=== PATIENT | male | born 1940 | race Caucasian/White ===

== ENCOUNTER 2020-03-19 08:54 | Outpatient (REF) | payer MEDICARE, SELFPAY ==
[2020-03-19 10:38] LABS: MANUAL DIFF FLAG NO
[2020-03-19 10:51] LABS: Basophils Absolute Auto 0.1 X10*3/uL (0.0-0.2); Basophils Percent Auto 0.5 % (0-2); Eosinophils Absolute Auto 0.2 X10*3/uL (0.0-0.4); Eosinophils Percent Auto 1.2 % (0-4); Hematocrit 41.4 % (42-52); Hemoglobin 13.4 g/dl (14.0-18.0); Imm Gran Abs Auto 0.04 X10*3/uL (0.00-0.03); Imm Gran Pct Auto 0.3 % (0.0-0.4); Lymphocytes Absolute Auto 3.8 X10*3/uL (1.2-4.9); Lymphocytes Percent Auto 29.1 % (20-40); Mean Corpuscular HGB Conc 32.4 g/dl (31.0-36.0); Mean Corpuscular Volume 89.6 fL (80-98); Mean Platelet Volume 10.7 fL (9.4-12.4); Monocytes Absolute Auto 0.8 X10*3/uL (0.1-1.2); Neutrophils Absolute Auto 8.3 X10*3/uL (2.0-8.3); Neutrophils Percent Auto 62.9 % (45-73); Platelet Count 294 X10*3/uL (160-400); Red Blood Count 4.62 X10*6/uL (4.60-5.80); Red Cell Distribution Width 14.5 % (11.0-16.0); White Blood Count 13.2 X10*3/uL (4.8-10.8)
[2020-03-19 11:16] LABS: Alanine Aminotransferase 22 U/L (0-40); Albumin Level 4.6 g/dL (3.5-5.0); Alkaline Phosphatase 92 U/L (39-117); Anion Gap 14 (12-20); Aspartate Amino Transferase 20 U/L (5-37); Bilirubin Total 0.6 mg/dL (0.0-1.0); Blood Urea Nitrogen 21 mg/dL (9-16); Calcium 9.3 mg/dL (8.4-10.2); Carbon Dioxide 23 mmol/L (22-29); Chloride 104 mmol/L (96-108); Cholesterol 106 mg/dL; Estimated Glomerular Filt Rate > 60; Glucose Fasting 109 mg/dL (60-99); HDL Cholesterol 51 mg/dL; LDL Cholesterol Calculated 39 mg/dl; Potassium 4.6 mmol/l (3.3-5.1); Sodium 136 mmol/L (135-145); Total Protein 7.1 g/dL (6.5-8.0); Triglycerides 83 mg/dL
[2020-03-19 11:21] LABS: Prostate Specific Antigen 18.23 ng/mL (<0.05-4.0); Vitamin D 25-OH Total 15.9 ng/mL (>30)
== END 2020-03-19 08:55 | disposition home or self-care (01) ==
LOC: HO.LAB 08:54
PROVIDERS: PCP Internal Medicine Medical Oncology; Visit Provider Internal Medicine Medical Oncology
DX: E78.5 Hyperlipidemia, unspecified (principal); I10 Essential (primary) hypertension
CPT/HCPCS: 36415; 80053; 80061; 82306; 84153; 85025

== ENCOUNTER → 2020-04-11 10:45 | Outpatient (BNVA) | payer MEDICARE, SELFPAY | PROVIDERS: PCP Internal Medicine Medical Oncology; Visit Provider Urology | DX: Z76.89 Persons encountering health services in other specified circumstances (principal) | CPT/HCPCS: 99202 ==

== ENCOUNTER 2020-05-06 19:20 | Inpatient (IN) | payer MEDICARE, SELFPAY ==
[2020-05-06] VITALS (7 sets, daily range): BP systolic 105–186; BP diastolic 46–101; PULSE 83–180; RESP 16–18; TEMP 36.9; O2SAT 96–100; BMI 26.1
--- NOTE | 2020-05-06 19:27 | ECG_ITS ---
Test Reason : ALTERED MENTAL Blood Pressure : / mmHG Vent. Rate : 116 BPM Atrial Rate : 116 BPM P-R Int : 154 ms QRS Dur : 100 ms QT Int : 322 ms P-R-T Axes : 060 007 029 degrees QTc Int : 447 ms Sinus tachycardia Nonspecific ST and T wave abnormality Abnormal ECG No previous ECGs available Referred By: Rusty Reid Electronically Signed By:TEDDY FROST MD
--- NOTE | 2020-05-06 19:27 | XR_ITS ---
EXAMINATION: XR CHEST CLINICAL INFORMATION: Fall with chest pain and question of fracture/pneumothorax COMPARISON: None TECHNIQUE: Frontal view of the chest was obtained. FINDINGS: No significant abnormality is noted involving the heart, lungs, mediastinum, bony thorax or soft tissues. No rib fractures or pneumothorax is seen. XR/XR chest 1V IMPRESSION: No acute intrathoracic disease.
--- NOTE | 2020-05-06 19:29 | CT_ITS ---
EXAMINATION: CT HEAD WITHOUT CONTRAST CT CERVICAL SPINE WITHOUT CONTRAST CLINICAL INFORMATION: Fall. Confusion. COMPARISON: CT head 01/24/2018 TECHNIQUE: Imaging was performed from the skull base to vertex without intravenous administration of contrast. In addition, helical noncontrast CT imaging was acquired through the cervical spine and source images were reviewed along with axial reconstructions and sagittal and coronal MPRs. [This CT examination was performed using dose optimization techniques as appropriate, variously including the following: *Automated exposure control *Adjustment of mA and/or kV according to patient size (this includes techniques or standardized protocols for targeted exams where dose is matched to indication/reason for exam; i.e. 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 No acute intracranial abnormality. No intracranial mass, hemorrhage, or midline shift is visualized. There is atrophy with prominence of the ventricles and the sulci and hypodensity of the periventricular white matter due to chronic small vessel ischemic disease. There are vascular calcifications of the internal carotid arteries bilaterally. No extra-axial collections are identified. The paranasal sinuses and mastoid air cells are well aerated. CERVICAL SPINE: There is no evidence of acute cervical spine fracture. Vertebral bodies remain normal in height. Cervical vertebrae have normal alignment. There is advanced multilevel degenerative spondylosis of the cervical spine with disc height narrowing and endplate spurs and facet joint arthrosis There are heavy vascular calcification of the carotid arteries in the soft tissues of the neck bilaterally. Limited assessment of the lung apices is unremarkable. Degenerative changes of the TMJ joints left bilateral, left worse than right. CT/CT cervical spine wo con IMPRESSION: 1. No acute intracranial pathology. 2. No CT evidence of acute cervical spine fracture or traumatic subluxation
--- NOTE | 2020-05-06 19:36 | PC.NURSE ---
pt combative, refusing to communicate, pt pulled off pants and urinated onto bed, cardiac montitor applied sinus tach 116, vitals stable, pt currently alert to self
--- NOTE | 2020-05-06 19:46 | PC.NURSE ---
pt return from ct scan
[2020-05-06 20:29] LABS: Basophils Percent Auto 0.2 % (0-2); Hemoglobin 12.9 g/dl (14.0-18.0); Imm Gran Abs Auto 0.07 X10*3/uL (0.00-0.03); Imm Gran Pct Auto 0.4 % (0.0-0.4); MANUAL DIFF FLAG SCAN; Mean Corpuscular HGB Conc 33.1 g/dl (31.0-36.0); Mean Corpuscular Hemoglobin 29.5 pg (27.0-33.0); Mean Corpuscular Volume 89.2 fL (80-98); Mean Platelet Volume 10.8 fL (9.4-12.4); Monocytes Absolute Auto 0.8 X10*3/uL (0.1-1.2); Monocytes Percent Auto 4.1 % (2-11); Neutrophils Absolute Auto 17.5 X10*3/uL (2.0-8.3); Neutrophils Percent Auto 90.3 % (45-73); Platelet Count 219 X10*3/uL (160-400); Red Blood Count 4.37 X10*6/uL (4.60-5.80); Red Cell Distribution Width 13.8 % (11.0-16.0); SCAN SMEAR FLAG 1; White Blood Count 19.4 X10*3/uL (4.8-10.8)
[2020-05-06] MEDS: 0.9 % Sodium Chloride 1,000 ML 999 ML IVCONT (20:31)
--- NOTE | 2020-05-06 20:32 | PC.NURSE ---
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
[2020-05-06 20:34] LABS: Glucose Urine UA NEG (NEG); Leukocyte Esterase Urine NEG (NEG); Nitrite Urine NEG (NEG); Specific Gravity - Urine >= 1.030 (1.005-1.025); Urine Blood 2+ (NEG); Urine Ketones 15 MG/DL (NEG); Urine Protein NEG (NEG-TRACE)
[2020-05-06 20:36] LABS: Appearance Urine HAZY; Color Urine YELLOW
[2020-05-06 20:48] LABS: Bacteria Urine 1+ /LPF; RBC Urine 0-2 /HPF (0); Uric Acid Crystals Urine 3+ /LPF; WBC Urine 0 /HPF (0-4)
[2020-05-06 20:51] LABS: Lactic Acid 1.8 mmol/L (0.5-2.0); SLIDE REVIEW VERIFIED
[2020-05-06 20:54] LABS: Ethanol < 10 mg/dL
[2020-05-06 20:57] LABS: Alanine Aminotransferase 27 U/L (0-40); Albumin Level 4.4 g/dL (3.5-5.0); Alkaline Phosphatase 82 U/L (39-117); Anion Gap 19 (12-20); Aspartate Amino Transferase 23 U/L (5-37); Bilirubin Total 0.4 mg/dL (0.0-1.0); Blood Urea Nitrogen 17 mg/dL (9-16); Calcium 8.6 mg/dL (8.4-10.2); Carbon Dioxide 18 mmol/L (22-29); Chloride 106 mmol/L (96-108); Creatinine Clr Calc Pharmacy 65.1; Estimated Glomerular Filt Rate > 60; Glucose Random 116 mg/dL (60-115); Lipase 29 U/L (8-78); Potassium 4.4 mmol/l (3.3-5.1); Sodium 139 mmol/L (135-145); Total Protein 6.8 g/dL (6.5-8.0)
[2020-05-06 20:59] LABS: Troponin-I High Sensitivity 15.7 ng/L (<3.5-35.0)
[2020-05-06 21:07] LABS: Amphetamine Screen Urine Not Detected (Not Detect); Barbiturates, Urine Not Detected (Not Detect); Benzodiazepines Screen Urine Not Detected (Not Detect); Cannabinoid Screen Urine POSITIVE (Not Detect); Cocaine Screen Urine Not Detected (Not Detect); Opiate Screen Urine Not Detected (Not Detect); Phencyclidine Screen Urine Not Detected (Not Detect)
[2020-05-06 21:17] LABS: Influenza A PCR NEGATIVE (Negative); Influenza B PCR NEGATIVE (Negative); Resp Syncy Virus RNA Qual PCR NEGATIVE (Negative); SARS COV2 PCR INHOUSE NEGATIVE (Negative)
--- NOTE | 2020-05-06 21:24 | ED.GENADULT ---
HPI - General Adult General Chief complaint: Fall Stated complaint: altered mental status Time Seen by Provider: 05/06/20 19:27 History of Present Illness HPI narrative: 79-year-old male brought into the emergency department by EMS for evaluation of a fall and altered level of consciousness. Paramedics state that the patient fell at home and activated his lifeline. When they arrived at the scene, the patient appeared to be confused. Patient's systolic blood pressure at the scene was 180, pulse was 120, O2 saturation was 100% on room air. The patient was noted to be on Plavix. Point of care glucose was 179. On presentation to the emergency department the patient was oriented to person and place. He knew the month and year as well. He appeared to be agitated and seemed to be picking at objects that were not there. He would answer most questions appropriately but occasionally would appear confused. The patient did tell me that he drinks alcohol daily but in moderation. He could not tell me when he last drank alcohol. He denies headache, nausea, vomiting, fever, chills, chest pain, abdominal pain, painful urination, frequency. Related Data Home Medications Medication Instructions Recorded Confirmed lacosamide 100 mg tablet 100 mg PO BID 04/11/20 sulfamethoxazole 800 1 tab PO BID 04/11/20 mg-trimethoprim 160 mg tablet amlodipine 1 tab PO DAILY 05/06/20 05/06/20 atorvastatin 1 tab PO DAILY 05/06/20 05/06/20 cholecalciferol (vitamin D3) tab PO DAILY 05/06/20 [Vitamin D3] clopidogrel 1 tab PO DAILY 05/06/20 05/06/20 dicyclomine 1 tab PO TID 05/06/20 05/06/20 latanoprost 1 drp OPHTHALMIC (EYE) BEDTIME 05/06/20 05/06/20 lisinopril 1 tab PO BID 05/06/20 05/06/20 tamsulosin 1 cap PO BEDTIME 05/06/20 05/06/20 timolol maleate 1 drp OPHTHALMIC (EYE) BID 05/06/20 05/06/20 Allergies Allergy/AdvReac Type Severity Reaction Status Date / Time No Known Allergies Allergy Verified 04/11/20 11:55 [No Known Allergies*] Review of Systems Review of Systems: Yes all other systems are reviewed and are negative Constitutional: Constitutional: Reports as per HPI Eyes: Eyes: Reports as per HPI ENT: Reports as per HPI Cardiovascular: Cardiovascular: Reports as per HPI Respiratory: Respiratory: Reports as per HPI Gastrointestinal: Gastrointestinal: Reports as per HPI Genitourinary: Genitourinary: Reports as per HPI Musculoskeletal: Musculoskeletal: Reports as per HPI Integumentary/Breasts: Skin/Breast: Reports as per HPI Neurologic: Reports as per HPI, Reports Abnormal speech present and Reports confusion Psychiatric: Psychiatric: Reports as per HPI and Reports confusion Allergic/Immunologic: Allergic/Immunologic: Reports as per HPI [facility] Past Medical History [facility] Narrative: The patient told me that he lives alone, he does drink alcohol daily but in moderation, he denied drug use. He does smoke cigarettes. Medical History High cholesterol HTN (hypertension) Social History Social History Smoking Status: Unknown if ever smoked Advance Directives: No Advance Directives Information Provided: Yes Physical Exam Vital Signs: Vital Signs: Last Vital Signs Temp 98.4 F 05/06/20 19:24 Pulse 97 05/06/20 23:22 Resp 16 05/06/20 23:22 BP 120/53 L 05/06/20 23:22 Pulse Ox 98 05/06/20 23:22 Body Mass Index 26.1 Const: General: no acute distress, well developed, awake, confusion and poor hygiene Orientation/consciousness: oriented to person, oriented to place, oriented to time and confusion HENMT: Head: Yes normal to inspection, Yes normocephalic and Yes atraumatic Face and sinus: Yes normal facial exam Mouth: other (Very dry mucous membranes, very poor dentition) Teeth and gingiva: caries and poor dentition Throat: Yes uvula midline Eyes: General: appearance normal, both eyes and all related structures Eyelids: Yes eyelids normal Sclerae: sclerae normal Pupils: Equal, round and reactive pupils present Neck: Neck: Yes normal visual inspection and Yes other (Tender C-spine) Chest: Chest palpation & inspection: normal inspection of the chest and normal palpation of entire chest wall Resp: Effort & Inspection: normal respiratory effort and able to speak in complete sentences Auscultation: clear to auscultation bilaterally Cardio: Rate: tachycardic Rhythm: regular rhythm Heart sounds: S1 normal heart sound present and S2 normal heart sound present GI: Inspection: Yes normal to inspection Palpation (GI): Soft to palpation, nontender, no guarding and No hepatosplenomegaly present Back/Spine/Pelvis: Thoracic/Lumbar Spine: thoracic and lumbar spine normal to inspection Skin: Lesions: no lesions Rashes: no rashes Neuro: General: oriented to person, oriented to place, oriented to time and confusion Cranial nerves: Yes CN's II-XII intact bilaterally and Yes Equal, round and reactive pupils present Speech: Abnormal speech present Extrem: Right upper extremity: normal to inspection and full ROM Psych: Appearance: disheveled Speech and movement: Normal speech and movement present, Restless speech present and Other speech and movement exam findings present (Psych) (Seems to be picking at objects in the air that are not there) Course Course Course Narrative: 79-year-old male brought to the emergency department by EMS for a fall and confusion at home. On presentation, the patient did have C-spine tenderness with no obvious head injury, he is oriented to person place and time but did appear to be confused and did appear to be picking at objects that were not there, he was also tachycardic. He does drink alcohol but he states that he drinks in moderation but cannot tell me when he last drank. I did order a workup to include CT head, CT C-spine, laboratory evaluation, urine tox screen, alcohol level and urinalysis. 9964:: CT scan of the brain was unremarkable. CT cervical spine revealed no acute fracture. [place] [address], patient's bicarb was low at 18, urine tox screen was positive for marijuana, alcohol was negative. Urinalysis was negative. Lactic acid was not elevated. The patient became more agitated and pulled out his IV. Concerned that the patient may be withdrawing from alcohol. He required chemical restraint with Haldol 5 mg IM and Ativan 2 mg IM. I will discuss the patient's presentation with the covering hospitalist. [id number]: I did discuss the patient's presentation with the covering hospitalist. He was concerned the patient may have meningitis therefore a lumbar puncture was done by me. These results are pending. I did order 2 sets of blood cultures and ceftriaxone 2 g IV. The hospitalist states that he would like to evaluate the patient in the emergency department prior to considering admission. 0007: The patient is COVID-19 and influenza tests were negative. The patient's CSF microscopic revealed a negative Gram stain, CSF glucose was normal with a slight elevation in his CSF protein. CSF cell count is pending. The patient was evaluated by the covering hospitalist and the patient will be admitted to the hospitalist service on the medical floor for further evaluation of altered mental status. Procedures Lumbar Puncture Time Out Performed: Yes Patient Position: left lateral decubitus Skin Prep: Povidone-Iodine 1% Local Anesthetic: lidocaine 1% Amount of anesthesia used (mL): 3 Spinal Needle Gauge: 22G Interspace Used: L4-L5 Fluid Initially Obtained: clear Complications: none Additional Comments: The patient had an altered level of consciousness and was unable to give consent, given the potential for life-threatening illness such as meningitis, implied consent was assumed and the procedure was done without any complications. The patient did tolerate the procedure well. Medical Decision Making Lab Data Result diagrams: 05/06/20 20:09 05/06/20 20:09 Labs: Lab Results 05/06/20 05/06/20 05/06/20 Range/Units 20:09 20:09 20:09 WBC 19.4 H (4.8-10.8) X10*3/uL RBC 4.37 L (4.60-5.80) X10*6/uL Hgb 12.9 L (14.0-18.0) g/dl Hct 39.0 L (42-52) % MCV 89.2 (80-98) fL MCH 29.5 (27.0-33.0) pg MCHC 33.1 (31.0-36.0) g/dl RDW 13.8 (11.0-16.0) % Plt Count 219 D (160-400) X10*3/uL MPV 10.8 (9.4-12.4) fL Immature Gran % (Auto) 0.4 (0.0-0.4) % Neut % (Auto) 90.3 H (45-73) % Lymph % (Auto) 5.0 L (20-40) % Sunflower % (Auto) 4.1 (2-11) % Eos % (Auto) 0.0 (0-4) % Baso % (Auto) 0.2 (0-2) % Lymph # (Auto) 1.0 L (1.2-4.9) X10*3/uL Sunflower # (Auto) 0.8 (0.1-1.2) X10*3/uL Eos # (Auto) 0.0 (0.0-0.4) X10*3/uL Baso # (Auto) 0.0 (0.0-0.2) X10*3/uL Abs Immat Gran (auto) 0.07 H (0.00-0.03) X10*3/uL Absolute Neuts (auto) 17.5 H (2.0-8.3) X10*3/uL Absolute Nucleated RBC 0.000 (0.0-0.012) X10*3/uL Nucleated RBC % (auto) 0.0 (0.0-0.2) /100WBC Smear Tech's Comments VERIFIED PT Cancelled INR Cancelled APTT Cancelled Sodium 139 (135-145) mmol/L Potassium 4.4 (3.3-5.1) mmol/l Chloride 106 (96-108) mmol/L Carbon Dioxide 18 L (22-29) mmol/L Anion Gap 19 (12-20) BUN 17 H (9-16) mg/dL Creatinine 0.89 (0.5-1.4) mg/dL Estim Creat Clear Calc 65.1 Estimated GFR > 60 Random Glucose 116 H (60-115) mg/dL Lactic Acid (0.5-2.0) mmol/L Calcium 8.6 D (8.4-10.2) mg/dL Total Bilirubin 0.4 (0.0-1.0) mg/dL AST 23 (5-37) U/L ALT 27 (0-40) U/L Alkaline Phosphatase 82 (39-117) U/L Troponin I High Sens (<3.5-35.0) ng/L Total Protein 6.8 (6.5-8.0) g/dL Albumin 4.4 (3.5-5.0) g/dL Lipase 29 (8-78) U/L Urine Color Urine Appearance Urine pH (5.0-8.0) Ur Specific [place] (1.005-1.025) Urine Protein (NEG-TRACE) MG/DL Urine Glucose (UA) (NEG) MG/DL Urine Ketones (NEG) MG/DL Urine Blood (NEG) Urine Nitrite (NEG) Ur Leukocyte Esterase (NEG) Urine RBC (0) /HPF Urine WBC (0-4) /HPF Ur Squamous Epith Cells /LPF Uric Acid Crystals /LPF Urine Bacteria /LPF CSF Tube Number CSF Appearance (b) CSF Glucose mg/dL CSF Total Protein (15-45) mg/dL Urine Opiates Screen (Not Detect) Ur Barbiturates Screen (Not Detect) Ur Phencyclidine Scrn (Not Detect) Ur Amphetamines Screen (Not Detect) U Benzodiazepines Scrn (Not Detect) Urine Cocaine Screen (Not Detect) U Marijuana (THC) Screen (Not Detect) Ethyl Alcohol mg/dL Coronavirus (PCR) (Negative) Influenza Type A (PCR) (Negative) Influenza Type B (PCR) (Negative) RSV RNA Qual (PCR) (Negative) 05/06/20 05/06/20 05/06/20 Range/Units 20:09 20:09 20:09 WBC (4.8-10.8) X10*3/uL RBC (4.60-5.80) X10*6/uL Hgb (14.0-18.0) g/dl Hct (42-52) % MCV (80-98) fL MCH (27.0-33.0) pg MCHC (31.0-36.0) g/dl RDW (11.0-16.0) % Plt Count (160-400) X10*3/uL MPV (9.4-12.4) fL Immature Gran % (Auto) (0.0-0.4) % Neut % (Auto) (45-73) % Lymph % (Auto) (20-40) % Sunflower % (Auto) (2-11) % Eos % (Auto) (0-4) % Baso % (Auto) (0-2) % Lymph # (Auto) (1.2-4.9) X10*3/uL Sunflower # (Auto) (0.1-1.2) X10*3/uL Eos # (Auto) (0.0-0.4) X10*3/uL Baso # (Auto) (0.0-0.2) X10*3/uL Abs Immat Gran (auto) (0.00-0.03) X10*3/uL Absolute Neuts (auto) (2.0-8.3) X10*3/uL Absolute Nucleated RBC (0.0-0.012) X10*3/uL Nucleated RBC % (auto) (0.0-0.2) /100WBC Smear Tech's Comments PT INR APTT Sodium (135-145) mmol/L Potassium (3.3-5.1) mmol/l Chloride (96-108) mmol/L Carbon Dioxide (22-29) mmol/L Anion Gap (12-20) BUN (9-16) mg/dL Creatinine (0.5-1.4) mg/dL Estim Creat Clear Calc Estimated GFR Random Glucose (60-115) mg/dL Lactic Acid 1.8 (0.5-2.0) mmol/L Calcium (8.4-10.2) mg/dL Total Bilirubin (0.0-1.0) mg/dL AST (5-37) U/L ALT (0-40) U/L Alkaline Phosphatase (39-117) U/L Troponin I High Sens 15.7 (<3.5-35.0) ng/L Total Protein (6.5-8.0) g/dL Albumin (3.5-5.0) g/dL Lipase (8-78) U/L Urine Color Urine Appearance Urine pH (5.0-8.0) Ur Specific [place] (1.005-1.025) Urine Protein (NEG-TRACE) MG/DL Urine Glucose (UA) (NEG) MG/DL Urine Ketones (NEG) MG/DL Urine Blood (NEG) Urine Nitrite (NEG) Ur Leukocyte Esterase (NEG) Urine RBC (0) /HPF Urine WBC (0-4) /HPF Ur Squamous Epith Cells /LPF Uric Acid Crystals /LPF Urine Bacteria /LPF CSF Tube Number CSF Appearance (b) CSF Glucose mg/dL CSF Total Protein (15-45) mg/dL Urine Opiates Screen (Not Detect) Ur Barbiturates Screen (Not Detect) Ur Phencyclidine Scrn (Not Detect) Ur Amphetamines Screen (Not Detect) U Benzodiazepines Scrn (Not Detect) Urine Cocaine Screen (Not Detect) U Marijuana (THC) Screen (Not Detect) Ethyl Alcohol < 10 mg/dL Coronavirus (PCR) (Negative) Influenza Type A (PCR) (Negative) Influenza Type B (PCR) (Negative) RSV RNA Qual (PCR) (Negative) 05/06/20 05/06/20 05/06/20 Range/Units 20:21 20:21 20:21 WBC (4.8-10.8) X10*3/uL RBC (4.60-5.80) X10*6/uL Hgb (14.0-18.0) g/dl Hct (42-52) % MCV (80-98) fL MCH (27.0-33.0) pg MCHC (31.0-36.0) g/dl RDW (11.0-16.0) % Plt Count (160-400) X10*3/uL MPV (9.4-12.4) fL Immature Gran % (Auto) (0.0-0.4) % Neut % (Auto) (45-73) % Lymph % (Auto) (20-40) % Sunflower % (Auto) (2-11) % Eos % (Auto) (0-4) % Baso % (Auto) (0-2) % Lymph # (Auto) (1.2-4.9) X10*3/uL Sunflower # (Auto) (0.1-1.2) X10*3/uL Eos # (Auto) (0.0-0.4) X10*3/uL Baso # (Auto) (0.0-0.2) X10*3/uL Abs Immat Gran (auto) (0.00-0.03) X10*3/uL Absolute Neuts (auto) (2.0-8.3) X10*3/uL Absolute Nucleated RBC (0.0-0.012) X10*3/uL Nucleated RBC % (auto) (0.0-0.2) /100WBC Smear Tech's Comments PT INR APTT Sodium (135-145) mmol/L Potassium (3.3-5.1) mmol/l Chloride (96-108) mmol/L Carbon Dioxide (22-29) mmol/L Anion Gap (12-20) BUN (9-16) mg/dL Creatinine (0.5-1.4) mg/dL Estim Creat Clear Calc Estimated GFR Random Glucose (60-115) mg/dL Lactic Acid (0.5-2.0) mmol/L Calcium (8.4-10.2) mg/dL Total Bilirubin (0.0-1.0) mg/dL AST (5-37) U/L ALT (0-40) U/L Alkaline Phosphatase (39-117) U/L Troponin I High Sens (<3.5-35.0) ng/L Total Protein (6.5-8.0) g/dL Albumin (3.5-5.0) g/dL Lipase (8-78) U/L Urine Color YELLOW Urine Appearance HAZY Urine pH 5.0 (5.0-8.0) Ur Specific [place] >= 1.030 H (1.005-1.025) Urine Protein NEG (NEG-TRACE) MG/DL Urine Glucose (UA) NEG (NEG) MG/DL Urine Ketones 15 (NEG) MG/DL Urine Blood 2+ H (NEG) Urine Nitrite NEG (NEG) Ur Leukocyte Esterase NEG (NEG) Urine RBC 0-2 (0) /HPF Urine WBC 0 (0-4) /HPF Ur Squamous Epith Cells NONE /LPF Uric Acid Crystals 3+ /LPF Urine Bacteria 1+ /LPF CSF Tube Number CSF Appearance (b) CSF Glucose mg/dL CSF Total Protein (15-45) mg/dL Urine Opiates Screen Not Detected (Not Detect) Ur Barbiturates Screen Not Detected (Not Detect) Ur Phencyclidine Scrn Not Detected (Not Detect) Ur Amphetamines Screen Not Detected (Not Detect) U Benzodiazepines Scrn Not Detected (Not Detect) Urine Cocaine Screen Not Detected (Not Detect) U Marijuana (THC) Screen POSITIVE H (Not Detect) Ethyl Alcohol mg/dL Coronavirus (PCR) NEGATIVE (Negative) Influenza Type A (PCR) NEGATIVE (Negative) Influenza Type B (PCR) NEGATIVE (Negative) RSV RNA Qual (PCR) NEGATIVE (Negative) 05/06/20 05/06/20 Range/Units 22:06 22:42 WBC (4.8-10.8) X10*3/uL RBC (4.60-5.80) X10*6/uL Hgb (14.0-18.0) g/dl Hct (42-52) % MCV (80-98) fL MCH (27.0-33.0) pg MCHC (31.0-36.0) g/dl RDW (11.0-16.0) % Plt Count (160-400) X10*3/uL MPV (9.4-12.4) fL Immature Gran % (Auto) (0.0-0.4) % Neut % (Auto) (45-73) % Lymph % (Auto) (20-40) % Sunflower % (Auto) (2-11) % Eos % (Auto) (0-4) % Baso % (Auto) (0-2) % Lymph # (Auto) (1.2-4.9) X10*3/uL Sunflower # (Auto) (0.1-1.2) X10*3/uL Eos # (Auto) (0.0-0.4) X10*3/uL Baso # (Auto) (0.0-0.2) X10*3/uL Abs Immat Gran (auto) (0.00-0.03) X10*3/uL Absolute Neuts (auto) (2.0-8.3) X10*3/uL Absolute Nucleated RBC (0.0-0.012) X10*3/uL Nucleated RBC % (auto) (0.0-0.2) /100WBC Smear Tech's Comments PT 14.1 H INR 1.2 H APTT 29.7 Sodium (135-145) mmol/L Potassium (3.3-5.1) mmol/l Chloride (96-108) mmol/L Carbon Dioxide (22-29) mmol/L Anion Gap (12-20) BUN (9-16) mg/dL Creatinine (0.5-1.4) mg/dL Estim Creat Clear Calc Estimated GFR Random Glucose (60-115) mg/dL Lactic Acid (0.5-2.0) mmol/L Calcium (8.4-10.2) mg/dL Total Bilirubin (0.0-1.0) mg/dL AST (5-37) U/L ALT (0-40) U/L Alkaline Phosphatase (39-117) U/L Troponin I High Sens (<3.5-35.0) ng/L Total Protein (6.5-8.0) g/dL Albumin (3.5-5.0) g/dL Lipase (8-78) U/L Urine Color Urine Appearance Urine pH (5.0-8.0) Ur Specific [place] (1.005-1.025) Urine Protein (NEG-TRACE) MG/DL Urine Glucose (UA) (NEG) MG/DL Urine Ketones (NEG) MG/DL Urine Blood (NEG) Urine Nitrite (NEG) Ur Leukocyte Esterase (NEG) Urine RBC (0) /HPF Urine WBC (0-4) /HPF Ur Squamous Epith Cells /LPF Uric Acid Crystals /LPF Urine Bacteria /LPF CSF Tube Number 2 CSF Appearance (b) Clear, Colorless CSF Glucose 82 mg/dL CSF Total Protein 48.4 H (15-45) mg/dL Urine Opiates Screen (Not Detect) Ur Barbiturates Screen (Not Detect) Ur Phencyclidine Scrn (Not Detect) Ur Amphetamines Screen (Not Detect) U Benzodiazepines Scrn (Not Detect) Urine Cocaine Screen (Not Detect) U Marijuana (THC) Screen (Not Detect) Ethyl Alcohol mg/dL Coronavirus (PCR) (Negative) Influenza Type A (PCR) (Negative) Influenza Type B (PCR) (Negative) RSV RNA Qual (PCR) (Negative) Discharge Plan Discharge Clinical Impression: Acute alteration in mental status Leukocytosis (leucocytosis) Qualifiers: Leukocytosis type: unspecified Qualified Code(s): D72.829 - Elevated white blood cell count, unspecified Patient Disposition: Admitted As Inpatient
[2020-05-06] MEDS: Haloperidol Lactate 5 MG/ML VIAL IM (21:26)
[2020-05-06] MEDS: LORazepam 2 MG/ML VIAL IM (21:26)
--- NOTE | 2020-05-06 21:29 | PC.NURSE ---
patient is confused/agitated, attempting to climb oob, ripped iv line out, and urinated on floor,attempts to redirect patient were unsuccessful, provider aware and ordered 5 haldol 2mh ativan, patient medicated, charge aware ,will continue to monitor.
--- NOTE | 2020-05-06 22:08 | PC.NURSE ---
iv reinserted to lt f/a, lab drawn, ivf restarted, finishing room supervisor nsr 80s-90s, pt currently sleeping, will continue to monitor.
--- NOTE | 2020-05-06 22:20 | PC.NURSE ---
provider in room with tech to perform lp on patient, patient is currently sleeping, nsr/st on awake overnight monitor, will continue to monitor.
--- NOTE | 2020-05-06 22:21 | PC.NURSE ---
MD AT BEDSIDE FOR LP AT THIS TIME.
[2020-05-06 22:36] LABS: INTERNATIONAL NORM RATIO 1.2 (0.9-1.1); Prothrombin Time 14.1 SEC (10.8-13.0)
[2020-05-06 22:38] LABS: Partial Thromboplastin Time 29.7 SEC (24.1-38.0)
--- NOTE | 2020-05-06 22:47 | PC.NURSE ---
pt tolerated lp well
[2020-05-06 23:06] LABS: CSF Appearance Clear, Colorless
[2020-05-06 23:07] LABS: CSF Tube # 2
[2020-05-06 23:20] LABS: Glucose CSF 82 mg/dL; Total Protein CSF 48.4 mg/dL (15-45)
--- NOTE | 2020-05-06 23:30 | PC.NURSE ---
report taken from beth GUTIERREZ, reports that patient was found on floor at home, life alert activated and ems responded. pt caox1, is moving all extremities and needed chemical restraint ativan 2mg and haldol 5 mg. pt has a #20 in left forearm, pulled a previous iv. pt has completed labs including lactic and culteres. spinal tap performed, head ct, covid swab and urine. wbc 19.4. pt needs to be watched, for safety. pt in bed, wants blanket over his head. pt is a fall risk.
[2020-05-07] VITALS (10 sets, daily range): BP systolic 98–139; BP diastolic 43–67; PULSE 70–92; RESP 18–20; TEMP 36.3–37; O2SAT 95–98
--- NOTE | 2020-05-07 | CT_ITS ---
EXAMINATION: CT ABDOMEN AND PELVIS WITHOUT CONTRAST CLINICAL INFORMATION: Rule out any acute intra-abdominal pathology COMPARISON: None TECHNIQUE: Multidetector volumetric imaging was performed from the superior aspect of the liver through the pubic symphysis. Sagittal and coronal reformatted images were obtained on the technologist's workstation. This CT examination was performed using dose optimization techniques as appropriate, variously including the following: *Automated exposure control *Adjustment of mA and/or kV according to patient size (this includes techniques or standardized protocols for targeted exams where dose is matched to indication/reason for exam; i.e. extremities or head) *Use of iterative reconstruction technique DLP: 1097 mGy-cm FINDINGS: Suboptimal assessment due to patient motion artifact. LUNG BASES: The visualized lung bases are unremarkable. LIVER, GALLBLADDER, AND BILIARY TREE: The liver is normal in size, shape, and attenuation. No focal hepatic lesion or biliary ductal dilatation is identified on this noncontrast exam. Gallbladder appears unremarkable. PANCREAS: Unremarkable. SPLEEN: Unremarkable. ADRENAL GLANDS: Unremarkable. KIDNEYS AND URETERS: The kidneys are normal in size, shape, and attenuation. No hydronephrosis, hydroureter, or calculi seen. BLADDER: Unremarkable. GASTROINTESTINAL TRACT: Small hiatal hernia is noted. Small bowel suture line noted in the right lower quadrant. No evidence of bowel obstruction. No significant bowel wall thickening or pericolonic inflammation is identified. There is colonic diverticulosis. No free fluid or free air is seen. ABDOMINAL WALL: No significant hernia is appreciated. LYMPH NODES: Normal. VASCULAR: There is atherosclerotic calcification along the aorta and iliac arteries. PELVIC VISCERA: Unremarkable. OSSEOUS STRUCTURES: Degenerative changes are noted in the spine. CT/CT abdomen pelvis wo con IMPRESSION: 1. Suboptimal assessment due to patient motion artifact. No acute findings identified. 2. Small hiatal hernia. 3. Colonic diverticulosis.
--- NOTE | 2020-05-07 00:21 | P.HPHOSP_ITS ---
History of Present Illness Date of Service: 05/07/20 Chief Complaint: AMS 80 y/o male with PMHX of HTN, CAD?, HLP, Seizures, IBS and BPH who presented from home after a fall at home. HX provided by the ED attending as patient at present is not communicating. Per ED upon arrival patient was lucid, AAOX3 but with intermittent episodes of confusion and hallucinations, seeing things that were not in the room . It is known that patient leaves alone at home but there is no clear hx if the patient has underlying psychotic disorder in his hx. Upon arrival he is noted to be hemodynamically stable, tachycardic 101 at some point which returned to baseline. With on and off episodes of agitation. CBC showed WBC of 19.4 with left shift. CXR found to be clear. UA clear. LP done which showed clear fluid, rest of the studies in process. Utox positive for Marijuana. No documented hx of alcohol abuse but patient did reported to the ED that daily intake of 1-[address] head negative for any acute intracranial pathology. Patient was given one dose of Rocephin without clear evidence of any underlying infectious process and decision for admission was given. Upon evaluation of the patient at the bedside, og is not cooperative, responds to verbal command only to his name but does not want to engage in any conversation. Physical exam unable to be performed at present given current mental status. PMHX: HTN, HLP, CAD?, IBS, Seizures and BPH PSx: none Toxic habits: Marijuana User, Alcohol drinker, No hx of smoking Review of Systems Review of Systems: Yes Other (unable to be obtained ) Neurologic: Reports as per HPI, Reports Abnormal speech present and Reports confusion Psychiatric: Psychiatric: Reports confusion [facility] Medical History High cholesterol HTN (hypertension) Functional capacity: independent ambulation Family history: reviewed and not pertinent Social History Smoking Status: Unknown if ever smoked Advance Directives: No Advance Directives Information Provided: Yes Meds Allergies Allergy/AdvReac Type Severity Reaction Status Date / Time No Known Allergies Allergy Verified 04/11/20 11:55 [No Known Allergies*] Home Medications Medication Instructions Recorded Confirmed Type lacosamide 100 mg tablet 100 mg PO BID 04/11/20 History sulfamethoxazole 800 1 tab PO BID 04/11/20 History mg-trimethoprim 160 mg tablet amlodipine 1 tab PO DAILY 05/06/20 05/06/20 History atorvastatin 1 tab PO DAILY 05/06/20 05/06/20 History cholecalciferol (vitamin D3) tab PO DAILY 05/06/20 History [Vitamin D3] clopidogrel 1 tab PO DAILY 05/06/20 05/06/20 History dicyclomine 1 tab PO TID 05/06/20 05/06/20 History latanoprost 1 drp OPHTHALMIC (EYE) BEDTIME 05/06/20 05/06/20 History lisinopril 1 tab PO BID 05/06/20 05/06/20 History tamsulosin 1 cap PO BEDTIME 05/06/20 05/06/20 History timolol maleate 1 drp OPHTHALMIC (EYE) BID 05/06/20 05/06/20 History Physical Exam Vital Signs and Narrative: Vital Signs: Last Vital Signs Temp 98.4 F 05/06/20 19:24 Pulse 97 05/06/20 23:22 Resp 16 05/06/20 23:22 BP 120/53 L 05/06/20 23:22 Pulse Ox 98 05/06/20 23:22 Body Mass Index 26.1 Const: General: confusion and other (not cooperative at present. Rest of the exam unable to be obtained) Orientation/consciousness: confusion Neuro: General: confusion Speech: Abnormal speech present Results Labs CBC and Chem 7: 05/06/20 20:09 05/06/20 20:09 Labs: Laboratory Results - last 24 hr 05/06/20 05/06/20 05/06/20 20:09 20:09 20:09 MCV 89.2 MCH 29.5 MCHC 33.1 RDW 13.8 Plt Count 219 D MPV 10.8 Immature Gran % (Auto) 0.4 Neut % (Auto) 90.3 H Lymph % (Auto) 5.0 L Cooper % (Auto) 4.1 Eos % (Auto) 0.0 Baso % (Auto) 0.2 Lymph # (Auto) 1.0 L Cooper # (Auto) 0.8 Eos # (Auto) 0.0 Baso # (Auto) 0.0 Abs Immat Gran (auto) 0.07 H Absolute Neuts (auto) 17.5 H Absolute Nucleated RBC 0.000 Nucleated RBC % (auto) 0.0 Smear Tech's Comments VERIFIED PT Cancelled INR Cancelled APTT Cancelled Anion Gap 19 Estim Creat Clear Calc 65.1 Estimated GFR > 60 Random Glucose 116 H Lactic Acid Calcium 8.6 D Total Bilirubin 0.4 AST 23 ALT 27 Alkaline Phosphatase 82 Troponin I High Sens Total Protein 6.8 Albumin 4.4 Lipase 29 Urine Color Urine Appearance Urine pH Ur Specific [place] Urine Protein Urine Glucose (UA) Urine Ketones Urine Blood Urine Nitrite Ur Leukocyte Esterase Urine RBC Urine WBC Ur Squamous Epith Cells Uric Acid Crystals Urine Bacteria CSF Tube Number CSF Appearance (b) CSF Glucose CSF Total Protein Urine Opiates Screen Ur Barbiturates Screen Ur Phencyclidine Scrn Ur Amphetamines Screen U Benzodiazepines Scrn Urine Cocaine Screen U Marijuana (THC) Screen Ethyl Alcohol Coronavirus (PCR) Influenza Type A (PCR) Influenza Type B (PCR) RSV RNA Qual (PCR) 05/06/20 05/06/20 05/06/20 20:09 20:09 20:09 MCV MCH MCHC RDW Plt Count MPV Immature Gran % (Auto) Neut % (Auto) Lymph % (Auto) Cooper % (Auto) Eos % (Auto) Baso % (Auto) Lymph # (Auto) Cooper # (Auto) Eos # (Auto) Baso # (Auto) Abs Immat Gran (auto) Absolute Neuts (auto) Absolute Nucleated RBC Nucleated RBC % (auto) Smear Tech's Comments PT INR APTT Anion Gap Estim Creat Clear Calc Estimated GFR Random Glucose Lactic Acid 1.8 Calcium Total Bilirubin AST ALT Alkaline Phosphatase Troponin I High Sens 15.7 Total Protein Albumin Lipase Urine Color Urine Appearance Urine pH Ur Specific [place] Urine Protein Urine Glucose (UA) Urine Ketones Urine Blood Urine Nitrite Ur Leukocyte Esterase Urine RBC Urine WBC Ur Squamous Epith Cells Uric Acid Crystals Urine Bacteria CSF Tube Number CSF Appearance (b) CSF Glucose CSF Total Protein Urine Opiates Screen Ur Barbiturates Screen Ur Phencyclidine Scrn Ur Amphetamines Screen U Benzodiazepines Scrn Urine Cocaine Screen U Marijuana (THC) Screen Ethyl Alcohol < 10 Coronavirus (PCR) Influenza Type A (PCR) Influenza Type B (PCR) RSV RNA Qual (PCR) 05/06/20 05/06/20 05/06/20 20:21 20:21 20:21 MCV MCH MCHC RDW Plt Count MPV Immature Gran % (Auto) Neut % (Auto) Lymph % (Auto) Cooper % (Auto) Eos % (Auto) Baso % (Auto) Lymph # (Auto) Cooper # (Auto) Eos # (Auto) Baso # (Auto) Abs Immat Gran (auto) Absolute Neuts (auto) Absolute Nucleated RBC Nucleated RBC % (auto) Smear Tech's Comments PT INR APTT Anion Gap Estim Creat Clear Calc Estimated GFR Random Glucose Lactic Acid Calcium Total Bilirubin AST ALT Alkaline Phosphatase Troponin I High Sens Total Protein Albumin Lipase Urine Color YELLOW Urine Appearance HAZY Urine pH 5.0 Ur Specific [place] >= 1.030 H Urine Protein NEG Urine Glucose (UA) NEG Urine Ketones 15 Urine Blood 2+ H Urine Nitrite NEG Ur Leukocyte Esterase NEG Urine RBC 0-2 Urine WBC 0 Ur Squamous Epith Cells NONE Uric Acid Crystals 3+ Urine Bacteria 1+ CSF Tube Number CSF Appearance (b) CSF Glucose CSF Total Protein Urine Opiates Screen Not Detected Ur Barbiturates Screen Not Detected Ur Phencyclidine Scrn Not Detected Ur Amphetamines Screen Not Detected U Benzodiazepines Scrn Not Detected Urine Cocaine Screen Not Detected U Marijuana (THC) Screen POSITIVE H Ethyl Alcohol Coronavirus (PCR) NEGATIVE Influenza Type A (PCR) NEGATIVE Influenza Type B (PCR) NEGATIVE RSV RNA Qual (PCR) NEGATIVE 05/06/20 05/06/20 22:06 22:42 MCV MCH MCHC RDW Plt Count MPV Immature Gran % (Auto) Neut % (Auto) Lymph % (Auto) Cooper % (Auto) Eos % (Auto) Baso % (Auto) Lymph # (Auto) Cooper # (Auto) Eos # (Auto) Baso # (Auto) Abs Immat Gran (auto) Absolute Neuts (auto) Absolute Nucleated RBC Nucleated RBC % (auto) Smear Tech's Comments PT 14.1 H INR 1.2 H APTT 29.7 Anion Gap Estim Creat Clear Calc Estimated GFR Random Glucose Lactic Acid Calcium Total Bilirubin AST ALT Alkaline Phosphatase Troponin I High Sens Total Protein Albumin Lipase Urine Color Urine Appearance Urine pH Ur Specific [place] Urine Protein Urine Glucose (UA) Urine Ketones Urine Blood Urine Nitrite Ur Leukocyte Esterase Urine RBC Urine WBC Ur Squamous Epith Cells Uric Acid Crystals Urine Bacteria CSF Tube Number 2 CSF Appearance (b) Clear, Colorless CSF Glucose 82 CSF Total Protein 48.4 H Urine Opiates Screen Ur Barbiturates Screen Ur Phencyclidine Scrn Ur Amphetamines Screen U Benzodiazepines Scrn Urine Cocaine Screen U Marijuana (THC) Screen Ethyl Alcohol Coronavirus (PCR) Influenza Type A (PCR) Influenza Type B (PCR) RSV RNA Qual (PCR) Imaging Radiologist's Impressions: Impressions Chest X-Ray 05/06/20 19:27 IMPRESSION: No acute intrathoracic disease. Head CT 05/06/20 19:27 IMPRESSION: 1. No acute intracranial pathology. 2. No CT evidence of acute cervical spine fracture or traumatic subluxation Cervical Spine CT 05/06/20 19:29 IMPRESSION: 1. No acute intracranial pathology. 2. No CT evidence of acute cervical spine fracture or traumatic subluxation Assessment and Plan (1) AMS (altered mental status): Status: Acute WBC of 19.4 with left shift but unknown etiology. R/o acute [employer] infection vs intraabdominal AMS likely secondary to metabolic encephalopathy due to underlying infectious process vs acute psychotic disorder Follow up CT abdomen to r/o any underlying pathology Follow up LP studies. 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 Phenobarbital protocol not started in the ED as there is no evidence of alcohol withdrawal Infectious disease consult in the am Psychiatry consult in the am (2) High cholesterol: Status: Acute continue with statin home dose (3) HTN (hypertension): Status: Acute continue with home BP meds (4) CAD (coronary artery disease): Status: Acute continue with home meds as ordered (5) IBS (irritable bowel syndrome): Status: Acute continue with home meds as ordered (6) Seizures: Status: Acute stable continue with home meds as ordered
[2020-05-07 00:22] LABS: Appearance CSF CLEAR
[2020-05-07 00:23] LABS: CSF Tube # 3; Color CSF COLORLESS; Red Blood Cell CSF 3 MM*3
[2020-05-07 00:31] LABS: CSF Monos 9 %; Neutrophils CSF 91 %; White Blood Cell CSF 1 MM*3
[2020-05-07] MEDS: cefTRIAXone sodium 2 GM in 0.9 % Sodium Chloride 50 ML IV ×2 (00:49→10:52)
[2020-05-07] MEDS: 0.9 % Sodium Chloride 1,000 ML 75 ML IVCONT ×2 (00:52→14:41)
--- NOTE | 2020-05-07 01:00 | PC.NURSE ---
pt cooperative, allowed staff to change linen and place him back on monitor. pt given sips of water, able to swallow but coughing afterwards.
--- NOTE | 2020-05-07 01:45 | PC.NURSE ---
report given to rn on floor, pt ready for transport.
[2020-05-07] MEDS: Ampicillin Sodium 2 GM in 0.9 % Sodium Chloride 100 ML IV ×3 (04:16→12:57)
[2020-05-07 06:32] LABS: MANUAL DIFF FLAG NO
[2020-05-07 06:53] LABS: Basophils Percent Auto 0.2 % (0-2); Eosinophils Percent Auto 0.1 % (0-4); Hematocrit 35.3 % (42-52); Hemoglobin 11.7 g/dl (14.0-18.0); Imm Gran Abs Auto 0.05 X10*3/uL (0.00-0.03); Imm Gran Pct Auto 0.4 % (0.0-0.4); Lymphocytes Absolute Auto 2.4 X10*3/uL (1.2-4.9); Lymphocytes Percent Auto 18.4 % (20-40); Mean Corpuscular HGB Conc 33.1 g/dl (31.0-36.0); Mean Corpuscular Hemoglobin 29.7 pg (27.0-33.0); Mean Corpuscular Volume 89.6 fL (80-98); Mean Platelet Volume 11.1 fL (9.4-12.4); Monocytes Absolute Auto 1.1 X10*3/uL (0.1-1.2); Monocytes Percent Auto 8.8 % (2-11); Neutrophils Absolute Auto 9.3 X10*3/uL (2.0-8.3); Neutrophils Percent Auto 72.1 % (45-73); Platelet Count 203 X10*3/uL (160-400); Red Blood Count 3.94 X10*6/uL (4.60-5.80); White Blood Count 12.9 X10*3/uL (4.8-10.8)
[2020-05-07 07:05] LABS: Anion Gap 13 (12-20); Blood Urea Nitrogen 14 mg/dL (9-16); Calcium 8.3 mg/dL (8.4-10.2); Carbon Dioxide 21 mmol/L (22-29); Chloride 109 mmol/L (96-108); Creatinine Clr Calc Pharmacy 70.3; Estimated Glomerular Filt Rate > 60; Glucose Random 92 mg/dL (60-115); Potassium 3.9 mmol/l (3.3-5.1); Sodium 139 mmol/L (135-145)
--- NOTE | 2020-05-07 09:20 | P.CDIC_ITS ---
CDI Concurrent Query Service Date: 05/07/20 Documentation Clarification: Please clarify if you are treating a proba ble/suspected/likely or confirmed: Sepsis (poa, txt, rule out) Sirs Please specify if known or other etiology Provider Response: Other Other Diagnosis: SIRS PLEASE DO NOT DELETE/MODIFY EXISTING CONTENT Additional information is needed in order to code to the highest accuracy and appropriate Severity of Illness (SOI). Please clarify the information noted below in your progress notes and discharge summary. Risk Factors/Clinical Indicators/Treatments WBC 19.4 HR 101 H & P - WBC of 19.4 w left shift but unknown etiology, AMS likely secondary to metabolic encephalopathy due to underlying infectious process vs acute psychotic do. Follow LP studies. ? Meningitis Rocephin, Vancomycin, Ampicillin ID consult Psychiatry consult ED: Clinical impression - Leukocytosis CDS: Sara Mendez CCS, CDIS Contact Number: [phone] Please Review the information above and exercise your independent professional judgment in responding to the query. If you concur, pleas document in the PROGRESS NOTES and DISCHARGE SUMMARY. If you do not agree with the query, please document in the query above. THIS QUERY IS PART OF THE PERMANENT MEDICAL RECORD
[2020-05-07] MEDS: Dicyclomine HCl 10 MG CAPSULE 20 MG PO ×3 (09:30→19:36)
[2020-05-07] MEDS: lisinopriL 20 MG TABLET PO (09:31)
[2020-05-07] MEDS: Clopidogrel Bisulfate 75 MG TABLET PO (09:31)
[2020-05-07] MEDS: Atorvastatin Calcium 80 MG TABLET PO (09:31)
[2020-05-07] MEDS: amLODIPine Besylate 5 MG TABLET PO (09:31)
--- NOTE | 2020-05-07 10:03 | P.PNIM_ITS ---
Subjective Subjective Date of Service: 05/07/20 Interval History: Seen in f/u for AMS, encephalopathy--Seem more lucid this morning, oriented to self and place, without agitation Review of Systems Gen: no fever Resp: no sob, no cough CV: no chest, no HERNANDEZ, no leg edema GI: No n/v, no abd pain Neuro: +confusion Physical Exam Vital Signs: Vital Signs: Last Vital Signs Temp 98.6 F 05/07/20 07:31 Pulse 92 05/07/20 09:31 Resp 18 05/07/20 07:31 BP 139/67 05/07/20 09:31 Pulse Ox 97 05/07/20 07:31 Body Mass Index 26.1 Const: General: no acute distress and awake Resp: Effort & Inspection: normal respiratory effort Cardio: Heart sounds: S1 normal heart sound present and S2 normal heart sound present GI: Other: normal bowel sound, non tender Skin: Other: no rash Psych: Other: poor judgement, flat affect Objective Data Current Medications Generic Name Dose Route Start Last Admin Trade Name Dominicq PRN Reason Stop Dose Admin Amlodipine Besylate 5 mg 05/07/20 09:00 05/07/20 09:31 Amlodipine Besylate 5 Mg Tablet PO 5 mg DAILY BOLIVAR Administration Protocol Atorvastatin Calcium 80 mg 05/07/20 09:00 05/07/20 09:31 Atorvastatin Calcium 80 Mg Tablet PO 80 mg DAILY BOLIVAR Administration Clopidogrel Bisulfate 75 mg 05/07/20 09:00 05/07/20 09:31 Clopidogrel Bisulfate 75 Mg Tablet PO 75 mg DAILY BOLIVAR Administration Dicyclomine HCl 20 mg 05/07/20 09:00 05/07/20 09:30 Dicyclomine Hcl 10 Mg Capsule PO 20 mg TID BOLIVAR Administration Sodium Chloride 1,000 mls @ 75 mls/hr 05/07/20 00:45 05/07/20 00:52 Ns IVCONT 75 mls/hr .[id number] BOLIVAR Administration Ampicillin Sodium 2 gm/ Sodium 100 mls @ 100 mls/hr 05/07/20 00:45 05/07/20 09:37 Chloride IV 100 mls/hr Q4H BOLIVAR Administration Vancomycin HCl 750 mg/ 275 mls @ 183.333 mls/hr 05/07/20 00:45 Vancomycin HCl 500 mg/ Sodium IV Chloride Q12H BOLIVAR Ceftriaxone Sodium 2 gm/ 50 mls @ 100 mls/hr 05/07/20 10:00 Sodium Chloride IV Q12H [facility] Latanoprost 1 drop 05/07/20 21:00 Latanoprost 0.005 % Ophth Mireille 2.5 Ml Drops EYE-BOTH BEDTIME [facility] Lisinopril 20 mg 05/07/20 09:00 05/07/20 09:31 Lisinopril 20 Mg Tablet PO 20 mg BID [facility] Administration Protocol Pharmacy Consult 1 each 05/07/20 00:11 Consult Rx Perform Med Rec MISCELLANE ONCE PRN Consult order Sodium Chloride 3 ml 05/07/20 08:00 05/07/20 09:30 0.9 % Sodium Chloride Flush 3 Ml Syringe IVFLUSH Not Given QSHIFT BOLIVAR Tamsulosin HCl 0.4 mg 05/07/20 21:00 Tamsulosin Hcl 0.4 Mg Capsule PO BEDTIME [facility] Timolol Maleate 1 drop 05/07/20 09:00 Timolol Maleate 0.5 % Oph Mireille 5 Ml Drbtl EYE-BOTH BID [facility] Labs CBC & Chem 7: 05/07/20 06:15 05/07/20 06:15 Microbiology Microbiology Results: Microbiology 05/06/20 22:42 Cerebrospinal Fluid Gram Stain - Preliminary 05/06/20 22:42 Cerebrospinal Fluid CSF Examination - Preliminary 05/06/20 22:42 Cerebrospinal Fluid Gross Specimen Examination - Preliminary 05/06/20 22:42 Cerebrospinal Fluid CSF Culture - Preliminary Culture in progress. Assessment and Plan (1) Acute alteration in mental status: Status: Acute (2) Leukocytosis (leucocytosis): Status: Acute (3) HTN (hypertension): Status: Acute (4) CAD (coronary artery disease): Status: Acute (5) High cholesterol: Status: Acute Assessment and Plan: 80/m with HTN, HLPD, CAD here with AMS, no fever yet leukocytosis 1. Altered mental status /encephalopathy--etiology unclear at this time -pugh negative with negative covid, negative CSF, negative US, CXR and head CT -check CSF meningencephalitis panel -Neuro, Psych conslt, EEG 2.Leukocytosis--no source of infection, there is no eveidence of meningitis -Has been on Vanco, Ceftriaxone and Unasyn -Stop Abx and discussed with iD -follow cultures 3. HTN--controlled, continue Norvasc and Lisinopril 4. HLD--Lipitor 5. DVT prophylaxis--add Heparin
[2020-05-07] MEDS: Heparin Sodium,Porcine 5,000 UNIT/ML VIAL 5000 UNIT SUBCUT ×2 (10:57→23:11)
--- NOTE | 2020-05-07 11:39 | PC.NURSE ---
Pt timolol maleate unavailable, pharmacy called and med requested.
[2020-05-07] MEDS: vancomycin HCL 1,000 MG in 0.9 % Sodium Chloride 250 ML 270 MG IV (14:41)
--- NOTE | 2020-05-07 14:44 | MHC.CM.PN ---
Addendum entered by Jyoti Hawthorne 05/07/20 14:59: Message left with Trevor Bradshaw CM at [facility] regarding what services pt has through them. Original Note: Met with patient. A7O to person, place and time. Understands he fell at home. Does not think its was a seizure. Had been very confused. States he still feels a bit off. Able to answer questions. Ask CM to contact [facility] about him being at [facility], has services. States he thinks he has a HCP,, but none on file. Active with Dr. Stephon Ventura in [place]. No HCP on file or at MD office. IMM reviewed and signed. Discharge plan home, unsure of needs for services at this time. Will follow for d/c needs.
--- NOTE | 2020-05-07 14:56 | MHC.CM.PN ---
Message left with Trevor Bradshaw CM at [facility] regarding pt being admitted [place] [facility] Pt states he receives some services with them at home. Will call back tomorrow to ascertain what services pt has.
--- NOTE | 2020-05-07 16:08 | W.PM.IDCN ---
History of Present Illness Data of Consult Service Date: 05/07/20 [facility] Provider: Unknown Physician HPI Reason for consult: mental status changes He presents to hospital with fall He fell at home and was found to be confused He had no fever or chills reported LP was done and showed slightly elevated protein and 1 WBC Review of Systems Review of Systems: Yes Unobtainable due to mental condition Neurologic: Reports as per HPI, Reports Abnormal speech present and Reports confusion Psychiatric: Psychiatric: Reports confusion [facility] Past Medical History Medical History High cholesterol HTN (hypertension) Functional capacity: independent ambulation Family History Family history: reviewed and not pertinent Social History Social History Household Members: None Housing: House Smoking Status: Unknown if ever smoked Use of substances other than those prescribed or required for medical reasons: Yes Substance Use Type: Marijuana Substance Use Frequency: Daily Last Used Substance: Unknown Currently Displaying Signs/Symptoms of Drug Intoxication Withdrawal: No Any prior treatment program specific to substance use: No Have you been hit, kicked, punched, or otherwise hurt by someone within the past year? If so, by whom?: No Do you feel safe in your current relationship?: No Current Relationship Is there a partner from a previous relationship who is making you feel unsafe now?: No Are you made to feel afraid or neglected: No Advance Directives: No Advance Directives Information Provided: Yes Advance Directives on File: No Do you have thoughts of harming others: None Do you have a plan to hurt others: No Plan Recently lost weight without trying: Unsure service: No Current occupational status: retired [employer] Allergies Allergy/AdvReac Type Severity Reaction Status Date / Time No Known Allergies Allergy Verified 04/11/20 11:55 [No Known Allergies*] Home Medications Medication Instructions Recorded Confirmed Type lacosamide 100 mg tablet 100 mg PO BID 04/11/20 History sulfamethoxazole 800 1 tab PO BID 04/11/20 History mg-trimethoprim 160 mg tablet amlodipine 1 tab PO DAILY 05/06/20 05/06/20 History atorvastatin 1 tab PO DAILY 05/06/20 05/06/20 History cholecalciferol (vitamin D3) tab PO DAILY 05/06/20 History [Vitamin D3] clopidogrel 1 tab PO DAILY 05/06/20 05/06/20 History dicyclomine 1 tab PO TID 05/06/20 05/06/20 History latanoprost 1 drp OPHTHALMIC (EYE) BEDTIME 05/06/20 05/06/20 History lisinopril 1 tab PO BID 05/06/20 05/06/20 History tamsulosin 1 cap PO BEDTIME 05/06/20 05/06/20 History timolol maleate 1 drp OPHTHALMIC (EYE) BID 05/06/20 05/06/20 History Physical Exam Vital Signs: Vital Signs: Last Vital Signs Temp 98.4 F 05/07/20 11:24 Pulse 70 05/07/20 11:24 Resp 18 05/07/20 11:24 BP 110/54 L 05/07/20 11:24 Pulse Ox 97 05/07/20 11:24 Body Mass Index 26.1 Const: General: confusion Orientation/consciousness: confusion HENMT: Head: Yes normal to inspection Teeth and gingiva: abnormal tooth and associated gingiva and caries Throat: Yes posterior oropharynx normal Eyes: General: appearance normal, both eyes and all related structures Resp: Effort & Inspection: normal respiratory effort Cardio: Rate: regular rate Rhythm: regular rhythm GI: Inspection: Yes normal to inspection Palpation (GI): nontender : General: Yes no CVA tenderness Back/Spine/Pelvis: Back: no CVA tenderness Thoracic/Lumbar Spine: thoracic and lumbar spine normal to inspection Pelvis: no pain with anterior-posterior compression Skin: General skin exam: no rashes or lesions noted Neuro: General: confusion Speech: Abnormal speech present Assessment and Plan (1) Acute alteration in mental status: Status: Resolved Stop antibiotics Treat encephalopathy (2) AMS (altered mental status): Results Labs CBC & Chem 7: 05/08/20 06:18 05/09/20 08:09 Labs: Short CBC 05/06/20 05/07/20 Range/Units 20:09 06:15 WBC 19.4 H 12.9 H (4.8-10.8) X10*3/uL Hgb 12.9 L 11.7 L (14.0-18.0) g/dl Hct 39.0 L 35.3 L (42-52) % Plt Count 219 D 203 (160-400) X10*3/uL BMP 05/06/20 05/07/20 20:09 06:15 Sodium 139 139 Potassium 4.4 3.9 Chloride 106 109 H Carbon Dioxide 18 L 21 L BUN 17 H 14 Creatinine 0.89 0.81 Calcium 8.6 D 8.3 L Liver Function 05/06/20 Range/Units 20:09 Total Bilirubin 0.4 (0.0-1.0) mg/dL AST 23 (5-37) U/L ALT 27 (0-40) U/L Alkaline Phosphatase 82 (39-117) U/L Albumin 4.4 (3.5-5.0) g/dL Urine 05/06/20 Range/Units 20:21 Urine Color YELLOW Urine Appearance HAZY Urine pH 5.0 (5.0-8.0) Ur Specific [place] >= 1.030 H (1.005-1.025) Urine Protein NEG (NEG-TRACE) MG/DL Urine Glucose (UA) NEG (NEG) MG/DL Microbiology Microbiology Results: Microbiology 05/06/20 22:42 Cerebrospinal Fluid Gram Stain - Final 05/06/20 22:42 Cerebrospinal Fluid CSF Examination - Final 05/06/20 22:42 Cerebrospinal Fluid Gross Specimen Examination - Final 05/06/20 22:42 Cerebrospinal Fluid CSF Culture - Preliminary Culture in progress.
[2020-05-07] MEDS: Tamsulosin HCL 0.4 MG CAPSULE PO (19:36)
[2020-05-07] MEDS: timoloL maleate 0.5 % Oph Sol 5 ML DRBTL 1 DROP EYE-BOTH (19:44)
[2020-05-07 23:29] LABS: Vancomycin Trough 10.7 mcg/mL (10.0-20.0)
[2020-05-08] VITALS (8 sets, daily range): BP systolic 125–151; BP diastolic 51–84; PULSE 66–90; RESP 18; TEMP 36.3–37.2; O2SAT 97–99
[2020-05-08] MEDS: 0.9 % Sodium Chloride 1,000 ML 75 ML IVCONT ×2 (03:22→18:38)
[2020-05-08 07:02] LABS: Hematocrit 33.1 % (42-52); Hemoglobin 11.2 g/dl (14.0-18.0); Mean Corpuscular HGB Conc 33.8 g/dl (31.0-36.0); Mean Corpuscular Hemoglobin 30.4 pg (27.0-33.0); Mean Corpuscular Volume 89.9 fL (80-98); Mean Platelet Volume 11.3 fL (9.4-12.4); Platelet Count 187 X10*3/uL (160-400); Red Blood Count 3.68 X10*6/uL (4.60-5.80); White Blood Count 10.2 X10*3/uL (4.8-10.8)
[2020-05-08 07:21] LABS: Anion Gap 13 (12-20); Blood Urea Nitrogen 17 mg/dL (9-16); Calcium 8.3 mg/dL (8.4-10.2); Carbon Dioxide 22 mmol/L (22-29); Chloride 109 mmol/L (96-108); Creatinine Clr Calc Pharmacy 71.2; Estimated Glomerular Filt Rate > 60; Glucose Random 76 mg/dL (60-115); Potassium 4.1 mmol/l (3.3-5.1); Sodium 140 mmol/L (135-145)
--- NOTE | 2020-05-08 09:49 | HO.PM.IMPN ---
Subjective Subjective Date of Service: 05/08/20 Interval History: Seen in f/u for AMS, encephalopathy--Seem more lucid this morning, oriented to self and place. He's still somehow confused and at time psychotic behavior. I attempted to call son to get more stories but not reach him Review of Systems Gen: no fever Resp: no sob, no cough CV: no chest, no HERNANDEZ, no leg edema GI: No n/v, no abd pain Neuro: +confusion Physical Exam Vital Signs: Vital Signs: Last Vital Signs Temp 97.9 F 05/08/20 07:36 Pulse 73 05/08/20 07:36 Resp 18 05/08/20 07:36 BP 142/63 H 05/08/20 07:36 Pulse Ox 98 05/08/20 07:36 Body Mass Index 26.1 Const: General: no acute distress and awake Resp: Effort & Inspection: normal respiratory effort Cardio: Heart sounds: S1 normal heart sound present and S2 normal heart sound present GI: Other: normal bowel sound, non tender Skin: Other: no rash Psych: Other: poor judgement, flat affect Objective Data Current Medications Generic Name Dose Route Start Last Admin Trade Name Dominicq PRN Reason Stop Dose Admin Amlodipine Besylate 5 mg 05/07/20 09:00 05/07/20 09:31 Amlodipine Besylate 5 Mg Tablet PO 5 mg DAILY BOLIVAR Administration Protocol Atorvastatin Calcium 80 mg 05/07/20 09:00 05/07/20 09:31 Atorvastatin Calcium 80 Mg Tablet PO 80 mg DAILY BOLIVAR Administration Clopidogrel Bisulfate 75 mg 05/07/20 09:00 05/07/20 09:31 Clopidogrel Bisulfate 75 Mg Tablet PO 75 mg DAILY BOLIVAR Administration Dicyclomine HCl 20 mg 05/07/20 09:00 05/07/20 19:36 Dicyclomine Hcl 10 Mg Capsule PO 20 mg TID BOLIVAR Administration Heparin Sodium (Porcine) 5,000 unit 05/07/20 11:00 05/07/20 23:11 Heparin Sodium,Porcine 5,000 Unit/Ml Vial SUBCUT 5,000 unit Q12H BOLIVAR Administration Sodium Chloride 1,000 mls @ 75 mls/hr 05/07/20 00:45 05/08/20 03:22 Ns IVCONT 75 mls/hr .[id number] BOLIVAR Administration Latanoprost 1 drop 05/07/20 21:00 05/07/20 19:48 Latanoprost 0.005 % Ophth Mireille 2.5 Ml Drops EYE-BOTH Not Given BEDTIME [facility] Lisinopril 20 mg 05/07/20 09:00 05/07/20 19:37 Lisinopril 20 Mg Tablet PO Not Given BID [facility] Protocol Pharmacy Consult 1 each 05/07/20 00:11 Consult Rx Perform Med Rec MISCELLANE ONCE PRN Consult order Sodium Chloride 3 ml 05/07/20 08:00 05/08/20 07:27 0.9 % Sodium Chloride Flush 3 Ml Syringe IVFLUSH Not Given QSHIFT [facility] Tamsulosin HCl 0.4 mg 05/07/20 21:00 05/07/20 19:36 Tamsulosin Hcl 0.4 Mg Capsule PO 0.4 mg BEDTIME [facility] Administration Timolol Maleate 1 drop 05/07/20 09:00 05/07/20 19:44 Timolol Maleate 0.5 % Oph Mireille 5 Ml Drbtl EYE-BOTH 1 drop BID BOLIVAR Administration Labs CBC & Chem 7: 05/08/20 06:18 05/09/20 08:09 Microbiology Microbiology Results: Microbiology 05/06/20 23:29 Blood - Venous Blood Culture - Preliminary No growth after 24 hours. 05/06/20 23:08 Blood - Venous Blood Culture - Preliminary No growth after 24 hours. 05/06/20 22:42 Cerebrospinal Fluid Gram Stain - Final 05/06/20 22:42 Cerebrospinal Fluid CSF Examination - Final 05/06/20 22:42 Cerebrospinal Fluid Gross Specimen Examination - Final 05/06/20 22:42 Cerebrospinal Fluid CSF Culture - Preliminary Culture in progress. Assessment and Plan (1) Acute alteration in mental status: Status: Acute (2) Leukocytosis (leucocytosis): Status: Acute (3) HTN (hypertension): Status: Acute (4) CAD (coronary artery disease): Status: Acute (5) High cholesterol: Status: Acute Assessment and Plan: 80/m with HTN, HLPD, CAD here with AMS, no fever yet leukocytosis 1. Altered mental status /encephalopathy--etiology unclear at this time -pugh negative with negative covid, negative CSF, negative US, CXR and head CT -check CSF meningencephalitis panel is pending -Neuro, Psych conslt, 2.Leukocytosis--no source of infection, there is no eveidence of meningitis -Has been on Vanco, Ceftriaxone and Unasyn--all DC yesterday per ID recommendation -follow cultures 3. HTN--controlled, continue Norvasc and Lisinopril 4. HLD--Lipitor 5. DVT prophylaxis--add Heparin Will need PT/OT eval for possible placement
--- NOTE | 2020-05-08 10:01 | P.CNNE_ITS ---
History of Present Illness Data of Consult Service Date: 05/08/20 Primary Care Provider: Unknown Physician 80 years old man with underlying history of seizure disorder. He said that this was the case for about a year but he was quite confused and could not tell me who his doctor was and it took a long time to figure out what medicine he was taking. He only detail of seizures. He was admitted hospital with change in mental status confusion and hallucinations and was found to have hematological abnormality with suspicion of infection but no obvious infection was noted. His lumbar puncture reveals slightly high protein level but otherwise no significant abnormality. A noncontrast is convulsion type of activity was noted. Initially he was treated with Rocephin but apparently has been stopped. CSF herpes titer was pending Review of Systems Review of Systems: No recent cold or flu-like illness. Neurologic: Reports as per HPI, Reports Abnormal speech present and Reports c onfusion Psychiatric: Psychiatric: Reports confusion PMFSH Past Medical History Medical History High cholesterol HTN (hypertension) Functional capacity: independent ambulation Family History Family history: reviewed and not pertinent Social History Social History Household Members: None Housing: House Smoking Status: Unknown if ever smoked Use of substances other than those prescribed or required for medical reasons: Yes Substance Use Type: Marijuana Substance Use Frequency: Daily Last Used Substance: Unknown Currently Displaying Signs/Symptoms of Drug Intoxication Withdrawal: No Any prior treatment program specific to substance use: No Have you been hit, kicked, punched, or otherwise hurt by someone within the past year? If so, by whom?: No Do you feel safe in your current relationship?: No Current Relationship Is there a partner from a previous relationship who is making you feel unsafe now?: No Are you made to feel afraid or neglected: No Advance Directives: No Advance Directives Information Provided: Yes Advance Directives on File: No Do you have thoughts of harming others: None Do you have a plan to hurt others: No Plan Recently lost weight without trying: Unsure service: No Current occupational status: retired Meds Allergies Allergy/AdvReac Type Severity Reaction Status Date / Time No Known Allergies Allergy Verified 04/11/20 11:55 [No Known Allergies*] Home Medications Medication Instructions Recorded Confirmed Type lacosamide 100 mg tablet 100 mg PO BID 04/11/20 History sulfamethoxazole 800 1 tab PO BID 04/11/20 History mg-trimethoprim 160 mg tablet amlodipine 1 tab PO DAILY 05/06/20 05/06/20 History atorvastatin 1 tab PO DAILY 05/06/20 05/06/20 History cholecalciferol (vitamin D3) tab PO DAILY 05/06/20 History [Vitamin D3] clopidogrel 1 tab PO DAILY 05/06/20 05/06/20 History dicyclomine 1 tab PO TID 05/06/20 05/06/20 History latanoprost 1 drp OPHTHALMIC (EYE) BEDTIME 05/06/20 05/06/20 History lisinopril 1 tab PO BID 05/06/20 05/06/20 History tamsulosin 1 cap PO BEDTIME 05/06/20 05/06/20 History timolol maleate 1 drp OPHTHALMIC (EYE) BID 05/06/20 05/06/20 History Physical Exam Vital Signs: Vital Signs: Last Vital Signs Temp 97.9 F 05/08/20 07:36 Pulse 73 05/08/20 07:36 Resp 18 05/08/20 07:36 BP 142/63 H 05/08/20 07:36 Pulse Ox 98 05/08/20 07:36 Body Mass Index 26.1 He was alert and awake with slightly decreased spontaneity and fluency of speech and significant difficulty making words and remembering words. He was trying to remember the word Vimpat and stated multiple words before he could come up with that. He also was somewhat agitated restless an inpatient and at times loud. Intermittently he was following commands. There was no obvious nystagmus visual field difficulty focal weakness or any problem with reflexes. 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 Microbiology Microbiology Results: Microbiology 05/06/20 23:29 Blood - Venous Blood Culture - Preliminary No growth after 24 hours. 05/06/20 23:08 Blood - Venous Blood Culture - Preliminary No growth after 24 hours. 05/06/20 22:42 Cerebrospinal Fluid Gram Stain - Final 05/06/20 22:42 Cerebrospinal Fluid CSF Examination - Final 05/06/20 22:42 Cerebrospinal Fluid Gross Specimen Examination - Final 05/06/20 22:42 Cerebrospinal Fluid CSF Culture - Preliminary Culture in progress. Assessment and Plan (1) Encephalopathy: Status: Acute 80 years old man who carried diagnosis of seizure disorder and was taking Vimpat but details were not clear. He was admitted hospital with change in mental status with no obvious etiology or documented seizure-like activity. Initially he was admitted with suspicion of infection but no infection has been confirmed. At this time he was somewhat agitated and had significant difficulty remembering and at times producing words or naming. Etiology of this was unclear. I believe it was reasonable to look for any possibility of encephalitis. At this time I would suggest obtaining an electroencephalogram and an MRI of brain because he likely was very different from his baseline.
[2020-05-08] MEDS: Atorvastatin Calcium 80 MG TABLET PO (10:05)
[2020-05-08] MEDS: Dicyclomine HCl 10 MG CAPSULE 20 MG PO ×3 (10:05→21:03)
[2020-05-08] MEDS: lisinopriL 20 MG TABLET PO ×2 (10:06→21:04)
[2020-05-08] MEDS: amLODIPine Besylate 5 MG TABLET PO (10:06)
[2020-05-08] MEDS: Clopidogrel Bisulfate 75 MG TABLET PO (10:06)
[2020-05-08] MEDS: Heparin Sodium,Porcine 5,000 UNIT/ML VIAL 5000 UNIT SUBCUT ×2 (10:06→23:45)
[2020-05-08] MEDS: timoloL maleate 0.5 % Oph Sol 5 ML DRBTL 1 DROP EYE-BOTH ×2 (10:09→21:04)
--- NOTE | 2020-05-08 14:18 | MHC.CM.PN ---
Met with pt this am. Permission to call daughter, Viktoria, about HCP. Pt names Viktoria as HCP. Pt A&o x3. States he has difficulty finding words and sometimes sees colors. Concerned that there is a communication issue in the medical field. Will call daughter
--- NOTE | 2020-05-08 14:21 | MHC.CM.PN ---
Spoke with Daughter, Viktoria([phone]) who is agreeable to being HCP. Form completed and signed by pt. Copies to pt and mailed to Viktoria ([address] [place], [place] [address]. Viktoria tells CM that this type of episode has happened in the past. That pt has self-weaned his seizure meds and then has episode . Pt verifies that this is true. Spoke with Dr. Brownlee and made aware of this new information. Daughter also shares that her father smokes too much marijuana. Pt also verifies this. Again left messages with Francine Bradshaw at [facility]( [phone]) to discern what services pt has. Spoke with Brayan Clifton at [facility]. 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 Pt has no recollection of this, but EMS reported this. Was incontinent of urine at the time. Dr. Brownlee made aware of above also. Dr. Emily Siddiqui met with pt in CM presence and states this is not a psych issue . D/C plan is home with increased services. May need PT eval. Has 2 children who live in area.
--- NOTE | 2020-05-08 14:34 | MHC.CM.PN ---
IMM reviewed and signed
[2020-05-08] MEDS: Tamsulosin HCL 0.4 MG CAPSULE PO (21:04)
[2020-05-08] MEDS: Latanoprost 0.005 % Ophth Sol 2.5 ML DROPS 1 DROP EYE-BOTH (21:04)
[2020-05-09] VITALS (8 sets, daily range): BP systolic 134–182; BP diastolic 55–78; PULSE 66–96; RESP 14–18; TEMP 36.4–36.7; O2SAT 97–99
[2020-05-09] MEDS: 0.9 % Sodium Chloride 1,000 ML 75 ML IVCONT (07:12)
[2020-05-09 08:56] LABS: Anion Gap 12 (12-20); Blood Urea Nitrogen 11 mg/dL (9-16); Calcium 8.4 mg/dL (8.4-10.2); Carbon Dioxide 24 mmol/L (22-29); Chloride 109 mmol/L (96-108); Creatinine Clr Calc Pharmacy 71.2; Estimated Glomerular Filt Rate > 60; Glucose Random 105 mg/dL (60-115); Sodium 141 mmol/L (135-145)
--- NOTE | 2020-05-09 09:11 | PM.PSYCN ---
History of Present Illness Date of Service: 05/08/20 Chief Complaint: altered mental status Reason for Consult: Rule out Psychosis Requesting physician: Priyank Brownlee Discussed with referring provider: Yes Sources of Information: patient interviewed and chart reviewed HPI Narrative: For details of current illness see medical notes. Individual was alert and oriented. He was articulate and able to give a full account of his situation. He has a history of a seizure disorder, and has been changing some of his medications. His mood was good. He is not anxious. He has no AH or VH, and no delusions. He has no concerns Past Psychiatric History: None Medical Evaluation Reviewed: Yes Personal & Social History: Lives alone Review of Systems Reports as per HPI, Reports Abnormal speech present and Reports confusion Psychiatric: Reports confusion ON LICENSE OF [facility] Medical History High cholesterol HTN (hypertension) Social History: Lives alone Substance History: Denies Diagnostics Vital Signs (24Hr): Vital Signs - 24 hr 05/08/20 10:06 05/08/20 12:00 05/08/20 15:34 Temperature 98.2 F 97.4 F Pulse Rate 73 77 70 Respiratory Rate 18 18 Blood Pressure 142/63 H 141/68 H 150/63 H Pulse Oximetry 98 97 05/08/20 19:39 05/08/20 21:04 05/08/20 23:07 Temperature 98.9 F 98.8 F Pulse Rate 71 90 76 Respiratory Rate 18 18 Blood Pressure 140/74 H 138/84 151/83 H Pulse Oximetry 98 99 05/09/20 04:00 05/09/20 07:22 Temperature 98.1 F Pulse Rate 83 Respiratory Rate 14 18 Blood Pressure 146/78 H Pulse Oximetry 98 Body Mass Index 26.1 Labs Results: 05/08/20 06:18 05/09/20 08:09 Labs: Laboratory Results - last 48 hr 05/07/20 05/08/20 05/08/20 22:42 06:18 06:18 WBC 10.2 RBC 3.68 L Hgb 11.2 L Hct 33.1 L MCV 89.9 MCH 30.4 MCHC 33.8 RDW 14.0 Plt Count 187 MPV 11.3 Absolute Nucleated RBC 0.000 Nucleated RBC % (auto) 0.0 Sodium 140 Potassium 4.1 Chloride 109 H Carbon Dioxide 22 Anion Gap 13 BUN 17 H Creatinine 0.80 Estim Creat Clear Calc 71.2 Estimated GFR > 60 Random Glucose 76 Calcium 8.3 L Vancomycin Trough 10.7 05/09/20 08:09 WBC RBC Hgb Hct MCV MCH MCHC RDW Plt Count MPV Absolute Nucleated RBC Nucleated RBC % (auto) Sodium 141 Potassium 4.0 Chloride 109 H Carbon Dioxide 24 Anion Gap 12 BUN 11 Creatinine 0.80 Estim Creat Clear Calc 71.2 Estimated GFR > 60 Random Glucose 105 D Calcium 8.4 Vancomycin Trough Imaging Radiology Impressions: ITS Impressions Chest X-Ray 05/06/20 19:27 IMPRESSION: No acute intrathoracic disease. Head CT 05/06/20 19:27 IMPRESSION: 1. No acute intracranial pathology. 2. No CT evidence of acute cervical spine fracture or traumatic subluxation Cervical Spine CT 05/06/20 19:29 IMPRESSION: 1. No acute intracranial pathology. 2. No CT evidence of acute cervical spine fracture or traumatic subluxation Abdomen/Pelvis CT 05/07/20 00:00 IMPRESSION: 1. Suboptimal assessment due to patient motion artifact. No acute findings identified. 2. Small hiatal hernia. 3. Colonic diverticulosis. Mental Status Exam Mental Status Exam Patient Appearance: Well Grooomed Patient Orientation: Person, Place, Time and Situation Level of Consciousness: Awake Patient Behavior: Appropriate Mood Description: Calm Affect Description: Calm Ability to Follow Directions: Excellent Speech Pattern: Clear Memory Description: Intact Delusions: Not Present Thought Process: Intact Thought Content: positive for Intact Judgement: Fair Medications Medications Current Medications Generic Name Dose Route Start Last Admin Trade Name Freq PRN Reason Stop Dose Admin Amlodipine Besylate 5 mg 05/07/20 09:00 05/08/20 10:06 Amlodipine Besylate 5 Mg Tablet PO 5 mg DAILY BOLIVAR Administration Protocol Atorvastatin Calcium 80 mg 05/07/20 09:00 05/08/20 10:05 Atorvastatin Calcium 80 Mg Tablet PO 80 mg DAILY BOLIVAR Administration Clopidogrel Bisulfate 75 mg 05/07/20 09:00 05/08/20 10:06 Clopidogrel Bisulfate 75 Mg Tablet PO 75 mg DAILY BOLIVAR Administration Dicyclomine HCl 20 mg 05/07/20 09:00 05/08/20 21:03 Dicyclomine Hcl 10 Mg Capsule PO 20 mg TID BOLIVAR Administration Heparin Sodium (Porcine) 5,000 unit 05/07/20 11:00 05/08/20 23:45 Heparin Sodium,Porcine 5,000 Unit/Ml Vial SUBCUT 5,000 unit Q12H BOLIVAR Administration Sodium Chloride 1,000 mls @ 75 mls/hr 05/07/20 00:45 05/09/20 07:12 Ns IVCONT 75 mls/hr .[id number] BOLIVAR Administration Latanoprost 1 drop 05/07/20 21:00 05/08/20 21:04 Latanoprost 0.005 % Ophth Mireille 2.5 Ml Drops EYE-BOTH 1 drop BEDTIME BOLIVAR Administration Lisinopril 20 mg 05/07/20 09:00 05/08/20 21:04 Lisinopril 20 Mg Tablet PO 20 mg BID BOLIVAR Administration Protocol Pharmacy Consult 1 each 05/07/20 00:11 Consult Rx Perform Med Rec MISCELLANE ONCE PRN Consult order Sodium Chloride 3 ml 05/07/20 08:00 05/09/20 07:13 0.9 % Sodium Chloride Flush 3 Ml Syringe IVFLUSH Not Given QSHIFT BOLIVAR Tamsulosin HCl 0.4 mg 05/07/20 21:00 05/08/20 21:04 Tamsulosin Hcl 0.4 Mg Capsule PO 0.4 mg BEDTIME [facility]AR Administration Timolol Maleate 1 drop 05/07/20 09:00 05/08/20 21:04 Timolol Maleate 0.5 % Oph Mireille 5 Ml Drbtl EYE-BOTH 1 drop BID BOLIVAR Administration Allergies Allergies Allergy/AdvReac Type Severity Reaction Status Date / Time No Known Allergies Allergy Verified 04/11/20 11:55 [No Known Allergies*] Assessment & Plan Assessment & Plan (1) Encephalopathy: Status: Acute Code(s): G93.40 - Encephalopathy, unspecified (2) Acute alteration in mental status: Status: Acute Code(s): R41.82 - Altered mental status, unspecified Recommendations: There is no evidence of any psychiatric illness Greater than 50% of the session was spent on counseling and/or coordination of care Patient educated on: diagnosis Informed Consent: understands
[2020-05-09] MEDS: amLODIPine Besylate 5 MG TABLET PO (09:43)
[2020-05-09] MEDS: Atorvastatin Calcium 80 MG TABLET PO (09:43)
[2020-05-09] MEDS: Dicyclomine HCl 10 MG CAPSULE 20 MG PO ×3 (09:43→22:23)
[2020-05-09] MEDS: Clopidogrel Bisulfate 75 MG TABLET PO (09:43)
[2020-05-09] MEDS: lisinopriL 20 MG TABLET PO ×2 (09:43→22:15)
[2020-05-09] MEDS: Heparin Sodium,Porcine 5,000 UNIT/ML VIAL 5000 UNIT SUBCUT ×2 (09:44→22:16)
[2020-05-09] MEDS: timoloL maleate 0.5 % Oph Sol 5 ML DRBTL 1 DROP EYE-BOTH ×2 (09:44→22:21)
[2020-05-09] MEDS: 0.9 % Sodium Chloride Flush 3 ML SYRINGE IVFLUSH ×2 (15:32→22:17)
--- NOTE | 2020-05-09 15:52 | MHC.CM.PN ---
Met with patient. Pleasant and cooperative. PT and OT evals completed. Do not recommend services. Possible d/c today. Spoke with daughter, Viktoria(HCP, ). regarding possible d/c home. Daughter concerned about cleanliness of home, stating that 1 year ago it was very unsanitary and there were boxes everywhere, mold, and mouse droppings. She has not been there in over a year. CM will speak with [facility], who provide services in home to ascertain living situation.
--- NOTE | 2020-05-09 15:56 | MHC.CM.PN ---
CM spoke with Francine Bradshaw CM, [facility] about conversation with daughter and pt current living situation. Per Francine, the house is organized messy, but not unsanitary and there is no odor in the home. She states that the apartment is a studio, and very small, but pt has his things very organized. She has no concerns. Will speak with pt regarding possibly increasing his services to better help him
--- NOTE | 2020-05-09 15:59 | MHC.CM.PN ---
Spoke with [facility] pharmacy inregards to patients medication list, at request of Dr. Brownlee. Dr. Brownlee was requesting dosage on VIMPAT. Per Pharmacist pt takes VIMPAT [address] Brownlee aware
[2020-05-09] MEDS: Lacosamide 100 MG TABLET PO ×2 (16:41→22:15)
[2020-05-09] MEDS: Tamsulosin HCL 0.4 MG CAPSULE PO (22:15)
[2020-05-09] MEDS: Latanoprost 0.005 % Ophth Sol 2.5 ML DROPS 1 DROP EYE-BOTH (22:57)
[2020-05-10] VITALS: BP 152/73; PULSE 63; RESP 16; TEMP 37.1; O2SAT 99
[2020-05-10 04:00] VITALS: BP 137/61; PULSE 58; RESP 14; TEMP 36.6; O2SAT 98
[2020-05-10 07:26] VITALS: BP 135/67; PULSE 71; RESP 18; TEMP 36.4; O2SAT 98
[2020-05-10] MEDS: amLODIPine Besylate 5 MG TABLET PO (07:38)
[2020-05-10] MEDS: Clopidogrel Bisulfate 75 MG TABLET PO (07:38)
[2020-05-10] MEDS: Dicyclomine HCl 10 MG CAPSULE 20 MG PO (07:38)
[2020-05-10] MEDS: Atorvastatin Calcium 80 MG TABLET PO (07:39)
[2020-05-10] MEDS: Lacosamide 100 MG TABLET PO (07:39)
[2020-05-10] MEDS: lisinopriL 20 MG TABLET PO (07:39)
[2020-05-10] MEDS: 0.9 % Sodium Chloride Flush 3 ML SYRINGE IVFLUSH (07:39)
[2020-05-10] MEDS: timoloL maleate 0.5 % Oph Sol 5 ML DRBTL 1 DROP EYE-BOTH (07:40)
--- NOTE | 2020-05-10 10:12 | PM.DS ---
DS: Providers Provider Date of admission: 05/07/20 00:15 Primary care physician: Mishel Physician Consults: 05/07/20 00:17 Consult to Psychiatry Routine Consulting Provider: Psych Covering Reason for consultation: r/o underlying psychotic disorder Has provider been notified: No 05/07/20 00:37 Consult to Infectious Diseases Routine Consulting Provider: Ailyn Mayer Reason for consultation: AMS r/o meningitis Has provider been notified: No 05/07/20 10:16 Consult to Neurology Routine Consulting Provider: [facility] Reason for consultation: confusion, ? seizure 05/08/20 07:13 Consult to Psychiatry Routine Consulting Provider: Cecelia Jimenez Reason for consultation: Psychotic behaviors Has provider been notified: No 05/08/20 09:48 Consult to Neurology Routine Consulting Provider: [facility] Reason for consultation: AMS and ? seizure DS: Diagnosis Discharge Diagnosis (1) Acute alteration in mental status: Status: Resolved (2) Leukocytosis (leucocytosis): Status: Resolved (3) HTN (hypertension): (4) CAD (coronary artery disease): (5) High cholesterol: DS: Medications Discharge Medications Home Medications: Home Medications Medication Instructions Recorded Confirmed lacosamide 100 mg tablet 100 mg PO BID 04/11/20 sulfamethoxazole 800 1 tab PO BID 04/11/20 mg-trimethoprim 160 mg tablet amlodipine 1 tab PO DAILY 05/06/20 05/06/20 atorvastatin 1 tab PO DAILY 05/06/20 05/06/20 cholecalciferol (vitamin D3) tab PO DAILY 05/06/20 [Vitamin D3] clopidogrel 1 tab PO DAILY 05/06/20 05/06/20 dicyclomine 1 tab PO TID 05/06/20 05/06/20 latanoprost 1 drp OPHTHALMIC (EYE) BEDTIME 05/06/20 05/06/20 lisinopril 1 tab PO BID 05/06/20 05/06/20 tamsulosin 1 cap PO BEDTIME 05/06/20 05/06/20 timolol maleate 1 drp OPHTHALMIC (EYE) BID 05/06/20 05/06/20 DS: Summary Hospital Course Hospital Course: HPI from admission 80 y/o male with PMHX of HTN, CAD?, HLP, Seizures, IBS and BPH who presented from home after a fall at home. HX provided by the ED attending as patient at present is not communicating. Per ED upon arrival patient was lucid, AAOX3 but with intermittent episodes of confusion and hallucinations, seeing things that were not in the room . It is known that patient leaves alone at home but there is no clear hx if the patient has underlying psychotic disorder in his hx. Upon arrival he is noted to be hemodynamically stable, tachycardic 101 at some point which returned to baseline. With on and off episodes of agitation. CBC showed WBC of 19.4 with left shift. CXR found to be clear. UA clear. LP done which showed clear fluid, rest of the studies in process. Utox positive for Marijuana. No documented hx of alcohol abuse but patient did reported to the ED that daily intake of 1-[address] head negative for any acute intracranial pathology. LP was essentially negative. Hospital course: 80/m with HTN, HLPD, CAD here with AMS, no fever yet leukocytosis and has not been taken his seizure meds as prescribed. 1. Altered mental status due to seizure. work was negative including head CT, neuro and Psych eval. Aparently he has not been taking his seizure medications as recommended and brice stated that he has had similar presentation in the past. Ultimately he cleared up and is now lucid, medication are been restarted at home dose, including the Vimpat and he is advised to take them as recommended 2.Leukocytosis--no source of infection, there is no eveidence of meningitis-Has been on Vanco, Ceftriaxone and Unasyn--all DC per ID recommendation. Cultures have been negative, leukocytosis is likely reactive and has resolved 3. HTN--controlled, continue Norvasc and Lisinopril 4. HLD--Lipitor Time Spent with Patient Time attestation: Total time spent providing and/or coordinating discharge services: Physical Exam Vital Signs: Vital Signs: Last Vital Signs Temp 97.5 F 05/10/20 07:26 Pulse 71 05/10/20 07:26 Resp 18 05/10/20 07:26 BP 135/67 05/10/20 07:26 Pulse Ox 98 05/10/20 07:26 Body Mass Index 26.1 General: AO X 3, no acute distress Resp: CTA bilateral CVS: S1,S2,RRR GI: +BS, NT, no distention Skin: No rash Neuro: motor grossly intact Psych: appropriate affect DS: Data Data Completed and Pending Labs on day of discharge: 05/06/20 19:27 ECG 12 lead EKG Stat EKG Documentation DIRECTED CT head/brain wo con Stat XR chest 1V Stat 05/06/20 19:29 CT cervical spine wo con Stat 05/06/20 19:30 0.9 % Sodium Chloride [Ns] 1,000 ml IVCONT 999 mls/hr 05/06/20 20:09 Complete Blood Count Auto Diff Stat Comprehensive Met. Panel Stat Ethanol Stat Lactic Acid Stat Lipase Stat SLIDE REVIEW Stat Troponin-I High Sensitivity Stat 05/06/20 20:21 Drug Screen Urine Stat SARS-CoV2/FLU/RSV Stat 05/06/20 21:18 Haloperidol Lactate [Haldol] 5 mg IM STAT STA LORazepam [Ativan] 2 mg IM STAT STA 05/06/20 21:23 Haloperidol Lactate [Haldol] 5 mg .ROUTE .STK-MED ONE LORazepam [Ativan] 2 mg .ROUTE .STK-MED ONE 05/06/20 22:06 PT with INR [Prothrombin Time INR] Stat Partial Thromboplastin Time Stat 05/06/20 22:34 cefTRIAXone sodium [Rocephin] 2 gm 0.9 % Sodium Chloride [Ns] 50 ml IV ONCE 05/06/20 22:42 CSF Cell Count w Diff Stat CSF Glucose Stat CSF Total Protein Stat CSF Culture + Gram stain Stat 05/07/20 CT abdomen pelvis wo con Stat 05/07/20 00:40 cefTRIAXone sodium [Rocephin] 2 gm .ROUTE .STK-MED ONE 05/07/20 00:42 Transfer Order Routine 05/07/20 00:45 0.9 % Sodium Chloride [Ns] 1,000 ml IVCONT 75 mls/hr Ampicillin Sodium 2 gm 0.9 % Sodium Chloride [Ns] 100 ml IV Q4H vancomycin HCL 750 mg vancomycin HCL 500 mg 0.9 % Sodium Chloride [Ns] 250 ml IV Q12H 05/07/20 01:00 vancomycin HCL 750 mg vancomycin HCL 500 mg 0.9 % Sodium Chloride [Ns] 250 ml IV ONCE 05/07/20 01:49 vancomycin HCL 500 mg IV .STK-MED ONE vancomycin HCL 750 mg IV .STK-MED ONE 05/07/20 04:11 Ampicillin Sodium 2 gm .ROUTE .STK-MED ONE 05/07/20 06:15 Basic Metabolic Panel Routine Complete Blood Count Auto Diff Routine 05/07/20 09:24 Ampicillin Sodium 2 gm .ROUTE .[facility] ONE 05/07/20 10:00 cefTRIAXone sodium [Rocephin] 2 gm 0.9 % Sodium Chloride [Ns] 50 ml IV Q12H 05/07/20 10:47 cefTRIAXone sodium [Rocephin] 2 gm .ROUTE .[facility] ONE 05/07/20 12:54 Ampicillin Sodium 2 gm .ROUTE .[facility] ONE 05/07/20 14:00 vancomycin HCL 1,000 mg 0.9 % Sodium Chloride [Ns] 250 ml IV Q12H 05/07/20 14:20 vancomycin HCL 1,000 mg .ROUTE .[facility] 05/07/20 22:42 Vancomycin Trough Stat 05/08/20 06:18 Basic Metabolic Panel DAILY@0600 Complete Blood Count no Diff DAILY@0600 05/09/20 08:09 Basic Metabolic Panel Routine Laboratory Last Values WBC 10.2 X10*3/uL (4.8-10.8) 05/08/20 06:18 RBC 3.68 X10*6/uL (4.60-5.80) L 05/08/20 06:18 Hgb 11.2 g/dl (14.0-18.0) L 05/08/20 06:18 Hct 33.1 % (42-52) L 05/08/20 06:18 MCV 89.9 fL (80-98) 05/08/20 06:18 MCH 30.4 pg (27.0-33.0) 05/08/20 06:18 MCHC 33.8 g/dl (31.0-36.0) 05/08/20 06:18 RDW 14.0 % (11.0-16.0) 05/08/20 06:18 Plt Count 187 X10*3/uL (160-400) 05/08/20 06:18 MPV 11.3 fL (9.4-12.4) 05/08/20 06:18 Immature Gran % (Auto) 0.4 % (0.0-0.4) 05/07/20 06:15 Neut % (Auto) 72.1 % (45-73) 05/07/20 06:15 Lymph % (Auto) 18.4 % (20-40) L 05/07/20 06:15 Kay % (Auto) 8.8 % (2-11) 05/07/20 06:15 Eos % (Auto) 0.1 % (0-4) 05/07/20 06:15 Baso % (Auto) 0.2 % (0-2) 05/07/20 06:15 Lymph # (Auto) 2.4 X10*3/uL (1.2-4.9) 05/07/20 06:15 Kay # (Auto) 1.1 X10*3/uL (0.1-1.2) 05/07/20 06:15 Eos # (Auto) 0.0 X10*3/uL (0.0-0.4) 05/07/20 06:15 Baso # (Auto) 0.0 X10*3/uL (0.0-0.2) 05/07/20 06:15 Abs Immat Gran (auto) 0.05 X10*3/uL (0.00-0.03) H 05/07/20 06:15 Absolute Neuts (auto) 9.3 X10*3/uL (2.0-8.3) H 05/07/20 06:15 Absolute Nucleated RBC 0.000 X10*3/uL (0.0-0.012) 05/08/20 06:18 Nucleated RBC % (auto) 0.0 /100WBC (0.0-0.2) 05/08/20 06:18 Smear Tech's Comments VERIFIED 05/06/20 20:09 PT 14.1 SEC (10.8-13.0) H 05/06/20 22:06 INR 1.2 (0.9-1.1) H 05/06/20 22:06 APTT 29.7 SEC (24.1-38.0) 05/06/20 22:06 Sodium 141 mmol/L (135-145) 05/09/20 08:09 Potassium 4.0 mmol/l (3.3-5.1) 05/09/20 08:09 Chloride 109 mmol/L (96-108) H 05/09/20 08:09 Carbon Dioxide 24 mmol/L (22-29) 05/09/20 08:09 Anion Gap 12 (12-20) 05/09/20 08:09 BUN 11 mg/dL (9-16) 05/09/20 08:09 Creatinine 0.80 mg/dL (0.5-1.4) 05/09/20 08:09 Estim Creat Clear Calc 71.2 05/09/20 08:09 Estimated GFR > 60 05/09/20 08:09 Random Glucose 105 mg/dL (60-115) D 05/09/20 08:09 Lactic Acid 1.8 mmol/L (0.5-2.0) 05/06/20 20:09 Calcium 8.4 mg/dL (8.4-10.2) 05/09/20 08:09 Total Bilirubin 0.4 mg/dL (0.0-1.0) 05/06/20 20:09 AST 23 U/L (5-37) 05/06/20 20:09 ALT 27 U/L (0-40) 05/06/20 20:09 Alkaline Phosphatase 82 U/L (39-117) 05/06/20 20:09 Troponin I High Sens 15.7 ng/L (<3.5-35.0) 05/06/20 20:09 Total Protein 6.8 g/dL (6.5-8.0) 05/06/20 20:09 Albumin 4.4 g/dL (3.5-5.0) 05/06/20 20:09 Lipase 29 U/L (8-78) 05/06/20 20:09 Urine Color YELLOW 05/06/20 20:21 Urine Appearance HAZY 05/06/20 20:21 Urine pH 5.0 (5.0-8.0) 05/06/20 20:21 Ur Specific [place] >= 1.030 (1.005-1.025) H 05/06/20 20:21 Urine Protein NEG MG/DL (NEG-TRACE) 05/06/20 20:21 Urine Glucose (UA) NEG MG/DL (NEG) 05/06/20 20:21 Urine Ketones 15 MG/DL (NEG) 05/06/20 20:21 Urine Blood 2+ (NEG) H 05/06/20 20:21 Urine Nitrite NEG (NEG) 05/06/20 20:21 Ur Leukocyte Esterase NEG (NEG) 05/06/20 20:21 Urine RBC 0-2 /HPF (0) 05/06/20 20:21 Urine WBC 0 /HPF (0-4) 05/06/20 20:21 Ur Squamous Epith Cells NONE /LPF 05/06/20 20:21 Uric Acid Crystals 3+ /LPF 05/06/20 20:21 Urine Bacteria 1+ /LPF 05/06/20 20:21 CSF Tube Number 2 05/06/20 22:42 CSF Tube Number 3 05/06/20 22:42 CSF Volume 3.0 ML 05/06/20 22:42 CSF Appearance CLEAR 05/06/20 22:42 CSF Color COLORLESS 05/06/20 22:42 CSF WBC 1 MM*3 05/06/20 22:42 CSF RBC 3 MM*3 05/06/20 22:42 CSF Neutrophils 91 % 05/06/20 22:42 CSF Monocytes % 9 % 05/06/20 22:42 CSF Appearance (b) Clear, Colorless 05/06/20 22:42 CSF Glucose 82 mg/dL 05/06/20 22:42 CSF Total Protein 48.4 mg/dL (15-45) H 05/06/20 22:42 Vancomycin Trough 10.7 mcg/mL (10.0-20.0) 05/07/20 22:42 Urine Opiates Screen Not Detected (Not Detect) 05/06/20 20:21 Ur Barbiturates Screen Not Detected (Not Detect) 05/06/20 20:21 Ur Phencyclidine Scrn Not Detected (Not Detect) 05/06/20 20:21 Ur Amphetamines Screen Not Detected (Not Detect) 05/06/20 20:21 U Benzodiazepines Scrn Not Detected (Not Detect) 05/06/20 20:21 Urine Cocaine Screen Not Detected (Not Detect) 05/06/20 20:21 U Marijuana (THC) Screen POSITIVE (Not Detect) H 05/06/20 20:21 Ethyl Alcohol < 10 mg/dL 05/06/20 20:09 Coronavirus (PCR) NEGATIVE (Negative) 05/06/20 20:21 Influenza Type A (PCR) NEGATIVE (Negative) 05/06/20 20:21 Influenza Type B (PCR) NEGATIVE (Negative) 05/06/20 20:21 RSV RNA Qual (PCR) NEGATIVE (Negative) 05/06/20 20:21 Preliminary micro results at discharge 05/06/20 23:29 Blood Culture - Preliminary Blood - Venous No growth after 48 hours. 05/06/20 23:08 Blood Culture - Preliminary Blood - Venous No growth after 48 hours. Discharge Plan Discharge Anticipated Discharge Date/Time: 05/10/20 10:08 Patient Disposition: Home, Self-Care Referrals: Stephon Ventura MD [Physician] - 1 Week (Pt states this is his PCP. Follow up in one week) Physician,Unknown [Primary Care Provider] - (PCP is Stephon Ventura) Discharge Medications: Continued latanoprost 0.005 % drops 1 drp ophthalmic (eye) BEDTIME RF: 0 atorvastatin 80 mg tablet 1 tab PO DAILY RF: 0 lisinopril 20 mg tablet 1 tab PO BID RF: 0 clopidogrel 75 mg tablet 1 tab PO DAILY RF: 0 amlodipine 5 mg tablet 1 tab PO DAILY RF: 0 tamsulosin 0.4 mg capsule 1 cap PO BEDTIME RF: 0 dicyclomine 20 mg tablet 1 tab PO TID RF: 0 timolol maleate 0.5 % drops 1 drp ophthalmic (eye) BID RF: 0 cholecalciferol (vitamin D3) [Vitamin D3] 25 mcg (1,000 unit) tablet PO DAILY RF: 0 lacosamide 100 mg tablet 100 mg PO BID RF: 0 sulfamethoxazole-trimethoprim 800-160 mg tablet 1 tab PO BID RF: 0 Discharge Orders: Discharge Order (Routine); Ordered 05/10/20 Ordered By: Priyank Brownlee Diet: advance to usual diet Activity on Discharge: As tolerated Discharge Date/Time: 05/10/20 12:03 Visit Report Forms: Patient Portal Discharge page Care Plan Goals: Preventing rehospitalization, and recurring seizures. Health Concerns: Take medications as recommended. Plan of Treatment: Take all your medications as recommended and follow up with her primary care doctor within a week done change the medication in any way shape or form unless she talked to her doctor about it
[2020-05-10] MEDS: Heparin Sodium,Porcine 5,000 UNIT/ML VIAL 5000 UNIT SUBCUT (10:20)
--- NOTE | 2020-05-10 11:03 | MHC.CM.PN ---
Pt D/C to home today. Very happy about DC. Viktoria (daughter [phone]) aware and is making arrangements for transportation. Will call back with time. [facility] aware
--- NOTE | 2020-05-10 11:20 | MHC.CM.PN ---
Son to miner pick pt at 11:40. RN aware.
[2020-05-10 14:28] LABS: HSV 1 DNA, CSF Not Detected (Not Detected); HSV 2 DNA, CSF Not Detected (Not Detected); Specimen Source CSF
== END 2020-05-10 12:03 | disposition home or self-care (01) | DRG 101 ==
LOC: HO.ED 05-07 00:09 → HO.S3 05-07 01:04
PROVIDERS: Admitting Provider Internal Medicine; Emergency Provider Emergency Medicine Emergency Medical Services; Visit Provider Internal Medicine
DX: G40.909 Epilepsy, unspecified, not intractable, without status epilepticus (principal); R65.10 Systemic inflammatory response syndrome (SIRS) of non-infectious origin without acute organ dysfunction; D72.829 Elevated white blood cell count, unspecified; T42.76XA Underdosing of unspecified antiepileptic and sedative-hypnotic drugs, initial encounter; Y92.9 Unspecified place or not applicable; N40.0 Benign prostatic hyperplasia without lower urinary tract symptoms; I25.10 Atherosclerotic heart disease of native coronary artery without angina pectoris; I10 Essential (primary) hypertension; E78.5 Hyperlipidemia, unspecified; K58.9 Irritable bowel syndrome, unspecified; Z20.828 Contact with and (suspected) exposure to other viral communicable diseases; Z79.02 Long term (current) use of antithrombotics/antiplatelets; Z79.899 Other long term (current) drug therapy
CPT/HCPCS: 0241U; 36415; 70450; 71045; 72125; 74176; 80048; 80053; 80202; 80307; 80320; 81001; 82945; 83605; 83690; 84157; 84484; 85025; 85027; 85610; 85730; 87015; 87040; 87070; 87205; 87529; 89051; 93005; 95816; 96361; 96365; 96372; 97161; 97165; 99285; J0290; J0696; J2060; J3370

== ENCOUNTER 2020-06-04 13:42 | Outpatient (REF) | payer MEDICARE, SELFPAY ==
[2020-06-04 17:52] LABS: PSA,Total (Free>4and<10) 16.96 ng/mL (0.00-4.00)
== END 2020-06-04 13:43 | disposition home or self-care (01) ==
LOC: HO.HMGCLDS 13:42
PROVIDERS: PCP Internal Medicine Medical Oncology; Visit Provider Urology
DX: N40.1 Benign prostatic hyperplasia with lower urinary tract symptoms (principal); N13.8 Other obstructive and reflux uropathy; R97.20 Elevated prostate specific antigen [PSA]; Z12.5 Encounter for screening for malignant neoplasm of prostate
CPT/HCPCS: 84153

== ENCOUNTER → 2020-06-05 14:52 | Outpatient (BNVA) | payer MEDICARE, SELFPAY | PROVIDERS: PCP Internal Medicine Medical Oncology; Visit Provider Urology | DX: N40.1 Benign prostatic hyperplasia with lower urinary tract symptoms (principal); N13.8 Other obstructive and reflux uropathy; R39.12 Poor urinary stream; R35.1 Nocturia; R97.20 Elevated prostate specific antigen [PSA] | CPT/HCPCS: Q3014 ==

== ENCOUNTER 2020-10-04 09:22 | Outpatient (REF) | payer MEDICARE, SELFPAY ==
[2020-10-04 11:28] LABS: MANUAL DIFF FLAG NO
[2020-10-04 11:38] LABS: Basophils Absolute Auto 0.1 X10*3/uL (0.0-0.2); Basophils Percent Auto 0.6 % (0-2); Eosinophils Absolute Auto 0.2 X10*3/uL (0.0-0.4); Eosinophils Percent Auto 1.5 % (0-4); Hematocrit 42.2 % (42-52); Hemoglobin 13.6 g/dl (14.0-18.0); Imm Gran Abs Auto 0.03 X10*3/uL (0.00-0.03); Imm Gran Pct Auto 0.3 % (0.0-0.4); Lymphocytes Absolute Auto 3.2 X10*3/uL (1.2-4.9); Lymphocytes Percent Auto 27.9 % (20-40); Mean Corpuscular HGB Conc 32.2 g/dl (31.0-36.0); Mean Corpuscular Hemoglobin 29.3 pg (27.0-33.0); Mean Corpuscular Volume 90.9 fL (80-98); Mean Platelet Volume 10.9 fL (9.4-12.4); Monocytes Absolute Auto 0.8 X10*3/uL (0.1-1.2); Monocytes Percent Auto 6.6 % (2-11); Neutrophils Absolute Auto 7.3 X10*3/uL (2.0-8.3); Neutrophils Percent Auto 63.1 % (45-73); Platelet Count 270 X10*3/uL (160-400); Red Blood Count 4.64 X10*6/uL (4.60-5.80); White Blood Count 11.6 X10*3/uL (4.8-10.8)
[2020-10-04 12:23] LABS: Alanine Aminotransferase 19 U/L (0-40); Albumin Level 4.6 g/dL (3.5-5.0); Alkaline Phosphatase 98 U/L (39-117); Anion Gap 11 (12-20); Aspartate Amino Transferase 17 U/L (5-37); Bilirubin Total 0.4 mg/dL (0.0-1.0); Blood Urea Nitrogen 23 mg/dL (9-16); Calcium 9.8 mg/dL (8.4-10.2); Carbon Dioxide 30 mmol/L (22-29); Chloride 103 mmol/L (96-108); Cholesterol 109 mg/dL; Estimated Glomerular Filt Rate > 60; Glucose Fasting 110 mg/dL (60-99); HDL Cholesterol 50 mg/dL; LDL Cholesterol Calculated 45 mg/dl; Potassium 4.7 mmol/L (3.3-5.1); Sodium 139 mmol/L (135-145); Triglycerides 73 mg/dL
[2020-10-04 12:50] LABS: Prostate Specific Antigen 21.02 ng/mL (<0.05-4.0)
== END 2020-10-04 09:23 | disposition home or self-care (01) ==
LOC: HO.HMGCLDS 09:22
PROVIDERS: PCP Internal Medicine Medical Oncology; Visit Provider Urology
DX: Z12.5 Encounter for screening for malignant neoplasm of prostate (principal); I10 Essential (primary) hypertension; E78.5 Hyperlipidemia, unspecified; E66.3 Overweight; N13.8 Other obstructive and reflux uropathy; N40.1 Benign prostatic hyperplasia with lower urinary tract symptoms; R97.20 Elevated prostate specific antigen [PSA]
CPT/HCPCS: 36415; 80053; 80061; 84153; 85025

== ENCOUNTER → 2020-11-14 13:25 | Outpatient (BNVA) | payer MEDICARE, SELFPAY | PROVIDERS: PCP Internal Medicine Medical Oncology; Visit Provider Surgery Vascular Surgery | DX: I65.23 Occlusion and stenosis of bilateral carotid arteries (principal) | CPT/HCPCS: 99202 ==

== ENCOUNTER 2020-12-23 12:59 | Outpatient (REF) | payer MEDICARE, SELFPAY ==
--- NOTE | ~2020-12-23 | CT_ITS ---
EXAMINATION: CT ANGIOGRAM NECK CLINICAL INFORMATION: Occlusion and stenosis of bilateral carotid arteries. COMPARISON: MRA of the neck 03/11/2018. TECHNIQUE: Test bolus series followed by intravenous administration 17 mL of Omnipaque 350. Helical imaging was performed in the axial plane from the mediastinum to the skull vertex. The degree of stenosis is based off NASCET criteria. The data was processed at the geodetic surveyor technologist workstation for generation of MIP images. Three-dimensional volume rendered reformatted images were also generated at an offline 3-D workstation. This CT examination was performed using dose optimization techniques as appropriate, variously including the following: *Automated exposure control *Adjustment of mA and/or kV according to patient size (this includes techniques or standardized protocols for targeted exams where dose is matched to indication/reason for exam; i.e. extremities or head) *Use of iterative reconstruction technique DLP: 486 mGy-cm. FINDINGS: There are atheromatous calcifications of the aortic arch. Ascending aorta has a caliber of 4 cm at the level of the right pulmonary artery. There is a two-vessel aortic configuration, with a common origin of the left common carotid and brachiocephalic arteries. There are atheromatous calcifications without significant stenosis at the origins of the bilateral subclavian arteries. The common carotid arteries are patent bilaterally. There are extensive atheromatous calcifications in the bilateral distal common carotid arteries, extending to the bifurcations and the proximal cervical internal carotid arteries bilaterally. There is 65% stenosis at the left carotid bifurcation, and there is 70% stenosis at the right carotid bifurcation. Distal to the bifurcations, the cervical internal carotid arteries bilaterally. The caliber of the right cervical internal carotid artery is slightly narrower compared to the left, but the vessels have smooth contours. The origins of the vertebral arteries are well-demonstrated. The left vertebral artery is dominant. There are atheromatous calcifications of the proximal and mid V2 segments of the left vertebral artery. Both vertebral arteries are patent throughout their cervical course extending intradurally. Intracranially, there are atheromatous calcifications of the cavernous internal carotid arteries bilaterally but the vessels are patent. The intradural vertebral artery on the left demonstrates mild atheromatous calcifications, but both vertebral arteries are patent; the left vertebral artery is dominant. The basilar artery appears normal. The left posterior cerebral artery has a origin off the anterior circulation. Nonvascular: There are emphysematous changes in the upper lung lewis bilaterally. There is a 4 mm subpleural nodule in the right upper lobe laterally. The thyroid gland appears normal. There is no cervical lymphadenopathy. There are periapical lucencies around multiple anterior maxillary teeth. There is partial fusion of the bodies of C5, C6 and C7 as well as at C3-C4. There are multilevel spondylitic and facet arthropathic changes. CT/CT angio neck IMPRESSION: 1. There is extensive atheromatous calcification of the bilateral common and internal carotid arteries as well as at the bilateral carotid bifurcations. There is 65% stenosis at the left carotid bifurcation and 70% stenosis on the right. Distal to this the cervical internal carotid arteries are patent bilaterally. 2. The vertebral arteries are patent; the left vertebral artery is dominant. The intracranial vertebral and carotid arteries are patent. 3. There is a 4 mm nodule in the upper lobe the right lung. Various management parameters for solitary pulmonary nodules are in the literature. According to the UPDATED 2017 Fleischner Society recommendations, the advised follow-up imaging for solid nodules < 6 mm is: LOW RISK PATIENT: No routine follow-up. HIGH RISK PATIENT: Optional CT at 12 months. Reference: Guidelines for Management of Incidental Pulmonary Nodules Detected on CT Images: From the Fleischner Society 2017.
[2020-12-23 14:19] LABS: C Reactive Protein 0.02 mg/dL (< or = 0.50)
[2020-12-23 14:20] LABS: Blood Urea Nitrogen 21 mg/dL (9-16); Estimated Glomerular Filt Rate > 60
[2020-12-23 15:07] LABS: Erythrocyte Sedimentation Rate 2 MM/HR (0-15)
[2020-12-23] MEDS: iohexoL 350 MG/ML 100 ML INFUS..BTL IV (15:16)
== END 2020-12-23 13:00 | disposition home or self-care (01) ==
LOC: HO.CT 12:59
PROVIDERS: Absent Provider Ophthalmology; PCP Internal Medicine Medical Oncology; Visit Provider Surgery Vascular Surgery
DX: I65.23 Occlusion and stenosis of bilateral carotid arteries (principal); H40.1131 Primary open-angle glaucoma, bilateral, mild stage; H53.121 Transient visual loss, right eye
CPT/HCPCS: 36415; 70498; 82565; 84520; 85652; 86140; Q9967

== ENCOUNTER → 2020-12-26 14:18 | Outpatient (BNVA) | payer MEDICARE, SELFPAY | PROVIDERS: PCP Internal Medicine Medical Oncology; Visit Provider Surgery Vascular Surgery | DX: I65.21 Occlusion and stenosis of right carotid artery (principal) | CPT/HCPCS: 99212 ==

== ENCOUNTER → 2021-01-08 14:20 | Outpatient (BNVA) | payer MEDICARE, SELFPAY | PROVIDERS: PCP Internal Medicine Medical Oncology; Visit Provider Internal Medicine | DX: Z01.810 Encounter for preprocedural cardiovascular examination (principal); I65.21 Occlusion and stenosis of right carotid artery; I10 Essential (primary) hypertension | CPT/HCPCS: 93005; 99202 ==

== ENCOUNTER 2021-05-06 09:09 | Outpatient (REF) | payer MEDICARE, SELFPAY ==
[2021-05-06 09:33] LABS: MANUAL DIFF FLAG NO
[2021-05-06 10:26] LABS: Basophils Absolute Auto 0.1 X10*3/uL (0.0-0.2); Basophils Percent Auto 0.5 % (0-2); Eosinophils Absolute Auto 0.1 X10*3/uL (0.0-0.4); Eosinophils Percent Auto 1.1 % (0-4); Hematocrit 40.6 % (42.0-52.0); Hemoglobin 13.1 g/dl (14.0-18.0); Imm Gran Abs Auto 0.02 X10*3/uL (0.00-0.03); Imm Gran Pct Auto 0.2 % (0.0-0.4); Lymphocytes Absolute Auto 2.6 X10*3/uL (1.2-4.9); Lymphocytes Percent Auto 27.1 % (20-40); Mean Corpuscular HGB Conc 32.3 g/dl (31.0-36.0); Mean Corpuscular Hemoglobin 28.8 pg (27.0-33.0); Mean Corpuscular Volume 89.2 fL (80.0-98.0); Mean Platelet Volume 10.7 fL (9.4-12.4); Monocytes Absolute Auto 0.7 X10*3/uL (0.1-1.2); Monocytes Percent Auto 7.6 % (2-11); Neutrophils Absolute Auto 6.2 x10*3/uL (2.0-8.3); Neutrophils Percent Auto 63.5 % (45-73); Platelet Count 242 X10*3/uL (160-400); Red Blood Count 4.55 X10*6/uL (4.60-5.80); Red Cell Distribution Width 13.7 % (11.0-16.0); White Blood Count 9.7 X10*3/uL (4.8-10.8)
[2021-05-06 11:02] LABS: Alanine Aminotransferase 18 U/L (0-40); Albumin Level 4.1 g/dL (3.5-5.0); Alkaline Phosphatase 86 U/L (39-117); Anion Gap 11 (12-20); Aspartate Amino Transferase 18 U/L (5-37); Bilirubin Total 0.4 mg/dL (0.0-1.0); Blood Urea Nitrogen 20 mg/dL (9-16); Calcium 9.5 mg/dL (8.4-10.2); Carbon Dioxide 30 mmol/L (22-29); Chloride 103 mmol/L (96-108); Estimated Glomerular Filt Rate > 60; Gamma Glutamyl Transpeptidase 17 U/L (11-51); Glucose Random 104 mg/dL (60-115); Potassium 4.6 mmol/L (3.3-5.1); Sodium 139 mmol/L (135-145); Total Protein 6.5 g/dL (6.5-8.0)
== END 2021-05-06 09:10 | disposition home or self-care (01) ==
LOC: HO.LAB 09:09
PROVIDERS: PCP Internal Medicine Medical Oncology; Visit Provider Internal Medicine Medical Oncology
DX: E78.5 Hyperlipidemia, unspecified (principal); E66.3 Overweight
CPT/HCPCS: 36415; 80053; 82977; 85025

== ENCOUNTER 2021-05-09 10:16 | Outpatient (REF) | payer MEDICARE, SELFPAY ==
[2021-05-09 10:43] LABS: MANUAL DIFF FLAG NO
[2021-05-09 11:32] LABS: Alanine Aminotransferase 20 U/L (0-40); Albumin Level 4.6 g/dL (3.5-5.0); Alkaline Phosphatase 95 U/L (39-117); Anion Gap 13 (12-20); Aspartate Amino Transferase 19 U/L (5-37); Bilirubin Total 0.6 mg/dL (0.0-1.0); Blood Urea Nitrogen 18 mg/dL (9-16); Calcium 9.7 mg/dL (8.4-10.2); Carbon Dioxide 27 mmol/L (22-29); Chloride 101 mmol/L (96-108); Cholesterol 195 mg/dL; Estimated Glomerular Filt Rate > 60; Glucose Fasting 130 mg/dL (60-99); HDL Cholesterol 47 mg/dL; LDL Cholesterol Calculated 122 mg/dl; Potassium 4.7 mmol/L (3.3-5.1); Sodium 136 mmol/L (135-145); Total Protein 7.3 g/dL (6.5-8.0); Triglycerides 131 mg/dL
[2021-05-09 11:38] LABS: Basophils Absolute Auto 0.1 X10*3/uL (0.0-0.2); Basophils Percent Auto 0.7 % (0-2); Eosinophils Absolute Auto 0.1 X10*3/uL (0.0-0.4); Eosinophils Percent Auto 0.8 % (0-4); Hematocrit 43.9 % (42.0-52.0); Hemoglobin 14.5 g/dl (14.0-18.0); Imm Gran Abs Auto 0.03 X10*3/uL (0.00-0.03); Imm Gran Pct Auto 0.3 % (0.0-0.4); Lymphocytes Absolute Auto 3.2 X10*3/uL (1.2-4.9); Mean Corpuscular Hemoglobin 29.7 pg (27.0-33.0); Mean Corpuscular Volume 89.8 fL (80.0-98.0); Mean Platelet Volume 10.7 fL (9.4-12.4); Monocytes Absolute Auto 0.8 X10*3/uL (0.1-1.2); Monocytes Percent Auto 6.9 % (2-11); Neutrophils Absolute Auto 7.2 x10*3/uL (2.0-8.3); Neutrophils Percent Auto 63.3 % (45-73); Platelet Count 251 X10*3/uL (160-400); Red Blood Count 4.89 X10*6/uL (4.60-5.80); Red Cell Distribution Width 13.5 % (11.0-16.0); White Blood Count 11.3 X10*3/uL (4.8-10.8)
[2021-05-09 11:51] LABS: PSA,Total (Free>4and<10) 27.82 ng/mL (0.00-4.00)
== END 2021-05-09 10:17 | disposition home or self-care (01) ==
LOC: HO.LAB 10:16
PROVIDERS: PCP Internal Medicine Medical Oncology; Visit Provider Internal Medicine Medical Oncology
DX: Z12.5 Encounter for screening for malignant neoplasm of prostate (principal); E78.5 Hyperlipidemia, unspecified; E66.3 Overweight
CPT/HCPCS: 36415; 80053; 80061; 84153; 84154; 85025

== ENCOUNTER → 2021-06-18 08:38 | Outpatient (BNVA) | payer MEDICARE, SELFPAY | PROVIDERS: PCP Internal Medicine Medical Oncology; Visit Provider Urology | DX: N40.1 Benign prostatic hyperplasia with lower urinary tract symptoms (principal); N13.8 Other obstructive and reflux uropathy; R97.20 Elevated prostate specific antigen [PSA] | CPT/HCPCS: 99212 ==

== ENCOUNTER → 2021-08-05 09:52 | Outpatient (BNVA) | payer MEDICARE, SELFPAY | PROVIDERS: PCP Internal Medicine Medical Oncology; Visit Provider Internal Medicine | DX: I25.10 Atherosclerotic heart disease of native coronary artery without angina pectoris (principal); I73.9 Peripheral vascular disease, unspecified; I65.21 Occlusion and stenosis of right carotid artery; I10 Essential (primary) hypertension; E78.5 Hyperlipidemia, unspecified; Z79.02 Long term (current) use of antithrombotics/antiplatelets; Z79.82 Long term (current) use of aspirin; Z79.899 Other long term (current) drug therapy | CPT/HCPCS: 99212 ==

== ENCOUNTER 2021-09-10 14:39 | Outpatient (REF) | payer MEDICARE, SELFPAY ==
[2021-09-10 14:57] LABS: MANUAL DIFF FLAG NO
[2021-09-10 15:26] LABS: Basophils Absolute Auto 0.1 X10*3/uL (0.0-0.2); Basophils Percent Auto 0.6 % (0-2); Eosinophils Absolute Auto 0.1 X10*3/uL (0.0-0.4); Eosinophils Percent Auto 0.8 % (0-4); Hematocrit 39.9 % (42.0-52.0); Hemoglobin 13.1 g/dl (14.0-18.0); Imm Gran Abs Auto 0.03 X10*3/uL (0.00-0.03); Imm Gran Pct Auto 0.3 % (0.0-0.4); Lymphocytes Absolute Auto 2.4 X10*3/uL (1.2-4.9); Lymphocytes Percent Auto 20.9 % (20-40); Mean Corpuscular HGB Conc 32.8 g/dl (31.0-36.0); Mean Corpuscular Hemoglobin 29.6 pg (27.0-33.0); Mean Corpuscular Volume 90.1 fL (80.0-98.0); Mean Platelet Volume 10.8 fL (9.4-12.4); Monocytes Absolute Auto 0.7 X10*3/uL (0.1-1.2); Monocytes Percent Auto 5.8 % (2-11); Neutrophils Absolute Auto 8.1 x10*3/uL (2.0-8.3); Neutrophils Percent Auto 71.6 % (45-73); Platelet Count 251 X10*3/uL (160-400); Red Blood Count 4.43 X10*6/uL (4.60-5.80); Red Cell Distribution Width 13.4 % (11.0-16.0); White Blood Count 11.3 X10*3/uL (4.8-10.8)
[2021-09-10 15:49] LABS: Alanine Aminotransferase 22 U/L (0-40); Albumin Level 4.3 g/dL (3.5-5.0); Alkaline Phosphatase 91 U/L (39-117); Anion Gap 13 (12-20); Aspartate Amino Transferase 20 U/L (5-37); Bilirubin Total 0.5 mg/dL (0.0-1.0); Blood Urea Nitrogen 25 mg/dL (9-16); Calcium 9.6 mg/dL (8.4-10.2); Carbon Dioxide 23 mmol/L (22-29); Chloride 105 mmol/L (96-108); Cholesterol 123 mg/dL; Estimated Glomerular Filt Rate > 60; Glucose Random 116 mg/dL (60-115); HDL Cholesterol 45 mg/dL; Potassium 5.1 mmol/L (3.3-5.1); Sodium 136 mmol/L (135-145); Total Protein 6.8 g/dL (6.5-8.0)
[2021-09-10 16:07] LABS: LDL Cholesterol Calculated 47 mg/dl; Triglycerides 158 mg/dL
== END 2021-09-10 14:40 | disposition home or self-care (01) ==
LOC: HO.LAB 14:39
PROVIDERS: Absent Provider Urology; PCP Internal Medicine Medical Oncology; Visit Provider Internal Medicine Medical Oncology
DX: E78.5 Hyperlipidemia, unspecified (principal); E66.3 Overweight; Z87.898 Personal history of other specified conditions
CPT/HCPCS: 36415; 80053; 80061; 85025

== ENCOUNTER 2021-09-15 13:25 | Outpatient (REF) | payer MEDICARE, SELFPAY ==
[2021-09-15 15:19] LABS: PSA,Total (Free>4and<10) 13.59 ng/mL (0.00-4.00)
== END 2021-09-15 13:26 | disposition home or self-care (01) ==
LOC: HO.LAB 13:25
PROVIDERS: PCP Internal Medicine Medical Oncology; Visit Provider Urology
DX: N40.1 Benign prostatic hyperplasia with lower urinary tract symptoms (principal); N13.8 Other obstructive and reflux uropathy; R97.20 Elevated prostate specific antigen [PSA]; Z12.5 Encounter for screening for malignant neoplasm of prostate
CPT/HCPCS: 36415; 84153

== ENCOUNTER → 2021-09-16 13:43 | Outpatient (BNVA) | payer MEDICARE, SELFPAY | PROVIDERS: PCP Internal Medicine Medical Oncology; Visit Provider Urology | DX: N40.1 Benign prostatic hyperplasia with lower urinary tract symptoms (principal); N13.8 Other obstructive and reflux uropathy; R97.20 Elevated prostate specific antigen [PSA] | CPT/HCPCS: 99212 ==

== ENCOUNTER 2021-11-25 15:02 | Outpatient (REF) | payer MEDICARE, SELFPAY ==
--- NOTE | ~2021-11-25 | US_ITS ---
EXAMINATION: US EXTRACRANIAL CAROTID DUPLEX, BILATERAL CLINICAL INFORMATION: This is an 81-year-old male with peripheral vascular disease. Carotid artery disease. Carotid stenosis. COMPARISON: Comparison is made to previous study dated 02/22/2018 which demonstrated bilateral 50-79% internal carotid artery stenoses. TECHNIQUE: Real-time ultrasound and Doppler techniques (integrating B-mode 2-D vascular images, Doppler spectral analysis and color-flow Doppler imaging) were utilized to interrogate the extracranial carotid arteries, the vertebral arteries and proximal subclavian arteries bilaterally. The degree of stenosis is determined by criteria similar to NASCET. FINDINGS: Right Side: 1. There is moderate atherosclerotic plaque seen in the bifurcation/proximal ICA region. 2. The common carotid artery PSV proximally is 63 cm/s and distally 64 cm/s. 3. The proximal internal carotid artery velocities are 185 cm/s systolic and 37 cm/s diastolic. 4. The proximal external carotid artery PSV is 159 cm/s. 5. The vertebral artery shows antegrade flow. 6. The subclavian artery waveforms are normal. Left Side: 1. There is moderate atherosclerotic plaque seen in the bifurcation/proximal ICA region. 2. The common carotid artery PSV proximally is 45 cm/s and distally 45 cm/s. 3. The proximal internal carotid artery velocities are 141 cm/s systolic and 36 cm/s diastolic. 4. The proximal external carotid artery PSV is 89 cm/s. 5. The vertebral artery shows antegrade flow. 6. The subclavian artery waveforms are normal. US/US carotid duplex BI IMPRESSION: 1. RIGHT: Moderate, hemodynamically significant stenosis of the proximal right internal carotid artery corresponding to a 50-79% stenosis by velocity criteria. 2. LEFT: Moderate, hemodynamically significant stenosis of the proximal left internal carotid artery corresponding to a 50-79% stenosis by velocity criteria. 3. There is no change in the category severity of disease when compared to the previous study dated 02/22/2018.
== END 2021-11-25 15:03 | disposition home or self-care (01) ==
LOC: HO.US 15:02
PROVIDERS: Visit Provider Internal Medicine Medical Oncology
DX: I73.9 Peripheral vascular disease, unspecified (principal); I65.29 Occlusion and stenosis of unspecified carotid artery
CPT/HCPCS: 93880

== ENCOUNTER → 2021-12-23 14:03 | Outpatient (BNVA) | payer MEDICARE, SELFPAY | PROVIDERS: PCP Internal Medicine Medical Oncology; Visit Provider Surgery Vascular Surgery | DX: I65.21 Occlusion and stenosis of right carotid artery (principal); Z86.73 Personal history of transient ischemic attack (TIA), and cerebral infarction without residual deficits | CPT/HCPCS: 99212 ==

== ENCOUNTER → 2021-12-30 10:28 | Outpatient (REF) | payer MEDICARE, SELFPAY ==
--- NOTE | 2021-12-30 10:38 | CA_ITS ---
Transthoracic Echocardiogram Patient (Last, First, Middle): Michael Jenkins, Gender: Male Date of : 1940 Age: 81 Procedure Date: 12/30/2021 Procedure Type: Transthoracic Echocardiogram Location: OP Height: 172.72 cm Weight: 79.38 kg BSA: 1.93 m2 Heart Rate: bpm BP: 184 / 88 mmHg College Sports Coach: BELKYS Referring MD: Loc Simmons MD Symptoms: I25.10 - Atherosclerotic heart disease of [place] coronary artery without... Study Quality: Adequate ECG Rhythm: Sinus Conclusions: - The left ventricular systolic function is normal. The visually estimated ejection fraction is between 65-70%. - Aortic valve sclerosis but no significant stenosis. Findings Left Ventricle Normal left ventricular cavity size. There is mildly increased left ventricular wall thickness. The left ventricular systolic function is normal. The visually estimated ejection fraction is between 65-70%. There is no evidence of regional wall motion abnormalities. Diastolic function is normal for age. There is moderate septal and moderate basal asymmetric hypertrophy. Right Ventricle Normal right ventricular cavity size and systolic function. Atria Both atria are normal in size. Aortic Valve There is moderate calcification of the aortic valve. There is no aortic valve stenosis. There is no aortic valve regurgitation. No significant aortic stenosis. Mitral Valve The mitral valve appears normal. There is no mitral valve regurgitation. There is no mitral valve stenosis. Pulmonic Valve The pulmonic valve is likely normal. Tricuspid Valve Normal tricuspid valve structure. There is trace tricuspid valve regurgitation. The pulmonary artery systolic pressure is normal. Great Vessels The aortic annulus, sinuses of valsalva, and asc aorta are normal in size. Venous The inferior vena cava is normal in size and collapses greater than 50% with inspiration. Pericardium/Pleural There is no evidence of pericardial effusion. Prior Study Comparison No significant change compared to prior study dated: 02/11/2018. Measurements 2D Linear Measurements IVSd: 1.29 0.6-0.9/0.6-1.0 cm LVIDd: 3.65 3.9-5.3/4.2-5.9 cm LVIDd Index: 1.89 2.4-3.2/2.2-3.1 cm/m2 LVIDs: 2.67 2.0-3.6 cm LVPWd: 1.14 0.7-1.1 cm LA Diam: 3.70 2.7-3.8/3.0-4.0 cm LAIDs Index: 1.92 1.5-2.3 cm/m2 LV Mass: 183.17 67-162/88-224 g LV Mass Index: 94.91 43-95/49-115 g/m2 LVOT Diam: 1.90 3.0+(-)1.3 cm 2D Systolic Function EF 4C: 60.70 >55% EF 2C: 59.60 >55% EF BiP: 55.60 >55% Mitral Valve MV Pk E: 0.67 MV PK A: 1.13 MV Decel Time: 235.00 E/A: 0.60 E'Lateral: 8.81 E'Medial: 5.66 E/E' Med: 11.70 E/E' Lat: 7.50 PHT: 69.00 MVA PHT: 3.19 Decel Russell: 2.83 Aortic Valve AoV Pk Wesly: 2.13 AoV Mn Wesly: 1.41 AoV VTI: 0.37 AoV Pk Grad: 18.00 Aov Mn Grad: 9.00 KIRILL Cont.VTI: 1.74 LVOT LVOT Pk Wesly: 1.22 LVOT Mn Wesly: 0.80 LVOT VTI: 0.23 LVOT Pk Grad: 6.00 LVOT Mn Grad: 3.00 LVOT Diam: 1.90 LVOT Area: 2.84 Diastolic Function MV Pk E: 0.67 MV Pk A: 1.13 E/A: 0.60 E'Medial: 5.66 E/E' Med: 11.70 E' Laterial: 8.81 E/E' Lat: 7.50 Right Ventricle TAPSE (mm): 21.20 TVS' Wesly: 17.70 Tricuspid Valve RA Press: 3.00 Great Vessels Aorta Sinus of Valsalva: 3.66 2.0-3.[address] [place]: 2.87 1.7-3.4 cm Ao Asc: 3.60 2.1-3.4 cm Updated in Other Vendor System with Status of Final Loc Simmons MD electronically signed on 12/31/2021 11:24:30 AM with status of Final
== END ==
LOC: HO.CARD 10:28
PROVIDERS: Visit Provider Internal Medicine
DX: I25.10 Atherosclerotic heart disease of native coronary artery without angina pectoris (principal)
CPT/HCPCS: 93306

== ENCOUNTER → 2022-01-12 09:45 | Outpatient (REF) | payer MEDICARE, SELFPAY ==
--- NOTE | ~2022-01-12 | NM_ITS ---
Dobutamine Myocardial perfusion study Indication: Preoperative cardiovascular evaluation Technique: The patient was brought in for a dobutamine myocardial perfusion study on 01/12/2022 and was injected dobutamine intravenously per protocol. Within a minute of this injection 25 mCi of sestamibi was given intravenously. Images were obtained using the SPECT gamma camera interlaced with the gating device. Images were obtained in supine position. Resting perfusion study was performed on 01/13/2022. Patient was administered 25 mCi of sestamibi intravenously at rest. Images were then obtained in supine position. Total DLP 89mGy-cm. Images were processed with the software and compared side to side in short axis, horizontal long axis and vertical long axis views. Findings: Raw acquisition reviewed. The stress perfusion study showed diminished tracer uptake in the basal inferior wall and adjacent inferior septum as well as the inferolateral wall no significant improvement with CT attenuation correction. There is also some subdiaphragmatic tracer uptake adjacent to the inferior wall. The gated study shows normal LV systolic function with calculated LVEF of 70%. LV cavity is normal in size. The gated study shows diminished basal inferior thickening and contractility. Resting study shows diminished tracer uptake in the basal inferior wall. Slightly less prominent compared to stress acquisition. Subdiaphragmatic tracer uptake seen. Gating at rest appears erroneous but visually normal. The findings are consistent with basal inferior perfusion defect with reversible and fixed components. However, there is also adjacent subdiaphragmatic uptake interfering with image interpretation. NM/NM cardiolite stress test Impression: 1. Myocardial perfusion imaging study shows probable ischemia/infarct pattern in the basal inferior wall. However, there is also subdiaphragmatic tracer uptake interfering with image interpretation. 2. Gated LVEF is 70% during stress. Rest gating not reliable. EKG component of the test reported separately.
--- NOTE | 2022-01-12 09:46 | CA_ITS ---
Acquisition Time: 2022-01-12 10:09:15 Total Exercise Time: 00:12:27 Test Indications: PREOP Medications: SEE CHART Protocol: DOBUTAMINE Max HR: 134 BPM 96% of Pred: 139 BPM Max BP: 210/100 mmHG Max Work Load: 1.0 METS Pharmacological stress test with Dobutamin infusion to max of 20mcg/kg/min while marching in place, achieving > 90% MPHR, without anginal symptoms, with isolated PVC, with hypertension response initially during testing, with BP as high as 210/100 then improvement in BP back to 160-170s systolic, without EKG changes meeting criteria for ischemia. He was recovered for 15 min. BP 182/92 and heart reate 93 at test end. He reports that he took his antihypertensive meds this am. Nuclear images pending. Test reviewed with Dr Simmons. Referred By: Loc Simmons Overread By: DARRYN CLINTON
== END ==
LOC: HO.CARD 09:45
PROVIDERS: Visit Provider Internal Medicine
DX: Z01.810 Encounter for preprocedural cardiovascular examination (principal)
CPT/HCPCS: 78452; 93017; A9500; J1250

== ENCOUNTER → 2022-01-15 14:30 | Outpatient (BNVA) | payer MEDICARE, SELFPAY | PROVIDERS: PCP Internal Medicine Medical Oncology; Visit Provider Internal Medicine | DX: I25.10 Atherosclerotic heart disease of native coronary artery without angina pectoris (principal); I73.9 Peripheral vascular disease, unspecified; I65.21 Occlusion and stenosis of right carotid artery; I10 Essential (primary) hypertension; E78.5 Hyperlipidemia, unspecified | CPT/HCPCS: 99212 ==

== ENCOUNTER → 2022-01-21 12:28 | Outpatient (BNVA) | payer MEDICARE, SELFPAY | PROVIDERS: PCP Internal Medicine Medical Oncology; Referring Provider Internal Medicine Medical Oncology; Visit Provider Internal Medicine | DX: Z01.810 Encounter for preprocedural cardiovascular examination (principal); I25.10 Atherosclerotic heart disease of native coronary artery without angina pectoris; I73.9 Peripheral vascular disease, unspecified; I65.21 Occlusion and stenosis of right carotid artery; I10 Essential (primary) hypertension; E78.5 Hyperlipidemia, unspecified | CPT/HCPCS: 99212 ==

== ENCOUNTER 2022-01-26 06:22 | Inpatient (IN) | payer MEDICARE, SELFPAY ==
--- NOTE | 2022-01-12 | ECG_ITS ---
Test Reason : PREOP Blood Pressure : / mmHG Vent. Rate : 082 BPM Atrial Rate : 082 BPM P-R Int : 148 ms QRS Dur : 088 ms QT Int : 378 ms P-R-T Axes : 069 -28 037 degrees QTc Int : 441 ms Normal sinus rhythm Normal ECG When compared with ECG of 06-MAY-2020 20:37, ST no longer depressed in Inferior leads Referred By: Sharon Vences Electronically Signed By:ANDREA GARCÍA
[2022-01-12 12:13] VITALS: BP 178/86; PULSE 89; RESP 20; O2SAT 98; BMI 26.6
--- NOTE | 2022-01-12 12:31 | P.CONAN_ITS ---
Documented by User: Sharon Vences NP 01/22/22 12:37 HPI - Anesthesia Eval Consult details Narrative: 81yo M for Carotid Endarterectomy Per Dr Simmons: Overall, based on the above, diffuse vascular disease including coronaries and carotids. Went over the findings in great detail with the patient as well as his daughter.? Explained him all the findings using illustrations.? They understand. With regard to surgical risk, at least intermediate.? This was discussed and the specific risks including myocardial infarction as well as were addressed.? Discussed with Dr. Ruvalcaba. With regard to the coronary disease itself, no need for any interventions at this time as he has no symptoms.? Aggressive medical care and control risk factors.? Will need to closely follow. [facility] Active Problems Active Problems: All Active Problems (Updated 01/12/22 @ 12:00 by Merry Ace RN) Elevated PSA (Acute) Nocturia more than twice per night (Acute) BPH w urinary obs/LUTS (Acute) Weak urinary stream (Acute) Bilateral carotid artery stenosis (Acute) Carotid stenosis, right (Acute) Preoperative cardiovascular examination (Acute) Essential hypertension (Acute) Atherosclerotic cardiovascular disease (Acute) Peripheral vascular disease (Acute) Other and unspecified hyperlipidemia (Acute) Stroke due to stenosis of right carotid artery (Acute) Past Medical History Medical History AMS (altered mental status) CAD (coronary artery disease) High cholesterol HTN (hypertension) IBS (irritable bowel syndrome) Seizures Family History Family History (Updated 01/26/22 @ 14:51 by Luz Schreiber RN) Father No problems noted. Mother Myocardial infarction Family history of problems with anesthesia: No Surgical History Surgical History Hx of abdominal surgery Hx of tonsillectomy History of Problems with Anesthesia: No Social History Social History Household Members: Children Household Members Other:: daughter, son, and son's girlfriend Housing: House Are you a primary acute care physician to a significant other at home: No Do you presently have visiting nurse or other home services: No Patient Tobacco Use Status: Former Tobacco user Quit Date: 64 years ago Tobacco use type: Cigarette Cigarette Packs Per Day: 1 Cigarettes Per Day: 20.0 Years Smoked: 3 Smoked in Last 30 Days: No e-Cigarette/Vaping Use: Never Used Patient Interested in Nicotine Replacement: No Patient Given Instructions on How to Stop Smoking: No Second Hand Smoke Exposure: No Use of substances other than those prescribed or required for medical reasons: Yes 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 If so, by whom?: No Do you feel safe in your current relationship?: Yes Is there a partner from a previous relationship who is making you feel unsafe now?: No Are you made to feel afraid or neglected: No Are you DNR?: No Advance Directives: No Advance Directives Information Provided: Yes (Will bring in DOS) Advance Directives on File: No Do you have thoughts of harming others: None Do you have a plan to hurt others: No Plan Recently lost weight without trying: No Eating poorly because of decreased appetite: No Nutrition Risks: No Nutritional Risk Poor oral hygiene: Yes service: No Current occupational status: retired Narrative Narrative: No recent illness. Some nausea, no vomiting, no fevers No CP, SOB Meds Allergies Allergy/AdvReac Type Severity Reaction Status Date / Time No Known Allergies Allergy Verified 01/26/22 07:22 [No Known Allergies*] Home Medications Medication Instructions Recorded Confirmed Last Taken Type latanoprost 0.005 % eye drops 1 drp ophthalmic (eye) BEDTIME 05/06/20 01/21/22 Unknown History magnesium hydroxide 400 mg/5 mL 400 mg PO DAILY PRN Constipation 11/14/20 01/21/22 Unknown History oral suspension (Dulcolax (magnesium hydroxide)) aspirin 81 mg tablet,delayed 81 mg PO DAILY 08/05/21 01/21/22 01/26/22 05:00 History release (Adult Low Dose Aspirin) lacosamide 50 mg tablet 50 mg PO BID 08/05/21 01/21/22 Unknown History aluminum-mag hydroxide-simethicone 10 ml PO NEEDED 01/09/22 01/21/22 Unknown History 400 mg-400 mg-40 mg/5 mL oral susp (Mylanta Maximum Strength) omeprazole 20 mg capsule,delayed 1 cap PO QAM 01/09/22 01/21/22 Unknown History release atorvastatin 80 mg tablet 80 mg PO BEDTIME 01/15/22 01/26/22 01/26/22 05:00 History clopidogrel 75 mg tablet 75 mg PO DAILY 01/15/22 01/26/22 01/26/22 05:00 History lisinopril 20 mg tablet 20 mg PO BID 01/15/22 01/26/22 01/26/22 05:00 History dorzolamide 22.3 mg-timolol 6.8 1 drp ophthalmic (eye) BID 01/26/22 01/26/22 Unknown History mg/mL eye drops Exam Exam Date and Time: January 12, 2022 123 Height,Weight and Vital Signs: Height 5 ft 8 in Weight 79.379 kg Last Vital Signs Pulse 89 01/12/22 12:13 Resp 20 01/12/22 12:13 BP 178/86 H 01/12/22 12:13 Pulse Ox 98 01/12/22 12:13 O2 Del Method 01/12/22 12:13 Pertinent Lab Results Pertinent Lab Results: Lab Results 01/12/22 01/12/22 01/12/22 Range/Units 13:18 13:38 13:38 WBC 11.0 H (4.8-10.8) X10*3/uL RBC 5.01 (4.60-5.80) X10*6/uL Hgb 14.5 (14.0-18.0) g/dl Hct 43.7 (42.0-52.0) % MCV 87.2 (80.0-98.0) fL MCH 28.9 (27.0-33.0) pg MCHC 33.2 (31.0-36.0) g/dl RDW 13.4 (11.0-16.0) % Plt Count 228 (160-400) X10*3/uL MPV 11.2 (9.4-12.4) fL Absolute Nucleated RBC 0.000 (0.0-0.012) X10*3/uL Nucleated RBC % (auto) 0.0 (0.0-0.2) /100WBC PT 12.2 (10.0-13.1) SEC INR 1.1 (0.9-1.1) APTT 29.2 (26.0-36.4) SEC Sodium (135-145) mmol/L Potassium (3.3-5.1) mmol/L Chloride (96-108) mmol/L Carbon Dioxide (22-29) mmol/L Anion Gap (12-20) BUN (9-16) mg/dL Creatinine (0.5-1.4) mg/dL Estim Creat Clear Calc Estimated GFR Random Glucose (60-115) mg/dL Calcium (8.4-10.2) mg/dL Blood Type O Positive Antibody Screen NEGATIVE 01/12/22 Range/Units 13:38 WBC (4.8-10.8) X10*3/uL RBC (4.60-5.80) X10*6/uL Hgb (14.0-18.0) g/dl Hct (42.0-52.0) % MCV (80.0-98.0) fL MCH (27.0-33.0) pg MCHC (31.0-36.0) g/dl RDW (11.0-16.0) % Plt Count (160-400) X10*3/uL MPV (9.4-12.4) fL Absolute Nucleated RBC (0.0-0.012) X10*3/uL Nucleated RBC % (auto) (0.0-0.2) /100WBC PT (10.0-13.1) SEC INR (0.9-1.1) APTT (26.0-36.4) SEC Sodium 136 (135-145) mmol/L Potassium 4.4 (3.3-5.1) mmol/L Chloride 101 (96-108) mmol/L Carbon Dioxide 25 (22-29) mmol/L Anion Gap 14 (12-20) BUN 14 (9-16) mg/dL Creatinine 0.86 (0.5-1.4) mg/dL Estim Creat Clear Calc 65.1 Estimated GFR > 60 Random Glucose 106 (60-115) mg/dL Calcium 9.7 (8.4-10.2) mg/dL Blood Type Antibody Screen Narrative Narrative: Echocardiogram with LVEF 65-70% without any obvious wall motion abnormalities.? Aortic valve moderately calcified but no significant stenosis. In the stress test, suspected ischemia/infarct pattern the basal inferior wall.? However, there was also a lot of subdiaphragmatic uptake and hence image interpretation was difficult. Neck CTA shows extensive atheromatous calcification of bilateral common/internal carotid arteries and bifurcations.? 65% stenosis of the left carotid bifurcation and 70% stenosis on the right. He also has had an abdominal CT in the past that shows atherosclerotic calcification along the aorta as well as iliac arteries. Cardiac catheterization data reviewed.? There is chronic total occlusion of the right coronary artery with collaterals.? Distal circumflex had 70% stenosis in the proximal part.? There is intermediate grade disease in the LAD. Airway Mallampati Class: I TM Dist: >3cm Neck ROM: Limited Loose/Missing/Broken Teeth: Yes (#9 Very loose, no other upper teeth, no lower molars, no loose teeth on the bottom) Heart: RRR +M Lungs: CTAB Assessment and Plan Assessment Anesthesia Assessment: Anesthesia Plan Discussed (General, Arterial Line, Risk of injury to teeth (loose tooth)) and PAT Visit Final Anesthetic Review Family History of Problems with Anesthesia: No History of Problems with Anesthesia: No Documented by User: Kartik Sheth MD 01/26/22 15:27 HPI - Anesthesia Eval Consult details Narrative: 81yo M for Carotid Endarterectomy Per Dr Simmons: Overall, based on the above, diffuse vascular disease including coronaries and carotids. Went over the findings in great detail with the patient as well as his daughter.? Explained him all the findings using illustrations.? They understand. With regard to surgical risk, at least intermediate.? This was discussed and the specific risks including myocardial infarction as well as were addressed.? Discussed with Dr. Ruvalcaba. With regard to the coronary disease itself, no need for any interventions at this time as he has no symptoms.? Aggressive medical care and control risk factors.? Will need to closely follow. Patient having nightmares and other side affects with Vimpat , did not take this AM . He understands the increased risk in the perioperative period PMFSH Past Medical History Medical History AMS (altered mental status) CAD (coronary artery disease) High cholesterol HTN (hypertension) IBS (irritable bowel syndrome) Seizures Family History Family History (Updated 01/26/22 @ 14:51 by Luz Schreiber RN) Father No problems noted. Mother Myocardial infarction Surgical History Surgical History Hx of abdominal surgery Hx of tonsillectomy Social History Social History Household Members: Children Household Members Other:: daughter, son, and son's girlfriend Housing: House Are you a primary acute care physician to a significant other at home: No Do you presently have visiting nurse or other home services: No Patient Tobacco Use Status: Former Tobacco user Quit Date: 64 years ago Tobacco use type: Cigarette Cigarette Packs Per Day: 1 Cigarettes Per Day: 20.0 Years Smoked: 3 Smoked in Last 30 Days: No e-Cigarette/Vaping Use: Never Used Patient Interested in Nicotine Replacement: No Patient Given Instructions on How to Stop Smoking: No Second Hand Smoke Exposure: No Use of substances other than those prescribed or required for medical reasons: Yes 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 If so, by whom?: No Do you feel safe in your current relationship?: Yes Is there a partner from a previous relationship who is making you feel unsafe now?: No Are you made to feel afraid or neglected: No Are you DNR?: No Advance Directives: No Advance Directives Information Provided: Yes (Will bring in DOS) Advance Directives on File: No Do you have thoughts of harming others: None Do you have a plan to hurt others: No Plan Recently lost weight without trying: No Eating poorly because of decreased appetite: No Nutrition Risks: No Nutritional Risk Poor oral hygiene: Yes service: No Current occupational status: retired Meds Allergies Allergy/AdvReac Type Severity Reaction Status Date / Time No Known Allergies Allergy Verified 01/26/22 07:22 [No Known Allergies*] Home Medications Medication Instructions Recorded Confirmed Last Taken Type latanoprost 0.005 % eye drops 1 drp ophthalmic (eye) BEDTIME 05/06/20 01/21/22 Unknown History magnesium hydroxide 400 mg/5 mL 400 mg PO DAILY PRN Constipation 11/14/20 01/21/22 Unknown History oral suspension (Dulcolax (magnesium hydroxide)) aspirin 81 mg tablet,delayed 81 mg PO DAILY 08/05/21 01/21/22 01/26/22 05:00 History release (Adult Low Dose Aspirin) lacosamide 50 mg tablet 50 mg PO BID 08/05/21 01/21/22 Unknown History aluminum-mag hydroxide-simethicone 10 ml PO NEEDED 01/09/22 01/21/22 Unknown History 400 mg-400 mg-40 mg/5 mL oral susp (Mylanta Maximum Strength) omeprazole 20 mg capsule,delayed 1 cap PO QAM 01/09/22 01/21/22 Unknown History release atorvastatin 80 mg tablet 80 mg PO BEDTIME 01/15/22 01/26/22 01/26/22 05:00 History clopidogrel 75 mg tablet 75 mg PO DAILY 01/15/22 01/26/22 01/26/22 05:00 History lisinopril 20 mg tablet 20 mg PO BID 01/15/22 01/26/22 01/26/22 05:00 History dorzolamide 22.3 mg-timolol 6.8 1 drp ophthalmic (eye) BID 01/26/22 01/26/22 Unknown History mg/mL eye drops Assessment and Plan Assessment Anesthesia Assessment: Chart Reviewed Final Anesthetic Review NPO: Yes ASA Class: III Final Preanesthetic Review: Meds/Allgs Chart Reviewed, Consent Obtained/Reviewed and Anes Risks/Benef Reviewed Patient Risk: High Procedure Risk: Intermediate Anesthetic Plan Anesthetic Plan: GA Disposition: Inp. Admit - ICU
[2022-01-12 14:35] LABS: Hematocrit 43.7 % (42.0-52.0); Hemoglobin 14.5 g/dl (14.0-18.0); Mean Corpuscular HGB Conc 33.2 g/dl (31.0-36.0); Mean Corpuscular Hemoglobin 28.9 pg (27.0-33.0); Mean Corpuscular Volume 87.2 fL (80.0-98.0); Mean Platelet Volume 11.2 fL (9.4-12.4); Platelet Count 228 X10*3/uL (160-400); Red Blood Count 5.01 X10*6/uL (4.60-5.80); Red Cell Distribution Width 13.4 % (11.0-16.0)
[2022-01-12 14:39] LABS: INTERNATIONAL NORM RATIO 1.1 (0.9-1.1); Prothrombin Time 12.2 SEC (10.0-13.1)
[2022-01-12 14:42] LABS: Partial Thromboplastin Time 29.2 SEC (26.0-36.4)
[2022-01-12 15:01] LABS: Anion Gap 14 (12-20); Blood Urea Nitrogen 14 mg/dL (9-16); Calcium 9.7 mg/dL (8.4-10.2); Carbon Dioxide 25 mmol/L (22-29); Chloride 101 mmol/L (96-108); Creatinine Clr Calc Pharmacy 65.1; Estimated Glomerular Filt Rate > 60; Glucose Random 106 mg/dL (60-115); Potassium 4.4 mmol/L (3.3-5.1); Sodium 136 mmol/L (135-145)
[2022-01-26] VITALS (26 sets, daily range): BP systolic 119–168; BP diastolic 50–69; PULSE 63–80; RESP 12–20; TEMP 36.1–36.3; O2SAT 93–100
[2022-01-26 06:44] LABS: COVID-19 Test Negative (Negative)
[2022-01-26] MEDS: Lactated Ringers 1,000 ML 100 ML IVCONT (07:18)
[2022-01-26 07:30] LABS: Hematocrit 39.9 % (42.0-52.0); Hemoglobin 13.2 g/dl (14.0-18.0); Mean Corpuscular HGB Conc 33.1 g/dl (31.0-36.0); Mean Corpuscular Hemoglobin 28.9 pg (27.0-33.0); Mean Corpuscular Volume 87.3 fL (80.0-98.0); Mean Platelet Volume 10.1 fL (9.4-12.4); Platelet Count 245 X10*3/uL (160-400); Red Blood Count 4.57 X10*6/uL (4.60-5.80); Red Cell Distribution Width 13.7 % (11.0-16.0); White Blood Count 11.2 X10*3/uL (4.8-10.8)
[2022-01-26 07:33] LABS: Anion Gap 13 (12-20); Blood Urea Nitrogen 16 mg/dL (9-16); Calcium 9.3 mg/dL (8.4-10.2); Carbon Dioxide 25 mmol/L (22-29); Chloride 104 mmol/L (96-108); Creatinine Clr Calc Pharmacy 65.1; Estimated Glomerular Filt Rate > 60; Glucose Random 113 mg/dL (60-115); Potassium 4.7 mmol/L (3.3-5.1); Sodium 137 mmol/L (135-145)
[2022-01-26 07:38] LABS: INTERNATIONAL NORM RATIO 1.2 (0.9-1.1); Prothrombin Time 13.3 SEC (10.0-13.1)
[2022-01-26 07:41] LABS: Partial Thromboplastin Time 29.5 SEC (26.0-36.4)
--- NOTE | 2022-01-26 08:25 | PC.NURSE ---
anesthesia made aware (at 620am) that pt was chewing gum for a few hours this am. ok'd to proceed. dr ramos made aware ( at 0707am) that pt didn't take his am seizure med.
--- NOTE | 2022-01-26 10:51 | P.OP_ITS ---
Operative Note Operative Note Date of Service: 01/26/22 Narrative: Operative note by [facility] Preoperative diagnosis: Right carotid stenosis with stroke Postoperative diagnosis: Same Procedure: Right carotid endarterectomy Surgeon:Jose Alberto Ruvalcaba M.D. Disc Ruler Operator: Dr. Bianchi Anesthesia: General Specimens: 1 Drains: 1 Estimated blood loss: 100 mL Indications: Complex 81-year-old gentleman who has a prior history of carotid stenosis and stroke which was confirmed by CT angiogram now presents for right carotid endarterectomy The patient has signed the informed consent after reviewing risks, complications, benefits, and alternatives previously discussed with the patient. The patient was given the opportunity to ask any additional questions or voice any concerns. All questions were answered to the patient's satisfaction. Procedure in detail: Patient was brought to the operating room prior to which a time-out was called for patient identification and site verification right neck was prepped and draped in standard surgical fashion. Incision was carried out over the anterior border of the sternocleidomastoid. This was taken down through the skin subcu into the carotid sheath. We did encounter facial branch of the internal jugular. This was subsequently ligated with 2-0 silk ties. Once this was accomplished we were able to easily get into the carotid sheath. This was identified although the carotid was rotated we dissected this clear. We 1st identified the common carotid and this was isolated with a Bertram tourniquet. We then turned our attention to the internal and external carotid. This was dissected clear. Once this was all accomplished and we were able to isolate all the vessels the internal and external were isolated with silastic loops. We then administered 5000 units of systemic heparin. After 5 minutes of circulation time 5000 units of systemic heparin was administered. Once this was accomplished we clamped off internal carotid common carotid and external carotid in that order. Arteriotomy was made from the common carotid to the internal carotid. It had to be extended somewhat proximally and distally. Once this was accomplished an 8 [place] Hodges shunt was then placed. Once this was all accomplished we then endarterectomized the vessel. The plaque at the distal edge was tacked down with a 7 0 Prolene suture. Once this was all accomplished it was thoroughly irrigated clear. There was no residual debris noted. This was flushed clear. We then tacked down a XenoSure patch with a 6 0 Prolene suture in a circumferential manner. Prior to closure it was flushed clear. We then closed off after we removed the shunt. Once this was accomplished we then reestablished flow external common and internal in that manner. Once this was all accomplished there was minimal bleeding noted. One single interrupted 6 0 Prolene had to be used to close 1 bleeding point. Once this was all done we irrigated this clear. We then placed a 7 flat Deven-Mart drain. We closed off the deep layer 0 with a 2 0 poly Sorb. Superficial layer with 3-0 poly sore. Finally skin with a running subcuticular 4-0 Monocryl. Steri-Strips and a sterile dressing were applied. Patient awoke neurologically intact and returned to recovery with stable vitals. This note is constructed using voice recognition software. While every effort has been made to ensure accuracy, satellite tv technician errors may have been included. Thank you for allowing me to participate in the care of your patient. Yours sincerely, Jose Alberto Ruvalcaba MD, FACS, R.P.V.I.
[2022-01-26] MEDS: oxyCODONE HCl Immed Release 5 MG TABLET PO ×3 (11:04→23:32)
[2022-01-26] MEDS: Acetaminophen 325 MG TABLET 650 MG PO (11:04)
[2022-01-26] MEDS: HYDROmorphone HCl 0.5 MG/0.5 ML SYRINGE 0.25 MG IVPUSH ×4 (11:06→12:10)
--- NOTE | 2022-01-26 13:54 | P.HPCC_ITS ---
History of Present Illness Date of Service: 01/26/22 Attending physician on admission: Jose Alberto Ruvalcaba Chief Complaint: Rt carotid endarterectomy Mr. Jenkins is admitted to the ICU this afternoon for post-op hemodynamic and respiratory monitoring after right carotid endarterectomy in the operating room by Dr. Ruvalcaba. The patient is an 81-year-old gentleman with PMHx of prior right hemispheric strokes with focal epilepsy, on Vimpat.? MRI from [facility] in June showed a chronic right parietotemporal and posterior insular infarcts.? Also has hypertension, hyperlipidemia, and irritable bowel syndrome. On workup was found to have right carotid stenosis 50-79%, and on the left side 50-79%.? The right carotid stenosis was thought to be the etiology of his strokes. MEDS at home include amlodipine, aspirin, atorvastatin, Plavix, dicyclomine, lisinopril, and omeprazole. Preop w/u: - Echocardiogram showed LVEF 65-70%; normal RV cavity size and systolic function; no hemodynamically significant valvular disease.? IVC was normal in size w normal inspiratory collapse. - previous cardiac catheterization showed chronic total occlusion of the RCA, with collaterals.? There was a 70% stenosis of the distal circumflex with intermediate disease in the LAD. - had dobutamine stress test, he achieved greater than 90% MPHR without angina, and with a hypertensive response.? The nuclear medicine study showed diminished tracer uptake in the basal inferior wall and adjacent inferior septum, as well as the inferolateral wall, suggesting an ischemia/infarct pattern. The patient underwent right carotid endarterectomy by Dr. Ruvalcaba under general endotracheal anesthesia in the operating room this morning.? Intra op surgical and anesthetic course were unremarkable.? The patient was extubated at the end of surgery and taken to the PACU. In the PACU, the patient was neurologically intact. ?He was noted to have a mild right neck hematoma.? Total of 60 cc of blood was drained from the [place].? The patient was transferred to the ICU at 1pm and I saw him on arrival. Fully A&O, breathing easy with Sat 100% on 2L NC, 98% on room air.? HR 75, BP160/65.? Temp 97.0.? Has a small bulge in right neck.? Mild-mod staining of the right neck dressing.? Another 20cc of blood drained from the KIANNA.? Tongue protrudes midline, able to say ?E?.? No gross neuro deficits. PREOPERATIVE LABORATORY DATA:? Hemoglobin 13, INR 1.2, BUN/creatinine 16/0.8.? (An elevated PSA from September was noted.? I asked the patient about that.? He already knew about it and has plans to follow-up with his physician.) IMPRESSION:? This is an 81-year-old male with peripheral vascular and coronary artery disease who underwent uncomplicated right carotid endarterectomy this morning.? Doing well postoperatively.? Has a small right neck hematoma with moderate bloody drainage.? Will follow closely tonight. Otherwise follow up per Dr. Ruvalcaba. [facility] Past Medical History Medical History AMS (altered mental status) CAD (coronary artery disease) High cholesterol HTN (hypertension) IBS (irritable bowel syndrome) Seizures Family History Family History (Updated 01/26/22 @ 14:51 by Luz Schreiber RN) Father No problems noted. Mother Myocardial infarction Surgical History Surgical History Hx of abdominal surgery Hx of tonsillectomy Social History Social History Household Members: Children Household Members Other:: daughter, son, and son's girlfriend Housing: House Are you a primary health care facility administrator to a significant other at home: No Do you presently have visiting nurse or other home services: No Patient Tobacco Use Status: Former Tobacco user Quit Date: 64 years ago Tobacco use type: Cigarette Cigarette Packs Per Day: 1 Cigarettes Per Day: 20.0 Years Smoked: 3 Smoked in Last 30 Days: No e-Cigarette/Vaping Use: Never Used Patient Interested in Nicotine Replacement: No Patient Given Instructions on How to Stop Smoking: No Second Hand Smoke Exposure: No Use of substances other than those prescribed or required for medical reasons: Yes 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 If so, by whom?: No Do you feel safe in your current relationship?: Yes Is there a partner from a previous relationship who is making you feel unsafe now?: No Are you made to feel afraid or neglected: No Are you DNR?: No Advance Directives: No Advance Directives Information Provided: Yes (Will bring in DOS) Advance Directives on File: No Do you have thoughts of harming others: None Do you have a plan to hurt others: No Plan Recently lost weight without trying: No Eating poorly because of decreased appetite: No Nutrition Risks: No Nutritional Risk Poor oral hygiene: Yes service: No Current occupational status: retired Meds Allergies Allergy/AdvReac Type Severity Reaction Status Date / Time No Known Allergies Allergy Verified 01/26/22 07:22 [No Known Allergies*] Active Medications: Current Medications Acetaminophen (Acetaminophen 325 Mg Tablet) 650 mg PO Q6H PRN PRN Reason: Pain, Mild (Pain Scale 1-3) Last Admin: 01/26/22 11:04 Dose: 650 mg Al Hydroxide/Mg Hydroxide (Magnesium Hydrox/Alum Hydrox 30 Ml Oral.Susp) 30 ml PO DAILY PRN PRN Reason: Dyspepsia Amlodipine Besylate (Amlodipine Besylate 10 Mg Tablet) 10 mg PO DAILY [facility]LY [facility], [facility]; Protocol Aspirin (Aspirin Enteric Coated 81 Mg Tablet.Dr) 81 mg PO DAILY [facility], [facility]1983 Atorvastatin Calcium (Atorvastatin Calcium 80 Mg Tablet) 80 mg PO BEDTIME [facility], [facility]1983 Clopidogrel Bisulfate (Clopidogrel Bisulfate 75 Mg Tablet) 75 mg PO DAILY FOR[facility], [facility] Dorzolamide/Timolol (Dorzolamide/Timolo 2.23%/0.68% 10 Ml Drbtl) 1 drop EYE- BOTH BID FOR[facility]LY [facility], [facility]1983 Fentanyl (Fentanyl Citrate/Pf 100 Mcg/2 Ml Vial) 25 mcg IVPUSH Q5M PRN; Protocol PRN Reason: Pain, Moderate (Pain Scale 4-6 Lactated Ringer's (Lr) 1,000 mls @ 100 mls/hr IVCONT .Q10H BOLIVAR Last Admin: 01/26/22 07:18 Dose: 100 mls/hr Sodium Chloride (Ns) 1,000 mls @ 80 mls/hr IVCONT .[id number] [facility], [facility]1983 Cefazolin Sodium/Dextrose (Ancef) 2 gm in 50 mls @ 100 mls/hr IV ONCE@1400 ONE Stop: 01/26/22 14:29 Latanoprost (Latanoprost 0.005 % Ophth Mireille 2.5 Ml Drops) 1 drop EYE-BOTH BEDTIME [facility], [facility]1983 Lisinopril (Lisinopril 20 Mg Tablet) 20 mg PO BID [facility], [facility]; Protocol Magnesium Hydroxide (Milk Of Magnesia 30 Ml Oral.Susp) 30 ml PO DAILY PRN PRN Reason: Constipation Morphine Sulfate (Morphine Sulfate 2 Mg/Ml Cartridge) 2 mg IVPUSH Q4H PRN; Protocol PRN Reason: Pain, Severe (Pain Scale 7-10) Non-Formulary Medication (Lacosamide) 50 mg PO BID [facility] Omeprazole (Omeprazole 20 Mg Capsule.Dr) 20 mg PO DAILY@0630 FOR[facility], [facility]1983 Ondansetron HCl (Ondansetron Hcl 4 Mg/2 Ml Vial) 4 mg IVPUSH ONCE PRN PRN Reason: Nausea and Vomiting Ondansetron HCl (Ondansetron Hcl 4 Mg/2 Ml Vial) 4 mg IVPUSH Q8H PRN PRN Reason: Nausea and Vomiting Oxycodone HCl (Oxycodone Hcl Immed Release 5 Mg Tablet) 5 mg PO Q4H PRN PRN Reason: Pain, Moderate (Pain Scale 4-6 Last Admin: 01/26/22 11:04 Dose: 5 mg Sodium Chloride (0.9 % Sodium Chloride Flush 3 Ml Syringe) 3 ml IVFLUSH QSHIFT [facility], [facility] Home Medications Medication Instructions Recorded Confirmed Last Taken Type latanoprost 0.005 % eye drops 1 drp ophthalmic (eye) BEDTIME 05/06/20 01/21/22 Unknown History magnesium hydroxide 400 mg/5 mL 400 mg PO DAILY PRN Constipation 11/14/20 01/21/22 Unknown History oral suspension (Dulcolax (magnesium hydroxide)) aspirin 81 mg tablet,delayed 81 mg PO DAILY 08/05/21 01/21/22 01/26/22 05:00 History release (Adult Low Dose Aspirin) lacosamide 50 mg tablet 50 mg PO BID 08/05/21 01/21/22 Unknown History aluminum-mag hydroxide-simethicone 10 ml PO NEEDED 01/09/22 01/21/22 Unknown History 400 mg-400 mg-40 mg/5 mL oral susp (Mylanta Maximum Strength) omeprazole 20 mg capsule,delayed 1 cap PO QAM 01/09/22 01/21/22 Unknown History release atorvastatin 80 mg tablet 80 mg PO BEDTIME 01/15/22 01/26/22 01/26/22 05:00 History clopidogrel 75 mg tablet 75 mg PO DAILY 01/15/22 01/26/22 01/26/22 05:00 History lisinopril 20 mg tablet 20 mg PO BID 01/15/22 01/26/22 01/26/22 05:00 History dorzolamide 22.3 mg-timolol 6.8 1 drp ophthalmic (eye) BID 01/26/22 01/26/22 Unknown History mg/mL eye drops Physical Exam Vital Signs: Vital Signs: Last Vital Signs Temp 97.0 F 01/26/22 12:50 Pulse 71 01/26/22 12:50 Resp 17 01/26/22 12:50 BP 149/61 H 01/26/22 12:50 Pulse Ox 97 01/26/22 12:50 O2 Del Method 01/26/22 12:50 O2 Flow Rate 2 01/26/22 12:50 BMI result Body Mass Index 26.6 Results Labs CBC and Chem 7: 01/26/22 07:11 01/26/22 07:11 Labs: Laboratory Results - last 24 hr 01/26/22 01/26/22 01/26/22 06:22 07:11 07:11 MCV 87.3 MCH 28.9 MCHC 33.1 RDW 13.7 Plt Count 245 MPV 10.1 Absolute Nucleated RBC 0.000 Nucleated RBC % (auto) 0.0 PT 13.3 H INR 1.2 H APTT 29.5 Anion Gap Estim Creat Clear Calc Estimated GFR Random Glucose Calcium COVID-19 ([facility]) Negative COVID-19 Clin Com See Note 01/26/22 07:11 MCV MCH MCHC RDW Plt Count MPV Absolute Nucleated RBC Nucleated RBC % (auto) PT INR APTT Anion Gap 13 Estim Creat Clear Calc 65.1 Estimated GFR > 60 Random Glucose 113 Calcium 9.3 COVID-19 ([facility]) COVID-19 Clin Com
[2022-01-26] MEDS: 0.9 % Sodium Chloride 1,000 ML 80 ML IVCONT (15:51)
[2022-01-26] MEDS: ceFAZolin Sodium/Dextrose,Iso 2 GM/50 ML PIGGYBACK IV (15:58)
[2022-01-26] MEDS: 0.9 % Sodium Chloride Flush 3 ML SYRINGE IVFLUSH (16:15)
[2022-01-26] MEDS: Atorvastatin Calcium 80 MG TABLET PO (20:34)
[2022-01-26] MEDS: lisinopriL 20 MG TABLET PO (20:34)
[2022-01-26] MEDS: Latanoprost 0.005 % Ophth Sol 2.5 ML DROPS 1 DROP EYE-BOTH (21:43)
[2022-01-26] MEDS: Magnesium Hydrox/Alum Hydrox 30 ML ORAL.SUSP PO (22:48)
[2022-01-26] MEDS: Morphine Sulfate 2 MG/ML CARTRIDGE IVPUSH (22:48)
[2022-01-26] MEDS: Omeprazole 20 MG CAPSULE.DR PO (23:26)
[2022-01-27] VITALS (14 sets, daily range): BP systolic 143–193; BP diastolic 56–72; PULSE 59–87; RESP 14–18; TEMP 37.1; O2SAT 92–99; BMI 26.4
[2022-01-27] MEDS: 0.9 % Sodium Chloride 1,000 ML 80 ML IVCONT (03:09)
[2022-01-27 05:31] LABS: MANUAL DIFF FLAG NO
[2022-01-27 05:37] LABS: Basophils Percent Auto 0.4 % (0-2); Eosinophils Absolute Auto 0.1 X10*3/uL (0.0-0.4); Eosinophils Percent Auto 0.9 % (0-4); Hematocrit 33.6 % (42.0-52.0); Hemoglobin 11.2 g/dl (14.0-18.0); Imm Gran Abs Auto 0.02 X10*3/uL (0.00-0.03); Imm Gran Pct Auto 0.2 % (0.0-0.4); Lymphocytes Absolute Auto 2.1 X10*3/uL (1.2-4.9); Mean Corpuscular HGB Conc 33.3 g/dl (31.0-36.0); Mean Platelet Volume 10.2 fL (9.4-12.4); Monocytes Percent Auto 8.6 % (2-11); Neutrophils Percent Auto 70.9 % (45-73); Platelet Count 217 X10*3/uL (160-400); Red Blood Count 3.86 X10*6/uL (4.60-5.80); Red Cell Distribution Width 13.7 % (11.0-16.0); White Blood Count 11.2 X10*3/uL (4.8-10.8)
[2022-01-27 05:55] LABS: Anion Gap 12 (12-20); Blood Urea Nitrogen 13 mg/dL (9-16); Calcium 8.2 mg/dL (8.4-10.2); Carbon Dioxide 22 mmol/L (22-29); Chloride 102 mmol/L (96-108); Creatinine Clr Calc Pharmacy 81.2; Estimated Glomerular Filt Rate > 60; Glucose Random 137 mg/dL (60-115); Potassium 4.2 mmol/L (3.3-5.1); Sodium 132 mmol/L (135-145)
--- NOTE | 2022-01-27 07:30 | PHA.MEDREC ---
Pharmacy Consult ? Medication Reconciliation Pharmacy has completed the medication reconciliation. Reviewed med rec done by nursing (Merry). Meliza ([facility]) also spoke with patient.
[2022-01-27] MEDS: oxyCODONE HCl Immed Release 5 MG TABLET PO (08:03)
[2022-01-27] MEDS: Clopidogrel Bisulfate 75 MG TABLET PO (08:04)
[2022-01-27] MEDS: lisinopriL 20 MG TABLET PO (08:04)
[2022-01-27] MEDS: amLODIPine Besylate 10 MG TABLET PO (08:04)
[2022-01-27] MEDS: Aspirin Enteric Coated 81 MG TABLET.DR PO (08:04)
[2022-01-27] MEDS: Dorzolamide/Timolo 2.23%/0.68% 10 ML DRBTL 1 DROP EYE-BOTH (08:05)
[2022-01-27] MEDS: 0.9 % Sodium Chloride Flush 3 ML SYRINGE IVFLUSH (08:05)
--- NOTE | 2022-01-27 08:45 | HO.POSTANES ---
Post Anesthesia Evaluation Post Anesthesia Evaluation Vital Signs: Vital Signs Temp Pulse Resp BP BP Pulse Ox O2 Del Method 01/27/22 08:00 98.7 F 87 14 193/70 H 99 Room Air 01/27/22 07:00 79 15 191/72 H 97 Room Air 01/27/22 06:00 65 15 146/56 H 97 Room Air 01/27/22 05:00 71 18 155/56 H 95 Room Air 01/27/22 04:00 67 15 150/59 H 96 Room Air 01/27/22 03:00 73 16 160/58 H 96 Room Air 01/27/22 02:00 77 16 173/67 H 97 Room Air 01/27/22 01:00 75 17 169/63 H 95 Room Air 01/27/22 00:00 76 17 156/57 H 97 Room Air 01/26/22 23:00 68 17 150/58 H 93 Room Air 01/26/22 22:00 64 18 156/58 H 94 Room Air 01/26/22 21:00 66 17 147/58 H 95 Room Air 01/27/22 00:00 158/59 H Anesthesia: General Endotracheal-GETA Mental Status: Awake Pain Control: Satisfactory Nausea/Vomiting: None Hydration: Adequate Anesthesia-Related Issues: No Anes. Related Issues
--- NOTE | 2022-01-27 08:58 | MHC.CLN ---
NUTRITION CHANGED DIET FROM REGULAR TO CARDIAC.
--- NOTE | 2022-01-27 12:25 | P.DS_ITS ---
DS: Providers Provider Date of Service: 01/27/22 Date of admission: 01/26/22 06:22 Primary care physician: Unknown Physician DS: Diagnosis Discharge Diagnosis (1) Carotid stenosis, right: Status: Acute DS: Summary Hospital Course Hospital Course: Patient underwent elective right carotid endarterectomy on 01/26/2022. Postoperatively did well and was observed in ICU overnight. He did develop a small hematoma in the right neck. He had no difficulty swallowing. He was neurologically intact. He was postop day 1 A-line and [place] were removed. He was subsequently discharged in stable condition. Status at Discharge Overall status at discharge: patient is back to baseline Time Spent with Patient Time attestation: Total time spent providing and/or coordinating discharge services: Discharge coordination time: Greater than 30 minutes Quality: Safe Use of Opioids Does Pt have an Active Cancer Diagnosis on the Problem List?: No Quality: Stroke Does the patient have a stroke diagnosis?: No Physical Exam Vital Signs: Vital Signs: Last Vital Signs Temp 98.7 F 01/27/22 12:00 Pulse 67 01/27/22 12:00 Resp 14 01/27/22 12:00 BP 143/61 H 01/27/22 09:00 Pulse Ox 92 01/27/22 12:00 O2 Del Method 01/27/22 12:00 O2 Flow Rate 2 01/26/22 12:50 BMI result Body Mass Index 26.4 Const: General: cooperative, healthy appearing and no acute distress Orientation/consciousness: oriented to person, oriented to place and oriented to time HEENT: Head: Yes normal to inspection Neck: Carotids: no bruits Chest: Chest palpation & inspection: normal inspection of the chest Resp: Effort & Inspection: normal respiratory effort and able to speak in complete sentences Auscultation: clear to auscultation bilaterally Cardio: Rate: regular rate Heart sounds: S1 normal heart sound present and S2 normal heart sound present GI: Inspection: Yes normal to inspection Skin: Other: Right neck small hematoma General skin exam: no rashes or lesions noted Wounds: no wounds Neuro: General: oriented to person, oriented to place, oriented to time and CN's II-XI intact bilaterally Extrem: General: Yes normal to inspection, Yes full ROM and Yes no clubbing, cyanosis or edema Psych: Appearance: grossly normal and well kempt Speech and movement: Normal speech and movement present Affect: normal affect DS: Data Data Completed and Pending Completed studies during hospitalization [Text1]: Procedures Inspection of Spinal Canal, Percutaneous Approach (05/07/20) Pending studies at discharge: Pending at discharge 01/26/22 09:49 Surgical [PTH] Routine Labs on day of discharge: Laboratory Results - last 24 hr 01/27/22 01/27/22 05:20 05:20 WBC 11.2 H RBC 3.86 L Hgb 11.2 L Hct 33.6 L MCV 87.0 MCH 29.0 MCHC 33.3 RDW 13.7 Plt Count 217 MPV 10.2 Immature Gran % (Auto) 0.2 Neut % (Auto) 70.9 Lymph % (Auto) 19.0 L [place] % (Auto) 8.6 Eos % (Auto) 0.9 Baso % (Auto) 0.4 Lymph # (Auto) 2.1 [place] # (Auto) 1.0 Eos # (Auto) 0.1 Baso # (Auto) 0.0 Abs Immat Gran (auto) 0.02 Absolute Neuts (auto) 8.0 Absolute Nucleated RBC 0.000 Nucleated RBC % (auto) 0.0 Sodium 132 L Potassium 4.2 Chloride 102 Carbon Dioxide 22 Anion Gap 12 BUN 13 Creatinine 0.69 Estim Creat Clear Calc 81.2 Estimated GFR > 60 Random Glucose 137 H Calcium 8.2 L D Discharge Plan Discharge Patient Disposition: Home, Self-Care Discharge Diagnosis: Status post carotid endarterectomy Referrals: Physician,Unknown J [Primary Care Provider] - 1 Week Discharge Medications: New oxycodone-acetaminophen [Percocet] 5-325 mg tablet 1 tab PO Q8H PRN (Reason: pain) Qty: 14 0RF Rx Instructions: Partial Fill upon patient request. Continued latanoprost 0.005 % drops 1 drp ophthalmic (eye) BEDTIME atorvastatin 80 mg tablet 80 mg PO BEDTIME lisinopril 20 mg tablet 20 mg PO BID clopidogrel 75 mg tablet 75 mg PO DAILY omeprazole 20 mg capsule,delayed release(DR/EC) 1 cap PO QAM alum-mag hydroxide-simeth [Mylanta Maximum Strength] 400-400-40 mg/5 mL suspension 10 ml PO NEEDED dorzolamide-timolol 22.3-6.8 mg/mL Drops 1 drp OPHTHALMIC (EYE) BID magnesium hydroxide [Dulcolax (magnesium hydroxide)] 400 mg/5 mL suspension 400 mg PO DAILY PRN (Reason: Constipation) lacosamide 50 mg tablet 50 mg PO BID aspirin [Adult Low Dose Aspirin] 81 mg tablet,delayed release (DR/EC) 81 mg PO DAILY amlodipine 10 mg tablet 10 mg PO DAILY Qty: 90 3RF Discharge Orders: Discharge Order (Routine); Ordered 01/27/22 Ordered By: Jose Alberto Ruvalcaba Diet: Advance to usual diet Activity on Discharge: As tolerated Stand Alone Forms: Patient Portal Discharge page Activity Restrictions/Additional Instructions: Please see attached sheets for carotid instructions Percocet for pain See me in 2 weeks for postoperative follow-up Care Plan Goals: Stroke prevention Health Concerns: Carotid stenosis Plan of Treatment: Surveillance follow-up of carotids Assessment: Status post carotid endarterectomy
--- NOTE | 2022-01-27 12:31 | MHC.CM.PN ---
Meet w/ patient for CM assessment. Reports he lives @ home in [place] with daughter and son. No services prior to hospitalization. IMM delivered. PCP verified. Family to transport on D/C. Has HCP, copy requested.
--- NOTE | 2022-01-27 14:18 | PC.NURSE ---
Patient has remained hemodynamically and neurologically stable throughout stay s/p right CEA. Incision site with steri strips intact. There is some bruising and swelling at the site. The site itself is soft. MD removed the KIANNA drain earlier in the day and the new dressing has a small amount of shadowing. The CEA and KIANNA sites have remained unchanged and are stable. The patient and his daughter were given verbal and written instructions and verbalized understanding of information given. Patient discharged to home in care of daughter s/p RCEA.
== END 2022-01-27 14:17 | disposition home or self-care (01) | DRG 38 ==
LOC: HO.SSSA 06:27 → HO.ICU 13:52
PROVIDERS: Nurse Practitioner; Admitting Provider Surgery Vascular Surgery; PCP Internal Medicine Medical Oncology; Visit Provider Surgery Vascular Surgery
PROC: 03CM0ZZ Extirpation of Matter from Right External Carotid Artery, Open Approach (ICD-10-PCS; CPT 35301; principal; 2022-01-26 07:30)
DX: I65.21 Occlusion and stenosis of right carotid artery (principal); I97.638 Postprocedural hematoma of a circulatory system organ or structure following other circulatory system procedure; I25.10 Atherosclerotic heart disease of native coronary artery without angina pectoris; Z20.822 Contact with and (suspected) exposure to COVID-19; Z87.891 Personal history of nicotine dependence; Z79.02 Long term (current) use of antithrombotics/antiplatelets; Z79.82 Long term (current) use of aspirin; Z79.899 Other long term (current) drug therapy
CPT/HCPCS: 36415; 80048; 85025; 85027; 85610; 85730; 86850; 86900; 86901; 87635; 88304; 88311; 93005; C1768; J0690; J1170; J2270; J2370; J2405; J2795; J3010

== ENCOUNTER → 2022-02-04 09:22 | Outpatient (BNVA) | payer MEDICARE, SELFPAY | PROVIDERS: PCP Internal Medicine Medical Oncology; Referring Provider Internal Medicine Medical Oncology; Visit Provider Internal Medicine | DX: I25.10 Atherosclerotic heart disease of native coronary artery without angina pectoris (principal); I73.9 Peripheral vascular disease, unspecified; I10 Essential (primary) hypertension; E78.5 Hyperlipidemia, unspecified | CPT/HCPCS: 99212 ==

== ENCOUNTER 2022-05-18 09:59 | Outpatient (REF) | payer MEDICARE, SELFPAY ==
--- NOTE | ~2022-05-18 | US_ITS ---
EXAMINATION: US EXTRACRANIAL CAROTID DUPLEX, BILATERAL CLINICAL INFORMATION: Stenosis of the carotid arteries, history of right carotid endarterectomy COMPARISON: Carotid duplex on 11/25/2021 TECHNIQUE: Real-time ultrasound and Doppler techniques (integrating B-mode 2-D vascular images, Doppler spectral analysis and color-flow Doppler imaging) were utilized to interrogate the extracranial carotid arteries, the vertebral arteries and proximal subclavian arteries bilaterally. The degree of stenosis is determined by criteria similar to NASCET. FINDINGS: Right Side: 1. There is no significant atherosclerotic plaque seen in the bifurcation/proximal ICA region. 2. The common carotid artery PSV proximally is 84 cm/s and distally 114 cm/s. 3. The proximal internal carotid artery velocities are 113 cm/s systolic and 20 cm/s diastolic. 4. The proximal external carotid artery PSV is 239 cm/s. 5. The vertebral artery shows antegrade flow. 6. The subclavian artery waveforms are normal. Left Side: 1. There is moderate atherosclerotic plaque seen in the bifurcation/proximal ICA region. 2. The common carotid artery PSV proximally is 59 cm/s and distally 41 cm/s. 3. The proximal internal carotid artery velocities are 190 cm/s systolic and 50 cm/s diastolic. 4. The proximal external carotid artery PSV is 117 cm/s. 5. The vertebral artery shows antegrade flow. 6. The subclavian artery waveforms are normal. US/US carotid duplex BI IMPRESSION: 1. RIGHT: Normal right internal carotid artery without atherosclerotic plaque or hemodynamically significant stenosis. 2. LEFT: Moderate, hemodynamically significant stenosis of the proximal left internal carotid artery corresponding to a 50-79% stenosis by velocity criteria. 3. There is improvement in the category of disease on the right compared to the exam on 11/25/2021
== END 2022-05-18 10:00 | disposition home or self-care (01) ==
LOC: HO.US 09:59
PROVIDERS: PCP Internal Medicine Medical Oncology; Visit Provider Surgery Vascular Surgery
DX: I65.23 Occlusion and stenosis of bilateral carotid arteries (principal)
CPT/HCPCS: 93880

== ENCOUNTER → 2022-06-02 15:25 | Outpatient (BNVA) | payer MEDICARE, SELFPAY | PROVIDERS: PCP Internal Medicine Medical Oncology; Visit Provider Surgery Vascular Surgery | DX: I25.10 Atherosclerotic heart disease of native coronary artery without angina pectoris (principal); I10 Essential (primary) hypertension; I65.23 Occlusion and stenosis of bilateral carotid arteries; E78.00 Pure hypercholesterolemia, unspecified; Z87.891 Personal history of nicotine dependence; Z98.890 Other specified postprocedural states | CPT/HCPCS: 99212 ==

== ENCOUNTER → 2022-07-06 15:16 | Outpatient (BNVA) | payer MEDICARE, MEDICAID, OTHER, SELFPAY | PROVIDERS: PCP Internal Medicine Medical Oncology; Referring Provider Internal Medicine Medical Oncology; Visit Provider Internal Medicine | DX: I25.10 Atherosclerotic heart disease of native coronary artery without angina pectoris (principal); I73.9 Peripheral vascular disease, unspecified; I10 Essential (primary) hypertension; E78.5 Hyperlipidemia, unspecified | CPT/HCPCS: 99212 ==

== ENCOUNTER 2022-08-17 09:18 | Outpatient (REF) | payer MEDICARE, MEDICAID, SELFPAY ==
[2022-08-17 09:42] LABS: MANUAL DIFF FLAG NO
[2022-08-17 09:53] LABS: Basophils Absolute Auto 0.1 X10*3/uL (0.0-0.2); Basophils Percent Auto 0.7 % (0-2); Eosinophils Absolute Auto 0.3 X10*3/uL (0.0-0.4); Eosinophils Percent Auto 2.8 % (0-4); Hematocrit 43.1 % (42.0-52.0); Hemoglobin 13.5 g/dl (14.0-18.0); Imm Gran Abs Auto 0.03 X10*3/uL (0.00-0.03); Imm Gran Pct Auto 0.3 % (0.0-0.4); Lymphocytes Absolute Auto 2.5 X10*3/uL (1.2-4.9); Lymphocytes Percent Auto 22.6 % (20-40); Mean Corpuscular HGB Conc 31.3 g/dl (31.0-36.0); Mean Corpuscular Volume 89.4 fL (80.0-98.0); Mean Platelet Volume 10.5 fL (9.4-12.4); Monocytes Absolute Auto 0.8 X10*3/uL (0.1-1.2); Neutrophils Absolute Auto 7.4 x10*3/uL (2.0-8.3); Neutrophils Percent Auto 66.6 % (45-73); Platelet Count 260 X10*3/uL (160-400); Red Blood Count 4.82 X10*6/uL (4.60-5.80); White Blood Count 11.2 X10*3/uL (4.8-10.8)
[2022-08-17 10:43] LABS: Phenytoin Dilantin < 1.8 ug/mL (10.0-20.0)
[2022-08-17 10:52] LABS: Alanine Aminotransferase 24 U/L (0-40); Albumin Level 4.6 g/dL (3.5-5.0); Alkaline Phosphatase 94 U/L (39-117); Anion Gap 11 (12-20); Aspartate Amino Transferase 21 U/L (5-37); Bilirubin Total 0.7 mg/dL (0.0-1.0); Blood Urea Nitrogen 23 mg/dL (9-16); Calcium 9.2 mg/dL (8.4-10.2); Carbon Dioxide 28 mmol/L (22-29); Chloride 105 mmol/L (96-108); Cholesterol 132 mg/dL; Estimated Glomerular Filt Rate > 60; Glucose Fasting 106 mg/dL (60-99); HDL Cholesterol 50 mg/dL; LDL Cholesterol Calculated 65 mg/dl; Potassium 4.9 mmol/L (3.3-5.1); Sodium 139 mmol/L (135-145); Triglycerides 88 mg/dL
[2022-08-17 11:11] LABS: Prostate Specific Antigen 29.62 ng/mL (<0.05-4.0); Vitamin D 25-OH Total 18.4 ng/mL (>30)
== END 2022-08-17 09:19 | disposition home or self-care (01) ==
LOC: HO.LAB 09:18
PROVIDERS: PCP Internal Medicine Medical Oncology; Visit Provider Internal Medicine Medical Oncology
DX: Z12.5 Encounter for screening for malignant neoplasm of prostate (principal); I10 Essential (primary) hypertension; E78.5 Hyperlipidemia, unspecified; I65.21 Occlusion and stenosis of right carotid artery; I73.9 Peripheral vascular disease, unspecified; N40.0 Benign prostatic hyperplasia without lower urinary tract symptoms; R97.20 Elevated prostate specific antigen [PSA]; Z87.898 Personal history of other specified conditions; E55.9 Vitamin D deficiency, unspecified
CPT/HCPCS: 36415; 80053; 80061; 80185; 82306; 84153; 85025

== ENCOUNTER 2022-08-31 09:51 | Emergency (ER) | payer MEDICARE, MEDICAID, SELFPAY ==
[2022-08-31 09:55] VITALS: BP 159/87; PULSE 80; RESP 16; TEMP 36.7; O2SAT 100; BMI 27.2
--- NOTE | 2022-08-31 10:56 | ECG_ITS ---
Test Reason : UNSTEADY Blood Pressure : / mmHG Vent. Rate : 071 BPM Atrial Rate : 071 BPM P-R Int : 158 ms QRS Dur : 084 ms QT Int : 386 ms P-R-T Axes : 056 -23 032 degrees QTc Int : 419 ms Artifact in tracing Normal sinus rhythm Normal ECG When compared with ECG of 12-JAN-2022 13:10, No significant change was found Referred By: Fariha Roger Electronically Signed By:ANDREA GARCÍA
[2022-08-31 11:19] LABS: MANUAL DIFF FLAG NO
[2022-08-31 11:20] LABS: Basophils Absolute Auto 0.1 X10*3/uL (0.0-0.2); Basophils Percent Auto 0.6 % (0-2); Eosinophils Absolute Auto 0.2 X10*3/uL (0.0-0.4); Eosinophils Percent Auto 2.2 % (0-4); Hemoglobin 13.6 g/dl (14.0-18.0); Imm Gran Abs Auto 0.02 X10*3/uL (0.00-0.03); Imm Gran Pct Auto 0.2 % (0.0-0.4); Lymphocytes Absolute Auto 1.9 X10*3/uL (1.2-4.9); Lymphocytes Percent Auto 18.8 % (20-40); Mean Corpuscular HGB Conc 32.4 g/dl (31.0-36.0); Mean Corpuscular Volume 89.6 fL (80.0-98.0); Mean Platelet Volume 10.5 fL (9.4-12.4); Monocytes Absolute Auto 0.7 X10*3/uL (0.1-1.2); Monocytes Percent Auto 6.4 % (2-11); Neutrophils Absolute Auto 7.4 x10*3/uL (2.0-8.3); Neutrophils Percent Auto 71.8 % (45-73); Platelet Count 217 X10*3/uL (160-400); Red Blood Count 4.69 X10*6/uL (4.60-5.80); Red Cell Distribution Width 14.6 % (11.0-16.0); White Blood Count 10.3 X10*3/uL (4.8-10.8)
[2022-08-31 11:25] LABS: INTERNATIONAL NORM RATIO 1.1 (0.9-1.1); Prothrombin Time 12.4 SEC (10.0-13.1)
[2022-08-31 11:48] LABS: Troponin-I High Sensitivity < 3.5 ng/L (<3.5-35.0)
--- NOTE | 2022-08-31 11:51 | ED_ITS ---
HPI - General Adult General Chief complaint: General Medical Stated complaint: unsteady Time Seen by Provider: 08/31/22 10:36 Source: patient Mode of arrival: ambulatory History of Present Illness HPI narrative: This is an 82-year-old male who presents with complaints of feeling somewhat unsteady on his feet on and then states that he was having a headache that wrapped around his head pressure in nature and denies any associated visual disturbances and denies any association with fatigue during mastication. He denies any fever or chills, denies any neck pain, denies any shortness of breath/chest pain/palpitations and denies any GI or symptoms. Related Data Home Medications Medication Instructions Recorded Confirmed latanoprost 0.005 % eye drops 1 drp ophthalmic (eye) BEDTIME 05/06/20 07/06/22 aspirin 81 mg tablet,delayed 81 mg PO DAILY 08/05/21 07/06/22 release (Adult Low Dose Aspirin) lacosamide 50 mg tablet 50 mg PO BID 08/05/21 07/06/22 atorvastatin 80 mg tablet 80 mg PO BEDTIME 01/15/22 07/06/22 lisinopril 20 mg tablet 20 mg PO BID 01/15/22 07/06/22 dorzolamide 22.3 mg-timolol 6.8 1 drp ophthalmic (eye) BID 01/26/22 07/06/22 mg/mL eye drops omeprazole 20 mg capsule,delayed 20 mg PO QAM 07/06/22 07/06/22 release Previous Rx's Medication Instructions Recorded amlodipine 10 mg tablet 10 mg PO DAILY #90 tabs 01/15/22 Allergies Allergy/AdvReac Type Severity Reaction Status Date / Time No Known Allergies Allergy Verified 07/06/22 15:20 [No Known Allergies*] Review of Systems Review of Systems: Pertinent positives and negatives as stated in HPI [facility] Past Medical History Source: nursing notes reviewed Medical History AMS (altered mental status) CAD (coronary artery disease) High cholesterol HTN (hypertension) IBS (irritable bowel syndrome) Seizures Surgical History H/O eye surgery History of carotid endarterectomy (~01/2022) Hx of abdominal surgery Hx of tonsillectomy Family History Family History Father No problems noted. Mother Myocardial infarction Social History Social History Household Members: Children Household Members Other:: daughter, son, and son's girlfriend Housing: House Are you a primary animal care supervisor to a significant other at home: No Do you presently have visiting nurse or other home services: No Alcohol intake: current Alcohol intake frequency: a few times a month Alcohol type: beer Patient Tobacco Use Status: Never used Tobacco e-Cigarette/Vaping Use: Never Used Second Hand Smoke Exposure: No Substance Use Type: Marijuana and Caffiene Advance Directives: Yes Advance Directives on File: Yes Advance Directives Date on File: 01/26/22 service: No Current occupational status: retired Physical Exam ED Vital Signs: Vital Signs - 24 hr 08/31/22 09:55 08/31/22 11:58 08/31/22 12:02 Temperature 98.1 F Pulse Rate 80 71 73 Respiratory Rate 16 20 Blood Pressure 159/87 H 126/60 132/60 Pulse Oximetry 100 99 Oxygen Delivery Method Room Air Room Air 08/31/22 11:59 08/31/22 12:00 Temperature Pulse Rate 74 79 Respiratory Rate Blood Pressure 125/53 L 115/58 L Pulse Oximetry Oxygen Delivery Method BMI result Body Mass Index 27.2 VITAL SIGNS: Reviewed. GENERAL: Well developed, well nourished, in no acute distress. HEAD: Normocephalic/atraumatic EYES: PERRLA, EOMI EARS: Ext canals without abnormality NOSE: Nares patent bilateral OROPHARYNX: no oral lesions noted, posterior pharynx clear NECK: Supple, no adenopathy LUNGS: Normal breath sounds. No adventitious sounds or accessory muscle use. SpO2<99> CARDIOVASCULAR: Regular rate and rhythm without noted murmurs, no JVD or lower extremity edema. ABDOMEN: Soft, non-tender, non-distended with bowel sounds. MUSCULOSKELETAL: No tenderness, deformities, or effusions noted on gross inspection. EXTREMITIES: No cyanosis, clubbing or edema. SKIN: Inspection of the skin reveals no rashes NEUROLOGIC: Alert and oriented x 4. Strength and sensation to light touch were grossly intact x 4, no facial asymmetry, no pronator drift, cranial nerves 2-12 are grossly intact, patient ambulates with a steady gait. Medications Administered Discontinued Medications Generic Name Dose Route Start Last Admin Trade Name Hayley PRN Reason Stop Dose Admin Acetaminophen 975 mg 08/31/22 12:48 08/31/22 12:55 Acetaminophen 325 Mg Tablet PO 08/31/22 12:49 975 mg ONCE ONE Administration Ibuprofen 400 mg 08/31/22 12:48 08/31/22 12:54 Ibuprofen 400 Mg Tablet PO 08/31/22 12:49 400 mg ONCE ONE Administration Medical Decision Making Medical Decision Making MDM Narrative: 82-year-old male with complaints of what sounds like tension headache but will at on and ESR to ensure no giant cell arteritis and no clinical suspicion for herpes zoster. There are no focal deficits to suggest intracranial abnormalities and patient is alert and oriented unlike prior presentation where patient had altered mental status. I reviewed all investigations and patient is noted to be COVID-19 positive but will wait for ESR and if negative will be discharged home. ESR is negative. Differential Diagnosis Please see the discussion above Lab Data Please see the discussion above 08/31/22 11:14 08/31/22 11:14 Labs: Lab Results 08/31/22 08/31/22 08/31/22 Range/Units 11:14 11:14 11:14 WBC 10.3 (4.8-10.8) X10*3/uL RBC 4.69 (4.60-5.80) X10*6/uL Hgb 13.6 L (14.0-18.0) g/dl Hct 42.0 (42.0-52.0) % MCV 89.6 (80.0-98.0) fL MCH 29.0 (27.0-33.0) pg MCHC 32.4 (31.0-36.0) g/dl RDW 14.6 (11.0-16.0) % Plt Count 217 (160-400) X10*3/uL MPV 10.5 (9.4-12.4) fL Immature Gran % (Auto) 0.2 (0.0-0.4) % Neut % (Auto) 71.8 (45-73) % Lymph % (Auto) 18.8 L (20-40) % [place] % (Auto) 6.4 (2-11) % Eos % (Auto) 2.2 (0-4) % Baso % (Auto) 0.6 (0-2) % Lymph # (Auto) 1.9 (1.2-4.9) X10*3/uL [place] # (Auto) 0.7 (0.1-1.2) X10*3/uL Eos # (Auto) 0.2 (0.0-0.4) X10*3/uL Baso # (Auto) 0.1 (0.0-0.2) X10*3/uL Abs Immat Gran (auto) 0.02 (0.00-0.03) X10*3/uL Absolute Neuts (auto) 7.4 (2.0-8.3) x10*3/uL Absolute Nucleated RBC 0.000 (0.0-0.012) X10*3/uL Nucleated RBC % (auto) 0.0 (0.0-0.2) /100WBC ESR (0-15) MM/HR PT 12.4 (10.0-13.1) SEC INR 1.1 (0.9-1.1) Sodium (135-145) mmol/L Potassium (3.3-5.1) mmol/L Chloride (96-108) mmol/L Carbon Dioxide (22-29) mmol/L Anion Gap (12-20) BUN (9-16) mg/dL Creatinine (0.5-1.4) mg/dL Estim Creat Clear Calc Estimated GFR Random Glucose (60-115) mg/dL Calcium (8.4-10.2) mg/dL Total Bilirubin (0.0-1.0) mg/dL AST (5-37) U/L ALT (0-40) U/L Alkaline Phosphatase (39-117) U/L Troponin I High Sens (<3.5-35.0) ng/L Total Protein (6.5-8.0) g/dL Albumin (3.5-5.0) g/dL Urine Color Urine Appearance Urine pH (5.0-9.0) Ur Specific [place] (1.005-1.025) Urine Protein (Neg-Trace) mg/dL Urine Glucose (UA) (Negative) mg/dL Urine Ketones (Negative) mg/dL Urine Blood (Negative) Urine Nitrite (Negative) Ur Leukocyte Esterase (Negative) COVID-19 ([facility]) Positive A (Negative) COVID-19 Clin Com See Note 08/31/22 08/31/22 08/31/22 Range/Units 11:14 11:14 11:45 WBC (4.8-10.8) X10*3/uL RBC (4.60-5.80) X10*6/uL Hgb (14.0-18.0) g/dl Hct (42.0-52.0) % MCV (80.0-98.0) fL MCH (27.0-33.0) pg MCHC (31.0-36.0) g/dl RDW (11.0-16.0) % Plt Count (160-400) X10*3/uL MPV (9.4-12.4) fL Immature Gran % (Auto) (0.0-0.4) % Neut % (Auto) (45-73) % Lymph % (Auto) (20-40) % [place] % (Auto) (2-11) % Eos % (Auto) (0-4) % Baso % (Auto) (0-2) % Lymph # (Auto) (1.2-4.9) X10*3/uL [place] # (Auto) (0.1-1.2) X10*3/uL Eos # (Auto) (0.0-0.4) X10*3/uL Baso # (Auto) (0.0-0.2) X10*3/uL Abs Immat Gran (auto) (0.00-0.03) X10*3/uL Absolute Neuts (auto) (2.0-8.3) x10*3/uL Absolute Nucleated RBC (0.0-0.012) X10*3/uL Nucleated RBC % (auto) (0.0-0.2) /100WBC ESR 6 (0-15) MM/HR PT (10.0-13.1) SEC INR (0.9-1.1) Sodium (135-145) mmol/L Potassium (3.3-5.1) mmol/L Chloride (96-108) mmol/L Carbon Dioxide (22-29) mmol/L Anion Gap (12-20) BUN (9-16) mg/dL Creatinine (0.5-1.4) mg/dL Estim Creat Clear Calc Estimated GFR Random Glucose (60-115) mg/dL Calcium (8.4-10.2) mg/dL Total Bilirubin (0.0-1.0) mg/dL AST (5-37) U/L ALT (0-40) U/L Alkaline Phosphatase (39-117) U/L Troponin I High Sens < 3.5 (<3.5-35.0) ng/L Total Protein (6.5-8.0) g/dL Albumin (3.5-5.0) g/dL Urine Color Yellow Urine Appearance Clear Urine pH 7.0 (5.0-9.0) Ur Specific [place] 1.010 (1.005-1.025) Urine Protein Negative (Neg-Trace) mg/dL Urine Glucose (UA) Negative (Negative) mg/dL Urine Ketones Negative (Negative) mg/dL Urine Blood Negative (Negative) Urine Nitrite Negative (Negative) Ur Leukocyte Esterase Negative (Negative) COVID-19 ([facility]) (Negative) COVID-19 Clin Com 08/31/22 Range/Units 11:56 WBC (4.8-10.8) X10*3/uL RBC (4.60-5.80) X10*6/uL Hgb (14.0-18.0) g/dl Hct (42.0-52.0) % MCV (80.0-98.0) fL MCH (27.0-33.0) pg MCHC (31.0-36.0) g/dl RDW (11.0-16.0) % Plt Count (160-400) X10*3/uL MPV (9.4-12.4) fL Immature Gran % (Auto) (0.0-0.4) % Neut % (Auto) (45-73) % Lymph % (Auto) (20-40) % [place] % (Auto) (2-11) % Eos % (Auto) (0-4) % Baso % (Auto) (0-2) % Lymph # (Auto) (1.2-4.9) X10*3/uL [place] # (Auto) (0.1-1.2) X10*3/uL Eos # (Auto) (0.0-0.4) X10*3/uL Baso # (Auto) (0.0-0.2) X10*3/uL Abs Immat Gran (auto) (0.00-0.03) X10*3/uL Absolute Neuts (auto) (2.0-8.3) x10*3/uL Absolute Nucleated RBC (0.0-0.012) X10*3/uL Nucleated RBC % (auto) (0.0-0.2) /100WBC ESR (0-15) MM/HR PT (10.0-13.1) SEC INR (0.9-1.1) Sodium 138 (135-145) mmol/L Potassium 4.8 (3.3-5.1) mmol/L Chloride 106 (96-108) mmol/L Carbon Dioxide 26 (22-29) mmol/L Anion Gap 11 L (12-20) BUN 25 H (9-16) mg/dL Creatinine 0.91 (0.5-1.4) mg/dL Estim Creat Clear Calc 60.5 Estimated GFR > 60 Random Glucose 120 H (60-115) mg/dL Calcium 9.7 (8.4-10.2) mg/dL Total Bilirubin 0.5 (0.0-1.0) mg/dL AST 16 (5-37) U/L ALT 16 (0-40) U/L Alkaline Phosphatase 110 (39-117) U/L Troponin I High Sens (<3.5-35.0) ng/L Total Protein 6.8 (6.5-8.0) g/dL Albumin 4.5 (3.5-5.0) g/dL Urine Color Urine Appearance Urine pH (5.0-9.0) Ur Specific [place] (1.005-1.025) Urine Protein (Neg-Trace) mg/dL Urine Glucose (UA) (Negative) mg/dL Urine Ketones (Negative) mg/dL Urine Blood (Negative) Urine Nitrite (Negative) Ur Leukocyte Esterase (Negative) COVID-19 ([facility]) (Negative) COVID-19 Clin Com Independent Interpretation I performed an independent interpretation of an: EKG Interpretation: Normal sinus rhythm, HR-71, no STEMI, SD/QRS/QTC is within normal limits. External Record Review External record reviewed: Prior outpatient labs Chronic Conditions Patient?s care impacted by: Hypertension Discharge Plan Discharge Clinical Impression: Lab test positive for detection of COVID-19 virus, Viral syndrome Patient Disposition: Home, Self-Care Instructions: Viral Syndrome (ED), COVID-19 (Coronavirus Disease 2019) (ED) Additional Instructions: 1. You have been diagnosed with COVID-19 and must isolate for the next 5 days. 2. Recommend [id number] Tylenol/ibuprofen as needed for headaches, temperatures greater than 100.4. Drink plenty of water. 3. Follow-up with your primary care provider via telemedicine appointment. Return to the ER for any worsening symptoms. Prescriptions: No Action latanoprost 0.005 % drops 1 drp ophthalmic (eye) BEDTIME atorvastatin 80 mg tablet 80 mg PO BEDTIME lisinopril 20 mg tablet 20 mg PO BID dorzolamide-timolol 22.3-6.8 mg/mL Drops 1 drp OPHTHALMIC (EYE) BID omeprazole 20 mg capsule,delayed release(DR/EC) 20 mg PO QAM lacosamide 50 mg tablet 50 mg PO BID aspirin [Adult Low Dose Aspirin] 81 mg tablet,delayed release (DR/EC) 81 mg PO DAILY amlodipine 10 mg tablet 10 mg PO DAILY Qty: 90 3RF Referrals: Stephon Ventura MD [Primary Care Provider] -
[2022-08-31 11:58] VITALS: BP 126/60; PULSE 71
[2022-08-31 11:59] VITALS: BP 125/53; PULSE 74
[2022-08-31 12:00] VITALS: BP 115/58; PULSE 79
[2022-08-31 12:02] VITALS: BP 132/60; PULSE 73; RESP 20; O2SAT 99
[2022-08-31 12:06] LABS: Appearance Urine Clear; Color Urine Yellow; Glucose Urine UA Negative (Negative); Leukocyte Esterase Urine Negative (Negative); Nitrite Urine Negative (Negative); Urine Blood Negative (Negative); Urine Ketones Negative (Negative); Urine Protein Negative (Neg-Trace)
[2022-08-31 12:16] LABS: IDNOW Serial# 08D9AD1C
[2022-08-31 12:17] LABS: COVID-19 Test Positive (Negative)
[2022-08-31 12:23] LABS: Alanine Aminotransferase 16 U/L (0-40); Albumin Level 4.5 g/dL (3.5-5.0); Alkaline Phosphatase 110 U/L (39-117); Anion Gap 11 (12-20); Aspartate Amino Transferase 16 U/L (5-37); Bilirubin Total 0.5 mg/dL (0.0-1.0); Blood Urea Nitrogen 25 mg/dL (9-16); Calcium 9.7 mg/dL (8.4-10.2); Carbon Dioxide 26 mmol/L (22-29); Chloride 106 mmol/L (96-108); Creatinine Clr Calc Pharmacy 60.5; Estimated Glomerular Filt Rate > 60; Glucose Random 120 mg/dL (60-115); Potassium 4.8 mmol/L (3.3-5.1); Sodium 138 mmol/L (135-145); Total Protein 6.8 g/dL (6.5-8.0)
[2022-08-31] MEDS: Ibuprofen 400 MG TABLET PO (12:54)
[2022-08-31] MEDS: Acetaminophen 325 MG TABLET 975 MG PO (12:55)
[2022-08-31 14:08] LABS: Erythrocyte Sedimentation Rate 6 MM/HR (0-15)
== END 2022-08-31 14:48 | disposition home or self-care (01) ==
PROVIDERS: Emergency Provider Student in an Organized Health Care Education/Training Program; PCP Internal Medicine Medical Oncology
DX: U07.1 COVID-19 (principal); Z79.899 Other long term (current) drug therapy
CPT/HCPCS: 36415; 80053; 81003; 84484; 85025; 85610; 85652; 87635; 93005; 99283; 99284

== ENCOUNTER 2022-12-02 03:52 | Emergency (ER) | payer MEDICARE, MEDICAID, SELFPAY ==
[2022-12-02 03:53] VITALS: BP 161/85; PULSE 108; RESP 18; TEMP 36; O2SAT 97; BMI 25.1
[2022-12-02 04:03] VITALS: BP 172/80; PULSE 100; RESP 14; O2SAT 98
--- NOTE | 2022-12-02 04:33 | ED.GENADULT ---
HPI - General Adult General Chief complaint: General Medical Stated complaint: Chest pain Time Seen by Provider: 12/02/22 04:33 Source: patient Mode of arrival: ambulatory Limitations: no limitations History of Present Illness HPI narrative: Patient 82 years old with history of diagnosis of epilepsy was on Vimpat 6 months ago changed to Lamictal 150 mg daily comes in with multiple complaints not sure at this time but is a main complaint patient complains of electric-like feeling in the right side of the head and ear had a shaking episode middle of the night lasted for 2-3 minutes but patient aware of the shaking which happened about 10 days ago also denies any chest pain or shortness of breath Related Data Home Medications Medication Instructions Recorded Confirmed latanoprost 0.005 % eye drops 1 drp ophthalmic (eye) BEDTIME 05/06/20 07/06/22 aspirin 81 mg tablet,delayed 81 mg PO DAILY 08/05/21 07/06/22 release (Adult Low Dose Aspirin) lacosamide 50 mg tablet 50 mg PO BID 08/05/21 07/06/22 atorvastatin 80 mg tablet 80 mg PO BEDTIME 01/15/22 07/06/22 lisinopril 20 mg tablet 20 mg PO BID 01/15/22 07/06/22 dorzolamide 22.3 mg-timolol 6.8 1 drp ophthalmic (eye) BID 01/26/22 07/06/22 mg/mL eye drops omeprazole 20 mg capsule,delayed 20 mg PO QAM 07/06/22 07/06/22 release Previous Rx's Medication Instructions Recorded amlodipine 10 mg tablet 10 mg PO DAILY #90 tabs 01/15/22 lorazepam 1 mg tablet 1 mg PO BEDTIME PRN sleep #14 tabs 12/02/22 Allergies Allergy/AdvReac Type Severity Reaction Status Date / Time No Known Allergies Allergy Verified 07/06/22 15:20 [No Known Allergies*] Review of Systems Review of Systems: Yes all other systems are reviewed and are negative PMFSH Past Medical History Medical History AMS (altered mental status) CAD (coronary artery disease) High cholesterol HTN (hypertension) IBS (irritable bowel syndrome) Seizures Surgical History H/O eye surgery History of carotid endarterectomy (~01/2022) Hx of abdominal surgery Hx of tonsillectomy Family History Family History Father No problems noted. Mother Myocardial infarction Social History Social History Household Members: Children Household Members Other:: daughter, son, and son's girlfriend Housing: House Are you a primary personal care aide to a significant other at home: No Do you presently have visiting nurse or other home services: No Alcohol intake: never Patient Tobacco Use Status: Never used Tobacco Smoked in Last 30 Days: No e-Cigarette/Vaping Use: Never Used Second Hand Smoke Exposure: No Use of substances other than those prescribed or required for medical reasons: Yes Substance Use Type: Marijuana Advance Directives: Yes Advance Directives on File: Yes Advance Directives Date on File: 01/26/22 service: No Current occupational status: retired Physical Exam ED Vital Signs: Vital Signs - 24 hr 12/02/22 03:53 12/02/22 04:03 12/02/22 05:04 Temperature 96.8 F 98.2 F Pulse Rate 108 H 100 87 Respiratory Rate 18 14 18 Blood Pressure 161/85 H 172/80 H 172/94 H Pulse Oximetry 97 98 97 Oxygen Delivery Method Room Air Room Air Room Air BMI result Body Mass Index 25.1 Appearance: Alert. Oriented X3. No acute distress. Anxious with multiple complaints Eyes: PERRLA, No Nystagmus ENT: Pharynx normal. Oral Mucosa moist tympanic membrane intact Neck: Normal inspection. Neck supple. CVS: Normal heart rate and rhythm. Pulses normal. Respiratory: No respiratory distress. Equal air entry bilateral, no wheezing/rales/rhonchi Abdomen: Soft and nontender. Bowel sounds are present, no mass palpable, no CVA tenderness Skin: Skin warm and dry. Normal skin color. Normal skin turgor. Extremities: No lower extremity edema. No calf tenderness Neuro: Oriented X 3. No motor deficit. No sensory deficit.No cerebellar signs , cranial nerves II-XII intact Medical Decision Making Medical Decision Making MDM Narrative: Patient's epilepsy hypertension with multiple complaints comes with minor shaking episode patient was aware of when he was shaking no fever nose signs of infection patient seems very anxious with difficulty in sleeping workup essentially is negative patient advised to follow with neurologist and PCP will give a course of Ativan Lab Data MDM Lab Attestation statement: I reviewed the patient's lab results. 12/02/22 05:00 12/02/22 05:00 Labs: Lab Results 12/02/22 12/02/22 12/02/22 Range/Units 05:00 05:00 05:00 WBC 11.7 H (4.8-10.8) X10*3/uL RBC 4.45 L (4.60-5.80) X10*6/uL Hgb 12.8 L (14.0-18.0) g/dl Hct 38.3 L (42.0-52.0) % MCV 86.1 (80.0-98.0) fL MCH 28.8 (27.0-33.0) pg MCHC 33.4 (31.0-36.0) g/dl RDW 14.1 (11.0-16.0) % Plt Count 227 (160-400) X10*3/uL MPV 10.2 (9.4-12.4) fL Immature Gran % (Auto) 0.3 (0.0-0.4) % Neut % (Auto) 70.7 (45-73) % Lymph % (Auto) 19.8 L (20-40) % [place] % (Auto) 7.8 (2-11) % Eos % (Auto) 0.7 (0-4) % Baso % (Auto) 0.7 (0-2) % Lymph # (Auto) 2.3 (1.2-4.9) X10*3/uL [place] # (Auto) 0.9 (0.1-1.2) X10*3/uL Eos # (Auto) 0.1 (0.0-0.4) X10*3/uL Baso # (Auto) 0.1 (0.0-0.2) X10*3/uL Abs Immat Gran (auto) 0.03 (0.00-0.03) X10*3/uL Absolute Neuts (auto) 8.3 (2.0-8.3) x10*3/uL Absolute Nucleated RBC 0.000 (0.0-0.012) X10*3/uL Nucleated RBC % (auto) 0.0 (0.0-0.2) /100WBC Sodium 140 (135-145) mmol/L Potassium 4.3 (3.3-5.1) mmol/L Chloride 107 (96-108) mmol/L Carbon Dioxide 23 (22-29) mmol/L Anion Gap 14 (12-20) BUN 20 H (9-16) mg/dL Creatinine 0.80 (0.5-1.4) mg/dL Estim Creat Clear Calc 66.5 Estimated GFR > 60 Random Glucose 109 (60-115) mg/dL Calcium 9.9 (8.4-10.2) mg/dL Total Bilirubin 0.4 (0.0-1.0) mg/dL AST 18 (5-37) U/L ALT 15 (0-40) U/L Alkaline Phosphatase 91 (39-117) U/L Troponin I High Sens 4.2 (<3.5-35.0) ng/L Total Protein 7.0 (6.5-8.0) g/dL Albumin 4.3 (3.5-5.0) g/dL Urine Color Urine Appearance Urine pH (5.0-9.0) Ur Specific [place] (1.005-1.025) Urine Protein (Neg-Trace) mg/dL Urine Glucose (UA) (Negative) mg/dL Urine Ketones (Negative) mg/dL Urine Blood (Negative) Urine Nitrite (Negative) Ur Leukocyte Esterase (Negative) 12/02/22 Range/Units 05:00 WBC (4.8-10.8) X10*3/uL RBC (4.60-5.80) X10*6/uL Hgb (14.0-18.0) g/dl Hct (42.0-52.0) % MCV (80.0-98.0) fL MCH (27.0-33.0) pg MCHC (31.0-36.0) g/dl RDW (11.0-16.0) % Plt Count (160-400) X10*3/uL MPV (9.4-12.4) fL Immature Gran % (Auto) (0.0-0.4) % Neut % (Auto) (45-73) % Lymph % (Auto) (20-40) % [place] % (Auto) (2-11) % Eos % (Auto) (0-4) % Baso % (Auto) (0-2) % Lymph # (Auto) (1.2-4.9) X10*3/uL [place] # (Auto) (0.1-1.2) X10*3/uL Eos # (Auto) (0.0-0.4) X10*3/uL Baso # (Auto) (0.0-0.2) X10*3/uL Abs Immat Gran (auto) (0.00-0.03) X10*3/uL Absolute Neuts (auto) (2.0-8.3) x10*3/uL Absolute Nucleated RBC (0.0-0.012) X10*3/uL Nucleated RBC % (auto) (0.0-0.2) /100WBC Sodium (135-145) mmol/L Potassium (3.3-5.1) mmol/L Chloride (96-108) mmol/L Carbon Dioxide (22-29) mmol/L Anion Gap (12-20) BUN (9-16) mg/dL Creatinine (0.5-1.4) mg/dL Estim Creat Clear Calc Estimated GFR Random Glucose (60-115) mg/dL Calcium (8.4-10.2) mg/dL Total Bilirubin (0.0-1.0) mg/dL AST (5-37) U/L ALT (0-40) U/L Alkaline Phosphatase (39-117) U/L Troponin I High Sens (<3.5-35.0) ng/L Total Protein (6.5-8.0) g/dL Albumin (3.5-5.0) g/dL Urine Color Yellow Urine Appearance Clear Urine pH 6.0 (5.0-9.0) Ur Specific [place] 1.010 (1.005-1.025) Urine Protein Negative (Neg-Trace) mg/dL Urine Glucose (UA) Negative (Negative) mg/dL Urine Ketones Negative (Negative) mg/dL Urine Blood Negative (Negative) Urine Nitrite Negative (Negative) Ur Leukocyte Esterase Negative (Negative) Independent Interpretation I performed an independent interpretation of an: EKG Interpretation: Normal sinus rhythm heart rate 87 beats per minute normal interval normal axis no acute ischemic changes Discharge Plan Discharge Clinical Impression: Anxiety Patient Disposition: Home, Self-Care Instructions: Anxiety (ED) Additional Instructions: Likely have anxiety disorder Take medication lorazepam 1 mg at bedtime that will help in sleep and to avoid a seizure Follow-up with neurologist/PCP Prescriptions: New lorazepam 1 mg tablet 1 mg PO BEDTIME PRN (Reason: sleep) Qty: 14 0RF No Action latanoprost 0.005 % drops 1 drp ophthalmic (eye) BEDTIME atorvastatin 80 mg tablet 80 mg PO BEDTIME lisinopril 20 mg tablet 20 mg PO BID dorzolamide-timolol 22.3-6.8 mg/mL Drops 1 drp OPHTHALMIC (EYE) BID omeprazole 20 mg capsule,delayed release(DR/EC) 20 mg PO QAM lacosamide 50 mg tablet 50 mg PO BID aspirin [Adult Low Dose Aspirin] 81 mg tablet,delayed release (DR/EC) 81 mg PO DAILY amlodipine 10 mg tablet 10 mg PO DAILY Qty: 90 3RF Interventions: ED Discharge Assessment Last Done: 12/02/22 05:40
--- NOTE | 2022-12-02 04:51 | ECG_ITS ---
Test Reason : cp Blood Pressure : / mmHG Vent. Rate : 087 BPM Atrial Rate : 087 BPM P-R Int : 152 ms QRS Dur : 086 ms QT Int : 360 ms P-R-T Axes : 057 -21 024 degrees QTc Int : 433 ms Normal sinus rhythm Normal ECG When compared with ECG of 31-AUG-2022 11:06, No significant change was found Referred By: Emory Buck Electronically Signed By:Donald Talbert
--- NOTE | 2022-12-02 05:02 | MHC.EDTECH ---
Patient was changed into hospital attire,placed on monitor and storage bin tender, vitals and EKG done. Labs and UA obtained. Patient is resting comfortably at this time with call bravo within reach.
[2022-12-02 05:04] VITALS: BP 172/94; PULSE 87; RESP 18; TEMP 36.8; O2SAT 97
[2022-12-02 05:06] LABS: Basophils Absolute Auto 0.1 X10*3/uL (0.0-0.2); Basophils Percent Auto 0.7 % (0-2); Eosinophils Absolute Auto 0.1 X10*3/uL (0.0-0.4); Eosinophils Percent Auto 0.7 % (0-4); Hematocrit 38.3 % (42.0-52.0); Hemoglobin 12.8 g/dl (14.0-18.0); Imm Gran Abs Auto 0.03 X10*3/uL (0.00-0.03); Imm Gran Pct Auto 0.3 % (0.0-0.4); Lymphocytes Absolute Auto 2.3 X10*3/uL (1.2-4.9); Lymphocytes Percent Auto 19.8 % (20-40); MANUAL DIFF FLAG NO; Mean Corpuscular HGB Conc 33.4 g/dl (31.0-36.0); Mean Corpuscular Hemoglobin 28.8 pg (27.0-33.0); Mean Corpuscular Volume 86.1 fL (80.0-98.0); Mean Platelet Volume 10.2 fL (9.4-12.4); Monocytes Absolute Auto 0.9 X10*3/uL (0.1-1.2); Monocytes Percent Auto 7.8 % (2-11); Neutrophils Absolute Auto 8.3 x10*3/uL (2.0-8.3); Neutrophils Percent Auto 70.7 % (45-73); Platelet Count 227 X10*3/uL (160-400); Red Blood Count 4.45 X10*6/uL (4.60-5.80); Red Cell Distribution Width 14.1 % (11.0-16.0); White Blood Count 11.7 X10*3/uL (4.8-10.8)
[2022-12-02 05:07] LABS: Appearance Urine Clear; Color Urine Yellow; Glucose Urine UA Negative (Negative); Leukocyte Esterase Urine Negative (Negative); Nitrite Urine Negative (Negative); Urine Blood Negative (Negative); Urine Ketones Negative (Negative); Urine Protein Negative (Neg-Trace)
[2022-12-02 05:22] LABS: Alanine Aminotransferase 15 U/L (0-40); Albumin Level 4.3 g/dL (3.5-5.0); Alkaline Phosphatase 91 U/L (39-117); Anion Gap 14 (12-20); Aspartate Amino Transferase 18 U/L (5-37); Bilirubin Total 0.4 mg/dL (0.0-1.0); Blood Urea Nitrogen 20 mg/dL (9-16); Calcium 9.9 mg/dL (8.4-10.2); Carbon Dioxide 23 mmol/L (22-29); Chloride 107 mmol/L (96-108); Creatinine Clr Calc Pharmacy 66.5; Estimated Glomerular Filt Rate > 60; Glucose Random 109 mg/dL (60-115); Potassium 4.3 mmol/L (3.3-5.1); Sodium 140 mmol/L (135-145)
[2022-12-02 05:25] LABS: Troponin-I High Sensitivity 4.2 ng/L (<3.5-35.0)
== END 2022-12-02 05:45 | disposition home or self-care (01) ==
PROVIDERS: Emergency Provider Internal Medicine
DX: F41.9 Anxiety disorder, unspecified (principal); R07.89 Other chest pain; R51.9 Headache, unspecified; G40.909 Epilepsy, unspecified, not intractable, without status epilepticus; Z79.899 Other long term (current) drug therapy
CPT/HCPCS: 36415; 80053; 81003; 84484; 85025; 93005; 99283; 99284

== ENCOUNTER 2023-08-25 14:50 | Outpatient (AMB) | payer MEDICARE, MEDICAID, SELFPAY ==
--- NOTE | 2023-08-25 14:51 | A.OFFVIS_ITS ---
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 Accompanied by: Self / Same As Patient Allergies No Known Allergies [No Known Allergies*] Allergy (Verified 08/25/23 14:55) Medication List - Last Reconciled 08/25/23 by Loc Simmons MD amlodipine 10 mg PO DAILY aspirin (Adult Low Dose Aspirin) 81 mg PO DAILY atorvastatin 40 mg PO BEDTIME dorzolamide-timolol 22.3-6.8 mg/mL 1 drp ophthalmic (eye) BID lacosamide 50 mg PO BID latanoprost 0.005% 1 drp ophthalmic (eye) BEDTIME lisinopril 20 mg PO BID lorazepam 1 mg PO BEDTIME PRN omeprazole 20 mg PO QAM HPI HPI Comments History of Present Illness Details Michael returns for follow-up regarding coronary artery disease. In the past, was seen for preoperative risk stratification for carotid surgery. He had the surgery without any major issues. Since last seen, no specific cardiac complaints. No angina or in fact anything of that nature. Seems to be generally getting along okay. [facility] Medical History AMS (altered mental status) CAD (coronary artery disease) High cholesterol HTN (hypertension) IBS (irritable bowel syndrome) Seizures Surgical History H/O eye surgery History of carotid endarterectomy (~01/2022) Hx of tonsillectomy Hx of abdominal surgery Family History Father No problems noted. Mother Myocardial infarction Social History Household Members: Children Household Members Other:: daughter, son, and son's girlfriend Housing: House Are you a primary day care provider to a significant other at home: No Do you presently have visiting nurse or other home services: No Alcohol intake: never Patient Tobacco Use Status: Never used Tobacco e-Cigarette/Vaping Use: Never Used Second Hand Smoke Exposure: No Substance Use Type: Marijuana Advance Directives Date on File: 01/26/22 service: No Current occupational status: retired Review of Systems Const Denies weakness ENT Denies dizziness Card Denies chest pain, Denies chest pain with activity, Denies syncope, Denies rapid heart rate, Denies pedal edema, Denies edema, Denies leg edema, Denies lightheadedness, Denies palpitations, Denies dyspnea, Denies dyspnea on exertion and Denies orthopnea Resp Denies cough, Denies dyspnea and Denies dyspnea on exertion GI Denies hematochezia and Denies change in stool character Musc Denies abnormal gait, Denies muscle cramps, Denies muscle weakness, Denies numbness, Denies radiating pain into limb and Denies tingling Neuro Denies abnormal gait, Denies dizziness, Denies syncope, Denies numbness, Denies tingling and Denies weakness Endo Denies palpitations Physical Exam Vital Signs: Last Vital Signs Pulse 68 08/25/23 14:54 BP 128/66 08/25/23 14:54 BMI result Body Mass Index 27.8 Const General: comfortable and no acute distress Orientation/consciousness: patient oriented x3 HEENT Other: Unremarkable Head: Yes normal to inspection Neck Neck: Yes normal visual inspection Chest Chest palpation & inspection: normal inspection of the chest Resp Auscultation: clear to auscultation bilaterally Cardio Palpation: normal PMI Heart sounds: S1 normal heart sound present, S2 normal heart sound present, no gallops, Murmur heart sound present systolic II/ and no rubs GI Palpation (GI): Soft to palpation Back/Spine/Pelvis Other: unremarkable Skin General skin exam: no rashes or lesions noted Neuro General: patient oriented x3 Extrem General: Yes normal to inspection Psych Mental Status: mental status grossly normal Assessment & Plan Assessment & Plan (1) Atherosclerotic cardiovascular disease: Code(s): I25.10 - Atherosclerotic heart disease of [place] coronary artery without angina pectoris (2) Peripheral vascular disease: Code(s): I73.9 - Peripheral vascular disease, unspecified (3) Aortic valve sclerosis: Code(s): I35.8 - Other nonrheumatic aortic valve disorders (4) Essential hypertension: Code(s): I10 - Essential (primary) hypertension (5) Other and unspecified hyperlipidemia: Code(s): E78.5 - Hyperlipidemia, unspecified Plan Cardiac studies reviewed. Echocardiogram with LVEF 65-70% without any obvious wall motion abnormalities. Aortic valve moderately calcified but no significant stenosis. He also has had an abdominal CT in the past that shows atherosclerotic calcification along the aorta as well as iliac arteries. Cardiac catheterization data reviewed. There is chronic total occlusion of the right coronary artery with collaterals. Distal circumflex had 70% stenosis in the proximal part. There is intermediate grade disease in the LAD. Clinically, no angina or other concerning cardiac symptoms. Continue long-term aspirin. For blood pressure, controlled on lisinopril/amlodipine. He asked about cutting back on meds but I told him his pressure is going to probably go up. With regard to lipids, continue statins. They seem well controlled. Follow-up in 1 year. We will repeat an echocardiogram then to evaluate for any aortic stenosis. Orders: Orders CA echo transthoracic complete 1 Year I35.0 - Nonrheumatic aortic (valve) stenosis Coding Level of Care Code Est Pt Level 4 (93667) Diagnoses Atherosclerotic cardiovascular disease I25.10 Peripheral vascular disease I73.9 Aortic valve sclerosis I35.8 Essential hypertension I10 Other and unspecified hyperlipidemia E78.5
[2023-08-25 14:54] VITALS: BP 128/66; PULSE 68; BMI 27.8
== END 2023-08-25 15:10 | disposition home or self-care (01) ==
PROVIDERS: Visit Provider Internal Medicine
DX: I25.10 Atherosclerotic heart disease of native coronary artery without angina pectoris (principal); I73.9 Peripheral vascular disease, unspecified; I35.8 Other nonrheumatic aortic valve disorders; I10 Essential (primary) hypertension; E78.5 Hyperlipidemia, unspecified
CPT/HCPCS: 99214

== ENCOUNTER → 2023-08-25 14:50 | Outpatient (BNVA) | payer MEDICARE, MEDICAID, SELFPAY | PROVIDERS: Visit Provider Internal Medicine | DX: I25.10 Atherosclerotic heart disease of native coronary artery without angina pectoris (principal); I73.9 Peripheral vascular disease, unspecified; I35.8 Other nonrheumatic aortic valve disorders; I10 Essential (primary) hypertension; E78.5 Hyperlipidemia, unspecified | CPT/HCPCS: 99212 ==

== ENCOUNTER 2024-06-13 12:48 | Outpatient (AMB) | payer MEDICARE, MEDICAID, SELFPAY ==
[2024-06-13 12:53] VITALS: BP 152/68; BMI 25.8
--- NOTE | 2024-06-13 12:53 | A.OFFVIS_ITS ---
Vital Signs 06/13/24 12:53 06/13/24 13:04 Height 5 ft 7 in Weight 165 lb BMI 25.8 BP 152/68 H 136/64 Blood Pressure Location Rt brachial Lt brachial Position Sitting Sitting Intake Visit Reasons: follow up s/p Carotid US- done at [facility] Intake Note: follow up [facility] carotid US 05/05/24 while admitted for a seizure. Pt daughter stated that he last had a seizure last wednesday. Accompanied by: Daughter Allergies lacosamide [From Vimpat] Adverse Reaction (Severe, Verified 06/13/24 13:01) Muscle cramps HPI HPI follow up s/p Carotid US- done at [facility]: Details: Complex 84-year-old gentleman presents for follow-up regarding carotid disease. He had actually undergone right carotid endarterectomy with us on 01/26/2022. In the interim he actually has had several issues and actually presented to [facility]. He was diagnosed with breakthrough seizures on 05/05/2024 and was subsequently worked up by the emergency room and vascular team over there. At the time of workup he actually underwent an ultrasound which showed no significant disease but subsequently on CT scan it demonstrated a high-grade stenosis of the left carotid. Upon discussion with him and his daughter she reports that his seizures have been poorly controlled and actually had a seizure that she witnessed this past Wednesday again. Upon discussion with him he has more generalized confusion than he did in the past and in general was more agitated. [facility] Medical History Seizures IBS (irritable bowel syndrome) CAD (coronary artery disease) AMS (altered mental status) High cholesterol HTN (hypertension) Surgical History H/O eye surgery History of carotid endarterectomy (~01/2022) Hx of tonsillectomy Hx of abdominal surgery Family History Father No problems noted. Mother Myocardial infarction Social History Household Members: Children Household Members Other:: daughter, son, and son's girlfriend Housing: House Are you a primary care taker to a significant other at home: No Do you presently have visiting nurse or other home services: No Alcohol intake: never Patient Tobacco Use Status: Never used Tobacco e-Cigarette/Vaping Use: Never Used Second Hand Smoke Exposure: No Substance Use Type: Marijuana Advance Directives Date on File: 01/26/22 service: No Current occupational status: retired Review of Systems Const All systems reviewed & are unremarkable except as noted in HPI and below Reports no additional complaints ENT Reports Normal hearing present Card Denies chest pain, Denies chest pain at rest, Denies chest pain with activity and Denies pedal edema Resp Denies cough GI Denies abdominal pain Musc Denies abnormal gait, Denies muscle cramps and Denies radiating pain into limb Skin/Breast Denies skin ulcer and Denies wounds Neuro Reports Normal hearing present and Denies abnormal gait Psych Reports no additional complaints Physical Exam Vital Signs: Last Vital Signs BP 136/64 06/13/24 13:04 BMI result Body Mass Index 25.8 Const General: cooperative, healthy appearing and comfortable Orientation/consciousness: oriented to person, oriented to place and oriented to time HEENT Head: Yes normal to inspection Neck Neck: Yes normal visual inspection Carotids: no bruits Chest Chest palpation & inspection: normal inspection of the chest Resp Effort & Inspection: normal respiratory effort and able to speak in complete sentences Auscultation: clear to auscultation bilaterally, no crackles, no rales, no rhonchi and no wheezes Cardio Rate: regular rate Rhythm: regular rhythm Heart sounds: S1 normal heart sound present and S2 normal heart sound present Bruits: no carotid bruits Peripheral pulses: Peripheral pulses 2+ throughout GI Inspection: Yes normal to inspection Skin Wounds: no wounds Hair: normal Neuro General: oriented to person, oriented to place and oriented to time Cranial nerves: Yes CN's II-XII intact bilaterally and Yes Normal hearing present Cognition (Neuro): normal cognition Motor exam (neuro): 5/5 motor strength present throughout Extrem Other: venous exam: No significant superficial varicosities or spider telangiectasias, minimal edema General: No clubbing, No cyanosis and No edema Psych Appearance: grossly normal Mental Status: mental status grossly normal Speech and movement: Normal speech and movement present Results Reviewed Results Reviewed: CT results dated 05/04/2024 demonstrates left carotid stenosis of 90% on [facility] CT scan. Written report reviewed only. Assessment & Plan Assessment & Plan (1) Bilateral carotid artery stenosis: Comment: 01/26/2022 - right carotid endarterectomy Code(s): I65.23 - Occlusion and stenosis of bilateral carotid arteries Category: Medical Plan: In short patient has high-grade left carotid stenosis. At the current time he has recurrent seizures and this needs to be better controlled. He does not have any neurologic follow-up. He will require neurology evaluation and stabilization of the seizures prior to consideration of any further surgical treatment. Referral was made out to Neurology and this was discussed with the patient and daughter. Once neurology evaluation is further made we can further pursue this left carotid. Thank you for allowing us to assist in his care. If there are any questions or concerns please do not hesitate to contact us. Orders: Referrals Neurology Referral R56.9 - Unspecified convulsions Coding Level of Care Code Est Pt Level 4 (96310) Diagnoses Bilateral carotid artery stenosis I65.23
[2024-06-13 13:04] VITALS: BP 136/64
--- OUTSIDE RECORDS SUMMARY | 2024-06-13 14:54 | XMS_ITS ---
Author Name [facility] Organization Unknown History of Medication Use Medication Directions Dispensed Refills Start Date End Date Stat us lisinopril (PRINIVIL,ZESTRIL) tablet 20 mg 01/03/2024 active atorvastatin (LIPITOR) tablet 80 mg Take 1 tablet (80 mg total) by mouth daily. 01/03/2024 active dicyclomine (BENTYL) 20 MG tablet Take 1 tablet (20 mg total) by mouth 3 (three) times a day. 01/03/2024 active omeprazole (PriLOSEC) 20 MG capsule Take 1 capsule (20 mg total) by mouth daily. 30 minutes before breakfast 01/03/2024 active lamoTRIgine (LaMICtal) 100 MG tablet 01/03/2024 active latanoprost (XALATAN) 0.005 % ophthalmic solution Place 1 drop into both eyes every night at bedtime. 01/03/2024 active magnesium oxide 400 (240 Mg) MG TABS tablet Take 1 tablet (400 mg total) by mouth daily. 01/03/2024 active Cholecalciferol (Vitamin D) 25 MCG (1000 UT) TABS as directed 01/03/2024 active bicalutamide (CASODEX) 50 MG tablet Take 1 tablet (50 mg total) by mouth every morning 01/03/2024 active aspirin 81 MG EC tablet 1 tablet 01/03/2024 active Zinc 50 MG TABS Take by mouth. 01/03/2024 active amLODIPine (NORVASC) tablet 10 mg Take 1 tablet (10 mg total) by mouth daily. 01/03/2024 active dorzolamide-timolol (COSOPT) 22.3-6.8 MG/ML ophthalmic solution Place 1 drop into both eyes 2 (two) times a day. 01/03/2024 active Problems Problem Status Onset Date Problem Type Date of Resolution Source Prostate cancer active 2022-11-[address] [facility] Essential (primary) hypertension active EncounterDiagnosisAct [facility] Hyperlipidemia, unspecified active EncounterDiagnosisAct [facility]
== END 2024-06-13 13:41 | disposition home or self-care (01) ==
PROVIDERS: Visit Provider Surgery Vascular Surgery
DX: I65.23 Occlusion and stenosis of bilateral carotid arteries (principal)
CPT/HCPCS: 99214

== ENCOUNTER → 2024-06-13 12:48 | Outpatient (BNVA) | payer MEDICARE, MEDICAID, SELFPAY | PROVIDERS: Visit Provider Surgery Vascular Surgery | DX: I65.23 Occlusion and stenosis of bilateral carotid arteries (principal) | CPT/HCPCS: 99212 ==

== ENCOUNTER → 2024-08-22 14:55 | Outpatient (REF) | payer MEDICARE, MEDICAID, SELFPAY ==
--- NOTE | 2024-08-22 14:59 | CA_ITS ---
Transthoracic Echocardiogram Patient (Last, First, Middle): Michael Jenkins, Gender: Male Date of : 1940 Age: 84 Procedure Date: 08/22/2024 Procedure Type: Transthoracic Echocardiogram Location: OP Height: 172. cm Weight: 77.11 kg BSA: 1.90 m2 Heart Rate: 66 bpm BP: 150 / 85 mmHg Surgical Endoscopist: GEOVANNY Messer MD: Loc Simmons MD Hogshead Mat Assembler: Spike Nayak MD Symptoms: I35.0 - Nonrheumatic aortic (valve) stenosis Study Quality: Fair ECG Rhythm: Arrhythmia Conclusions: - 1. Normal LV ejection fraction of 60 65% with impaired relaxation filling pattern 2. Lvxc-pv-tgaaxcpk aortic stenosis 3. No gross pericardial effusion Findings Left Ventricle Normal left ventricular size, thickness, and systolic function. The visually estimated ejection fraction is between 60-65%. Spectral Doppler is indicative of an impaired relaxation filling pattern. E/E prime ratio is between 8 and 15 consistent with indeterminate filling pressures. Peak GLS is -17.2%, borderline low. Right Ventricle Normal right ventricular cavity size and systolic function. Atria The left atrium is normal in size. Interatrial shunt cannot be excluded. The right atrium is normal in size. Aortic Valve The aortic valve was not well visualized. There is mild calcification of the aortic valve. There is mild to moderate aortic valve stenosis. The peak aortic gradient is 23 mmHg.The mean gradient is 14 mmHg. There is no aortic valve regurgitation. Mitral Valve There is mild anterior and posterior mitral leaflet thickening. There is mild mitral annular calcification. There is trace mitral valve regurgitation. There is no mitral valve stenosis. Pulmonic Valve The pulmonic valve was not well visualized. Tricuspid Valve Likely normal tricuspid valve structure and function. Tricuspid regurgitation envelope is inadequate for calculation of right ventricular systolic pressure. Normal right atrial pressure. Great Vessels The pulmonary artery was not well visualized. There is no dilatation of the ascending aorta measuring 3.40 cm. Venous The inferior vena cava is normal in size and collapses greater than 50% with inspiration. Pericardium/Pleural There is no evidence of pericardial effusion. Prior Study Comparison Changes noted compared to prior study dated: 12/30/2021. oggg-tz-ryelfvds aortic stenosis noted Measurements 2D Linear Measurements IVSd: 1.04 0.6-0.9/0.6-1.0 cm LVIDd: 3.38 3.9-5.3/4.2-5.9 cm LVIDd Index: 1.78 2.4-3.2/2.2-3.1 cm/m2 LVIDs: 1.94 2.0-3.6 cm LVPWd: 0.92 0.7-1.1 cm LA Diam: 3.90 2.7-3.8/3.0-4.0 cm LAIDs Index: 2.05 1.5-2.3 cm/m2 LV Mass: 118.29 67-162/88-224 g LV Mass Index: 62.26 43-95/49-115 g/m2 LVOT Diam: 1.70 3.0+(-)1.3 cm 2D Systolic Function EF 4C: 67.40 >55% EF 2C: 66.10 >55% EF BiP: 65.90 >55% Mitral Valve MV Pk E: 0.92 MV PK A: 1.10 MV Decel Time: 216.00 E/A: 0.80 E'Lateral: 8.81 E'Medial: 5.87 E/E' Med: 15.60 E/E' Lat: 10.40 PHT: 63.00 MVA PHT: 3.49 Decel [place]: 4.25 Aortic Valve AoV Pk Wesly: 2.39 AoV Mn Wesly: 1.73 AoV VTI: 0.59 AoV Pk Grad: 23.00 Aov Mn Grad: 14.00 KIRILL Cont.VTI: 0.83 LVOT LVOT Pk Wesly: 0.86 LVOT Mn Wesly: 0.62 LVOT VTI: 0.21 LVOT Pk Grad: 3.00 LVOT Mn Grad: 2.00 LVOT Diam: 1.70 LVOT Area: 2.27 Diastolic Function MV Pk E: 0.92 MV Pk A: 1.10 E/A: 0.80 E'Medial: 5.87 E/E' Med: 15.60 E' Laterial: 8.81 E/E' Lat: 10.40 Right Ventricle TAPSE (mm): 22.10 TVS' Wesly: 13.50 Tricuspid Valve RA Press: 3.00 Great Vessels Aorta Sinus of Valsalva: 3.70 2.0-3.5 cm Ao Asc: 3.40 2.1-3.4 cm Pulmonary Valve PV Pk Wesly: 0.85 Peak PV Grad: 3.00 Updated in Other Vendor System with Status of Final Spike Nayak MD electronically signed on 08/22/2024 5:00:18 PM with status of Final
--- OUTSIDE RECORDS SUMMARY | 2024-08-22 17:47 | XMS_ITS | Clinical Summary ---
Author Organization [facility] Address [address] [place] [address] Care Team Providers Care Shipping Checker Name Role Phone Unavailable Primary Care Provider Unavailabl e Allergies Active Allergy Reactions Criticality Noted Date Comments Lacosamide Diarrhea 11/12/2022 Medications Medication Sig Dispensed Refills Start Date End Date Status atorvastatin (LIPITOR) tablet 80 mg Take 1 tablet (80 mg total) by mouth daily. 0 Active amLODIPine (NORVASC) tablet 10 mg Take 1 tablet (10 mg total) by mouth daily. 0 11/07/2022 Active aspirin 81 MG EC tablet 1 tablet 0 Active bicalutamide (CASODEX) 50 MG tablet Take 1 tablet (50 mg total) by mouth every morning 0 10/02/2022 Active Cholecalciferol (Vitamin D) 25 MCG (1000 UT) TABS as directed 0 03/22/2020 Active dicyclomine (BENTYL) 20 MG tablet Take 1 tablet (20 mg total) by mouth 3 (three) times a day. 0 Active dorzolamide-timolol (COSOPT) 22.3-6.8 MG/ML ophthalmic solution Place 1 drop into both eyes 2 (two) times a day. 0 10/14/2022 Active lamoTRIgine (LaMICtal) 100 MG tablet 0 11/10/2022 Active latanoprost (XALATAN) 0.005 % ophthalmic solution Place 1 drop into both eyes every night at bedtime. 0 09/28/2022 Active lisinopril (PRINIVIL,ZESTRIL) tablet 20 mg 0 11/09/2022 Active omeprazole (PriLOSEC) 20 MG capsule Take 1 capsule (20 mg total) by mouth daily. 30 minutes before breakfast 0 09/19/2022 Active magnesium oxide 400 (240 Mg) MG TABS tablet Take 1 tablet (400 mg total) by mouth daily. 0 Active Zinc 50 MG TABS Take by mouth. 0 Activ e Active Problems Problem Noted Date Diagnosed Date Prostate cancer 11/12/2022 Cancer Staging:Clinical stage from 11/12/2022:Stage IIIA(cT1c, cN0, cM0, PSA: 29.6, Grade Group: 3) - Signed by Dannie Donaldson MD on 11/12/2022 Social History Tobacco Use Types Packs/Day Years Used Date Smoking Tobacco: Former Cigarettes Q uit: 1957 Smokeless Tobacco: Never Alcohol Use Standard Drinks/Week Comments Yes 0 (1 standard drink = 0.6 oz pur e alcohol) social Sex and Gender Information Value Date Recorded Sex Assigned at Not on file Gender Identity Not on file Sexual Orientation Not on file Job Start Date Occupation Industry Not on file Not on file Not on file Last Filed Vital Signs Vital Sign Reading Time Taken Comments Blood Pressure 122/70 11/12/2022 12:55 PM EDT Pulse 72 11/12/2022 12:55 PM EDT Temperature 36.7 ??C (98 ??F) 11/12/2022 12:55 PM EDT Respiratory Rate 14 11/12/2022 12:55 PM EDT Oxygen Saturation 99% 11/12/2022 12:55 PM EDT Inhaled Oxygen Concentration - - Weight 75.8 kg (167 lb) 11/12/2022 12:55 PM EDT Height 172.7 cm (5' 8 ) 11/12/2022 12:55 PM EDT Body Mass Index 25.39 11/12/2022 12:55 PM EDT Plan of Treatment Health Maintenance Due Date Last Done Comments COVID-19 Vaccine (#1) 1945 Pneumococcal Vaccine (1 of 2 - PCV) 1946 Depression Screening 1952 Preventative Health Evaluation 1958 DTap / Tdap / Td (1 - Tdap) 1959 Shingrix-Zoster Vaccine (1 of 2) 1959 Fall Risk Assessment 2005 RSV Adult > 60+ Yrs or Pregn ant (1 - 1-dose 75+ series) 2015 Influenza Vaccine (#1) 2024 Hepatitis B Vaccines Aged Out No long er eligible based on patient's age to complete this topic RSV Ped < 20 months Aged Out No longe r eligible based on patient's age to complete this topic
--- OUTSIDE RECORDS SUMMARY | 2024-08-22 17:47 | XMS_ITS | Referral Summary ---
Author Organization [facility] Address [address] [place] [address] Care Team Providers Care Service Line Layer Name Role Phone Stephon Ventura Primary Care Provider [phone] Allergies No known active allergies Medications lisinopriL (PRINIVIL,ZESTRI L) 20 mg tablet Take 20 mg by mouth 2 times a day. 07/01/2021 Active atorvastatin (LIPITOR) 80 mg tablet Take 80 mg by mouth once a day. 02/21/2021 Active clopidogreL (PLAVIX) 75 mg tablet Take 75 mg by mouth once a day. 05/06/2021 Active amLODIPine (NORVASC) 5 mg tablet Take by mouth once a day. Per pt take 10 mg daily 06/19/2021 Active latanoprost (XALATAN) 0.005% ophthalmic solution 1 drop nightly. 05/26/2021 Active dorzolamide-sunny loL (COSOPT) 22.3-6.8 mg/mL ophthalmic solution 2 times a day. 06/22/2021 Active latanoprost (XALATAN) 0.005% ophthalmic solution INSTILL 1 DROP IN BOTH EYES AT BEDTIME Active aspirin 81 mg EC tablet every 24 hours. Active MAGNESIUM ORAL Take 500 mg by mouth once a day. Active zinc 50 mg tablet Take 1 tablet by mouth once a day. Active lamoTRIgine (LaMICtal) 100 mg tabletIndication s:Partial symptomatic epilepsy with complex partial seizures, not intractable, without status epilepticus (HCC) TAKE 1/2 TABLET(50 MG) BY MOUTH THREE TIMES DAILY 45 tablet 1 01/10/2024 Active Active Problems Problem Noted Date Diagnosed Date Dysphagia 12/23/2021 Bilateral hearing loss 12/23/2021 Vascular dementia, uncomplicated 12/22/2021 Partial symptomatic epilepsy with complex partial seizures, not intractable, without status epilepticus 12/22/2021 Medication side effects 07/24/2021 Seizure-like activity 07/24/2021 HTN (hypertension) 07/24/2021 Stroke 07/24/2021 TIA (transient ischemic attack) 07/24/2021 Stenosis of right carotid artery 07/24/2021 Social History Tobacco Use Types Packs/Day Years Used Date Smoking Tobacco: Never Smokeless Tobacco: Never Sex and Gender Information Value Date Recorded Sex Assigned at Not on file Legal Sex Male 10:20 AM EST Gender Identity Not on file Sexual Orientation Not on file Last Filed Vital Signs Vital Sign Reading Time Taken Comments Blood Pressure 125/72 04/15/2022 1:58 PM EST Pulse 73 04/15/2022 1:58 PM EST Temperature 36.4 ??C (97.5 ??F) 04/15/2022 1:58 PM ES T Respiratory Rate 16 04/15/2022 1:58 PM EST Oxygen Saturation - - Inhaled Oxygen Concentration - - Weight 78.9 kg (174 lb) 04/15/2022 1:58 PM EST Height 172.7 cm (5' 8 ) 04/15/2022 1:58 PM EST Body Mass Index 26.46 04/15/2022 1:58 PM EST Plan of Treatment Not on file Procedures * Due to [place] law, this organization might not be sharing negative HIV tests. Procedure Name Priority Date/Time Associated Diagnosis Comments COMPREHENSIVE METABOLIC PANEL Routine 04/15/2022 2:59 PM EST Partial symptomatic epilepsy with complex partial seizures, not intractable, without status epilepticus (CMS/HCC) (HCC) from Last 3 Months or Most Recently Relevant to Health Maintenance Results * Due to [place] law, this organization might not be sharing negative HIV tests. * (ABNORMAL) Comprehensive Metabolic Panel (04/15/2022 2:59 PM EST) NA 140 135 - 145 mmol/L 04/15/2022 3:48 PM EST [facility] K 4.6 3.5 - 5.3 mmol/L 04/15/2022 3:48 PM EST [facility] Cl 104 97 - 110 mmol/L 04/15/2022 3:48 PM EST [facility] CO2 28 24 - 32 mmol/L 04/15/2022 3:48 PM EST [facility] Anion Gap 8 5 - 15 04/15/2022 3:48 PM EST [facility] Glucose 99 70 - 99 mg/dL 04/15/2022 3:48 PM EST [facility] Creatinine 1.13 0.60 - 1.30 mg/dL 04/15/2022 3:48 PM EST [facility] Calcium 9.2 8.7 - 10.7 mg/dL 04/15/2022 3:48 PM EST [facility] Total Protein 6.9 6.0 - 8.0 g/dL 04/15/2022 3:48 PM EST [facility] Albumin 4.2 3.5 - 4.8 g/dL 04/15/2022 3:48 PM EST [facility] Bilirubin, Total 0.4 0.3 - 1.2 mg/dL 04/15/2022 3:48 PM EST [facility] Alkaline Phosphatase 91 30 - 115 U/L 04/15/2022 3:48 PM EST [facility] AST 16 10 - 40 U/L 04/15/2022 3:48 PM EST [facility] ALT 15 10 - 40 U/L 04/15/2022 3:48 PM EST [facility] BUN 25(H) 7 - 23 mg/dL 04/15/2022 3:48 PM EST [facility] eGFR 65(L) >=90 mL/min/1. 73m2 04/15/2022 3:48 PM EST [facility] Comment: Estimated Glomerular Filtration Rate (GFR) calculated using the CKD-EPI refit equation. The different stages of CKD form a continuum. The stages of CKD are classified as follows : Stage 1: Kidney damage with normal or increased GFR (>90 mL/min/1.73 m2) Stage 2: Mild reduction in GFR (60-89 mL/min/1.73 m2) Stage 3a: Moderate reduction in GFR (45-59 mL/min/1.73 m2) Stage 3b: Moderate reduction in GFR (30-44 mL/min/1.73 m2) Stage 4: Severe reduction in GFR (15-29 mL/min/1.73 m2) Stage 5: Kidney failure (GFR < 15 mL/min/1.73 m2 or dialysis) Blood Structure of peripheral vein / Unknown Venipuncture / Unknown 04/15/2022 2:59 PM EST 04/15/2022 3:18 PM EST us Ashish Hernandez MD LAB BLOOD ORDERABLES Final Resul t [facility] [address] [place] [address], from Last 3 Months or Most Recently Relevant to Health Maintenance Insurance MEDICARE [facility] Care Teams Service Line Layer Relationship Specialty Start Date End Date Stephon Ventura [address] [place] [id number] PCP - General Hematology 06/05/21
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
--- OUTSIDE RECORDS SUMMARY | 2024-08-22 17:47 | XMS_ITS | Encounter Summary ---
Author Organization [facility] Address [address] [place] [address] Care Team Providers Care Jacquard Loom Carpet Weaver Name Role Phone Stephon Ventura Primary Care Provider [phone] Reason for Visit * Reason Onset Date Comments Appointment 10/20/2021 Encounter Details Date Type Department Care Team (Late st Contact Info) Description 10/20/2021 Telephone [facility] [address] [place] [address] Telephone Intake, Staff Appointment Social History Tobacco Use Types Packs/Day Years Used Date Smoking Tobacco: Never Assessed Sex and Gender Information Value Date Recorded Sex Assigned at Not on file Legal Sex Male 10:20 AM EST Gender Identity Not on file Sexual Orientation Not on file documented as of this encounter Miscellaneous Notes * Telephone Encounter - Lynn Snider - 11/12/2021 11:23 AM EDT Spoke to Tanika patient daughter and schedule apt for 01/03/21 at 4:30 pm with Mary Calixto * Telephone Encounter - Xiomara Haddad - 11/12/2021 10:24 AM EDT Pt daughter calling back- states she has not received call. Did explained clinic was calling on 11/10. pls call again to schedule. Did update best number: [phone] Tanika's cell * Telephone Encounter - Cuca Steiner - 11/10/2021 9:24 AM EDT Called and and no voicemail to leave for tanika regarding pt to schedule a follow up with dr hernandez Please schedule when she returns the call * Telephone Encounter - Cuca Steiner - 11/07/2021 1:[address] hernandez, ok to use an urgent opening? * Telephone Encounter - Xiomara Haddad - 11/07/2021 12:[address] Hernandez's next available as this time is 05/06 and daughter states she believes it would be too long to wait for a follow up. Ok to the option of a telehealth visit but CS cannot populate a schedule. pls call to book//advice. Tanika [phone] * Telephone Encounter - Ashish Hernandez MD - 11/04/2021 2:25 PM EDT Yes I would just emphasize: We did give him a plan to come off the Vimpat (which is the main reason he was referred to us), buthe was nonadherent to the plan we gave. But we can still try that same plan if/when he is willing. If he is concerned about achalasia or other causes of difficulty eating, I would recommend he follow-up closely with this PCP and/or GI. As far as I am aware, there is no known association between achalasia/dysphagia and Vimpat. I don'tsee these things as related, though in high doses Vimpat could cause nausea (but he is not taking ahigh dose). I'm happy to see him for a follow-up appointment, but currently there is nothing schedule. Telehealth video is also an option. * Telephone Encounter - Yue Mallory RN - 10/20/2021 4:31 PM EDT Spoke with pt who continues to complain that his Dr won't explain the etiaology behind his nausea. Pt states its the vimpat and 'why can't anybody see that'. Pt states everytime he titrates off the vimpat he gets nauseauous. But then admits to always being nauseous. He won't treat the side effect or get egvaluation from GI or PCP. Pt believes the Dr Should have researched and reviewed all of his f bryan, medications, diagnostics and test despite the latest MRI not being received by the clinic. Ptexpected personal phone call once the MRI received with a full report of his entire medical case. He said it would only take 5 mins. Pt scheduled and then didn't appear for his second appt stating itdoesn't make sense to see the dr if he doesn't know anything. Pt refuses to do a televideo or in person appt. Pt refuses the Dr advice on the titration of vimpat saying its wrong. I attempted multiple times today and previous conversations to explain policy, procedures of clinic and appts. Pt finally added he has 'solved the mystery, I did the work for you, its called Achalasia'. Pt would like to speak with the dr on the phone, only, regarding this issue of nausea, vimpat and achalasia. [phone] * Telephone Encounter - Cuca Steiner - 10/20/2021 1:47 PM EDT I called the patein to offer to schedule an appt and he refused, he would like to speak with nurse angela porter Forwarding message to nursing to request a return call * Telephone Encounter - Willow Griffin - 10/20/2021 10:36 AM EDT Pt missed an appointment on 10/13/21 and has some questions in regards to rescheduling and abut a procedure and is requesting to talk to Angela. Pt can be reached at [phone]. documented in this encounter Plan of Treatment Not on file documented as of this encounter Visit Diagnoses Not on filedocumented in this encounter Care Teams Jacquard Loom Carpet Weaver Relationship Specialty Start Date End Date Stephon Ventura [facility] [address] [address] PCP - General Hematology 06/05/21 documented as of this encounter
--- OUTSIDE RECORDS SUMMARY | 2024-08-22 17:47 | XMS_ITS | Encounter Summary ---
Author Organization [facility] Address [address] [place] [address] Care Team Providers Care Glue Jointer Operator Name Role Phone Stephon Ventura Primary Care Provider [phone] Encounter Details Date Type Department Care Team (Late st Contact Info) Description 06/05/2021 Orders Only [facility] [address] [place] [address] Provider, Unknown, [address] [place] [address] Social History Tobacco Use Types Packs/Day Years Used Date Smoking Tobacco: Never Assessed Sex and Gender Information Value Date Recorded Sex Assigned at Not on file Legal Sex Male 10:20 AM EST Gender Identity Not on file Sexual Orientation Not on file documented as of this encounter Plan of Treatment Not on file documented as of this encounter Procedures * Due to [place] [employer] law, this organization might not be sharing negative HIV tests. Procedure Name Priority Date/Time Associated Diagnosis Comments AMB EXTERNAL CT HEAD, OUTSID E RESULT Routine 06/22/2018 documented in this encounter Results * Due to [place] [employer] law, this organization might not be sharing negative HIV tests. * CT Head, Outside Result (06/22/2018) Anatomical Region Laterality Modality Other us Unknown Provider MD NELSON EXTERNAL RESULT PROCEDUR ES Final Result documented in this encounter Visit Diagnoses Not on filedocumented in this encounter Care Teams Glue Jointer Operator Relationship Specialty Start Date End Date Stephon Ventura [address] [facility] [address] [place] [address] PCP - General Hematology 06/05/21 documented as of this encounter
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
--- OUTSIDE RECORDS SUMMARY | 2024-08-22 17:47 | XMS_ITS | Clinical Summary ---
Author Organization [facility] Address [address] [place] [address] Care Team Providers Care Tugboat Pilot Name Role Phone Stephon Ventura Primary Care Provider [phone] Allergies No known active allergies Medications lisinopriL [...] 04/15/2022 1:58 PM EST Plan of Treatment Health Maintenance Due Date Last Done Comments Medicare AWV 1941 DTaP,Tdap,and Td Vaccines (1 - Tdap) 1962 Pneumococcal Vaccine: 50+ Years (1 of 1 - PCV) 1990 Zoster Vaccines (1 of 2) 1990 RSV Vaccine (60+ years old and patients) (1 - 1-dose 75+ series) 2015 Basic Metabolic Panel 04/15/2023 04/15/2022 , 07/23/2021 COVID-19 Vaccine (3 - 2023-2 5 season) 2024 08/09/2020, 07/19/2020 Influenza Vaccine (#1) 2024 Alcohol/Substance Use Screening 06/07/2024 Depression Screening and Follow-Up 06/07/2024 Fall Risk Screening 06/07/2024 Health Care Proxy Review 06/07/2024 Social Drivers of Health Annual Screening 06/07/2024 Statin Therapy Completed 02/21/2021 Hepatitis B Vaccines Aged Out No long er eligible based on patient's age to complete this topic Procedures * Due to [place] [employer] law, this organization might not be sharing negative HIV tests. Procedure Name Priority Date/Time Associated Diagnosis Comments COMPREHENSIVE METABOLIC PANEL Routine 04/15/2022 2:59 PM EST Partial symptomatic epilepsy with complex partial seizures, not intractable, without status epilepticus (CMS/HCC) (HCC) from Last 3 Months or Most Recently Relevant to Health Maintenance Results * Due to [place] [employer] law, this organization might not be sharing negative HIV tests. * (ABNORMAL) Comprehensive Metabolic Panel (04/15/2022 2:59 PM EST) NA 140 135 - 145 mmol/L 04/15/2022 3:48 PM EST [facility] K 4.6 3.5 - 5.3 mmol/L 04/15/2022 3:48 PM EST [facility] Cl 104 97 - 110 mmol/L 04/15/2022 3:48 PM EST [facility] CO2 28 24 - 32 mmol/L 04/15/2022 3:48 PM EST [facility] Anion Gap 8 5 - 15 04/15/2022 3:48 PM EST [facility] Glucose 99 70 - 99 mg/dL 04/15/2022 3:48 PM EST [facility] Creatinine 1.13 0.60 - 1.30 mg/dL 04/15/2022 3:48 PM EST [facility] Calcium 9.2 8.7 - 10.7 mg/dL 04/15/2022 3:48 PM EST [facility] Total Protein 6.9 6.0 - 8.0 g/dL 04/15/2022 3:48 PM EST [facility] Albumin 4.2 3.5 - 4.8 g/dL 04/15/2022 3:48 PM EST [facility] Bilirubin, Total 0.4 0.3 - 1.2 mg/dL 04/15/2022 3:48 PM EST [facility] Alkaline Phosphatase 91 30 - 115 U/L 04/15/2022 3:48 PM EST [facility] AST 16 10 - 40 U/L 04/15/2022 3:48 PM EST [facility] ALT 15 10 - 40 U/L 04/15/2022 3:48 PM EST [facility] BUN 25(H) 7 - 23 mg/dL 04/15/2022 3:48 PM EST [facility] eGFR 65(L) >=90 mL/min/1. 73m2 04/15/2022 3:48 PM EST [facility] Comment: Estimated Glomerular Filtration [...] MD LAB BLOOD ORDERABLES Final Resul t [email or web address] [address] [place] [address], from Last 3 Months or Most Recently Relevant to Health Maintenance Insurance MEDICARE [facility] Care Teams Tugboat Pilot Relationship Specialty Start Date End Date Stephon Ventura [facility] [address] PCP - General Hematology 06/05/21
--- OUTSIDE RECORDS SUMMARY | 2024-08-22 17:47 | XMS_ITS | Encounter Summary ---
Author Organization [facility] Address [address] [place] [address] Care Team Providers Care Commercial Lending Assistant Name Role Phone Stephon Ventura Primary Care Provider [phone] Encounter Details Date Type Department Care Team (Late st Contact Info) Description 09/30/2022 Telephone [facility] Central Scheduling Department [address] [place] [address] Telephone Intake, Staff Social History Tobacco Use Types Packs/Day Years Used Date Smoking Tobacco: Never Smokeless Tobacco: Never Sex and Gender Information Value Date Recorded Sex Assigned at Not on file Legal Sex Male 10:20 AM EST Gender Identity Not on file Sexual Orientation Not on file documented as of this encounter Miscellaneous Notes * Telephone Encounter - Sugey Garland - 09/30/2022 1:10 PM EDT PT daughter called to cancel appointment for 10/20. Notes stated 6 month Booking out Sept. Daughter stated he will run out of med with a few days of 10/20 appointment. Please call: Viktoria: [phone] documented in this encounter Plan of Treatment Not on file documented as of this encounter Visit Diagnoses Not on filedocumented in this encounter Care Teams Commercial Lending Assistant Relationship Specialty Start Date End Date Stephon Ventura [address] [facility] [address] [place] [address] PCP - General Hematology 06/05/21 documented as of this encounter
--- OUTSIDE RECORDS SUMMARY | 2024-08-22 17:47 | XMS_ITS | Clinical Summary ---
Author Organization [facility] [address] [facility] Address [address] [place] [address] Phone Care Team Providers Care Veneer Jointer Operator Name Role Phone Grupo Collier MD Primary Care Provider [phone] Surgical History Surgery Date Site/Laterality Comments CAROTID ENDARTERECTOMY Right PROCEDURE:CAROTID ENDARTERECTOMY Medical History Medical History Date Comments Prostate cancer (CMS/HCC) DX:Pro state cancer (HCC) Coronary artery disease DX:Coron iasak artery disease Hypertension DX:Hypertension Stroke (CMS/HCC) DX:Stroke (HCC) Carotid artery stenosis, unilateral, right DX:Carotid artery stenosis, unilateral, right Glaucoma DX:Glaucoma Social History Tobacco Use Types Packs/Day Years Used Date Smoking Tobacco: Former Cigarettes Q uit: 06/07/1957 Smokeless Tobacco: Never Alcohol Use Standard Drinks/Week Comments Yes 0 (1 standard drink = 0.6 oz pur e alcohol) Sex and Gender Information Value Date Recorded Sex Assigned at Not on file Legal Sex Male 11:40 AM EST Gender Identity Not on file Sexual Orientation Not on file Obstetrics History Last Filed Vital Signs Vital Sign Reading Time Taken Comments Blood Pressure 122/70 11/12/2022 12:55 PM EDT Sitting Left arm Pulse 72 11/12/2022 12:55 PM EDT Temperature - - Respiratory Rate - - Oxygen Saturation - - Inhaled Oxygen Concentration - - Weight 75.8 kg (167 lb) 11/12/2022 12:5 5 PM EDT Height 172.7 cm (5' 8 ) 11/12/2022 12:5 5 PM EDT Body Mass Index 25.39 11/12/2022 12:55 PM EDT Plan of Treatment Health Maintenance Due Date Last Done Comments COVID-19 Vaccine (#1) 1945 DTaP,Tdap,and Td Vaccines (1 - Tdap) 1959 Pneumococcal Vaccine: 50+ Years (1 of 2 - PCV) 1959 Zoster Vaccines (1 of 2) 1959 RSV Immunization Patients 60+ Years Old (1 - 1-dose 75+ series) 2015 Depression Screening 05/05/2022 Falls Risk Assessment 05/05/2022 Medicare Annual Wellness Visit 05/05/2022 Social Influencers of Health Screening 05/05/2022 Influenza Vaccine (#1) 2024 Hypertension/CHF/CAD Annual BMP Blood Test 04/26/2025 04/26/2024, 12/29/2023, 12/29/2023, Additional history exists Cholesterol Screening (Lipid Panel) 04/26/2029 04/26/2024, 12/29/2023, 12/29/2023 HIB Vaccines Aged Out No longer eligi ble based on patient's age to complete this topic HPV Vaccines Aged Out No longer eligi ble based on patient's age to complete this topic Hepatitis A Vaccines Aged Out No long er eligible based on patient's age to complete this topic Hepatitis B Vaccines Aged Out No long er eligible based on patient's age to complete this topic IPV Vaccines Aged Out No longer eligi ble based on patient's age to complete this topic MMR Vaccines Aged Out No longer eligi ble based on patient's age to complete this topic Meningococcal ACWY Vaccine Aged Out N o longer eligible based on patient's age to complete this topic Meningococcal B Vacine Aged Out No lo nger eligible based on patient's age to complete this topic RSV Immunization Patients Under 20 months Aged Out No longer eligible based on patient's age to complete this topic Varicella Vaccines Aged Out No longer eligible based on patient's age to complete this topic Procedures Procedure Name Priority Date/Time Associated Diagnosis Comments COMPREHENSIVE METABOLIC PANEL Routine 04/26/2024 9:12 AM EST Hyperlipemia Severely overweight Malignant neoplasm of prostate (CMS/HCC) Avitaminosis D LIPID PANEL Routine 04/26/2024 9:12 AM EST Hyperlipemia Severely overweight Malignant neoplasm of prostate (CMS/HCC) Avitaminosis D from Last 3 Months or Most Recently Relevant to Health Maintenance Results * (ABNORMAL) Lipid panel (04/26/2024 9:12 AM EST) Cholesterol 202(H) 0 - 200 mg/dL LAB CHEMISTRY METHOD 04/26/2024 2:[address] [facility] Triglycerides 139 <150 mg/dL LAB CHEMISTRY METHOD 04/26/2024 2:43 PM [facility] HDL 65 mg/dL LAB CHEMISTRY METHOD 04/26/2024 2:[address] [facility] LDL Calculated 109 50 - 130 mg/dL LAB CHEMISTRY METHOD 04/26/2024 2:43 PM [facility] VLDL Cholesterol Magdiel 27.8 mg/dL LAB CHEMISTRY METHOD 04/26/2024 2:43 PM [facility] Comment:No established refer ence range. Blood Venous blood specimen / Unknown Venipuncture / Unknown 04/26/2024 9:12 AM EST 04/26/2024 9:13 AM EST us Stephon Ventura MD LAB BLOOD ORDERABLES Final Res ult [facility] [address] [place] [address], [place] [phone] * (ABNORMAL) Comprehensive metabolic panel (04/26/2024 9:12 AM EST) Sodium 138 135 - 145 mmol/L LAB CHEMISTRY METHOD 04/26/2024 2:43 PM [facility] Potassium 3.9 3.5 - 5.1 mmol/L LAB CHEMISTRY METHOD 04/26/2024 2:43 PM [facility] Chloride 102 98 - 107 mmol/L LAB CHEMISTRY METHOD 04/26/2024 2:43 PM [facility] CO2 27 24 - 32 mmol/L LAB CHEMISTRY METHOD 04/26/2024 2:43 PM [facility] Anion Gap 9 5 - 14 LAB CHEMISTRY METHOD 04/26/2024 2:43 PM [facility] Glucose 116(H) 70 - 99 mg/dL LAB CHEMISTRY METHOD 04/26/2024 2:43 PM [facility] BUN 22(H) 9 - 20 mg/dL LAB CHEMISTRY METHOD 04/26/2024 2:43 PM [facility] Creatinine 0.90 0.70 - 1.30 mg/dL LAB CHEMISTRY METHOD 04/26/2024 2:43 PM [facility] eGFR 85 >=60 mL/min/1. 73m2 LAB CHEMISTRY METHOD 04/26/2024 2:43 PM [facility] Comment:Calculation based on the??Chronic Kidney Disease Epidemiology Collaboration (CKD-EPI) equation refit??without adjustment for race. BUN/Creatinine Ratio 24.4(H) 12.0 - 20.0 LAB CHEMISTRY METHOD 04/26/2024 2:43 PM [facility] Calcium 9.3 8.4 - 10.2 mg/dL LAB CHEMISTRY METHOD 04/26/2024 2:43 PM [facility] AST (SGOT) 15 5 - 40 unit/L LAB CHEMISTRY METHOD 04/26/2024 2:43 PM [facility] ALT (SGPT) 11 7 - 52 unit/L LAB CHEMISTRY METHOD 04/26/2024 2:43 PM [facility] Alkaline Phosphatase 88 34 - 104 unit/L LAB CHEMISTRY METHOD 04/26/2024 2:43 PM [facility] Total Protein 6.6 6.4 - 8.5 g/dL LAB CHEMISTRY METHOD 04/26/2024 2:43 PM [facility] Albumin 4.3 3.5 - 5.0 g/dL LAB CHEMISTRY METHOD 04/26/2024 2:43 PM [facility] Total Bilirubin 0.4 0.3 - 1.0 mg/dL LAB CHEMISTRY METHOD 04/26/2024 2:43 PM [facility] Blood Venous blood specimen / Unknown Venipuncture / Unknown 04/26/2024 9:12 AM EST 04/26/2024 9:13 AM EST us Stephon Ventura MD LAB BLOOD ORDERABLES Final Res ult [facility] [address] [place] [address], [place] [phone] from Last 3 Months or Most Recently Relevant to Health Maintenance Insurance MEDICARE [place]ICAID - [place] Care Teams Veneer Jointer Operator Relationship Specialty Start Date End Date Grupo Collier MD [address] [place] [address] PCP - General 06/07/19
--- OUTSIDE RECORDS SUMMARY | 2024-08-22 17:47 | XMS_ITS ---
Author Organization Stephon Ventura III, MD Address [address] [place] [place] [address] Care Team Providers Care Hr Generalist Name Role Phone Stephon Ventura Primary Care Provider [phone] Reason For Referral Reason Patient would prefer [...] appointment. Updated patient demos and faxed [place] [facility] [place] 05/2024 and last progress note from Dr. Ventura Referral Priority Routine Referral Appointment Date 10/05/2024 REASON FOR VISIT Neurology Referral Social History Sex Assigned At : Social History Observation Description Sex Assigned At Male Encounters Encounter Location Date Provider Diagnosis Stephon Ventura III, MD [address] [place] [address] [place] [address] 08/04/2024 Stephon Ventura Plan Of Treatment Referrals Referral Date Details 08/07/2024 08/07/2024, Patient would prefer Dr. Escamilla Evaluate and Treat Seizure Disorder Memory LossDomonique Next Appt Details Provider Name:Stephon Ventura, 10/09/2024 02:30:00 PM, [address] [place] [address] [place], [address], Provider Name:Stephon Ventura, 01/01/2025 02:00:00 PM, [address] [place] [address] [address], [place], [address], Progress Notes * Michael JENKINSDOB:1940 (84 yo M)Acc No.[id number]:08/04/2024 Patient:?Michael JENKINS :1940???Age:84 Y???Sex:Male Address:[address] [place] [id number] Subjective: * Chief Complaints: * ???Neurology Referral * Medical History:? * Surgical History:? * Hospitalization/Major Diagno stic Procedure:? * Medications:? Objective: * Vitals:? * Physical Examination:? Assessment: Plan: * Treatment: * Procedure Codes:? * true * Date:? Generated for Claudia engle/Joanna/eTransmitting on:?08/22/2024 05:47 PM EDT Consultation Request Notes Referral Date Referring Provider Referred Provider Not es 08/07/2024 Stephon Ventura Muhammad Patient wo torsten prefer Dr. Escamilla Evaluate and Treat Seizure Disorder Memory Loss
--- OUTSIDE RECORDS SUMMARY | 2024-08-22 17:47 | XMS_ITS | Encounter Summary ---
Author Organization [facility] Address [address] [place] [address] Care Team Providers Care Nursing Support Worker Name Role Phone Stephon Ventura Primary Care Provider [phone] Encounter Details Date Type Department Care Team (Late st Contact Info) Description 07/29/2021 Orders Only [facility] [address] [place] [id number] [address] [facility] [place] [address] Social History Tobacco Use Types Packs/Day Years Used Date Smoking Tobacco: Never Assessed Sex and Gender Information Value Date Recorded Sex Assigned at Not on file Legal Sex Male 10:20 AM EST Gender Identity Not on file Sexual Orientation Not on file documented as of this encounter Plan of Treatment Not on file documented as of this encounter Procedures * Due to [place] law, this organization might not be sharing negative HIV tests. Procedure Name Priority Date/Time Associated Diagnosis Comments AMB EXTERNAL MRI BRAIN, OUTS SHANE RESULT Routine 06/27/2021 documented in this encounter Results * Due to [place] law, this organization might not be sharing negative HIV tests. * MRI Brain, Outside Result (06/27/2021) Anatomical Region Laterality Modality Other Sabas Herzog AMB EXTERNAL RESULT PROCEDURES Final Result documented in this encounter Visit Diagnoses Not on filedocumented in this encounter Care Teams Nursing Support Worker Relationship Specialty Start Date End Date Stephon Ventura [address] [facility] [address] [place] [address] PCP - General Hematology 06/05/21 documented as of this encounter
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
== END ==
LOC: HO.CARD 14:55
PROVIDERS: PCP Internal Medicine Medical Oncology; Visit Provider Internal Medicine
DX: I35.0 Nonrheumatic aortic (valve) stenosis (principal)
CPT/HCPCS: 93306

== ENCOUNTER → 2024-08-22 14:59 | Outpatient (BNV) | payer MEDICARE, MEDICAID, SELFPAY | PROVIDERS: PCP Internal Medicine Medical Oncology; Visit Provider Internal Medicine Cardiovascular Disease | DX: I35.0 Nonrheumatic aortic (valve) stenosis (principal); R93.1 Abnormal findings on diagnostic imaging of heart and coronary circulation | CPT/HCPCS: 93306; 93356 ==

== ENCOUNTER 2024-10-05 14:22 | Outpatient (AMB) | payer MEDICARE, MEDICAID, SELFPAY ==
--- NOTE | 2024-10-05 14:40 | MHC.OFFVIS ---
Vital Signs 10/05/24 14:47 Height 5 ft 7 in Weight 166 lb 3.657 oz BMI 26.0 BP 132/74 Blood Pressure Location Rt brachial Position Sitting Pulse 67 Pulse Source Monitor Intake Visit Reasons: 1 yr f/up Enamel Drier Required: No Accompanied by: Self / Same As Patient Allergies lacosamide [From Vimpat] Adverse Reaction (Severe, Verified 06/13/24 13:01) Muscle cramps Medication List - Last Reconciled 10/05/24 by Loc Simmons MD amlodipine 10 mg PO DAILY aspirin (Adult Low Dose Aspirin) 81 mg PO DAILY dorzolamide-timolol 22.3-6.8 mg/mL 1 drp ophthalmic (eye) BID lamotrigine 200 mg PO DAILY latanoprost 0.005% 1 drp ophthalmic (eye) BEDTIME lisinopril 20 mg PO BID HPI Comments Details: Michael returns for follow-up regarding coronary artery disease. In the past, was seen for preoperative risk stratification for carotid surgery. He had that surgery without issues. Overall, he states he feels good. No cardiac complaints. No angina. [facility], [facility] Medical History Seizures IBS (irritable bowel syndrome) CAD (coronary artery disease) AMS (altered mental status) High cholesterol HTN (hypertension) Surgical History H/O eye surgery History of carotid endarterectomy (~01/2022) Hx of tonsillectomy Hx of abdominal surgery Family History Father No problems noted. Mother Myocardial infarction Social History Household Members: Children Household Members Other:: daughter, son, and son's girlfriend Housing: House Are you a primary director of medicare to a significant other at home: No Do you presently have visiting nurse or other home services: No Alcohol intake: never Patient Tobacco Use Status: Never used Tobacco e-Cigarette/Vaping Use: Never Used Second Hand Smoke Exposure: No Substance Use Type: Marijuana Advance Directives Date on File: 01/26/22 service: No Current occupational status: retired Review of Systems Const All systems reviewed & are unremarkable except as noted in HPI and below Reports as per HPI and Reports no additional complaints Eyes Reports as per HPI and Denies no additional complaints ENT Denies no additional complaints and Reports as per HPI Card Reports as per HPI, Reports no additional complaints, Denies acrocyanosis, Denies chest pain, Denies leg edema, Denies lightheadedness, Denies palpitations and Denies dyspnea Resp Reports as per HPI, Denies no additional complaints and Denies dyspnea GI Reports as per HPI and Denies no additional complaints Reports no additional complaints and Reports as per HPI Musc Reports no additional complaints and Reports as per HPI Skin/Breast Reports system reviewed and no additional complaints, except as documented Neuro Reports no additional complaints and Reports as per HPI Psych Reports no additional complaints and Reports as per HPI Endo Reports no additional complaints, Reports as per HPI and Denies palpitations Elfego/Lymph Reports no additional complaints and Reports as per HPI Aller/Immun Reports no additional complaints and Reports as per HPI Physical Exam Vital Signs: Last Vital Signs Pulse 67 10/05/24 14:47 BP 132/74 10/05/24 14:47 BMI result Body Mass Index 26.0 Const General: comfortable and no acute distress Orientation/consciousness: patient oriented x3 HEENT Other: Unremarkable Head: Yes normal to inspection Neck Neck: Yes normal visual inspection Chest Chest palpation & inspection: normal inspection of the chest Resp Auscultation: clear to auscultation bilaterally Cardio Palpation: normal PMI Heart sounds: S1 normal heart sound present, S2 normal heart sound present, no gallops, Murmur heart sound present systolic II/ and at the right sternal border and no rubs GI Palpation (GI): Soft to palpation Back/Spine/Pelvis Other: unremarkable Skin General skin exam: no rashes or lesions noted Neuro General: patient oriented x3 Extrem General: Yes normal to inspection Psych Mental Status: mental status grossly normal Office Procedures EKG Details: EKG with underlying sinus rhythm at 67/Min; no significant ST-T changes; [place] [id number], Complete Assessment & Plan Assessment & Plan (1) Atherosclerotic cardiovascular disease: Code(s): I25.10 - Atherosclerotic heart disease of [place] coronary artery without angina pectoris Category: Medical (2) Peripheral vascular disease: Code(s): I73.9 - Peripheral vascular disease, unspecified Category: Medical (3) Essential hypertension: Code(s): I10 - Essential (primary) hypertension Category: Medical (4) Other and unspecified hyperlipidemia: Code(s): E78.5 - Hyperlipidemia, unspecified Category: Medical (5) Non-rheumatic aortic stenosis: Code(s): I35.0 - Nonrheumatic aortic (valve) stenosis Category: Medical Plan Cardiac studies reviewed. Echocardiogram 08/2024-LVEF 60-65%. Yiul-tg-ycftaugb aortic valve stenosis. Mild mitral annular calcification. Cardiac catheterization data- 2021-there is chronic total occlusion of the right coronary artery with collaterals. Distal circumflex had 70% stenosis in the proximal part. There is intermediate grade disease in the LAD. Clinically, he is stable without any angina. Continue aspirin. Blood pressure stable on current regimen may continue amlodipine/lisinopril. With regard to lipids, he states he has not taken statins in a while now. He does not like taking it because of side effects but he cannot describe what those side effects wear. Advised him to at least do lipid panel. Consider at least Zetia. We will follow up in one year with an echocardiogram. Discussion Notes During the visit, I discussed with the patient the importance of managing coronary artery disease and monitoring cholesterol levels given his history of hyperlipidemia and current lack of statin therapy. We addressed the concerns of cholesterol inconsistencies and the potential need for alternative interventions if required after further testing. I explained the risks of unmanaged cholesterol, particularly given his history of blockages, and the patient has agreed to undertake a lab test to assess his current status. We also reviewed his plan to undergo an ultrasound to assess cardiac function. Patient was informed and verbally consented to the use of an ambient scribe for clinic note documentation during this visit. Orders: Orders Lipid Panel Today E78.5 - Hyperlipidemia, unspecified, I25.10 - Atherosclerotic heart disease of [place] coronary artery without angina pectoris Liver Panel Today I25.10 - Atherosclerotic heart disease of [place] coronary artery without angina pectoris CA echo transthoracic complete 1 Year I35.0 - Nonrheumatic aortic (valve) stenosis Patient Instructions: - Get lab work done to check cholesterol levels. - Plan for a follow-up ultrasound to evaluate heart condition. - Monitor any changes in chest pain, especially if it becomes more frequent or severe. - Return for follow-up as discussed after completing the lab tests. Coding Level of Care Code Est Pt Level 4 (61633) Complex EM visit Add On G2211 Diagnoses Atherosclerotic cardiovascular disease I25.10 Peripheral vascular disease I73.9 Essential hypertension I10 Other and unspecified hyperlipidemia E78.5 Non-rheumatic aortic stenosis I35.0 CPT Codes EKG - CPT: 81043-[id number], Complete ([id number])
[2024-10-05 14:47] VITALS: BP 132/74; PULSE 67; BMI 26.0
--- OUTSIDE RECORDS SUMMARY | 2024-10-05 16:29 | XMS_ITS | Encounter Summary ---
Author Organization [facility] Address [address] [place] [address] Care Team Providers Care Vice Principal Name Role Phone Stephon Ventura Primary Care Provider [phone] Encounter Details Date Type Department Care Team (Late st Contact Info) Description 09/30/2022 Telephone [facility] Central Scheduling Department [address] [place] [phone] Telephone Intake, Staff Social History Tobacco Use [...] days of 10/20 appointment. Please call: Viktoria: [phone] documented in this encounter Plan of Treatment Not on file documented as of this encounter Visit Diagnoses Not on filedocumented in this encounter Care Teams Vice Principal Relationship Specialty Start Date End Date Stephon Ventura [address] [facility] [address] [place] [id number] PCP - General Hematology 06/05/21 documented as of this encounter
--- OUTSIDE RECORDS SUMMARY | 2024-10-05 16:29 | XMS_ITS | Encounter Summary ---
Author Organization [facility] Address [address] [place] [address] Care Team Providers Care Loss Prevention And Safety Manager Name Role Phone Stephon Ventura Primary Care Provider [phone] Encounter Details Date Type Department Care Team (Late st Contact Info) Description 06/05/2021 Orders Only [facility] [address] [place] [id number] Provider, Unknown, [address] [place] [address] Social History Tobacco Use Types Packs/Day Years Used Date Smoking Tobacco: Never Assessed Sex and Gender Information Value Date Recorded Sex Assigned at Not on file Legal Sex Male 10:20 AM EST Gender Identity Not on file Sexual Orientation Not on file documented as of this encounter Plan of Treatment Not on file documented as of this encounter Procedures * Due to [place] [employer] law, this organization might not be sharing negative HIV tests. Procedure Name Priority Date/Time Associated Diagnosis Comments AMB EXTERNAL CT HEAD, OUTSID E RESULT Routine 06/22/2018 documented in this encounter Results * Due to [place] [employer] law, this organization might not be sharing negative HIV tests. * CT Head, Outside Result (06/22/2018) Anatomical Region Laterality Modality Other us Unknown Provider MD NELSON EXTERNAL RESULT PROCEDUR ES Final Result documented in this encounter Visit Diagnoses Not on filedocumented in this encounter Care Teams Loss Prevention And Safety Manager Relationship Specialty Start Date End Date Stephon Ventura [address] [facility] [address] [place] [address] PCP - General Hematology 06/05/21 documented as of this encounter
--- OUTSIDE RECORDS SUMMARY | 2024-10-05 16:29 | XMS_ITS | Clinical Summary ---
Author Organization [facility] Address [address] [place] [address] Care Team Providers Care Shelving Supervisor Name Role Phone Stephon Ventura Primary Care Provider [phone] Allergies No known active allergies Medications lisinopriL [...] - 2023-2 5 season) 2024 08/09/2020, 07/19/2020 Alcohol/Substance Use Screening 06/07/2024 Depression Screening and Follow-Up 06/07/2024 Fall Risk Screening 06/07/2024 Health Care Proxy Review 06/07/2024 Social Drivers of Health Annual Screening 06/07/2024 Influenza Vaccine (Season Ended) 2025 Statin Therapy Completed 02/21/2021 Hepatitis B Vaccines Aged Out No long er eligible based on patient's age to complete this topic Procedures * Due to [place] [employer] law, this organization might not be sharing negative HIV tests. Procedure Name Priority Date/Time Associated Diagnosis Comments COMPREHENSIVE METABOLIC PANEL Routine 04/15/2022 2:59 PM EST Partial symptomatic epilepsy with complex partial seizures, not intractable, without status epilepticus from Last 3 Months or Most Recently Relevant to Health Maintenance Results * Due to [place] [employer] law, this organization might not be sharing [...] - 1.2 mg/dL 04/15/2022 3:48 PM EST [facility] Alkaline Phosphatase 91 30 - 115 U/L 04/15/2022 3:48 PM EST [facility] AST 16 10 - 40 U/L 04/15/2022 3:48 PM EST [facility] ALT 15 10 - 40 U/L 04/15/2022 3:48 PM EST [facility] BUN 25(H) 7 - 23 mg/dL 04/15/2022 3:48 PM EST [facility] eGFR 65(L) >=90 mL/min/1. 73m2 04/15/2022 3:48 PM EST [facility] Comment: Estimated Glomerular Filtration [...] MD LAB BLOOD ORDERABLES Final Resul t [facility] [address] [place] [address], from Last 3 Months or Most Recently Relevant to Health Maintenance Insurance MEDICARE [facility] Care Teams Shelving Supervisor Relationship Specialty Start Date End Date Stephon Ventura [facility] [address] [place] [address] PCP - General Hematology 06/05/21
--- OUTSIDE RECORDS SUMMARY | 2024-10-05 16:29 | XMS_ITS | Encounter Summary ---
Author Organization [facility] Address [address] [place] [address] Care Team Providers Care Dual Rate Supervisor Name Role Phone Stephon Ventura Primary Care Provider [phone] Encounter Details Date Type Department Care Team (Late st Contact Info) Description 07/29/2021 Orders Only [facility] Neurology [facility] [address] [place] [phone] Sabas Herzog [address] [facility] [place] [address] Social History Tobacco Use Types Packs/Day Years Used Date Smoking Tobacco: Never Assessed Sex and Gender Information Value Date Recorded Sex Assigned at Not on file Legal Sex Male 10:20 AM EST Gender Identity Not on file Sexual Orientation Not on file documented as of this encounter Plan of Treatment Not on file documented as of this encounter Procedures * Due to [place] [employer] (ABAM) law, this organization might not be sharing negative HIV tests. Procedure Name Priority Date/Time Associated Diagnosis Comments AMB EXTERNAL MRI BRAIN, OUTS SHANE RESULT Routine 06/27/2021 documented in this encounter Results * Due to [place] [employer] Addiction [employer] (ABAM) law, this organization might not be sharing negative HIV tests. * MRI Brain, Outside Result (06/27/2021) Anatomical Region Laterality Modality Other Sabas Herzog AMB EXTERNAL RESULT PROCEDURES Final Result documented in this encounter Visit Diagnoses Not on filedocumented in this encounter Care Teams Dual Rate Supervisor Relationship Specialty Start Date End Date Stephon Ventura [address] [facility] [address] [place] [address] PCP - General Hematology 06/05/21 documented as of this encounter
--- OUTSIDE RECORDS SUMMARY | 2024-10-05 16:29 | XMS_ITS | Clinical Summary ---
Author Organization [facility] [address] [facility] Address [address] [place] [address] Phone Care Team Providers Care Foam Rubber Fabricator Name Role Phone Grupo Collier MD Primary Care Provider [phone] Surgical History Surgery Date Site/Laterality Comments CAROTID ENDARTERECTOMY Right PROCEDURE:CAROTID ENDARTERECTOMY Medical History Medical History Date Comments Prostate cancer ([facility] V24, [facility] V28) DX:Prostate cancer (HCC) Coronary artery disease DX:Coron isaak artery disease Hypertension DX:Hypertension Stroke ([facility] V24, [facility] V28) DX:Stroke (HCC) Carotid artery stenosis, unilateral, right [...] Vaccines (1 of 2) 1959 RSV Immunization Adult Patients (1 - 1-dose 75+ series) 2015 Depression Screening 05/05/2022 Falls Risk Assessment 05/05/2022 Medicare Annual Wellness Visit 05/05/2022 Social Influencers of Health Screening 05/05/2022 Influenza Vaccine (Season Ended) 2025 Hypertension/CHF/CAD Annual BMP Blood Test 04/26/2025 04/26/2024, [...] age to complete this topic Meningococcal B Vaccine Aged Out No l onger eligible based on patient's age to complete [...] Hyperlipemia Severely overweight Malignant neoplasm of prostate ([facility]/HCC V24, CMS/HCC V28) Avitaminosis D LIPID PANEL Routine 04/26/2024 9:12 AM EST Hyperlipemia Severely overweight Malignant neoplasm of prostate (CMS/HCC V24, CMS/HCC V28) Avitaminosis D from Last 3 Months or Most Recently Relevant to Health Maintenance Results * (ABNORMAL) Lipid panel (04/26/2024 9:12 AM EST) Cholesterol 202(H) 0 - 200 mg/dL LAB CHEMISTRY METHOD 04/26/2024 2:43 PM EST [facility] Triglycerides 139 <150 mg/dL LAB CHEMISTRY METHOD 04/26/2024 2:43 PM EST [facility] HDL 65 mg/dL LAB CHEMISTRY METHOD 04/26/2024 2:43 PM EST [facility] LDL Calculated 109 50 - 130 mg/dL LAB CHEMISTRY METHOD 04/26/2024 2:43 PM EST [facility] VLDL Cholesterol Magdiel 27.8 mg/dL LAB CHEMISTRY METHOD 04/26/2024 2:43 PM EST [facility] Comment:No established refer ence range. Blood Venous blood specimen / Unknown Venipuncture / Unknown 04/26/2024 9:12 AM EST 04/26/2024 9:13 AM EST us Stephon Ventura MD LAB BLOOD ORDERABLES Final Res ult [facility] [address] [place] [address], [place] [phone] * (ABNORMAL) Comprehensive metabolic panel (04/26/2024 9:12 AM EST) Pathologist [facility] Sodium 138 135 - 145 mmol/L LAB CHEMISTRY METHOD 04/26/2024 2:43 PM EST [facility] Potassium 3.9 3.5 - 5.1 mmol/L LAB CHEMISTRY METHOD 04/26/2024 2:43 PM EST [facility] Chloride 102 98 - 107 mmol/L LAB CHEMISTRY METHOD 04/26/2024 2:43 PM EST [facility] CO2 27 24 - 32 mmol/L LAB CHEMISTRY METHOD 04/26/2024 2:43 PM EST [facility] Anion Gap 9 5 - 14 LAB CHEMISTRY METHOD 04/26/2024 2:43 PM [facility] Glucose 116(H) 70 - 99 mg/dL LAB CHEMISTRY METHOD 04/26/2024 2:43 PM [facility] BUN 22(H) 9 - 20 mg/dL LAB CHEMISTRY METHOD 04/26/2024 2:43 PM [facility] Creatinine 0.90 0.70 - 1.30 mg/dL LAB CHEMISTRY METHOD 04/26/2024 2:43 PM [facility] eGFR 85 >=60 mL/min/1. 73m2 LAB CHEMISTRY METHOD 04/26/2024 2:43 PM [facility] Comment:Calculation based on the??Chronic Kidney Disease Epidemiology Collaboration (CKD-EPI) equation refit??without adjustment for race. BUN/Creatinine Ratio 24.4(H) 12.0 - 20.0 LAB CHEMISTRY METHOD 04/26/2024 2:43 PM [facility] Calcium 9.3 8.4 - 10.2 mg/dL LAB CHEMISTRY METHOD 04/26/2024 2:43 PM [facility] AST (SGOT) 15 5 - 40 unit/L LAB CHEMISTRY METHOD 04/26/2024 2:43 PM [facility] ALT (SGPT) 11 7 - 52 unit/L LAB CHEMISTRY METHOD 04/26/2024 2:43 PM [facility] Alkaline Phosphatase 88 34 - 104 unit/L LAB CHEMISTRY METHOD 04/26/2024 2:43 PM [facility] Total Protein 6.6 6.4 - 8.5 g/dL LAB CHEMISTRY METHOD 04/26/2024 2:43 PM [facility] Albumin 4.3 3.5 - 5.0 g/dL LAB CHEMISTRY METHOD 04/26/2024 2:43 PM [facility] Total Bilirubin 0.4 0.3 - 1.0 mg/dL LAB CHEMISTRY METHOD 04/26/2024 2:43 PM EST [facility] Blood Venous blood specimen / Unknown Venipuncture / Unknown 04/26/2024 9:12 AM EST 04/26/2024 9:13 AM EST us Stephon Ventura MD LAB BLOOD ORDERABLES Final Res ult [facility] [address] [place] [address], [place] [phone] from Last 3 Months or Most Recently Relevant to Health Maintenance Insurance MEDICARE [place]ICA[place] - [place] Care Teams Foam Rubber Fabricator Relationship Specialty Start Date End Date Grupo Collier MD [address] [place] [address] PCP - General 06/07/19
--- OUTSIDE RECORDS SUMMARY | 2024-10-05 16:29 | XMS_ITS | Referral Summary ---
Author Organization [facility] Address [address] [place] [address] Care Team Providers Care Wireless Internet Installer Name Role Phone Stephon Ventura Primary Care Provider [phone] Allergies No known active allergies Medications lisinopriL [...] Not on file Procedures * Due to [place] [employer] law, this organization might not be sharing negative HIV tests. Procedure Name Priority Date/Time Associated Diagnosis Comments COMPREHENSIVE METABOLIC PANEL Routine 04/15/2022 2:59 PM EST Partial symptomatic epilepsy with complex partial seizures, not intractable, without status epilepticus from Last 3 Months or Most Recently Relevant to Health Maintenance Results * Due to [place] [employer] law, this organization might not be sharing negative HIV tests. * (ABNORMAL) Comprehensive Metabolic Panel (04/15/2022 2:59 PM EST) NA 140 135 - 145 mmol/L 04/15/2022 3:48 PM EST [facility] K 4.6 3.5 - 5.3 mmol/L 04/15/2022 3:48 PM EST [facility] Cl 104 97 - 110 mmol/L 04/15/2022 3:48 PM EST [facility] CO2 28 24 - 32 mmol/L 04/15/2022 3:48 PM EST [facility] Anion Gap 8 5 - 15 04/15/2022 3:48 PM EST [facility] Glucose 99 70 - 99 mg/dL 04/15/2022 3:48 PM EST [facility] [facility] Creatinine 1.13 0.60 - 1.30 mg/dL 04/15/2022 3:48 PM EST [employer] [facility] [facility] Calcium 9.2 8.7 - 10.7 mg/dL 04/15/2022 3:48 PM EST [employer] [facility] [facility] Total Protein 6.9 6.0 - 8.0 g/dL 04/15/2022 3:48 PM EST [facility] Albumin 4.2 3.5 - 4.8 g/dL 04/15/2022 3:48 PM EST [facility] Bilirubin, Total 0.4 0.3 - 1.2 mg/dL 04/15/2022 3:48 PM EST [facility] Alkaline Phosphatase 91 30 - 115 U/L 04/15/2022 3:48 PM EST [facility] AST 16 10 - 40 U/L 04/15/2022 3:48 PM EST [facility] ALT 15 10 - 40 U/L 04/15/2022 3:48 PM EST [facility] BUN 25(H) 7 - 23 mg/dL 04/15/2022 3:48 PM EST [employer] [facility] [facility] eGFR 65(L) >=90 mL/min/1. 73m2 04/15/2022 3:48 PM EST [employer] [facility] [facility] Comment: Estimated [...] LAB BLOOD ORDERABLES Final Resul t [facility] [address] [place] [address], from Last 3 Months or Most Recently Relevant to Health Maintenance Insurance MEDICARE [facility] Care Teams Wireless Internet Installer Relationship Specialty Start Date End Date Stephon Ventura [address] [place] [id number] PCP - General Hematology 06/05/21
--- OUTSIDE RECORDS SUMMARY | 2024-10-05 16:29 | XMS_ITS | Encounter Summary ---
Author Organization [facility] Address [address] [place] [address] Care Team Providers Care Showroom Salesperson Name Role Phone Stephon Ventura Primary Care Provider [phone] Reason for Visit * Reason Onset Date Comments Appointment 10/20/2021 Encounter Details Date Type Department Care Team (Late st Contact Info) Description 10/20/2021 Telephone [facility] [address] [place] [id number] Telephone Intake, Staff Appointment Social History Tobacco [...] again to schedule. Did update best number: [phone] Tanika's cell * Telephone Encounter - Cuca [...] a schedule. pls call to book//advice. Tanika [phone] * Telephone Encounter - Ashish Hernandez MD [...] researched and reviewed all of his f bryna, medications, diagnostics and test despite the latest [...] this issue of nausea, vimpat and achalasia. [phone] * Telephone Encounter - Cuca Steiner - [...] to Angela. Pt can be reached at [phone]. documented in this encounter Plan of Treatment Not on file documented as of this encounter Visit Diagnoses Not on filedocumented in this encounter Care Teams Showroom Salesperson Relationship Specialty Start Date End Date Stephon Ventura [facility] [address] [address] PCP - General Hematology 06/05/21 documented as of this encounter
--- OUTSIDE RECORDS SUMMARY | 2024-10-05 16:29 | XMS_ITS | Clinical Summary ---
Author Organization [facility] Address [address] [place] [address] Care Team Providers Care Body Shop Estimator Name Role Phone Unavailable Primary Care Provider [...]
== END 2024-10-05 15:09 | disposition home or self-care (01) ==
LOC: HO.HCS 14:22
PROVIDERS: Visit Provider Internal Medicine
DX: I25.10 Atherosclerotic heart disease of native coronary artery without angina pectoris (principal); I73.9 Peripheral vascular disease, unspecified; I10 Essential (primary) hypertension; E78.5 Hyperlipidemia, unspecified; I35.0 Nonrheumatic aortic (valve) stenosis
CPT/HCPCS: 93010; 99214; G2211

== ENCOUNTER → 2024-10-05 14:22 | Outpatient (BNVA) | payer MEDICARE, MEDICAID, SELFPAY | PROVIDERS: Visit Provider Internal Medicine | DX: I25.10 Atherosclerotic heart disease of native coronary artery without angina pectoris (principal); I10 Essential (primary) hypertension; E78.5 Hyperlipidemia, unspecified; I35.0 Nonrheumatic aortic (valve) stenosis | CPT/HCPCS: 93005; 99212 ==

== ENCOUNTER 2024-10-19 08:21 | Outpatient (AMB) | payer MEDICARE, MEDICAID, SELFPAY ==
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
[2024-10-19 08:24] VITALS: BP 122/78; BMI 26.0
--- OUTSIDE RECORDS SUMMARY | 2024-10-19 08:38 | XMS_ITS | Encounter Summary ---
Author Organization [facility] Address [address] [place] [address] Care Team Providers Care Manager Spanish Name Role Phone Stephon Ventura Primary Care Provider [phone] Reason for Visit * Reason Onset Date Comments Appointment 10/20/2021 Encounter Details Date Type Department Care Team (Late st Contact Info) Description 10/20/2021 Telephone [facility] [address] [place] [id number] Telephone Intake, Staff Appointment Social History Tobacco Use Types Packs/Day Years Used Date Smoking Tobacco: Never Assessed Sex and Gender Information Value Date Recorded Sex Assigned at Not on file Legal Sex Male 10:20 AM EST Gender Identity Not on file Sexual Orientation Not on file documented as of this encounter Miscellaneous Notes * Telephone Encounter - Lynn nSider - 11/12/2021 11:23 AM EDT Spoke to Tanika patient daughter and schedule apt for 01/03/21 at 4:30 pm with Mary Calixto * Telephone Encounter - Xiomara Haddad - 11/12/2021 10:24 AM EDT Pt daughter calling back- states she has not received call. Did explained clinic was calling on 11/10. pls call again to schedule. Did update best number: [phone] Tanika's cell * Telephone Encounter - Cuca [...] Haddad - 11/07/2021 12:[address] Henrandez's next available as this time is 05/06 and daughter states she believes it would be too long to wait for a follow up. Ok to the option of a telehealth visit but CS cannot populate a schedule. pls call to book//advice. Tanika [phone] * Telephone Encounter - Ashish Hernandez MD [...] this issue of nausea, vimpat and achalasia. [phone] * Telephone Encounter - Cuca Steiner - [...] to Angela. Pt can be reached at [phone]. documented in this encounter Plan of Treatment Not on file documented as of this encounter Visit Diagnoses Not on filedocumented in this encounter Care Teams Manager Spanish Relationship Specialty Start Date End Date Stephon Ventura [facility] [address] PCP - General Hematology 06/05/21 documented as of this encounter
--- OUTSIDE RECORDS SUMMARY | 2024-10-19 08:38 | XMS_ITS | Encounter Summary ---
Author Organization [facility] Address [address] [place] [address] Care Team Providers Care Coke Worker Name Role Phone Stephon Ventura Primary Care Provider [phone] Encounter Details Date Type Department Care Team (Late st Contact Info) Description 07/29/2021 Orders Only [facility] [address] [place] [id number] Sabas Herzog [address] [facility] [place] [address] Social History Tobacco Use Types Packs/Day Years Used Date Smoking Tobacco: Never Assessed Sex and Gender Information Value Date Recorded Sex Assigned at Not on file Legal Sex Male 10:20 AM EST Gender Identity Not on file Sexual Orientation Not on file documented as of this encounter Plan of Treatment Not on file documented as of this encounter Procedures * Due to [place] [employer] law, this organization might not be sharing negative HIV tests. Procedure Name Priority Date/Time Associated Diagnosis Comments AMB EXTERNAL MRI BRAIN, OUTS SHANE RESULT Routine 06/27/2021 documented in this encounter Results * Due to [place] [employer] law, this organization might not be sharing negative HIV tests. * MRI Brain, Outside Result (06/27/2021) Anatomical Region Laterality Modality Other Sabas Herzog AMB EXTERNAL RESULT PROCEDURES Final Result documented in this encounter Visit Diagnoses Not on filedocumented in this encounter Care Teams Coke Worker Relationship Specialty Start Date End Date Stephon Ventura [address] [place] [address] PCP - General Hematology 06/05/21 documented as of this encounter
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
--- OUTSIDE RECORDS SUMMARY | 2024-10-19 08:38 | XMS_ITS | Clinical Summary ---
Author Organization [facility] [address] [facility] Address [address] [place] [address] Phone Care Team Providers Care Acid Purifier Name Role Phone Grupo Collier MD Primary Care Provider [phone] Surgical History Surgery Date Site/Laterality Comments CAROTID ENDARTERECTOMY Right PROCEDURE:CAROTID ENDARTERECTOMY Medical History Medical History Date Comments Prostate cancer ([facility] V24, [facility] V28) DX:Prostate cancer (HCC) Coronary artery disease DX:Coron isaak artery disease Hypertension DX:Hypertension Stroke ([facility] V24, [facility] V28) DX:Stroke (HCC) Carotid artery stenosis, unilateral, [...] Ended) 2025 Hypertension/CHF/CAD Annual BMP Blood Test 10/13/2025 10/13/2024, 04/26/2024, 12/29/2023, Additional history exists Cholesterol Screening (Lipid Panel) 10/13/2029 10/13/2024, 04/26/2024, 12/29/2023, Additional history exists HIB Vaccines Aged Out No longer eligi [...] Procedure Name Priority Date/Time Associated Diagnosis Comments BILIRUBIN DUPLICATE PROCEDURE TO ORDER Routine 10/13/2024 9:16 AM EDT Coronary atherosclerosis of [place] coronary artery Hyperlipemia Essential hypertension, malignant Prostate cancer (CMS/HCC V24, CMS/HCC V28) Vitamin D deficiency disease CBC WITH AUTO DIFFERENTIAL Routine 10/13/2024 9:16 AM EDT Coronary atherosclerosis of [place] coronary artery Hyperlipemia Essential hypertension, malignant Prostate cancer (CMS/HCC V24, CMS/HCC V28) Vitamin D deficiency disease TESTOSTERONE, TOTAL Routine 10/13/2024 9 :16 AM EDT Coronary atherosclerosis of [place] coronary artery Hyperlipemia Essential hypertension, malignant Prostate cancer (CMS/HCC V24, CMS/HCC V28) Vitamin D deficiency disease VITAMIN D 25 HYDROXY Routine 10/13/2024 9:16 AM EDT Coronary atherosclerosis of [place] coronary artery Hyperlipemia Essential hypertension, malignant Prostate cancer (CMS/HCC V24, CMS/HCC V28) Vitamin D deficiency disease CBC AND DIFFERENTIAL Routine 10/13/2024 9:16 AM EDT Coronary atherosclerosis of [place] coronary artery Hyperlipemia Essential hypertension, malignant Prostate cancer (CMS/HCC V24, CMS/HCC V28) Vitamin D deficiency disease PROSTATE SPECIFIC ANTIGEN DIAGNOSTIC Routine 10/13/2024 9:16 AM EDT Coronary atherosclerosis of [place] coronary artery Hyperlipemia Essential hypertension, malignant Prostate cancer (CMS/HCC V24, CMS/HCC V28) Vitamin D deficiency disease COMPREHENSIVE METABOLIC PANEL Routine 10/13/2024 9:16 AM EDT Coronary atherosclerosis of [place] coronary artery Hyperlipemia Essential hypertension, malignant Prostate cancer (CMS/HCC V24, CMS/HCC V28) Vitamin D deficiency disease LIPID PANEL Routine 10/13/2024 9:16 AM EDT Coronary atherosclerosis of [place] coronary artery Hyperlipemia Essential hypertension, malignant Prostate cancer (CMS/HCC V24, CMS/HCC V28) Vitamin D deficiency disease from Last 3 Months Results * Bilirubin duplicate procedure to order (10/13/2024 9:16 AM EDT) Total Bilirubin 0.4 0.3 - 1.0 mg/dL LAB CHEMISTRY METHOD 10/13/2024 2:56 PM EDT [facility] Bilirubin, Direct 0.1 0.0 - 0.2 mg/dL LAB CHEMISTRY METHOD 10/13/2024 2:56 PM EDT [facility] Bilirubin, Indirect 0.3 mg/dL LAB CHEMISTRY METHOD 10/13/2024 2:56 PM EDT [facility] Blood Venous blood specimen / Unknown Venipuncture / Unknown 10/13/2024 9:16 AM EDT 10/13/2024 9:17 AM EDT Loc Simmons MD LAB BLOOD ORDERABLES Fi nal Result [facility] [address] [place] [address], [place] [phone] * Prostate specific antigen diagnostic (10/13/2024 9:16 AM EDT) PSA 1.10 0.00 - 4.00 ng/mL LAB CHEMISTRY METHOD 10/13/2024 3:15 PM EDT [facility] Blood Venous blood specimen / Unknown Venipuncture / Unknown 10/13/2024 9:16 AM EDT 10/13/2024 9:17 AM EDT Narrative [facility] - 10/13/2024 3:15 PM EDT The testing method is an immunoenzymatic assay manufactured by [employer] and performed on the [employer] DxI 800. [place] [employer] Prostate-Specific Antigen Best Practice Statement: 2009 Update (Pg.21) Table 1: Age Specific Reference Ranges for Serum PSA* Age Range ? Americans ? Americans ? Whites 40 to 49 yr ? 0 to 2.0 ng/ml ? 0 to 2.0 ng/ml ?0 to 2.5 ng/ml 50 to 59 yr ? 0 to 3.0 ng/ml ? 0 to 4.0 ng/ml ?0 to 3.5 ng/ml 60 to 69 yr ? 0 to 4.0 ng/ml ? 0 to 4.5 ng/ml ?0 to 4.5 ng/ml 70 to 79 yr ? 0 to 5.0 ng/ml ? 0 to 5.5 ng/ml ?0 to 6.5 ng/ml *Rudy Ward. and Kylie Golden:Age specific reference ranges for serum prostate specific antigen. Urol Clin [place]. 24: 339, 1997 us Stephon Ventura MD LAB BLOOD ORDERABLES Final Res ult [facility] [address] [place] [address], [place] [phone] * (ABNORMAL) CBC auto differential (10/13/2024 9:16 AM EDT) WBC 7.2 4.0 - 10.5 K/mcL LAB HEMETOLOGY METHOD 10/13/2024 11:21 AM EDT [facility] RBC 4.13(L) 4.70 - 6.00 M/mcL LAB HEMETOLOGY METHOD 10/13/2024 11:21 AM EDT [facility] Hemoglobin 12.2(L) 13.5 - 18.0 g/dL LAB HEMETOLOGY METHOD 10/13/2024 11:21 AM EDT [facility] Hematocrit 36.6(L) 40.0 - 54.0 % LAB HEMETOLOGY METHOD 10/13/2024 11:21 AM EDT [facility] MCV 88.6 78.0 - 100.0 FL LAB HEMETOLOGY METHOD 10/13/2024 11:21 AM EDT [facility] MCH 29.6 25.0 - 33.0 pcg LAB HEMETOLOGY METHOD 10/13/2024 11:21 AM T [facility] MCHC 33.3 32.0 - 36.0 g/dL LAB HEMETOLOGY METHOD 10/13/2024 11:21 AM EDT [facility] RDW 15.1 12.1 - 17.7 % LAB HEMETOLOGY METHOD 10/13/2024 11:21 AM EDT [facility] Platelets 221 150 - 450 K/mcL LAB HEMETOLOGY [facility]24 [facility] MPV 9.8 7.4 - 11.4 FL LAB HEMETOLOGY METHOD 10/13/2024 11:21 AM EDT [facility] Neutrophils Relative 57.7 44.0 - 74.0 % LAB HEMETOLOGY METHOD 10/13/2024 11:21 AM EDT [facility] Lymphocytes Relative 32.8 20.0 - 48.0 % LAB HEMETOLOGY METHOD 10/13/2024 11[facility] Monocytes Relative 7.1 2.0 - 12.0 % LAB HEMETOLOGY METHOD 10/13/2024 11:[facility] Eosinophils Relative 1.6 0.0 - 6.0 % LAB HEMETOLOGY METHOD 10/13/2024 11:[facility] Basophils Relative 0.8 0.0 - 2.0 % LAB HEMETOLOGY METHOD 10/13/2024 11:[facility] Neutrophils Absolute 4.10 1.80 - 7.80 K/mcL LAB HEMETOLOGY METHOD 10/13/2024 11:21 AM EDT [facility] Lymphocytes Absolute 2.40 1.00 - 3.20 K/mcL LAB HEMETOLOGY METHOD 10/13/2024 11:21 AM EDT [facility] Monocytes Absolute 0.50 0.00 - 0.80 K/mcL LAB HEMETOLOGY METHOD 10/13/2024 11:21 AM [facility] Eosinophils Absolute 0.10 0.00 - 0.50 K/mcL LAB HEMETOLOGY METHOD 10/13/2024 11:21 AM EDT [facility] Basophils Absolute 0.10 0.00 - 0.20 K/mcL LAB HEMETOLOGY METHOD 10/13/2024 11:21 AM EDT [facility] Blood Venous blood specimen / Unknown Venipuncture / Unknown 10/13/2024 9:16 AM EDT 10/13/2024 9:17 AM EDT Stephon Ventura MD LAB BLOOD ORDERABLES Final Res ult Performing Organization Address City/[facility]/ZIP Co de Phone Number [facility] [address] [place] [address], [place] [phone] * (ABNORMAL) Vitamin D 25 hydroxy (10/13/2024 9:16 AM EDT) Vit D, 25-Hydroxy 19.1(L) 30.0 - 100.0 ng/mL LAB CHEMISTRY METHOD 10/13/2024 3:15 PM EDT [facility] Blood Venous blood specimen / Unknown Venipuncture / Unknown 10/13/2024 9:16 AM EDT 10/13/2024 9:17 AM EDT Narrative [facility] - 10/13/2024 3:15 PM EDT Vitamin D ?Reference Range ng/ml Deficiency ? <10 Insufficiency ??10-30 Sufficiency ?30-100 Toxicity ? >100 Stephon Ventura MD LAB BLOOD ORDERABLES Final Res ult Performing Organization Address City/[facility]/ZIP Co de Phone Number [facility] [address] [place] [address], * (ABNORMAL) Testosterone, total (10/13/2024 9:16 AM EDT) Testosterone 26(L) 240 - 950 ng/dL LAB CHEMISTRY METHOD 10/13/2024 3:15 PM EDT [facility] Blood Venous blood specimen / Unknown Venipuncture / Unknown 10/13/2024 9:16 AM EDT 10/13/2024 9:17 AM EDT Stephon Ventura MD LAB BLOOD ORDERABLES Final Res ult Performing Organization Address [facility]/ZIP Co de Phone Number [facility] [address] [place] [address], * (ABNORMAL) Lipid panel (10/13/2024 9:16 AM EDT) Cholesterol 186 0 - 200 mg/dL LAB CHEMISTRY METHOD 10/13/2024 2:56 PM EDT [facility] Triglycerides 151(H) <150 mg/dL LAB CHEMISTRY METHOD 10/13/2024 2:56 PM EDT [facility] HDL 53 mg/dL LAB CHEMISTRY METHOD 10/13/2024 2:56 PM EDT [facility] LDL Calculated 103 50 - 130 mg/dL LAB CHEMISTRY METHOD 10/13/2024 2:56 PM EDT [facility] VLDL Cholesterol Magdiel 30.2 mg/dL LAB CHEMISTRY METHOD 10/13/2024 2:56 PM EDT [facility] Comment:No established refer ence range. Blood Venous blood specimen / Unknown Venipuncture / Unknown 10/13/2024 9:16 AM EDT 10/13/2024 9:17 AM EDT Loc Simmons MD LAB BLOOD ORDERABLES Fi nal Result Performing Organization Address City/[facility]/ZIP Co de Phone Number [facility] [address] [place] [address], [place] [phone] * (ABNORMAL) Comprehensive metabolic panel (10/13/2024 9:16 AM EDT) Sodium 140 135 - 145 mmol/L LAB CHEMISTRY METHOD 10/13/2024 2:56 PM EDT [facility] Potassium 4.3 3.5 - 5.1 mmol/L LAB CHEMISTRY METHOD 10/13/2024 2:56 PM EDT [facility] Chloride 103 98 - 107 mmol/L LAB CHEMISTRY METHOD 10/13/2024 2:56 PM [facility] CO2 28 24 - 32 mmol/L LAB CHEMISTRY METHOD 10/13/2024 2:56 PM EDT [facility] Anion Gap 9 5 - 14 LAB CHEMISTRY METHOD 10/13/2024 2:56 PM T [facility] Glucose 118(H) 70 - 99 mg/dL LAB CHEMISTRY METHOD 10/13/2024 2:56 PM [facility] BUN 22(H) 9 - 20 mg/dL LAB CHEMISTRY METHOD 10/13/2024 2:56 PM [facility] Creatinine 1.00 0.70 - 1.30 mg/dL LAB CHEMISTRY METHOD 10/13/2024 2:56 PM [facility] eGFR 74 >=60 mL/min/1. 73m2 LAB CHEMISTRY METHOD 10/13/2024 2:56 PM [facility] Comment:Calculation based on the Chronic Kidney Disease Epidemiology Collaboration (CKD-EPI) equation refit without adjustment for race. BUN/Creatinine Ratio 22.0(H) 12.0 - 20.0 LAB CHEMISTRY METHOD 10/13/2024 2:56 PM T [facility] Calcium 9.6 8.4 - 10.2 mg/dL LAB CHEMISTRY METHOD 10/13/2024 2:56 PM [facility] AST (SGOT) 11 5 - 40 unit/L LAB CHEMISTRY METHOD 10/13/2024 2:56 PM [facility] ALT (SGPT) 8 7 - 52 unit/L LAB CHEMISTRY METHOD 10/13/2024 2:56 PM T [facility] Alkaline Phosphatase 95 34 - 104 unit/L LAB CHEMISTRY METHOD 10/13/2024 2:56 PM EDT [facility] Total Protein 6.6 6.4 - 8.5 g/dL LAB CHEMISTRY METHOD 10/13/2024 2:56 PM EDT [facility] Albumin 4.2 3.5 - 5.0 g/dL LAB CHEMISTRY METHOD 10/13/2024 2:56 PM EDT [facility] Total Bilirubin 0.4 0.3 - 1.0 mg/dL LAB CHEMISTRY METHOD 10/13/2024 2:56 PM EDT [facility] Blood Venous blood specimen / Unknown Venipuncture / Unknown 10/13/2024 9:16 AM EDT 10/13/2024 9:17 AM EDT us Stephon Ventura MD LAB BLOOD ORDERABLES Final Res ult [facility] [address] [place] [address], [place] [phone] from Last 3 Months Insurance MEDICARE [place] - [place] Member Subscriber Plan / Payer (Ef fective 2024-Present) Name:Michael Jenkins Relation to Subscriber:Self Name:Michael Jenkins Payer ID:[id number] Group ID:Not on file Type:Not on file Address: [facility] [address] [place] [address] [place] - [place] Care Teams Acid Purifier Relationship Specialty Start Date End Date Grupo Collier MD [address] [address] PCP - General 06/07/19
--- OUTSIDE RECORDS SUMMARY | 2024-10-19 08:38 | XMS_ITS | Clinical Summary ---
Author Organization [facility] Address [address] [place] [address] Care Team Providers Care Wire Coiler Machine Operator Name Role Phone Stephon Ventura Primary Care Provider [phone] Allergies No known active allergies Medications lisinopriL [...] complete this topic Procedures * Due to [place] [employer] law, this organization might not be sharing negative HIV tests. Procedure Name Priority Date/Time Associated Diagnosis Comments COMPREHENSIVE METABOLIC PANEL Routine 04/15/2022 2:59 PM EST Partial symptomatic epilepsy with complex partial seizures, not intractable, without status epilepticus from Last 3 Months or Most Recently Relevant to Health Maintenance Results * Due to [place] [employer] law, this organization might not be sharing [...] - 1.2 mg/dL 04/15/2022 3:48 PM EST [facility] Alkaline Phosphatase 91 30 - 115 U/L 04/15/2022 3:48 PM EST [facility] AST 16 10 - 40 U/L 04/15/2022 3:48 PM EST [facility] ALT 15 10 - 40 U/L 04/15/2022 3:48 PM EST [facility] BUN 25(H) 7 - 23 mg/dL 04/15/2022 3:48 PM EST [facility] eGFR 65(L) >=90 mL/min/1. 73m2 04/15/2022 3:48 PM EST [facility] Comment: Estimated Glomerular Filtration [...] MD LAB BLOOD ORDERABLES Final Resul t [facility] [address] [place] [address], from Last 3 Months or Most Recently Relevant to Health Maintenance Insurance MEDICARE [facility] Care Teams Wire Coiler Machine Operator Relationship Specialty Start Date End Date Stephon Ventura [facility] [place] [address] PCP - General Hematology 06/05/21
--- OUTSIDE RECORDS SUMMARY | 2024-10-19 08:38 | XMS_ITS | Clinical Summary ---
Author Organization [facility] Address [address] [place] [address] Care Team Providers Care Servomechanism Designer Name Role Phone Unavailable Primary Care Provider [...]
--- OUTSIDE RECORDS SUMMARY | 2024-10-19 08:38 | XMS_ITS | Referral Summary ---
Author Organization [facility] Address [address] [place] [address] Care Team Providers Care Computer Recycling Worker Name Role Phone Stephon Ventura Primary Care Provider [phone] Allergies No known active allergies Medications lisinopriL [...] Not on file Procedures * Due to [place] [employer] law, this organization might not be sharing negative HIV tests. Procedure Name Priority Date/Time Associated Diagnosis Comments COMPREHENSIVE METABOLIC PANEL Routine 04/15/2022 2:59 PM EST Partial symptomatic epilepsy with complex partial seizures, not intractable, without status epilepticus from Last 3 Months or Most Recently Relevant to Health Maintenance Results * Due to [place] [employer] law, this organization might not be sharing negative HIV tests. * (ABNORMAL) Comprehensive Metabolic Panel (04/15/2022 2:59 PM EST) NA 140 135 - 145 mmol/L 04/15/2022 3:48 PM EST [facility] K 4.6 3.5 - 5.3 mmol/L 04/15/2022 3:48 PM EST [facility] Cl 104 97 - 110 mmol/L 04/15/2022 3:48 PM EST [facility] CO2 28 24 - 32 mmol/L 04/15/2022 3:48 PM EST [facility] Anion Gap 8 5 - 15 04/15/2022 3:48 PM EST [facility] Glucose 99 70 - 99 mg/dL 04/15/2022 3:48 PM EST [facility] Creatinine 1.13 0.60 - 1.30 mg/dL 04/15/2022 3:48 PM EST [facility] Calcium 9.2 8.7 - 10.7 mg/dL 04/15/2022 3:48 PM EST [facility] Total Protein 6.9 6.0 - 8.0 g/dL 04/15/2022 3:48 PM EST [facility] Albumin 4.2 3.5 - 4.8 g/dL 04/15/2022 3:48 PM EST [facility] Bilirubin, Total 0.4 0.3 - 1.2 mg/dL 04/15/2022 3:48 PM EST [facility] Alkaline Phosphatase 91 30 - 115 U/L 04/15/2022 3:48 PM EST [facility] AST 16 10 - 40 U/L 04/15/2022 3:48 PM EST [facility] ALT 15 10 - 40 U/L 04/15/2022 3:48 PM EST [facility] BUN 25(H) 7 - 23 mg/dL 04/15/2022 3:48 PM EST [facility] eGFR 65(L) >=90 mL/min/1. 73m2 04/15/2022 3:48 PM EST [facility] Comment: Estimated [...] LAB BLOOD ORDERABLES Final Resul t [facility] [address] [place] [address], from Last 3 Months or Most Recently Relevant to Health Maintenance Insurance MEDICARE [facility] Care Teams Computer Recycling Worker Relationship Specialty Start Date End Date Stephon Ventura [address] [place] [address] PCP - General Hematology 06/05/21
--- OUTSIDE RECORDS SUMMARY | 2024-10-19 08:39 | XMS_ITS ---
Author Organization Stephon Ventura III, MD Address [address] [place] [address] Care Team Providers Care Assistant County Attorney Name Role Phone Stephon Ventura Primary Care Provider [phone] Allergies Allergen (clinical drug ingredient) Drug/Non [...] Date Provider Diagnosis Stephon Ventura III, MD [address] [place] [address] [address] [place], [place] [phone] 07/31/2024 Stephon Ventura Hypertension I10 ; Seizure [...] and was hospitalized for several days at [facility]. Imaging of the brain showed no [...] Omeprazole 20 MG TAKE 1 CAPSULE BY [facility] EVERY DAY 30 MINUTES BEFORE BREAKFAST [...] 2 Months, Reason: OV Provider Name:Stephon Ventura, 10/20/2024 03:30:00 PM, [address] [place] [address] A[address]ERA, [place], [phone], Provider Name:Stephon Arredondone, 01/01/2025 02:00:00 PM, [address] [place] [address] ANASTASIYA HERRERA, [place], [phone], Progress Notes * Michael JENKINSDOB:1940 (84 yo M)Acc No.[id number]:07/31/2024 Progress Notes Patient:?Michael JENKINS Provider:?Stephon Ventura MD :1940???Age:84 Y???Sex:Male David e:07/31/2024 Address:[address] [place], [place] [id number] Subjective: * Chief Complaints: * ???History of [...] ased 85 yrs, old age.?Mother: 63 yrs, CAD,[place], diagnosed with CVD, HTN.?Children: alive, Oldest daughter., [...] Tobacco Non-User?Ex-cigarette smoker ???He was born in [facility]. He is not a Druze. He is and lives by himself. He [...] and was hospitalized for several days at [facility]. Imaging of the brain showed no [...] Ventura MD Date:?07/09 Generated for Claudia engle/Joanna/Calitting on:?10/19/2024 08:38 AM EDT History and Physical Notes * [...]
--- OUTSIDE RECORDS SUMMARY | 2024-10-19 08:39 | XMS_ITS | Patient Health Record ---
Author Organization Stephon Ventura III, MD Address [address] [place] [address] Care Team Providers Care Crab Backer Name Role Phone Stephon Ventura Primary Care [...] Provider Speciality Internal M edicine Referred Provider [facility] Radiation, Oncology General Notes Charmaine Flores 2023 10:47:34 AM EDT > Patient was scheduled for 12/23/23 @ 3pm with Dr. Marino at [address] [place] [address]. Patient aware and letter mailed , Charmaine Flores 12/22/2023 02:48:08 PM EDT > Patient stated that he is not going to go [facility], Patient canceled his appointment. Referral Priority Routine Referral Appointment Date 12/23/2023 Reason Evaluate and Treat Questioning if needs Left Carotid Endarterectomy Diagnosis 1 Carotid stenosis, ri ght (I65.21) Diagnosis 2 PVD (peripheral vasc ular disease) (I73.9) Diagnosis 3 Carotid stenosis (I6 5.29) Referral Organization Stephon Ventura III, MD Referring Provider First Name Stephon Referring Provider Last Name Lorenzo Referring Provider Speciality Internal [facility] Referred Organization [facility] Referred Provider Jose Alberto Ruvalcaba Referred Address [address] [place] [address],[place], [id number], Referred Provider Specialty Vascular Daria jhon General Notes 05/15/2024 11:51:22 AM > Referral faxed with progress [...] Last Name Lorenzo Referring Provider Speciality Internal [facility] Referred Provider Domonique Escamilla Referred Provider Specialty Neurology General Notes 08/09/2024 10:01:45 AM > Spoke with Dr. Escamilla's office they stated they will take the patient back and will contact him to schedule an appointment. Updated patient demos and faxed over [facility] discharge note from 05/2024 and last progress note from Dr. Ventura Referral Priority Routine Referral Appointment Date 10/05/2024 Reason Evaluate and Treat Diagnosis 1 Carotid stenosis (I6 5.29) Diagnosis 2 PVD (peripheral vasc ular disease) (I73.9) Referral Organization Stephon Ventura III, MD Referring Provider First Name Stephon Referring Provider Last Name Lorenzo Referring Provider Speciality Internal M edicine Referred Organization [facility] Referred Provider PegJose Alberto Referred Address [address] [place] [address],[place], [place],[id number] Referred Provider Specialty Vascular Daria hjon General Notes Charmaine Ramirez 10/12/2024 01:16:39 PM > Referral, progress note and recent ultrasound faxed. Referral Priority Routine Medications Medication SIG (Take, Route, Frequency, Duration) Notes Start Date End Date Status Dorzolamide HCl-Timolol Mal 22.3-6.8 MG/ML 1 drop into affected eye Ophthalmic Twice a day 08/31/2022 Active Latanoprost 0.005 % INSTILL 1 DROP IN MARGAUX TH EYES AT BEDTIME Ophthalmic Active levETIRAcetam 750 MG 1 tablet Orally eliecer ry 12 hrs 05/09/2024 Active Lisinopril 20 MG TAKE 1 TABLET BY SHANTA TH TWICE DAILY Active Atorvastatin Calcium 80 MG TAKE 1 TABLET BY MOUTH EVERY DAY Active Vitamin D 25 MCG (1000 UT) as directed O rally Once a day 03/22/2020 Active Omeprazole 20 MG TAKE 1 CAPSULE BY MO UTH EVERY DAY 30 MINUTES BEFORE BREAKFAST Active Aspirin Low Dose 81 MG 1 tablet Orally O nce a day Active amLODIPine Besylate 10 MG TAKE 1 TABLET BY MOUTH EVERY DAY Active Immunizations Vaccine Route Administration Date Status [...] Problem Status W/U Status Risk Notes Problem 2074531 Former smoker (Z87.891) Active confirmed He seems highly motivated not to smoke. We discussed a plan to prevent relapse in times of stress and illness. Problem 916363906 Overweight (BMI 25.0-29.9) (E66.3) Active confirmed His body mass index is 26. We discussed diet and nutrition today. We reviewed his weight loss strategy. Problem Hyperlipidemia (66540120) Hyperlipidemia (E78.5) Active confirmed His total cholesterol has increased from 120 to 202. He has stopped taking his statin and refuses to consider resuming it. He could give me a no code reason for doing so, except that he thinks it is bad to take statin medication. Problem Hypertension (22016718) Hypertension (I10) Active confirmed His blood pressure is stable today. I recommended weight loss and sodium restriction. He will come to the office in the near future to have it measurred. Problem 373909586 Prostate cancer (C61) Active confirmed He saw urology yesterday and received a leuprolide injection. His prostate cancer is in remission at this time. Problem 652737683 Seizure disorder (G40.909) Active confirmed He had a seizur e May 05, 2024 at home and was hospitalized for several days at [facility]. Imaging of the brain showed no stroke.I recommended he continue his Keppra. He is adamant that he will not take that medication or any other at this time. He has been noncompliant past but did agree to followed carefully in the office. I will continue to work with this difficult patient. He did agree not to drive. Problem 61953923 Anxiety (F41.9) Active confirmed We discussed the causes of riged fingernails and cold sores at length today. If the symptoms persist. I told drop by the office for inspection. It is very unlikely this is a side effect of his medication and he was encouraged to continue it. Problem Vitamin D deficiency (48992630) Vitamin D deficiency, unspecified (E55.9) Active confirmed He continues on supplementation. 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 Problem Benign prostatic hyperplasia (790186356) BPH (benign prostatic hyperplasia) (N40.0) Active confirmed He says he arises from sleep twice a night sometimes once and sometimes 3 times to urinate. We have discussed lifestyle modification as a way of reducing nocturia. Problem Memory loss (27633799) Memory loss (R41.3) Active confirmed Problem Carotid artery stenosis (45551487) Carotid stenosis (I65.29) Active confirmed Problem Peripheral vascular disease (590770765) PVD (peripheral vascular disease) (I73.9) Active confirmed He has mild claudication. 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 Problem 89393721 Glaucoma, unspecified glaucoma type, unspecified laterality (H40.9) Active confirmed He will remain under the care of his folded towel machine operator with no change in his medications. Problem 443356992 Cataract, unspecified cataract type, unspecified laterality (H26.9) Active confirmed He will remain under the care of his folded towel machine operator. Problem 907767404 History of seizure (Z87.898) Active confirmed He has had no seizures and says he is compliant with the phenytoin. Problem 799856722181989 Carotid stenosis, right (I65.21) Active confirmed The right neck is well-healed at this time and there is a good pulse. Problem 966551891 Noncompliance with medications (Z91.148) Active confirmed I have explaine d patientlt and clearly at great length The reasons we have recommended he take the full dose of Keppra in the 80 mg of the atorvastatin. Nonetheless, he declines to do so. Vital Signs Heart Rate 71 /min 10/09/2024 Temperature 97.2 degrees Fahrenheit 07/31/2024 Respiratory Rate 16 /min 10/09/2024 Oximetry 98 % 10/09/2024 Blood pressure diastolic 74 mm Hg 10/09/2024 Height 67 in 10/09/2024 Blood pressure systolic 137 mm Hg 10/09/2024 Weight 169 lbs 10/09/2024 BMI 26.47 kg/m2 10/09/2024 Encounters Encounter Location Date Provider Diagnosis Stephon Ventura III, MD [address] [place] [address] [address] [place], [place] [address] 11/16/2023 Stephon Ventura Hypertension I10 ; Hyperlipidemia E78.5 ; Overweight (BMI 25.0-29.9) E66.3 ; Prostate cancer C61 ; BPH (benign prostatic hyperplasia) N40.0 ; History of seizure Z87.898 and Former smoker Z87.891 Stephon Ventura III, MD [address] [place] [address] [place] [address] 12/31/2023 Stephon Ventura Hypertension I10 ; Hyperlipidemia E78.5 ; Overweight (BMI 25.0-29.9) E66.3 ; Prostate cancer C61 and Vitamin D deficiency, unspecified E55.9 Stephon Ventura III, MD [address] [place] [address] [place] [address] 05/09/2024 Stephon Ventura Hypertension I10 ; P VD (peripheral vascular disease) I73.9 ; Hyperlipidemia E78.5 ; Overweight (BMI 25.0-29.9) E66.3 ; Former smoker Z87.891 ; BPH (benign prostatic hyperplasia) N40.0 ; Noncompliance with medications Z91.148 and Seizure disorder G40.909 Stephon Ventura III, MD [address] [place] [address] [place] [address] 06/19/2024 Stephon Ventura Hypertension I10 ; P [...] cerebral artery I66.22 Stephon Ventura III, MD [address] [place] [address] [place] [address] 07/31/2024 Stephon Ventura Hypertension I10 ; Seizure disorder G40.909 ; PVD (peripheral vascular disease) I73.9 ; Hyperlipidemia E78.5 ; Former smoker Z87.891 ; Carotid stenosis, right I65.21 ; Occlusion and stenosis of left posterior cerebral artery I66.22 ; BPH (benign prostatic hyperplasia) N40.0 ; Anxiety F41.9 ; Noncompliance with medications Z91.148 and Overweight (BMI 25.0-29.9) E66.3 Stephon Ventura III, MD [address] [place] [address] [place] [address] 10/09/2024 Stephon Ventura Hypertension I10 ; Seizure disorder G40.909 ; PVD (peripheral vascular disease) I73.9 ; Former smoker Z87.891 ; Hyperlipidemia E78.5 ; Overweight (BMI 25.0-29.9) E66.3 and BPH (benign prostatic hyperplasia) N40.0 Stephon Ventura III, MD [address] [place] [address] [place] [address] 12/29/2023 Stephon Ventura III, MD [address] [place] [address] [place] [address] 01/06/2024 Stephon Ventura III, MD [address] [place] [address] [place] [address] 01/07/2024 Stephon Ventura III, MD [address] [place] [address] [place] [address] 06/08/2024 Stephon Ventura III, MD [address] [place] [address] [place] [address] 08/04/2024 Stephon Ventura Assessments Encounter Date Diagnosis [...] and was hospitalized for several days at [facility]. Imaging of the brain showed no stroke.I recommended he continue his Keppra. He is adamant that he will not take that medication or any other at this time. He has been noncompliant past but did agree to followed carefully in the office. I will continue to work with this difficult patient. He did agree not to drive. 10/09/2024 Hypertension (ICD-10 - I10) His blood pressure is stable today. I recommended weight loss and sodium restriction. He will come to the office in the near future to have it measurred. 10/09/2024 Seizure disorder (ICD-10 - G40.909) He had a seizure May 05, 2024 at home and was hospitalized for several days at [facility]. Imaging of the brain showed no [...] referred him back to his vascular surgeon. 10/09/2024 PVD (peripheral vascular disease) (ICD-10 - I73.9) He has mild claudication. 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 11/16/2023 Prostate cancer (ICD-10 - C61) He [...] will remain under the care of his folded towel machine operator. 07/31/2024 Hyperlipidemia (ICD-10 - E78.5) His total cholesterol has increased from 120 to 202. He has stopped taking his statin and refuses to consider resuming it. He could give me a no code reason for doing so, except that he thinks it is bad to take statin medication. 10/09/2024 Former smoker (ICD-10 - Z87.891) He seems highly motivated not to smoke. We discussed a plan to prevent relapse in times of stress and illness. 11/16/2023 BPH (benign prostatic hyperplasia) (ICD-10 - [...] will remain under the care of his folded towel machine operator with no change in his medications. 07/31/2024 [...] is bad to take statin medication. 11/16/2023 History of seizure (ICD-10 - Z87.898) [...] time and there is a good pulse. 10/09/2024 Overweight (BMI 25.0-29.9) (ICD-10 - E66.3) His body mass index is 26. We discussed diet and nutrition today. We reviewed his weight loss strategy. 11/16/2023 Former smoker (ICD-10 - Z87.891) He [...] need to continue on the statin dose. 10/09/2024 BPH (benign prostatic hyperplasia) (ICD-10 - N40.0) He says he arises from sleep twice a night sometimes once and sometimes 3 times to urinate. We have discussed lifestyle modification as a way of reducing nocturia. 05/09/2024 Seizure disorder (ICD-10 - G40.909) He had a seizure May 05, 2024 at home and was hospitalized for several days at [facility]. Imaging of the brain showed no [...] C) 04/19/2023 PROFILE, FASTING (COMPREHENSIVE METABOLI C) 10/09/2024 PROFILE, FASTING (COMPREHENSIVE METABOLI C) 12/31/2023 PROFILE, FASTING (COMPREHENSIVE METABOLI C) 08/10/2022 PROFILE, FASTING (COMPREHENSIVE METABOLI C) 01/11/2023 PROFILE, FASTING (COMPREHENSIVE METABOLI C) 11/16/2023 PROFILE, FASTING (COMPREHENSIVE METABOLI C) 08/31/2022 PROFILE, RANDOM (COMPREHENSIVE METABOLIC ) 05/20/2022 LIPID PANEL 08/10/2022 LIPID PANEL 01/11/2023 LIPID PANEL 08/31/2022 DILANTIN (PHENYTOIN) 08/10/2022 PSA, TOTAL 08/31/2022 PSA, TOTAL 07/06/2023 PSA, TOTAL 08/10/2022 PSA, TOTAL 04/19/2023 PSA, TOTAL 10/09/2024 PSA, TOTAL 12/31/2023 PSA, TOTAL 11/16/2023 PSA, TOTAL+FREE 05/20/2022 CBC w DIFF 01/11/2023 CBC w DIFF 08/31/2022 CBC w DIFF 08/10/2022 CBC w DIFF 10/09/2024 CBC w DIFF 05/20/2022 Echocardiogram 01/13/2021 Stress Test 01/13/2021 VITAMIN D 25-OH TOTAL 08/10/2022 VITAMIN D 25-OH TOTAL 12/31/2023 CBC WITH AUTO DIFF 12/31/2023 CBC WITH AUTO DIFF 11/16/2023 CBC WITH AUTO DIFF 07/06/2023 CBC WITH AUTO DIFF 04/19/2023 Lipid Panel 10/09/2024 Lipid Panel 12/31/2023 Lipid Panel 11/16/2023 Lipid Panel 07/06/2023 Lipid Panel 04/19/2023 Vitamin D 25-OH Total 10/09/2024 Testosterone, Total 10/09/2024 Lamotrigine Lamictal 08/31/2022 Next Appt Details Provider Name:Stephon Ventura, 10/20/2024 03:30:00 PM, [address] [place] [address] [address], [place], [address], Provider Name:Stephon Ventura, 01/01/2025 02:00:00 PM, [address] [place] [address] [address], [place], [address], Insurance Providers Payer Name Payer Address Payer Phone Subscriber Number Group Number Insured Name Patient Relationship to Insured Coverage Start Date Coverage End Date MEDICARE NGS [address] [place] [address] [id number] Michael Jenkins Self - patient is the insured MED[place] [address] [place] [id number] Michael Jenkins Self - patient is the [...] History Reason Date(Month/Year) Right carotid endarterectomy 2021 [facility] [place] June 2024
--- OUTSIDE RECORDS SUMMARY | 2024-10-19 08:39 | XMS_ITS | Encounter Summary ---
Author Organization [facility] Address [address] [place] [address] Care Team Providers Care Riveter Hand Name Role Phone Stephon Ventura Primary Care Provider [phone] Encounter Details Date Type Department Care Team (Late st Contact Info) Description 06/05/2021 Orders Only [facility] [address] [place] [address] Provider, Unknown, [address] [place] [address] Social History Tobacco Use Types Packs/Day Years Used Date Smoking Tobacco: Never Assessed Sex and Gender Information Value Date Recorded Sex Assigned at Not on file Legal Sex Male 10:20 AM EST Gender Identity Not on file Sexual Orientation Not on file documented as of this encounter Plan of Treatment Not on file documented as of this encounter Procedures * Due to [place] [employer] law, this organization might not be sharing negative HIV tests. Procedure Name Priority Date/Time Associated Diagnosis Comments AMB EXTERNAL CT HEAD, OUTSID E RESULT Routine 06/22/2018 documented in this encounter Results * Due to [place] [employer] law, this organization might not be sharing negative HIV tests. * CT Head, Outside Result (06/22/2018) Anatomical Region Laterality Modality Other us Unknown Provider MD NELSON EXTERNAL RESULT PROCEDUR ES Final Result documented in this encounter Visit Diagnoses Not on filedocumented in this encounter Care Teams Riveter Hand Relationship Specialty Start Date End Date Stephon Ventura [address] [facility] [address] [place] [address] PCP - General Hematology 06/05/21 documented as of this encounter
--- OUTSIDE RECORDS SUMMARY | 2024-10-19 08:39 | XMS_ITS ---
Author Organization Stephon Ventura III, MD Address [address] [place] [address] Care Team Providers Care Basket Grader Name Role Phone Stephon Ventura Primary Care Provider Reason For Referral Reason [...] appointment. Updated patient demos and faxed over [facility] discharge note from 05/2024 and last progress note from Dr. Ventura Referral Priority Routine Referral Appointment Date 10/05/2024 REASON FOR VISIT Neurology Referral Social History Sex Assigned At : Social History Observation Description Sex Assigned At Male Encounters Encounter Location Date Provider Diagnosis Stephon Ventura III, MD [address] [place] [address] [place] [address] 08/04/2024 Stephon Ventura Plan Of Treatment Referrals Referral Date Details 08/07/2024 08/07/2024, Patient would prefer Dr. Escamilla Evaluate and Treat Seizure Disorder Memory LossDomonique Next Appt Details Provider Name:Stephon Ventura, 10/20/2024 03:30:00 PM, [address] [place] [address] [place], [address], Provider Name:Stephon Ventura, 01/01/2025 02:00:00 PM, [address] [place] [address] [address], [place], [address], Progress Notes * Michael JENKINSDOB:1940 (84 yo M)Acc No.[id number]:08/04/2024 Patient:?Michael JENKINS :1940???Age:84 Y???Sex:Male Address:[address] [place] [phone] Subjective: * Chief Complaints: * ???Neurology Referral * Medical History:? * Surgical History:? * Hospitalization/Major Diagno stic Procedure:? * Medications:? Objective: * Vitals:? * Physical Examination:? Assessment: Plan: * Treatment: * Procedure Codes:? * true * Date:? Generated for Claudia engle/Joanna/eTransmitting on:?10/19/2024 08:38 AM EDT Consultation Request Notes Referral Date Referring Provider Referred Provider Not 08/07/2024 Stephon Ventura Muhammad Patient wo torsten prefer Dr. Escamilla Evaluate and Treat Seizure Disorder Memory Loss
--- OUTSIDE RECORDS SUMMARY | 2024-10-19 08:39 | XMS_ITS | Encounter Summary ---
Author Organization [facility] Address [address] [place] [address] Care Team Providers Care Corporate Meeting Planner Name Role Phone Stephon Ventura Primary Care Provider [phone] Encounter Details Date Type Department Care Team (Late st Contact Info) Description 09/30/2022 Telephone [facility] Central Scheduling Department [address] [place] [address] Telephone Intake, Staff Social History Tobacco Use [...] days of 10/20 appointment. Please call: Viktoria: [phone] documented in this encounter Plan of Treatment Not on file documented as of this encounter Visit Diagnoses Not on filedocumented in this encounter Care Teams Corporate Meeting Planner Relationship Specialty Start Date End Date Stephon Ventura [address] [facility] [address] [place] [address] PCP - General Hematology 06/05/21 documented as of this encounter
== END 2024-10-19 09:27 | disposition home or self-care (01) ==
LOC: HO.HSMS 08:21
PROVIDERS: Visit Provider Psychiatry & Neurology Neurology
DX: R56.9 Unspecified convulsions (principal)
CPT/HCPCS: 99204; G2211

== ENCOUNTER → 2024-10-19 08:21 | Outpatient (BNVA) | payer MEDICARE, MEDICAID, SELFPAY | PROVIDERS: Visit Provider Psychiatry & Neurology Neurology | DX: R56.9 Unspecified convulsions (principal) | CPT/HCPCS: 99202 ==

== ENCOUNTER 2024-11-23 13:23 | Outpatient (REF) | payer MEDICARE, MEDICAID, SELFPAY ==
--- OUTSIDE RECORDS SUMMARY | 2024-10-09 10:30 | XMS_ITS ---
Author Organization Stephon Ventura III, MD Address [address] [place] [address] Care Team Providers Care Bat Lathe Operator Name Role Phone Stephon Ventura Primary [...] Provider Speciality Internal M edicine Referred Organization [facility] Referred Provider Jose Alberto Ruvalcaba Referred Address [address] [place] [address],[place], [phone], Referred Provider Specialty Vascular Daria jhon General [...] Date Provider Diagnosis Stephon Ventura III, MD [address] [place] [address] [place] [address] 10/09/2024 Stephon Ventura Hypertension I10 ; Seizure [...] and was hospitalized for several days at [facility]. Imaging of the brain showed [...] 10/09/2024 10/09/2024, Evaluate and Treat, Jose Alberto Ruvalcabau, [address] [place] [address], [place], [place], [phone], Next Appt Details Follow Up: 1 Week,4 Weeks, Karlos domingo: Telehealth, OV Provider Name:Stephon Delunarne, 01/01/2025 02:00:00 PM, [address] [place] [address] [address], [place], [address], Progress Notes * Michael JENKINSDOB:1940 (84 yo M)Acc No.[id number]:10/09/2024 Progress Notes Patient: Michael SIU Provider: Karlos Ventura MD :1940 A ge:84 Y S ex:Male Date:10/09/2024 Address:[address] [place], [place] [id number] Subjective: * Chief Complaints: * S eizuresHypertensionPeripheral [...] a night to urinate. 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 There was concern about [...] yrs, CAD,[place], diagnosed with HTN, CVD. C hildren: alive, [...] x-cigarette smoker Tiffani mccallum was born in [facility]. He is not a Rastafari. He is and lives by himself. He [...] and was hospitalized for several days at [facility]. Imaging of the brain showed [...] Total 4. O thers Referral To:Jose Alberto [facility] Vascular Surgery Reason:Evaluate and Treat * Procedure [...] Ventura MD Date: 0 10/09/2024 Generated for Claudia engle/Joanna/Calitting on: 11/23/2024 02:31 PM EDT History and Physical Notes * [...] Date Referring Provider Referred Provider Not es 10/09/2024 Stephon Ventura Sandip Evaluate and Kishor simeon
--- NOTE | 2024-11-23 13:26 | EEG_ITS ---
This is a 16 channel EEG with an EKG lead. Patient is reported awake during the tracing. Background EEG rhythm is 8 to 10 Hz, 5 to 20 microvolt posteriorly, and lower amplitude fast anteriorly. Photic stimulation does not produce any significant driving. Hyperventilation is not performed. Cardiac lead does not reveal any significant abnormality. No sharp wave spikes or paroxysmal tendency noted. IMPRESSION: Unremarkable EEG. MD NGUYEN Dubon/JULIANN / [id number]
== END 2024-11-23 13:24 | disposition home or self-care (01) ==
LOC: HO.NEURO 13:23
PROVIDERS: PCP Internal Medicine Medical Oncology; Visit Provider Psychiatry & Neurology Neurology
DX: R56.9 Unspecified convulsions (principal)
CPT/HCPCS: 95816

== ENCOUNTER 2025-01-24 07:19 | Outpatient (AMB) | payer MEDICARE, SELFPAY ==
--- OUTSIDE RECORDS SUMMARY | 2025-01-08 12:20 | XMS_ITS ---
Author Organization Stephon Ventura III, MD Address [address] [place] [address] Care Team Providers Care Follow Up Manager Name Role Phone Stephon Ventura Primary Care Provider [phone] REASON FOR VISIT Needs call back from Social History Sex Assigned At : Social History Observation Description Sex Assigned At Male Encounters Encounter Location Date Provider Diagnosis Stephon Ventura III, MD [address] [place] [address] [place] [address] 01/08/2025 Stephon Ventura Plan Of Treatment Next Appt Details Provider Name:Stephon Ventura, 04/30/2025 02:15:00 PM, [address] [place] [address] [place], [address], Provider Name:Stephon Ventura, 01/07/2026 02:00:00 PM, [address] [place] [address] [place], [address], Progress Notes * Michael JENKINSDOB:1940 (84 yo M)Acc No.[id number]:01/08/2025 Patient: Michael SIU :1940 A ge:84 Y S ex:Male Address:[address] [place], [address] * true * Date: Generated for Printi ng/Faxing/eTransmitting on: 0 01/24/2025 07:20 AM EDT
--- OUTSIDE RECORDS SUMMARY | 2025-01-24 07:21 | XMS_ITS | Clinical Summary ---
Author Organization [facility] [address] [facility] Address [address] [place] [address] Phone Care Team Providers Care Curtain Supervisor Name Role Phone Grupo Collier MD Primary Care Provider [phone] Surgical History Surgery Date Site/Laterality Comments CAROTID ENDARTERECTOMY Right PROCEDURE:CAROTID ENDARTERECTOMY Medical History Medical History Date Comments Prostate cancer ([facility] V24, [facility] V28) DX:Prostate cancer (HCC) Coronary artery disease DX:Coron isaak artery disease Hypertension DX:Hypertension Stroke ([facility] V24, [facility] V28) DX:Stroke (HCC) Carotid artery stenosis, [...] 1959 Pneumococcal Vaccine: 50+ Years (1 of 1 - PCV) 1990 Zoster Vaccines (1 of 2) 1990 RSV Immunization Adult Patients (1 - 1-dose 75+ series) 2015 Falls Risk Assessment 05/05/2022 Medicare Annual Wellness Visit 05/05/2022 Social Influencers of Health Screening 05/05/2022 Depression Screening 06/07/2024 Influenza Vaccine (#1) 2025 Hypertension/CHF/CAD Annual BMP Blood Test 10/13/2025 [...] Procedure Name Priority Date/Time Associated Diagnosis Comments TESTOSTERONE, TOTAL Routine 11/28/2024 3 :39 PM EDT Radiotherapy follow-up examination COMPREHENSIVE METABOLIC PANEL Routine 10/13/2024 9:16 AM EDT Coronary atherosclerosis of [place] coronary artery Hyperlipemia Essential hypertension, malignant Prostate cancer (CMS/HCC V24, CMS/HCC V28) Vitamin D deficiency disease LIPID PANEL Routine 10/13/2024 9:16 AM EDT Coronary atherosclerosis of [place] coronary artery Hyperlipemia Essential hypertension, malignant Prostate cancer ([facility] V24, [facility] V28) Vitamin D deficiency disease from Last 3 Months or Most Recently Relevant to Health Maintenance Results * (ABNORMAL) Testosterone, total (11/28/2024 3:39 PM EDT) Testosterone 16(L) 240 - 950 ng/dL LAB CHEMISTRY METHOD 11/28/2024 7:40 PM EDT [facility] Blood Venous blood specimen / Unknown Venipuncture / Unknown 11/28/2024 3:39 PM EDT 11/28/2024 3:39 PM EDT Filemon Joe MD LAB BLOOD ORDERABLES Final Result [facility] [address] [place] [address], [place] [phone] * (ABNORMAL) Lipid panel (10/13/2024 9:16 AM EDT) Cholesterol 186 0 - 200 mg/dL LAB CHEMISTRY METHOD 10/13/2024 2:56 PM EDT [facility] Triglycerides 151(H) <150 mg/dL LAB CHEMISTRY METHOD 10/13/2024 2:56 PM EDT [facility] HDL 53 mg/dL LAB CHEMISTRY METHOD 10/13/2024 2:56 PM EDT [facility] LDL Calculated 103 50 - 130 mg/dL LAB CHEMISTRY METHOD 10/13/2024 2:56 PM EDT [facility] VLDL Cholesterol Magdiel 30.2 mg/dL LAB CHEMISTRY METHOD 10/13/2024 2:56 PM EDT [facility] Comment:No established refer ence range. Blood Venous blood specimen / Unknown Venipuncture / Unknown 10/13/2024 9:16 AM EDT 10/13/2024 9:17 AM EDT Loc Simmons MD LAB BLOOD ORDERABLES Fi nal Result [facility] [address] [place] [address], * (ABNORMAL) Comprehensive metabolic panel (10/13/2024 9:16 AM EDT) Sodium 140 135 - 145 mmol/L LAB CHEMISTRY METHOD 10/13/2024 2:56 PM EDT [facility] Potassium 4.3 3.5 - 5.1 mmol/L LAB CHEMISTRY METHOD 10/13/2024 2:56 PM EDT [facility] Chloride 103 98 - 107 mmol/L LAB CHEMISTRY METHOD 10/13/2024 2:56 PM EDT [facility] CO2 28 24 - 32 mmol/L LAB CHEMISTRY METHOD 10/13/2024 2:56 PM EDT [facility] Anion Gap 9 5 - 14 LAB CHEMISTRY METHOD 10/13/2024 2:56 PM EDT [facility] Glucose 118(H) 70 - 99 mg/dL LAB CHEMISTRY METHOD 10/13/2024 2:56 PM EDT [facility] BUN 22(H) 9 - 20 mg/dL LAB CHEMISTRY METHOD 10/13/2024 2:56 PM EDT [facility] Creatinine 1.00 0.70 - 1.30 mg/dL LAB CHEMISTRY METHOD 10/13/2024 2:56 PM EDT [facility] eGFR 74 >=60 mL/min/1. 73m2 LAB CHEMISTRY METHOD 10/13/2024 2:56 PM EDT [facility] Comment:Calculation based on the Chronic Kidney Disease Epidemiology Collaboration (CKD-EPI) equation refit without adjustment for race. BUN/Creatinine Ratio 22.0(H) 12.0 - 20.0 LAB CHEMISTRY METHOD 10/13/2024 2:[address] [facility] Calcium 9.6 8.4 - 10.2 mg/dL LAB CHEMISTRY METHOD 10/13/2024 2:56 PM EDT [facility] AST (SGOT) 11 5 - 40 unit/L LAB CHEMISTRY METHOD 10/13/2024 2:56 PM EDT [facility] ALT (SGPT) 8 7 - 52 unit/L LAB CHEMISTRY METHOD 10/13/2024 2:56 PM EDT [facility] Alkaline Phosphatase 95 34 - 104 unit/L LAB CHEMISTRY METHOD 10/13/2024 2:56 PM EDT [facility] Total Protein 6.6 6.4 - 8.5 g/dL LAB CHEMISTRY METHOD 10/13/2024 2:56 PM EDT [facility] Albumin 4.2 3.5 - 5.0 g/dL LAB CHEMISTRY METHOD 10/13/2024 2:56 PM EDT [facility] Total Bilirubin 0.4 0.3 - 1.0 mg/dL LAB CHEMISTRY METHOD 10/13/2024 2:56 PM EDT [facility] Blood Venous blood specimen / Unknown Venipuncture / Unknown 10/13/2024 9:16 AM EDT 10/13/2024 9:17 AM EDT us Stephon Ventura MD LAB BLOOD ORDERABLES Final Res ult [facility] [address] [place] [address], from Last 3 Months or Most Recently Relevant to Health Maintenance Insurance MEDICARE [place] Care Teams Curtain Supervisor Relationship Specialty Start Date End Date Grupo Collier MD [address] [phone] PCP - General 06/07/19
--- OUTSIDE RECORDS SUMMARY | 2025-01-24 07:21 | XMS_ITS | Clinical Summary ---
Author Organization [facility] Address [address] [place] [address] Care Team Providers Care Precision Lens Grinder Apprentice Name Role Phone Unavailable Primary Care Provider [...] 72 11/12/2022 12:55 PM EDT Temperature 36.7 C (98 F) 11/12/2022 12:55 PM EDT Respiratory Rate 14 [...] 1-dose 75+ series) 2015 Influenza Vaccine (#1) 2025 Hepatitis B Vaccines Aged Out No long er eligible based on patient's age to complete this topic RSV Ped < 20 months Aged Out No longe r eligible based on patient's age to complete this topic
--- OUTSIDE RECORDS SUMMARY | 2025-01-24 07:21 | XMS_ITS ---
Author Name [facility] Organization Unknown History of Medication Use Medication Directions Dispensed Refills Start Date End Date Stat us lamoTRIgine (LaMICtal) 100 MG tablet 11/10/2022 active dorzolamide-timolol (COSOPT) 22.3-6.8 MG/ML ophthalmic solution Place 1 drop into both eyes 2 (two) times a day. 10/14/2022 active bicalutamide (CASODEX) 50 MG tablet Take 1 tablet (50 mg total) by mouth every morning 10/02/2022 active latanoprost (XALATAN) 0.005 % ophthalmic solution Place 1 drop into both eyes every night at bedtime. 09/28/2022 active magnesium oxide 400 (240 Mg) MG TABS tablet Take 1 tablet (400 mg total) by mouth daily. active Allergies Allergen Reaction Severity Comment Documented Date Source Statu s LACOSAMIDE DIARRHEA 11/12/2022 [facility] active Problems Problem Status Onset Date Problem Type Date of Resolution Source Prostate cancer active 2022-11-[address] [facility] Essential (primary) hypertension active EncounterDiagnosisAct [facility] Hyperlipidemia, unspecified active EncounterDiagnosisAct [facility] Overweight active EncounterDiagnosisAct [facility] Encounters Encounter Type Encounter Reason Primary Diagnosis Location Date Ambulatory Essential (primary) hypertension Essential (primary) hypertension [facility] 12/29/2023 Ambulatory Personal history of malignant neoplasm of prostate Personal history of malignant neoplasm of prostate [facility] 12/27/2023 [place] [facility] [place] [facility]22 Care Team Organization Name Specialty Phone Email Start Date End Da te [facility] 202312/19/2024 [facility] 12/27/2023 [facility] 04/09/202301/23[facility]24 [facility] 09/14/2024
--- OUTSIDE RECORDS SUMMARY | 2025-01-24 07:21 | XMS_ITS | Clinical Summary ---
Author Organization [facility] Address [address] [place] [address] Care Team Providers Care Operations Mgr Name Role Phone Stephon Ventura Primary Care Provider [phone] Allergies No known active allergies Medications lisinopriL [...] 73 04/15/2022 1:58 PM EST Temperature 36.4 C (97.5 F) 04/15/2022 1:58 PM EST Respiratory Rate 16 04/15/2022 1:58 PM EST [...] of Health Annual Screening 06/07/2024 Influenza Vaccine (#1) 2025 Statin Therapy Completed 02/21/2021 Hepatitis B Vaccines Aged Out No long er eligible based on patient's age to complete this topic Procedures * Due to [place] JumpCam law, this organization might not be sharing negative HIV tests. Procedure Name Priority Date/Time Associated Diagnosis Comments COMPREHENSIVE METABOLIC PANEL Routine 04/15/2022 2:59 PM EST Partial symptomatic epilepsy with complex partial seizures, not intractable, without status epilepticus from Last 3 Months or Most Recently Relevant to Health Maintenance Results * Due to [place] [employer] law, this organization might not be sharing [...] - 1.2 mg/dL 04/15/2022 3:48 PM EST [facility] Alkaline Phosphatase 91 30 - 115 U/L 04/15/2022 3:48 PM EST [facility] AST 16 10 - 40 U/L 04/15/2022 3:48 PM EST [facility] ALT 15 10 - 40 U/L 04/15/2022 3:48 PM EST [facility] BUN 25(H) 7 - 23 mg/dL 04/15/2022 3:48 PM EST [facility] eGFR 65(L) >=90 mL/min/1. 73m2 04/15/2022 3:48 PM EST [facility] Comment: Estimated [...] MD LAB BLOOD ORDERABLES Final Resul t [facility] [address] [place] [address], from Last 3 Months or Most Recently Relevant to Health Maintenance Insurance MEDICARE [facility] Care Teams Operations Mgr Relationship Specialty Start Date End Date Stephon Ventura [facility] [address] PCP - General Hematology 06/05/21
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
[2025-01-24 07:26] VITALS: BP 162/90; PULSE 75; O2SAT 100; BMI 26.4
== END 2025-01-24 08:20 | disposition home or self-care (01) ==
PROVIDERS: PCP Internal Medicine Medical Oncology; Visit Provider Psychiatry & Neurology Neurology
DX: R56.9 Unspecified convulsions (principal)
CPT/HCPCS: 99214; G2211

== ENCOUNTER → 2025-01-24 07:19 | Outpatient (BNVA) | payer MEDICARE, SELFPAY | PROVIDERS: PCP Internal Medicine Medical Oncology; Visit Provider Psychiatry & Neurology Neurology | DX: R56.9 Unspecified convulsions (principal); F12.90 Cannabis use, unspecified, uncomplicated; Z79.82 Long term (current) use of aspirin; Z79.899 Other long term (current) drug therapy | CPT/HCPCS: 99212 ==

== ENCOUNTER 2025-03-02 15:18 | Outpatient (REF) | payer MEDICARE, SELFPAY ==
--- OUTSIDE RECORDS SUMMARY | 2025-01-01 10:00 | XMS_ITS ---
Author Organization Stephon Ventura III, MD Address [address] [place], [place] [address] Care Team Providers Care Health Commissioner Name Role Phone Dr. Stephon Ventura III [...] Date Provider Diagnosis Stephon Ventura III, MD [address] [place] [address] [place] [address] 01/01/2025 Stephon Ventura Hypertension I10 ; History [...] will remain under the care of his environmental systems coordinator with no change in his medications. 01/01/2025 [...] Name:Stephon Ventura , 04/30/2025 02:15:00 PM, [address] [facility] [place], [place], [address], Provider Name:Stephon Ventura , 01/07/2026 02:00:00 PM, [address] [place] [address] [place], [place], [address], Progress Notes * Michael JENKINSDOB:1940 (84 yo M)Acc No.[id number]:01/01/2025 Progress Notes Patient: Michael SIU Provider: Karlos Ventura MD :1940 A ge:84 Y S ex:Male Date:01/01/2025 Address:[address] [place], [place] [phone] Subjective: * Chief Complaints: * A nnual [...] yrs, old age. M other: 63 yrs, CAD,[place], diagnosed with HTN, CVD. C hildren: alive, [...] N egative Tiffani mccallum was born in [facility]. He is not a Rastafarian. He is and lives by himself. He [...] will remain under the care of his environmental systems coordinator with no change in his medications. 6 [...] true * Provider: Karlos Ventura MD Date: 01/01/2025 Generated for Claudia engle/Joanna/Calitting on: 0 03/02/2025 03:48 PM EDT History and Physical Notes * [...]
--- OUTSIDE RECORDS SUMMARY | 2025-01-08 12:20 | XMS_ITS ---
Author Organization Stephon Ventura III, MD Address [address] [place] [address] Care Team Providers Care Condemnation Engineer Name Role Phone Dr. Stephon Ventura III Primary Care Provider [phone] REASON FOR VISIT Needs call back from Social History Sex Assigned At : Social History Observation Description Sex Assigned At Male Encounters Encounter Location Date Provider Diagnosis Stephon Ventura III, MD [address] [place] [address] [place] [address] 01/08/2025 Stephon Ventura Plan Of Treatment Next Appt Details Provider Name:Stephon Ventura , 04/30/2025 02:15:00 PM, [address] [place] [address] ANASTASIYA HERRERA, [place], [address], Provider Name:Stephon Ventura , 01/07/2026 02:00:00 PM, [address] [place] [address] [place], [address], Progress Notes * Michael JENKINSDOB:1940 (84 yo M)Acc No.[id number]:01/08/2025 Patient: Michael SIU :1940 A ge:84 Y S ex:Male Address:[address] [place] [address], [address] * true * Date: Generated for Printi ng/Faxing/eTransmitting on: 0 03/02/2025 03:47 PM EDT
--- OUTSIDE RECORDS SUMMARY | 2025-01-22 09:30 | XMS_ITS ---
Author Organization Stephon Ventura III, MD Address [address] [place], [place] [address] Care Team Providers Care Pantry Cook Name Role Phone Dr. Stephon Ventura III [...] Provider Diagnosis Stephon Ventura III, MD [address] [place] [address] [place] [address] 01/22/2025 Stephon Ventura Hypertension I10 ; P [...] and was referred to vascular surgery at [facility] in June 2024. Repair was planned [...] will remain under the care of his water inspector with no change in his medications. 01/22/2025 [...] Name:Stephon Ventura , 04/30/2025 02:15:00 PM, [address] [place] [address] [address], [place], [address], Provider Name:Stephon Ventura , 01/07/2026 02:00:00 PM, [address] [place] [address] [address], [place], [address], Progress Notes * Michael JENKINSDOB:1940 (84 yo M)Acc No.[id number]:01/22/2025 Progress Notes Patient: Michael SIU Provider: Karlos Ventura MD :1940 A ge:84 Y S ex:Male Date:01/22/2025 Address:[address] [place], [place] [phone] Subjective: * Chief Complaints: * R ight [...] M other: 63 yrs, CAD,CT, diagnosed with HTN, CVD. C clayton: alive, [...] x-cigarette smoker Tiffani mccallum was born in [facility]. He is not a Hoahaoism. He is and lives by himself. He [...] and was referred to vascular surgery at [facility] in June 2024. Repair was planned [...] will remain under the care of his water inspector with no change in his medications. 7 [...] MD Date: 0 01/22/2025 Generated for Claudia engle/Joanna/Calitting on: 0 03/02/2025 03:47 PM EDT History and Physical Notes * [...]
--- OUTSIDE RECORDS SUMMARY | 2025-01-24 05:47 | XMS_ITS ---
Author Organization Stephon Ventura III, MD Address [address] [address] Care Team Providers Care Mysql Dba Name Role Phone Dr. Stephon Ventura III Primary Care Provider REASON FOR VISIT Vascular Appointment Social History Sex Assigned At : Social History Observation Description Sex Assigned At Male Encounters Encounter Location Date Provider Diagnosis Stephon Ventura III, MD [address] [place] [address] [place] [address] 01/24/2025 Stephon Ventura Plan Of Treatment Next Appt Details Provider Name:Stephon Ventura , 04/30/2025 02:15:00 PM, [address] [place] [address] [address], [place], [address], Provider Name:Stephon Ventura , 01/07/2026 02:00:00 PM, [address] [place] [address] [place], [address], Progress Notes * Michael JENKINSDOB:1940 (84 yo M)Acc No.[id number]:01/24/2025 Patient: Michael ISU :1940 A ge:84 Y S ex:Male Address:[address] [place] [address], [address] * true * Date: Generated for Printi ng/Faxing/eTransmitting on: 0 03/02/2025 03:47 PM EDT
--- OUTSIDE RECORDS SUMMARY | 2025-02-14 05:14 | XMS_ITS ---
Author Organization Stephon Ventura III, MD Address [address] [place] [address] Care Team Providers Care Photovoltaic Panel Installer Name Role Phone Dr. Stephon Ventura III Primary Care Provider [phone] Medications Medication SIG (Take, Route, Frequency, Duration) [...] Provider Diagnosis Stephon Ventura III, MD [address] [place] [address] [place] [address] 02/14/2025 Stephon Ventura Plan Of Treatment Next Appt Details Provider Name:Stephon Ventura , 04/30/2025 02:15:00 PM, [address] [place] [address] [place], [address], Provider Name:Stephon Ventura , 01/07/2026 02:00:00 PM, [address] [place] [address] [place], [address], Progress Notes * Michael JENKINSDOB:1940 (84 yo M)Acc No.[id number]:02/14/2025 Patient: Michael SIU :1940 A ge:84 Y S ex:Male Address:[address] [place] [phone] Subjective: * Chief Complaints: * * Medical [...] * Date: Generated for Claudia engle/Joanna/Gurdeep on: 0 03/02/2025 03:47 PM EDT
--- NOTE | ~2025-03-02 | US_ITS ---
EXAMINATION: US EXTRACRANIAL CAROTID DUPLEX, BILATERAL CLINICAL INFORMATION: I65.23 - Occlusion and stenosis of bilateral carotid arteries COMPARISON: 05/18/2022 TECHNIQUE: Real-time ultrasound and Doppler techniques (integrating B-mode 2-D vascular images, Doppler spectral analysis and color-flow Doppler imaging) were utilized to interrogate the extracranial carotid arteries, the vertebral arteries and proximal subclavian arteries bilaterally. The degree of stenosis is determined by criteria similar to NASCET. FINDINGS: Right Side: 1. There is no atherosclerotic plaque seen in the bifurcation/proximal ICA region. 2. The common carotid artery PSV proximally is 91 cm/s and distally 78 cm/s. 3. The proximal internal carotid artery velocities are 123 cm/s systolic and 24 cm/s diastolic. 4. The proximal external carotid artery PSV is 120 cm/s. 5. The vertebral artery shows antegrade flow. 6. The subclavian artery waveforms are triphasic. ICA/CCA ratio is 1.35 Left Side: 1. There is severe atherosclerotic plaque seen in the bifurcation/proximal ICA region. 2. The common carotid artery PSV proximally is 52 cm/s and distally 47 cm/s. 3. The proximal internal carotid artery velocities are 167 centimeters per second, previously 190 cm/s systolic and 12 cm/s diastolic. 4. The proximal external carotid artery PSV is 136 cm/s. 5. The vertebral artery shows antegrade flow. 6. The subclavian artery waveforms are biphasic. ICA/CCA ratio = 3.2 US/US carotid duplex BI IMPRESSION: 1. RIGHT: No hemodynamically significant stenosis. 2. LEFT: No hemodynamically significant stenosis measuring 50-79%. 3. There is improvement in the category severity of disease when compared to the previous study dated 05/18/2022. Electronically signed by: Rashaad Pina MD 03/02/2025 05:06 PM EDT RP
--- OUTSIDE RECORDS SUMMARY | 2025-03-02 15:47 | XMS_ITS | Clinical Summary ---
Author Organization [facility] Address [address] [place] [address] Care Team Providers Care Zig Zag Stitcher Name Role Phone Unavailable Primary Care Provider [...]
--- OUTSIDE RECORDS SUMMARY | 2025-03-02 15:47 | XMS_ITS | Clinical Summary ---
Author Organization [facility] [address] [facility] Address [address] [place] [address] Phone Care Team Providers Care Hot Roll Laminator Name Role Phone Grupo Collier MD Primary Care Provider [phone] Surgical History Surgery Date Site/Laterality Comments CAROTID ENDARTERECTOMY Right PROCEDURE:CAROTID ENDARTERECTOMY Medical History Medical History Date Comments Prostate cancer ([facility] V24, [facility] V28) DX:Prostate cancer (HCC) Coronary artery disease DX:Coron isaak artery disease Hypertension DX:Hypertension Stroke ([facility] V24, [facility] V28) DX:Stroke (HCC) Carotid artery stenosis, unilateral, [...] Associated Diagnosis Comments COMPREHENSIVE METABOLIC PANEL Routine 10/13/2024 9:16 AM EDT Coronary atherosclerosis of habematolel coronary artery Hyperlipemia Essential hypertension, malignant Prostate cancer ([facility]/HCC V24, CMS/HCC V28) Vitamin D deficiency disease LIPID PANEL Routine 10/13/2024 9:16 AM EDT Coronary atherosclerosis of habematolel coronary artery Hyperlipemia Essential hypertension, malignant Prostate cancer (CMS/HCC V24, CMS/HCC V28) Vitamin D deficiency disease from Last 3 Months or Most Recently Relevant to Health Maintenance Results * (ABNORMAL) Lipid panel (10/13/2024 9:16 AM EDT) Cholesterol 186 0 - 200 mg/dL LAB CHEMISTRY METHOD 10/13/2024 2:56 PM EDT [facility] Triglycerides 151(H) <150 mg/dL LAB CHEMISTRY METHOD 10/13/2024 2:56 PM EDT [facility] HDL 53 mg/dL LAB CHEMISTRY METHOD 10/13/2024 2:56 PM EDT [facility] LDL Calculated 103 50 - 130 mg/dL LAB CHEMISTRY METHOD 10/13/2024 2:56 PM EDT [facility] VLDL Cholesterol Magdiel 30.2 mg/dL LAB CHEMISTRY METHOD 10/13/2024 2:56 PM EDT [facility] Comment:No established refer ence range. Blood Venous blood specimen / Unknown Venipuncture / Unknown 10/13/2024 9:16 AM EDT 10/13/2024 9:17 AM EDT Loc Simmons MD LAB BLOOD ORDERABLES Fi nal Result [facility] [address] [place] [address], [place] [phone] * (ABNORMAL) Comprehensive metabolic panel (10/13/2024 9:16 AM EDT) Pathologist [facility] Sodium 140 135 - 145 mmol/L LAB CHEMISTRY METHOD 10/13/2024 2:56 PM EDT [facility] Potassium 4.3 3.5 - 5.1 mmol/L LAB CHEMISTRY METHOD 10/13/2024 2:56 PM EDT [facility] Chloride 103 98 - 107 mmol/L LAB CHEMISTRY METHOD 10/13/2024 2:56 PM EDT [facility] CO2 28 24 - 32 mmol/L LAB CHEMISTRY METHOD 10/13/2024 2:56 PM EDT [facility] Anion Gap 9 5 - 14 LAB CHEMISTRY METHOD 10/13/2024 2:56 PM T [facility] Glucose 118(H) 70 - 99 mg/dL LAB CHEMISTRY METHOD 10/13/2024 2:56 PM T [facility] BUN 22(H) 9 - 20 mg/dL LAB CHEMISTRY METHOD 10/13/2024 2:56 PM EDT [facility] Creatinine 1.00 0.70 - 1.30 mg/dL LAB CHEMISTRY METHOD 10/13/2024 2:56 PM T [facility] eGFR 74 >=60 mL/min/1. 73m2 LAB CHEMISTRY METHOD 10/13/2024 2:56 PM T [facility] Comment:Calculation based on the Chronic Kidney Disease Epidemiology Collaboration (CKD-EPI) equation refit without adjustment for race. BUN/Creatinine Ratio 22.0(H) 12.0 - 20.0 LAB CHEMISTRY METHOD 10/13/2024 2:56 PM T [facility] Calcium 9.6 8.4 - 10.2 mg/dL LAB CHEMISTRY METHOD 10/13/2024 2:56 PM [facility] AST (SGOT) 11 5 - 40 unit/L LAB CHEMISTRY METHOD 10/13/2024 2:56 PM T [facility] ALT (SGPT) 8 7 - 52 unit/L LAB CHEMISTRY METHOD 10/13/2024 2:56 PM T [facility] Alkaline Phosphatase 95 34 - 104 unit/L LAB CHEMISTRY METHOD 10/13/2024 2:56 PM T [facility] Total Protein 6.6 6.4 - 8.5 g/dL LAB CHEMISTRY METHOD 10/13/2024 2:56 PM T [facility] Albumin 4.2 3.5 - 5.0 g/dL LAB CHEMISTRY METHOD 10/13/2024 2:56 PM EDT [facility] Total Bilirubin 0.4 0.3 - 1.0 mg/dL LAB CHEMISTRY METHOD 10/13/2024 2:56 PM EDT [facility] Blood Venous blood specimen / Unknown Venipuncture / Unknown 10/13/2024 9:16 AM EDT 10/13/2024 9:17 AM EDT us Stephon Ventura MD LAB BLOOD ORDERABLES Final Res ult [facility] [address] [place] [address], [place] [phone] from Last 3 Months or Most Recently Relevant to Health Maintenance Insurance MEDICARE MEDICAID - [place] MEDICA[place] - [place] Care Teams Hot Roll Laminator Relationship Specialty Start Date End Date Grupo Collier MD [address] [place] [phone] PCP - General 06/07/19
--- OUTSIDE RECORDS SUMMARY | 2025-03-02 15:47 | XMS_ITS | Patient Health Record ---
Author Organization Stephon Ventura III, MD Address [address] [place] [address] Care Team Providers Care Validation Consultant Name Role Phone Dr. Stephon Ventura III Primary Care Provider Allergies Allergen (clinical drug ingredient) Drug/Non Drug Allergy documented on EMR Reaction Allergy Type Onset Date Status No Known Drug Allergy Unknown Drug Allergy Active No Known Food Allergy Unknown Drug Allergy Active Reason For Referral Reason Evaluate and Treat Questioning if needs Left Carotid Endarterectomy Diagnosis 1 Carotid stenosis, ri ght (I65.21) Diagnosis 2 PVD (peripheral vasc ular disease) (I73.9) Diagnosis 3 Carotid stenosis (I6 5.29) Referral Organization Stephon Ventura III, MD Referring Provider First Name Stephon Referring Provider Last Name Lorenzo Referring Provider Speciality Internal M edicine Referred Organization [facility] Referred Provider Jose Alberto Ruvalcaba Referred Address [address] [place] [id number], Referred Provider Specialty Vascular Daria jhon General Notes Charmaine Ramirez 05/15/2024 11:51:22 AM > Referral faxed with progress note., Charmaine Ramirez 05/22/2024 02:45:21 PM > Patient was scheduled [...] Last Name Lorenzo Referring Provider Speciality Internal edicine Referred Provider Domonique Escamilla Referred Provider Specialty Neurology General Notes D08/09/2024 10:01:45 AM > Spoke with Dr. Escamilla's [...] Last Name Lorenzo Referring Provider Speciality Internal [facility] Referred Organization [facility] Referred Provider Jose Alberto Ruvalcaba Referred Address [address] [place] [address],[place], [id number], Referred Provider Specialty Vascular Daria jhon General Notes D10/12/2024 01:16:39 PM > Referral, progress note and recent ultrasound faxed., D10/19/2024 02:32:14 PM > patient want seen 06/13/24 and was sent to neurology from their practice. Dr. Ventura made aware Referral Priority Routine Medications Medication SIG (Take, [...] tablet Orally O nce a day Active Immunizations Vaccine Route Administration Date Status [...] Never (0 point) Points 3 Interpretation Negative Problems Problem Type SNOMED Code ICD Code Onset Dates Problem Status W/U Status Risk Notes Problem 3586662 Former smoker (Z87.891) Active confirmed He seems highly motivated not to smoke. We discussed a plan to prevent relapse in times of stress and illness. Problem 634259785 Overweight (BMI 25.0-29.9) (E66.3) Active confirmed His body mass index is 26. We discussed diet and nutrition today. We reviewed his weight loss strategy. Problem Hyperlipidemia (83401268) Hyperlipidemia (E78.5) Active confirmed Comprehensive blood work for the fasting lipid profile has been ordered to be done in the near future. Problem Hypertension (62322069) Hypertension (I10) Active confirmed His blood pressure is currently at its target. No change in his regimen was made. Problem 356367770 Prostate cancer (C61) Active confirmed PSA has been ordered. He is currently free of symptoms. Problem 624834056 Seizure disorder (G40.909) Active confirmed He had a seizur e May 05, 2024 at home and was hospitalized for several days at [facility]. Imaging of the brain showed no stroke.I recommended he continue his Keppra. He is adamant that he will not take that medication or any other at this time. He has been noncompliant past but did agree to followed carefully in the office. I will continue to work with this difficult patient. He did agree not to drive. Problem 92352666 Anxiety (F41.9) Active confirmed We discussed the causes of riged fingernails and cold sores at length today. If the symptoms persist. I told drop by the office for inspection. It is very unlikely this is a side effect of his medication and he was encouraged to continue it. Problem Vitamin D deficiency (09234726) Vitamin D deficiency, unspecified (E55.9) Active confirmed He continues on supplementation. 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 Problem Benign prostatic hyperplasia (751653294) BPH (benign prostatic hyperplasia) (N40.0) Active confirmed He says he arises from sleep twice a night sometimes once and sometimes 3 times to urinate. We have discussed lifestyle modification as a way of reducing nocturia. Problem Memory loss (66992092) Memory loss (R41.3) Active confirmed Problem Carotid artery stenosis (48900874) Carotid stenosis (I65.29) Active confirmed Problem Peripheral vascular disease (464669233) PVD (peripheral vascular disease) (I73.9) Active confirmed He has mild claudication. 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 He has significant left carotid stenosis and was referred to vascular surgery at [facility] in June 2024. Repair was planned after his seizures were corrected. He will be referred back there at this time. Problem 42787025 Glaucoma, unspecified glaucoma type, unspecified laterality (H40.9) Active confirmed He will remain under the care of his senior data analyst with no change in his medications. Problem 947172344 Cataract, unspecified cataract type, unspecified laterality (H26.9) Active confirmed He will remain under the care of his senior data analyst. Problem 119188330 History of seizure (Z87.898) Active confirmed He has had no seizures and says he is compliant with the phenytoin. Problem 605993198285168 Carotid stenosis, right (I65.21) Active confirmed The right neck is well-healed at this time and there is a good pulse. 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 He is taking lamotrigine. He says he has agrreed to take 200 mg in the morning and 100 mg at night faithfully. A follow-up visit was arranged. He has had no recent seizures. Problem 782092472 Noncompliance with medications (Z91.148) Active confirmed I have explaine d patientlt and clearly at great length The reasons we have recommended he take the full dose of Keppra in the 80 mg of the atorvastatin. Nonetheless, he declines to do so. Vital Signs Heart Rate 54 /min 01/22/2025 Temperature 97.6 degrees Fahrenheit 01/22/2025 Respiratory Rate 16 /min 10/09/2024 Oximetry 98 % 10/09/2024 Blood pressure diastolic 76 mm Hg 01/22/2025 Height 67 in 01/22/2025 Blood pressure systolic 135 mm Hg 01/22/2025 Weight 169 lbs 01/22/2025 BMI 26.47 kg/m2 01/22/2025 Encounters Encounter Location Date Provider Diagnosis Stephon Ventura III, MD [address] [place] [address] [place] [address] 05/09/2024 Stephon Ventura Hypertension I10 ; P VD (peripheral vascular disease) I73.9 ; Hyperlipidemia E78.5 ; Overweight (BMI 25.0-29.9) E66.3 ; Former smoker Z87.891 ; BPH (benign prostatic hyperplasia) N40.0 ; Noncompliance with medications Z91.148 and Seizure disorder G40.909 Stephon Ventura III, MD [address] [place] [address] [place] [address] 06/19/2024 Stephon Ventura Hypertension I10 ; P [...] cerebral artery I66.22 Stephon Ventura III, MD [address] [place] [address] [place] [address] 07/31/2024 Stephon Ventura Hypertension I10 ; Seizure disorder G40.909 ; PVD (peripheral vascular disease) I73.9 ; Hyperlipidemia E78.5 ; Former smoker Z87.891 ; Carotid stenosis, right I65.21 ; Occlusion and stenosis of left posterior cerebral artery I66.22 ; BPH (benign prostatic hyperplasia) N40.0 ; Anxiety F41.9 ; Noncompliance with medications Z91.148 and Overweight (BMI 25.0-29.9) E66.3 Stephon Ventura III, MD [address] [place] [address] [place] [address] 10/09/2024 Stephon Ventura Hypertension I10 ; Seizure disorder G40.909 ; PVD (peripheral vascular disease) I73.9 ; Former smoker Z87.891 ; Hyperlipidemia E78.5 ; Overweight (BMI 25.0-29.9) E66.3 and BPH (benign prostatic hyperplasia) N40.0 Stephon Ventura III, MD [address] [place] [address] [place] [address] 10/20/2024 Stephon Ventura Hypertension I10 ; Nonintractable epilepsy without status epilepticus, unspecified epilepsy type G40.909 ; PVD (peripheral vascular disease) I73.9 ; Hyperlipidemia E78.5 ; Former smoker Z87.891 ; BPH (benign prostatic hyperplasia) N40.0 ; History of seizure Z87.898 ; Prostate cancer C61 and Overweight (BMI 25.0-29.9) E66.3 Stephon Ventura III, MD [address] [place] [address] [place] [address] 01/01/2025 Stephon Ventura Hypertension I10 ; History of seizure Z87.898 ; PVD (peripheral vascular disease) I73.9 ; Hyperlipidemia E78.5 ; Glaucoma, unspecified glaucoma type, unspecified laterality H40.9 ; Former smoker Z87.891 ; Overweight (BMI 25.0-29.9) E66.3 ; Carotid stenosis, right I65.21 and Vitamin D deficiency, unspecified E55.9 Stephon Ventura III, MD [address] [place] [address] [place] [address] 01/22/2025 Stephon Ventura Hypertension I10 ; P VD (peripheral vascular disease) I73.9 ; History of seizure Z87.898 ; Hyperlipidemia E78.5 ; Prostate cancer C61 ; Glaucoma, unspecified glaucoma type, unspecified laterality H40.9 ; Former smoker Z87.891 and Vitamin D deficiency, unspecified E55.9 Stephon Ventura III, MD [address] [place] [address] [place] [address] 06/08/2024 Stephon Ventura III, MD [address] [place] [address] [place] [address] 08/04/2024 Stephon Ventura III, MD [address] [place] [address] [place] [address] 01/08/2025 Stephon Ventura III, MD [address] [place] [address] [place] [address] 01/24/2025 Stephon Ventura III, MD [address] [place] [address] [place] [address] 02/14/2025 Stephon Ventura Assessments Encounter Date Diagnosis (ICD Code) Assessment Notes Treat ment Notes Treatment Clinical Notes 05/09/2024 Hypertension (ICD-10 - I10) His blood [...] and was hospitalized for several days at [facility]. Imaging of the brain showed [...] and was hospitalized for several days at [facility]. Imaging of the brain showed no stroke.I recommended he continue his Keppra. He is adamant that he will not take that medication or any other at this time. He has been noncompliant past but did agree to followed carefully in the office. I will continue to work with this difficult patient. He did agree not to drive. 10/20/2024 Hypertension (ICD-10 - I10) His blood [...] arranged. He has had no recent seizures. 01/01/2025 Hypertension (ICD-10 - I10) His blood pressure is currently stable and no change in his regimen was necessary. 01/01/2025 History of seizure (ICD-10 - Z87.898) He has had no seizures and says he is compliant with the phenytoin. 01/22/2025 Hypertension (ICD-10 - I10) His blood [...] and was referred to vascular surgery at [facility] in June 2024. Repair was planned after his seizures were corrected. He will be referred back there at this time. 05/09/2024 Hyperlipidemia (ICD-10 - E78.5) His total [...] he seems asymptomatic at this time. 10/20/2024 PVD (peripheral vascular disease) (ICD-10 - I73.9) He has mild claudication. 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 01/01/2025 PVD (peripheral vascular disease) (ICD-10 - I73.9) He has mild claudication. 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 01/22/2025 History of seizure (ICD-10 - Z87.898) He has had no seizures and says he is compliant with the phenytoin. 05/09/2024 Overweight (BMI 25.0-29.9) (ICD-10 - E66.3) His body mass index is 26. We discussed diet and nutrition today. We reviewed his weight loss strategy. 06/19/2024 Cataract, unspecified cataract type, unspecified laterality (ICD-10 - H26.9) He will remain under the care of his senior data analyst. 07/31/2024 Hyperlipidemia (ICD-10 - E78.5) His total [...] in times of stress and illness. 10/20/2024 Hyperlipidemia (ICD-10 - E78.5) His total cholesterol has increased from 120 to 202. He has stopped taking his statin and refuses to consider resuming it. He could give me a no code reason for doing so, except that he thinks it is bad to take statin medication. 01/01/2025 Hyperlipidemia (ICD-10 - E78.5) His total cholesterol has increased from 120 to 202. He has stopped taking his statin and refuses to consider resuming it. He could give me a no code reason for doing so, except that he thinks it is bad to take statin medication. 01/22/2025 Hyperlipidemia (ICD-10 - E78.5) Comprehensive blood work for the fasting lipid profile has been ordered to be done in the near future. 05/09/2024 Former smoker (ICD-10 - Z87.891) He seems highly motivated not to smoke. We discussed a plan to prevent relapse in times of stress and illness. 06/19/2024 Glaucoma, unspecified glaucoma type, unspecified laterality (ICD-10 - H40.9) He will remain under the care of his senior data analyst with no change in his medications. 07/31/2024 [...] in times of stress and illness. 01/01/2025 Glaucoma, unspecified glaucoma type, unspecified laterality (ICD-10 - H40.9) He will remain under the care of his senior data analyst with no change in his medications. 01/22/2025 Prostate cancer (ICD-10 - C61) PSA has been ordered. He is currently free of symptoms. 05/09/2024 BPH (benign prostatic hyperplasia) (ICD-10 - [...] today. We reviewed his weight loss strategy. 10/20/2024 BPH (benign prostatic hyperplasia) (ICD-10 - N40.0) He says he arises from sleep twice a night sometimes once and sometimes 3 times to urinate. We have discussed lifestyle modification as a way of reducing nocturia. 01/01/2025 Former smoker (ICD-10 - Z87.891) He seems highly motivated not to smoke. We discussed a plan to prevent relapse in times of stress and illness. 01/22/2025 Glaucoma, unspecified glaucoma type, unspecified laterality (ICD-10 - H40.9) He will remain under the care of his senior data analyst with no change in his medications. 05/09/2024 Noncompliance with medications (ICD-10 - Z91.148) [...] he is compliant with the phenytoin. 01/01/2025 Overweight (BMI 25.0-29.9) (ICD-10 - E66.3) His body mass index is 26. We discussed diet and nutrition today. We reviewed his weight loss strategy. 01/22/2025 Former smoker (ICD-10 - Z87.891) He seems highly motivated not to smoke. We discussed a plan to prevent relapse in times of stress and illness. 05/09/2024 Seizure disorder (ICD-10 - G40.909) He had a seizure May 05, 2024 at home and was hospitalized for several days at [facility]. Imaging of the brain showed [...] as a way of reducing nocturia. 10/20/2024 Prostate cancer (ICD-10 - C61) He saw urology yesterday and received a leuprolide injection. His prostate cancer is in remission at this time. 01/01/2025 Carotid stenosis, right (ICD-10 - I65.21) The right neck is well-healed at this time and there is a good pulse. 01/22/2025 Vitamin D deficiency, unspecified (ICD-10 - E55.9) He continues on supplementation. 06/19/2024 Carotid stenosis, right (ICD-10 - I65.21) [...] and he was encouraged to continue it. 10/20/2024 Overweight (BMI 25.0-29.9) (ICD-10 - E66.3) His body mass index is 26. We discussed diet and nutrition today. We reviewed his weight loss strategy. 01/01/2025 Vitamin D deficiency, unspecified (ICD-10 - E55.9) He continues on supplementation. 06/19/2024 Occlusion and stenosis of left posterior [...] C) 12/31/2023 PROFILE, FASTING (COMPREHENSIVE METABOLI C) 01/22/2025 PROFILE, FASTING (COMPREHENSIVE METABOLI C) 08/10/2022 PROFILE, FASTING (COMPREHENSIVE METABOLI C) 01/11/2023 PROFILE, FASTING (COMPREHENSIVE METABOLI C) 11/16/2023 PROFILE, FASTING (COMPREHENSIVE METABOLI C) 08/31/2022 PROFILE, RANDOM (COMPREHENSIVE METABOLIC ) 05/20/2022 LIPID PANEL 08/10/2022 LIPID PANEL 01/11/2023 LIPID PANEL 08/31/2022 DILANTIN (PHENYTOIN) 08/10/2022 PSA, TOTAL 08/31/2022 PSA, TOTAL 08/10/2022 PSA, TOTAL 07/06/2023 PSA, TOTAL 04/19/2023 PSA, TOTAL 10/09/2024 PSA, TOTAL 12/31/2023 PSA, TOTAL 01/22/2025 PSA, TOTAL 11/16/2023 PSA, TOTAL+FREE 05/20/2022 CBC w DIFF 01/11/2023 CBC w DIFF 08/31/2022 CBC w DIFF 08/10/2022 CBC w DIFF 05/20/2022 CBC w DIFF 10/09/2024 CBC w DIFF 01/22/2025 Echocardiogram 01/13/2021 Stress Test 01/13/2021 VITAMIN D 25-OH TOTAL 08/10/2022 VITAMIN D 25-OH TOTAL 12/31/2023 CBC WITH AUTO DIFF 12/31/2023 CBC WITH AUTO DIFF 11/16/2023 CBC WITH AUTO DIFF 07/06/2023 CBC WITH AUTO DIFF 04/19/2023 Lipid Panel 10/09/2024 Lipid Panel 01/22/2025 Lipid Panel 12/31/2023 Lipid Panel 11/16/2023 Lipid Panel 07/06/2023 Lipid Panel 04/19/2023 Vitamin D 25-OH Total 10/09/2024 Testosterone, Total 10/09/2024 Lamotrigine Lamictal 08/31/2022 Next Appt Details Provider Name:Stephon Ventura , 04/30/2025 02:15:00 PM, [address] [place] [address] [place], [address], Provider Name:Stephon Ventura , 01/07/2026 02:00:00 PM, [address] [place] [address] ANASTASIYA [place]A, [place], [address], Insurance Providers Payer Name Payer Address Payer Phone Subscriber Number Group Number Insured Name Patient Relationship to Insured Coverage Start Date Coverage End Date MEDICARE NGS [address] [place] [address] [id number] Michael Jenkins Self - patient is the [...] History Reason Date(Month/Year) Right carotid endarterectomy 2021 [facility] [place] June 2024
--- OUTSIDE RECORDS SUMMARY | 2025-03-02 15:47 | XMS_ITS | Encounter Summary ---
Author Organization [facility] Address [address] [place] [address] Care Team Providers Care Green Lumber Grader Name Role Phone Stephon Ventura Primary Care Provider [phone] Reason for Visit * Reason Onset Date Comments Appointment 10/20/2021 Encounter Details Date Type Department Care Team (Late st Contact Info) Description 10/20/2021 Telephone [facility] [address] [place] [address] Telephone Intake, Staff Appointment Social History Tobacco [...] again to schedule. Did update best number: [phone] Tanika's cell * Telephone Encounter - Cuca [...] a schedule. pls call to book//advice. Tanika [phone] * Telephone Encounter - Ashish Hernandez MD [...] this issue of nausea, vimpat and achalasia. [phone] * Telephone Encounter - Cuca Steiner - [...] to Angela. Pt can be reached at [phone]. documented in this encounter Plan of Treatment Not on file documented as of this encounter Visit Diagnoses Not on filedocumented in this encounter Care Teams Green Lumber Grader Relationship Specialty Start Date End Date Stephon Ventura [facility] [address] PCP - General Hematology 06/05/21 documented as of this encounter
--- OUTSIDE RECORDS SUMMARY | 2025-03-02 15:47 | XMS_ITS | Encounter Summary ---
Author Organization [facility] Address [address] [place] [address] Care Team Providers Care Pantograph Machine Set Up Operator Name Role Phone Stephon Ventura Primary Care Provider [phone] Encounter Details Date Type Department Care Team (Late st Contact Info) Description 07/29/2021 Orders Only [facility] [address] [place] [address] Sabas Herzog [address] [facility] [place] [address] Social History Tobacco Use Types Packs/Day Years Used Date Smoking Tobacco: Never Assessed Sex and Gender Information Value Date Recorded Sex Assigned at Not on file Legal Sex Male 10:20 AM EST Gender Identity Not on file Sexual Orientation Not on file documented as of this encounter Plan of Treatment Not on file documented as of this encounter Procedures * Due to [place] [employer] law, this organization might not be sharing negative HIV tests. Procedure Name Priority Date/Time Associated Diagnosis Comments AMB EXTERNAL MRI BRAIN, OUTS SHANE RESULT Routine 06/27/2021 documented in this encounter Results * Due to [place] [employer] law, this organization might not be sharing negative HIV tests. * MRI Brain, Outside Result (06/27/2021) Anatomical Region Laterality Modality Other Sabas Herzog AMB EXTERNAL RESULT PROCEDURES Final Result documented in this encounter Visit Diagnoses Not on filedocumented in this encounter Care Teams Pantograph Machine Set Up Operator Relationship Specialty Start Date End Date Stephon Ventura [address] [facility] [address] [place] [address] PCP - General Hematology 06/05/21 documented as of this encounter
--- OUTSIDE RECORDS SUMMARY | 2025-03-02 15:47 | XMS_ITS | Encounter Summary ---
Author Organization [facility] Address [address] [place] [address] Care Team Providers Care Software Reliability Engineer Name Role Phone Stephon Ventura Primary Care Provider [phone] Encounter Details Date Type Department Care Team (Late st Contact Info) Description 06/05/2021 Orders Only [facility] [address] [place] [address] Provider, Unknown, [address] [place] [address] Social History Tobacco Use Types Packs/Day Years Used Date Smoking Tobacco: Never Assessed Sex and Gender Information Value Date Recorded Sex Assigned at Not on file Legal Sex Male 10:20 AM EST Gender Identity Not on file Sexual Orientation Not on file documented as of this encounter Plan of Treatment Not on file documented as of this encounter Procedures * Due to [place] [employer] law, this organization might not be sharing negative HIV tests. Procedure Name Priority Date/Time Associated Diagnosis Comments AMB EXTERNAL CT HEAD, OUTSID E RESULT Routine 06/22/2018 documented in this encounter Results * Due to [place] [employer] law, this organization might not be sharing negative HIV tests. * CT Head, Outside Result (06/22/2018) Anatomical Region Laterality Modality Other us Unknown Provider MD NELSON EXTERNAL RESULT PROCEDUR ES Final Result documented in this encounter Visit Diagnoses Not on filedocumented in this encounter Care Teams Software Reliability Engineer Relationship Specialty Start Date End Date Stephon Ventura [address] [facility] [address] [place] [address] PCP - General Hematology 06/05/21 documented as of this encounter
--- OUTSIDE RECORDS SUMMARY | 2025-03-02 15:48 | XMS_ITS | Clinical Summary ---
Author Organization [facility] Address [address] [place] [address] Care Team Providers Care Electronic Systems Security Assessment Name Role Phone Stephon Ventura Primary Care Provider [phone] Allergies No known active allergies Medications lisinopriL [...] Basic Metabolic Panel 04/15/2023 04/15/2022 , 07/23/2021 Alcohol/Substance Use Screening 06/07/2024 Depression Screening and Follow-Up 06/07/2024 Fall Risk Screening 06/07/2024 Health Care Proxy Review 06/07/2024 Social Drivers of Health Annual Screening 06/07/2024 COVID-19 Vaccine (3 - 2024-2 6 season) 2025 08/09/2020, 07/19/2020 Influenza Vaccine (#1) 2025 Statin Therapy Completed 02/21/2021 Hepatitis B Vaccines Aged Out No long er eligible based on patient's age to complete this topic Procedures * Due to [place] [employer] law, this organization might not be sharing negative HIV tests. Procedure Name Priority Date/Time Associated Diagnosis Comments COMPREHENSIVE METABOLIC PANEL Routine 04/15/2022 2:59 PM EST Partial symptomatic epilepsy with complex partial seizures, not intractable, without status epilepticus from Last 3 Months or Most Recently Relevant to Health Maintenance Results * Due to [place] [employer] law, this organization might not be sharing [...] MD LAB BLOOD ORDERABLES Final Resul t [email or web address] [address] [place] [address], from Last 3 Months or Most Recently Relevant to Health Maintenance Insurance MEDICARE [facility] Care Teams Electronic Systems Security Assessment Relationship Specialty Start Date End Date Stepohn Ventura [facility] [address] PCP - General Hematology 06/05/21
--- OUTSIDE RECORDS SUMMARY | 2025-03-02 15:48 | XMS_ITS | Encounter Summary ---
Author Organization [facility] Address [address] [place] [address] Care Team Providers Care Vice President Of Finance Name Role Phone Stephon Ventura Primary Care Provider [phone] Encounter Details Date Type Department Care Team (Late st Contact Info) Description 09/30/2022 Telephone [facility] Central Scheduling Department [address] [place] [id number] Telephone Intake, Staff Social History Tobacco Use [...] days of 10/20 appointment. Please call: Viktoria: [phone] documented in this encounter Plan of Treatment Not on file documented as of this encounter Visit Diagnoses Not on filedocumented in this encounter Care Teams Vice President Of Finance Relationship Specialty Start Date End Date Stephon Ventura [address] [facility] [address] [place] [id number] PCP - General Hematology 06/05/21 documented as of this encounter
== END 2025-03-02 15:19 | disposition home or self-care (01) ==
LOC: HO.US 15:18
PROVIDERS: PCP Internal Medicine Medical Oncology; Visit Provider Surgery Vascular Surgery
DX: I65.23 Occlusion and stenosis of bilateral carotid arteries (principal)
CPT/HCPCS: 93880

== ENCOUNTER → 2025-03-02 15:21 | Outpatient (BNV) | payer MEDICARE, SELFPAY | PROVIDERS: PCP Internal Medicine Medical Oncology; Visit Provider Radiology Diagnostic Radiology | DX: I65.23 Occlusion and stenosis of bilateral carotid arteries (principal) | CPT/HCPCS: 93880 ==

== ENCOUNTER 2025-03-08 13:59 | Outpatient (AMB) | payer MEDICARE, SELFPAY ==
--- OUTSIDE RECORDS SUMMARY | 2025-01-01 10:00 | XMS_ITS ---
Author Organization Stephon Ventura III, MD Address [address] [place], [place] [address] Care Team Providers Care Automotive Product Engineer Name Role Phone Dr. Stephon Ventura III Primary Care Provider [phone] Allergies Allergen (clinical drug ingredient) Drug/Non Drug Allergy documented on EMR Reaction Allergy Type Onset Date Status No Known Drug Allergy Unknown Drug Allergy Active No Known Food Allergy Unknown Drug Allergy Active REASON FOR VISIT Annual Exam Medications Medication SIG (Take, Route, Frequency, Duration) Notes Start Date End Date Status Carvedilol 6.25 MG TAKE 1 TABLET BY SHANTA TH TWICE DAILY WITH FOOD Active Dorzolamide HCl-Timolol Mal 22.3-6.8 MG/ML 1 drop into affected eye Ophthalmic Twice a day 08/31/2022 Active lamoTRIgine 100 MG 1 tablet Orally 3 ti mes a day Active levETIRAcetam 750 MG 1 tablet Orally eliecer ry 12 hrs 05/09/2024 Active amLODIPine Besylate 10 MG 1 tablet Orall y Once a day Active Aspirin Low Dose 81 MG 1 tablet Orally O nce a day Active Atorvastatin Calcium 80 MG TAKE 1 TABLET BY MOUTH EVERY DAY Active Latanoprost 0.005 % INSTILL 1 DROP IN MARGAUX TH EYES AT BEDTIME Ophthalmic Active Lisinopril 20 MG TAKE 1 TABLET BY SHANTA TH TWICE DAILY Active Carvedilol 6.25 MG 1 tablet with food Orally Twice a day for 30 days 01/01/2025 Active Social History Tobacco Use: Social History Observation Description Date Details (start date - stop date) Former Smoker NA - NA Sex Assigned At : Social History Observation Description Sex Assigned At Male Tobacco Control (Standard) Question Answer Notes Tobacco use: Former smoker How long has it been since you last smoked? Grea ter than 10 years Additional Findings: Tobacco non-user Ex-cigaret te smoker AUDIT-C (Standard) Question Answer Notes Did you have a drink contain ing alcohol in the past year? Yes How often did you have six o r more drinks on one occasion in the past year? 2 to 3 times per week (3 points) How many drinks did you have on a typical day when you were drinking in the past year? 1 or 2 drinks (0 point) How often did you have a dri nk containing alcohol in the past year? Never (0 point) Points 3 Interpretation Negative Vital Signs Temperature 97.3 degrees Fahrenheit 01/02/20 25 Blood pressure systolic 135 mm Hg 01/02/20 25 Blood pressure diastolic 74 mm Hg 025 Heart Rate 63 /min 01/01/2025 Height 67 in 01/01/2025 Weight 165 lbs 01/01/2025 BMI 25.84 kg/m2 01/01/2025 Encounters Encounter Location Date Provider Diagnosis Stephon Ventura III, MD [address] [place] [address] [place] [address] 01/01/2025 Stephon Ventura Hypertension I10 ; History of seizure Z87.898 ; PVD (peripheral vascular disease) I73.9 ; Hyperlipidemia E78.5 ; Glaucoma, unspecified glaucoma type, unspecified laterality H40.9 ; Former smoker Z87.891 ; Overweight (BMI 25.0-29.9) E66.3 ; Carotid stenosis, right I65.21 and Vitamin D deficiency, unspecified E55.9 Assessments Encounter Date Diagnosis (ICD Code) Assessment Notes Treat ment Notes Treatment Clinical Notes 01/01/2025 Hypertension (ICD-10 - I10) His blood pressure is currently stable and no change in his regimen was necessary. 01/01/2025 History of seizure (ICD-10 - Z87.898) He has had no seizures and says he is compliant with the phenytoin. 01/01/2025 PVD (peripheral vascular disease) (ICD-10 - I73.9) He has mild claudication. 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 01/01/2025 Hyperlipidemia (ICD-10 - E78.5) His total cholesterol has increased from 120 to 202. He has stopped taking his statin and refuses to consider resuming it. He could give me a no code reason for doing so, except that he thinks it is bad to take statin medication. 01/01/2025 Glaucoma, unspecified glaucoma type, unspecified laterality (ICD-10 - H40.9) He will remain under the care of his sports equipment supervisor with no change in his medications. 01/01/2025 Former smoker (ICD-10 - Z87.891) He seems highly motivated not to smoke. We discussed a plan to prevent relapse in times of stress and illness. 01/01/2025 Overweight (BMI 25.0-29.9) (ICD-10 - E66.3) His body mass index is 26. We discussed diet and nutrition today. We reviewed his weight loss strategy. 01/01/2025 Carotid stenosis, right (ICD-10 - I65.21) The right neck is well-healed at this time and there is a good pulse. 01/01/2025 Vitamin D deficiency, unspecified (ICD-10 - E55.9) He continues on supplementation. Plan Of Treatment Medication Medication Name Sig Start Date Stop Date Notes Carvedilol 6.25 MG TAKE 1 TABLET BY SHANTA TH TWICE DAILY WITH FOOD Dorzolamide HCl-Timolol Mal 22.3-6.8 MG/ML 1 drop into affected eye Ophthalmic Twice a day 08/31/2022 lamoTRIgine 100 MG 1 tablet Orally 3 ti mes a day levETIRAcetam 750 MG 1 tablet Orally eliecer ry 12 hrs 05/09/2024 amLODIPine Besylate 10 MG 1 tablet Orally Once a day Aspirin Low Dose 81 MG 1 tablet Orally Once a day Atorvastatin Calcium 80 MG TAKE 1 TABLET BY MOUTH EVERY DAY Latanoprost 0.005 % INSTILL 1 DROP IN MARGAUX TH EYES AT BEDTIME Ophthalmic Lisinopril 20 MG TAKE 1 TABLET BY SHANTA TH TWICE DAILY Carvedilol 6.25 MG 1 tablet with food O rally Twice a day for 30 days 01/01/2025 Next Appt Details Follow Up: 1 Week, Reason: O V Provider Name:Stephon Ventura , 04/30/2025 02:15:00 PM, [address] [facility] [place], [place], [address], Provider Name:Stephon Ventura , 01/07/2026 02:00:00 PM, [address] [place] [address] [address] [place], [place], [address], Progress Notes * Michael JENKINSDOB:1940 (84 yo M)Acc No.[id number]:01/01/2025 Progress Notes Patient: Michael [facility] Provider: Karlos Ventura MD :1940 A ge:84 Y S ex:Male Date:01/01/2025 Address:[address] [place], [place] [phone] Subjective: * Chief Complaints: * A nnual Exam * HPI: D epression Screening: He returns to the office at the age of 84 for his annual physical examination. Since his last visit he has been stable. 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 He says he feels well and younger than his age. He has some heaviness in his legs and feet. He has had a right carotid surgery. He denies any recent seizures and says he has been compliant with medication. Recent blood work is not available but was ordered today. A followup visit was arranged. No changes were made in his medications. PHQ-9 L ittle interest or pleasure in doing things?Several days F eeling down, depressed, or hopeless S everal days T rouble falling or staying asleep, or sleeping too much M ore than half the days F eeling tired or having little energy M ore than half the days P oor appetite or overeating N ot at all F eeling bad about yourself or that you are a failure, or have let yourself or your family down S everal days T rouble concentrating on things, such as reading the newspaper or watching television S everal days M oving or speaking so slowly that other people could have noticed; or the opposite, being so fidgety or restless that you have been moving around a lot more than usual N ot at all T houghts that you would be better off or of hurting yourself in some way S everal days (Consider Suicide Assessment Risk) T otal Score 9 I nterpretation M ild Depression C OVID-19 Screening: no seizures, annual exam 84,. Questions H ave you had any new onset fever, chills, cough, congestion, sore throat, shortness of breath, muscle aches? N o F all Risk Screening: Fall History H ave you had any falls with injury in the past year? N o H ave you had two or more falls in the past year? N o F all Risk Assessment: O ne fall without injury in the past year S DIOGO Questions: SDOH Questions I n the past year have you been worried about losing your housing? N o I n the past year have you or any family members you live with been unable to get any of the following when it was really needed? Check all that apply: D ecline to answer * ROS: G eneral/Constitutional: pain o nly normal aches and pains. C hills d enies.?Fatigue a dmits. F ever d enies. E NT: Decreased hearing m ild. R espiratory: Cough d enies. C ardiovascular: Chest pain with exertion d enies. D yspnea on exertion?denies. S hortness of breath d enies. G astrointestinal: Constipation d enies. D ecreased appetite d enies.?Diarrhea d enies. H eartburn d enies. N ausea d enies. R ectal bleeding?denies. V omiting d enies. H ematology: bruising d enies. p etechiae d enies. S wollen glands n one have been noted. G enitourinary: Frequent urination o nce a night. M usculoskeletal: Muscle aches d enies. P ainful joints F ingers.?Sciatica d enies. W eakness d enies. S [...] yrs, old age. M other: 63 yrs, CAD,[place], diagnosed with HTN, CVD. C hildren: alive, Oldest daughter., diagnosed with CVD. S [place]: . 4 brother(s) , 2 sister(s) . [...] Social History: T obacco Use: T obacco Control (Standard) T obacco use: F ormer smoker H ow long has it been since you last smoked??Greater than 10 years A dditional Findings: Tobacco non-user E x-cigarette smoker D rugs/Alcohol: D rugs H ave you used drugs other than those for medical reasons in the past 12 months? Y es M arijuana? Y es D rug/Alcohol: A AB-C (Standard) D id you have a drink containing alcohol in the past year? Y es H ow often did you have six or more drinks on one occasion in the past year? 2 to 3 times per week (3 points) H ow many drinks did you have on a typical day when you were drinking in the past year? 1 or 2 drinks (0 point) H ow often did you have a drink containing alcohol in the past year? N ever (0 point) P oints 3 I nterpretation N egative Tiffani mccallum was born in [facility]. He is not a Congregational. He is and lives by himself. He has 2 sons and 3 daughters. They are healthy and well. He is not currently working. Uses marijuana daily. * Medications: T akingAspirin Low Dose 81 MG Tablet Delayed Release 1 tablet Orally Once a day Atorvastatin Calcium 80 MG Tablet TAKE 1 TABLET BY MOUTH EVERY DAY Lisinopril 20 MG Tablet TAKE 1 TABLET BY MOUTH TWICE DAILY Latanoprost 0.005 % Solution INSTILL 1 DROP IN BOTH EYES AT BEDTIME Ophthalmic Dorzolamide HCl-Timolol Mal 22.3-6.8 MG/ML Solution 1 drop into affected eye Ophthalmic Twice a day levETIRAcetam 750 MG Tablet 1 tablet Orally every 12 hrs lamoTRIgine 100 MG Tablet 1 tablet Orally 3 times a day Taking Aspirin Low Dose 81 MG Tablet Delayed Release 1 tablet Orally Once a day Taking Atorvastatin Calcium 80 MG Tablet TAKE 1 TABLET BY MOUTH EVERY DAY Taking Lisinopril 20 MG Tablet TAKE 1 TABLET BY MOUTH TWICE DAILY Taking Latanoprost 0.005 % Solution INSTILL 1 DROP IN BOTH EYES AT BEDTIME Ophthalmic Taking Dorzolamide HCl-Timolol Mal 22.3-6.8 MG/ML Solution 1 drop into affected eye Ophthalmic Twice a day Taking levETIRAcetam 750 MG Tablet 1 tablet Orally every 12 hrs Taking lamoTRIgine 100 MG Tablet 1 tablet Orally 3 times a day Not-Taking/PRNamLODIPine Besylate 10 MG Tablet 1 tablet Orally Once a day Not-Taking/PRN amLODIPine Besylate 10 MG Tablet 1 tablet Orally Once a day DiscontinuedOmeprazole 20 MG Capsule Delayed Release TAKE 1 CAPSULE BY MOUTH EVERY DAY 30 MINUTES BEFORE BREAKFAST Vitamin D 25 MCG (1000 UT) Tablet as directed Orally Once a day Medication List reviewed and reconciled with the patientDiscontinued Omeprazole 20 MG Capsule Delayed Release TAKE 1 CAPSULE BY MOUTH EVERY DAY 30 MINUTES BEFORE BREAKFAST Discontinued Vitamin D 25 MCG (1000 UT) Tablet as directed Orally Once a day Medication List reviewed and reconciled with the patient * Allergies: N o Known Drug AllergyNo Known Food Allergyno[Allergies Verified] Objective: * Vitals: H t: 67, Wt:165, BMI:25.84, BP:135/74, HR:63, Temp:97.3, Wt-k.84. * Examination: G eneral Examination: GENERAL APPEARANCE: p leasant, well nourished, well developed, in no acute distress, calm and relaxed: overweight: elderly man. HEAD: a traumatic, normocephalic. EYES: e jewell, perrla, anicteric, conjugate. EARS: n ormal. NOSE: s eptum intact. ORAL CAVITY: n ormal, unremarkable. NECK/THYROID: n o jugular venous distention, no carotid bruit, thyroid normal, Old surgical scar over her right carotid. LYMPH NODES: n o enlarged lymph nodes,spleen normal. SKIN: n o suspicious lesions, anicteric. HEART: n o clicks, gallops, murmurs, or rubs, regular rhythm, S1, S2 normal, no s3, or vascular bruits. LUNGS: c lear to auscultation . BREASTS: no masses palpable bilaterally. ABDOMEN: b owel sounds normal, no ascites, no organomegaly, no mass: : overweight. RECTAL EXAM: n ot examined. MUSCULOSKELETAL: e xtremities unremarkable, no clubbing, cyanosis or edema. PERIPHERAL PULSES: n ormal. NEUROLOGIC: a lert and oriented, cranial nerves 2-12 grossly intact, deep tendon reflexes 2+ symmetrical, motor strength normal upper and lower extremities, sensory exam intact. PSYCH: a lert, oriented. Assessment: * Assessment: 1. H istory of seizure - Z87.898 (Primary) N otes :He has had no seizures and says he is compliant with the phenytoin. 2 . H ypertension - I10 N otes :His blood pressure is currently stable and no change in his regimen was necessary. 3 . P VD (peripheral vascular disease) [...] bad to take statin medication. 5 . G laucoma, unspecified glaucoma type, unspecified laterality - H40.9 ? N otes :He will remain under the care of his sports equipment supervisor with no change in his medications. 6 . F ormer smoker - Z87.891 N otes :He seems highly motivated not to smoke. We discussed a plan to prevent relapse in times of stress and illness. 7 . O verweight (BMI 25.0-29.9) - E66.3 N otes :His body mass index is 26. We discussed diet and nutrition today. We reviewed his weight loss strategy. 8 . C arotid stenosis, right - I65.21 N otes :The right neck is well-healed at this time and there is a good pulse. 9 . V itamin D deficiency, unspecified - E55.9 N otes :He continues on supplementation. Plan: * Treatment: 2. H ypertension Continue Aspirin Low Dose Tablet Delayed Release, 81 MG, 1 tablet, Orally, Once a day; C ontinue Atorvastatin Calcium Tablet, 80 MG, TAKE 1 TABLET BY MOUTH EVERY DAY; C ontinue Lisinopril Tablet, 20 MG, TAKE 1 TABLET BY MOUTH TWICE DAILY; C ontinue levETIRAcetam Tablet, 750 MG, 1 tablet, Orally, every 12 hrs; S tart Carvedilol Tablet, 6.25 MG, 1 tablet with food, Orally, Twice a day, 30 days, 60, Refills 11. 3. P VD (peripheral vascular disease) Continue Latanoprost Solution, 0.005 %, INSTILL 1 DROP IN BOTH EYES AT BEDTIME, Ophthalmic; C ontinue Dorzolamide HCl-Timolol Mal Solution, 22.3-6.8 MG/ML, 1 drop into affected eye, Ophthalmic, Twice a day. * Procedure Codes: * Preventive Medicine: Counseling: C are goal follow-up plan: Counseling for abnormal BMI given Y es Above Normal BMI Follow-up D ietary management education, guidance, and counseling S moking/Tobacco Use Patient counseled on the dangers of tobacco use and urged to quit. 0 01/01/2025 * Follow Up: 1 Week (Reason: OV) * Images: * Sign off status: Completed true * Provider: Karlos Ventura MD Date: 0 01/01/2025 Generated for Claudia engle/Joanna/Gurdeep on: 1 03:37 PM EDT History and Physical Notes * HPI (History of Present Illness) Category Sub-Category Detail Notes Depression Screening PHQ-9 Little inte rest or pleasure in doing things: Several days Feeling down, depressed, or hopeless: Se veral days Trouble falling or staying a sleep, or sleeping too much: More than half the days Feeling tired or having little energy: M ore than half the days Poor appetite or overeating: Not at all Feeling bad about yourself o r that you are a failure, or have let yourself or your family down: Several days Trouble concentrating on thi ngs, such as reading the newspaper or watching television: Several days Moving or speaking so slowly that other people could have noticed; or the opposite, being so fidgety or restless that you have been moving around a lot more than usual: Not at all Thoughts that you would be b dhruv off or of hurting yourself in some way: Several days (Consider Suicide Assessment Risk) Total Score: 9 Interpretation: Mild Depression Fall Risk Screening Fall History Have you had any falls with injury in the past year?: No Have you had two or more falls in the year?: No Fall Risk Assessment:: One fall without injury in the past year COVID-19 Screening Questions Have you had any new onset fever, chills, cough, congestion, sore throat, shortness of breath, muscle aches?: No SDOH Questions SDOH Questions In the past year have you been worried about losing your housing?: No In the past year have you or any family members you live with been unable to get any of the following when it was really needed? Check all that apply:: Decline to answer Examination Category Sub-Category Detail Notes General Examination GENERAL APPEARANCE: pleasant , well nourished, well developed, in no acute distress, calm and relaxed: overweight: elderly man HEAD: atraumatic, normocep halic EYES: eomi, perrla, anicte alma, conjugate EARS: normal NOSE: septum intact NECK/THYROID: no jugular venous di stention, no carotid bruit, thyroid normal, Old surgical scar over her right carotid HEART: no clicks, gallops, murmurs, or rubs, regular rhythm, S1, S2 normal, no s3, or vascular bruits LUNGS: clear to auscultatio n ABDOMEN: bowel sounds normal, no ascites, no organomegaly, no mass: : overweight NEUROLOGIC: alert and oriented, cranial nerves 2-12 grossly intact, deep tendon reflexes 2+ symmetrical, motor strength normal upper and lower extremities, sensory exam intact SKIN: no suspicious lesion s, anicteric PERIPHERAL PULSES: normal BREASTS: no masses palpable b ilaterally MUSCULOSKELETAL: extremities unremark able, no clubbing, cyanosis or edema LYMPH NODES: no enlarged lymph no endy,spleen normal RECTAL EXAM: not examined PSYCH: alert, oriented ORAL CAVITY: normal, unremarkable
--- OUTSIDE RECORDS SUMMARY | 2025-01-08 12:20 | XMS_ITS ---
Author Organization Stephon Ventura III, MD Address [address] [address] Care Team Providers Care Lead Pony Rider Name Role Phone Dr. Stephon Ventura III Primary Care Provider REASON FOR VISIT Needs call back from Social History Sex Assigned At : Social History Observation Description Sex Assigned At Male Encounters Encounter Location Date Provider Diagnosis Stephon Ventura III, MD [address] [place] [address] [place] [address] 01/08/2025 Stephon Ventura Plan Of Treatment Next Appt Details Provider Name:Stephon Ventura , 04/30/2025 02:15:00 PM, [address] [place] [address] [address]ERRERA, [place], [address], Provider Name:Stephon Ventura , 01/07/2026 02:00:00 PM, [address] [place] [address] [place], [address], Progress Notes * Michael JENKINSDOB:1940 (84 yo M)Acc No.[id number]:01/08/2025 Patient: Michael SIU :1940 A ge:84 Y S ex:Male Address:[address] [place] [address], [phone] * true * Date: Generated for Evertoni ng/Facitlalyg/eTransmitting on: 03:37 PM EDT
--- OUTSIDE RECORDS SUMMARY | 2025-01-22 09:30 | XMS_ITS ---
Author Organization Stephon Ventura III, MD Address [address] [place], [place] [address] Care Team Providers Care Body Cleaner Name Role Phone Dr. Stephon Ventura [...] Date Provider Diagnosis Stephon Ventura III, MD [address] [place] [address] [place] [address] 01/22/2025 Stephon Ventura Hypertension I10 ; P [...] and was referred to vascular surgery at [facility] in June 2024. Repair was planned after [...] will remain under the care of his fluxer with no change in his medications. 01/22/2025 [...] Provider Name:Stephon Ventura , 04/30/2025 02:15:00 PM, [address] [place] [address] [address], [place], [address], Provider Name:Stephon Ventura , 01/07/2026 02:00:00 PM, [address] [place] [address] [address], [place], [address], Progress Notes * Michael JENKINSDOB:1940 (84 yo M)Acc No.[id number]:01/22/2025 Progress Notes Patient: Michael SIU Provider: Karlos Ventura MD :1940 A ge:84 Y S ex:Male Date:01/22/2025 Address:[address] [place], [place] [phone] Subjective: * Chief Complaints: * R ight [...] yrs, CAD,[place], diagnosed with HTN, CVD. C clayton: alive, [...] smoker Tiffani mccallum was born in [facility]. He is not a Caodaism. He is and lives by himself. He [...] and was referred to vascular surgery at [facility] in June 2024. Repair was planned after [...] will remain under the care of his fluxer with no change in his medications. 7 [...] 01/22/2025 Generated for Claudia engle/Joanna/Gurdeep on: 1 03:37 [...]
--- OUTSIDE RECORDS SUMMARY | 2025-01-24 05:47 | XMS_ITS ---
Author Organization Stephon Ventura III, MD Address [address] [place] [place] [address] Care Team Providers Care Salvage Inspector Wood Parts Name Role Phone Dr. Stephon Ventura III Primary Care Provider REASON FOR VISIT Vascular Appointment Social History Sex Assigned At : Social History Observation Description Sex Assigned At Male Encounters Encounter Location Date Provider Diagnosis Stephon Ventura III, MD [address] [place] [address] [place] [address] 01/24/2025 Stephon Ventura Plan Of Treatment Next Appt Details Provider Name:Stephon Ventura , 04/30/2025 02:15:00 PM, [address] [place] [address] [address], [place], [address], Provider Name:Stephon Ventura , 01/07/2026 02:00:00 PM, [address] [place] [address] [place], [address], Progress Notes * Michael JENKINSDOB:1940 (84 yo M)Acc No.[id number]:01/24/2025 Patient: Michael SIU :1940 A ge:84 Y S ex:Male Address:[address] [place] [address], [address] * true * Date: Generated for Evertoni ng/Facitlalyg/eTransmitting on: 03:37 PM EDT
--- OUTSIDE RECORDS SUMMARY | 2025-02-14 05:14 | XMS_ITS ---
Author Organization Stephon Ventura III, MD Address [address] [place] [address] Care Team Providers Care Silk Screen Etcher Name Role Phone Dr. Stephon Ventura III [...] Date Provider Diagnosis Stephon Ventura III, MD [address] [place] [address] [place] [address] 02/14/2025 Stephon Ventura Plan Of Treatment Next Appt Details Provider Name:Stephon Ventura , 04/30/2025 02:15:00 PM, [address] [place] [address] [place], [address], Provider Name:Stephon Ventura , 01/07/2026 02:00:00 PM, [address] [place] [address] [place], [address], Progress Notes * Michael JENKINSDOB:1940 (84 yo M)Acc No.[id number]:02/14/2025 Patient: Michael SIU :1940 A ge:84 Y S ex:Male Address:[address] [place] [phone] Subjective: * Chief Complaints: * * Medical [...] * Date: Generated for Claudia engle/Joanna/Gurdeep on: 03:37 PM EDT
[2025-03-08 14:08] VITALS: BMI 26.3
--- NOTE | 2025-03-08 14:08 | A.OFFVIS_ITS ---
Vital Signs 03/08/25 14:08 Height 5 ft 7 in Weight 168 lb BMI 26.3 Intake Visit Reasons: follow up Carotid US 03/02/25 Intake Note: follow up Carotid 03/02/25, Also followed up w/ neurology. Pt states he gets some salazar in his vision. 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 Apparently he has been seen by neuro. He has had breakthrough seizures. And he has had complex partial seizures he has been seen by neuro team asking for decrease marijuana use and they had prescribed lamotrigine 100 mg t.i.d.. The current time from carotid perspective he is asymptomatic. It was unfortunately very difficult to get a true review of systems from him. He is thoroughly confused about his overall status. I tried to explain it to him the best possible but appears to be doing relatively okay otherwise. [facility] Medical History Seizure disorder Stroke Seizures IBS (irritable bowel syndrome) CAD (coronary artery disease) AMS (altered mental status) High cholesterol HTN (hypertension) Surgical History H/O eye surgery History of carotid endarterectomy (~01/2022) Hx of tonsillectomy Hx of abdominal surgery Family History Father No problems noted. Mother Myocardial infarction Social History Household Members: Children Household Members Other:: daughter, son, and son's girlfriend Housing: House Are you a primary transitions rn care coordinator to a significant other at home: No Do you presently have visiting nurse or other home services: No Alcohol intake: never Patient Tobacco Use Status: Never used Tobacco e-Cigarette/Vaping Use: Never Used Second Hand Smoke Exposure: No Substance Use Type: Marijuana Advance Directives Date on File: 01/26/22 service: No Current occupational status: retired Review of Systems Const All systems reviewed & are unremarkable except as noted in HPI and below Reports no additional complaints ENT Reports Normal hearing present Card Denies chest pain, Denies chest pain at rest, Denies chest pain with activity and Denies pedal edema Resp Denies cough GI Denies abdominal pain Musc Denies abnormal gait, Denies muscle cramps and Denies radiating pain into limb Skin/Breast Denies skin ulcer and Denies wounds Neuro Reports Normal hearing present and Denies abnormal gait Psych Reports no additional complaints Physical Exam Vital Signs: BMI result Body Mass Index 26.3 Const General: cooperative, healthy appearing and comfortable Orientation/consciousness: oriented to person, oriented to place and oriented to time HEENT Head: Yes normal to inspection Neck Neck: Yes normal visual inspection Carotids: no bruits Chest Chest palpation & inspection: normal inspection of the chest Resp Effort & Inspection: normal respiratory effort and able to speak in complete sentences Auscultation: clear to auscultation bilaterally, no crackles, no rales, no rhonchi and no wheezes Cardio Rate: regular rate Rhythm: regular rhythm Heart sounds: S1 normal heart sound present and S2 normal heart sound present Bruits: no carotid bruits Peripheral pulses: Peripheral pulses 2+ throughout GI Inspection: Yes normal to inspection Skin Wounds: no wounds Hair: normal Neuro General: oriented to person, oriented to place and oriented to time Cranial nerves: Yes CN's II-XII intact bilaterally and Yes Normal hearing present Cognition (Neuro): normal cognition Motor exam (neuro): 5/5 motor strength present throughout Extrem Other: venous exam: No significant superficial varicosities or spider telangiectasias, minimal edema General: No clubbing, No cyanosis and No edema Psych Appearance: grossly normal Mental Status: mental status grossly normal Speech and movement: Normal speech and movement present Results Reviewed Results Reviewed: Carotid testing dated 03/02/2025 demonstrates right-sided 0-49 left side 50-79 although the peak systolic is only 167. Assessment & Plan Assessment & Plan (1) Bilateral carotid artery stenosis: Comment: 01/26/2022 - right carotid endarterectomy Code(s): I65.23 - Occlusion and stenosis of bilateral carotid arteries Category: Medical Plan: In short patient has stable carotid disease. At the current time I do not think we would ever able to perform any further intervention just due to his mental status. I recommend no further follow-up. I would never offer him surgery. Would recommend continued management with aspirin and statin. No need for future follow-up or surveillance carotid testing from our perspective. Thank you for allowing us to assist in his care. Coding Level of Care Code Est Pt Level 4 (75928) Diagnoses Bilateral carotid artery stenosis I65.23
--- OUTSIDE RECORDS SUMMARY | 2025-03-08 15:37 | XMS_ITS | Patient Health Record ---
Author Organization Stephon Ventura III, MD Address [address] [address] Care Team Providers Care Beam Warper Name Role Phone Dr. Stephon Ventura III Primary Care Provider Allergies Allergen (clinical drug ingredient) Drug/Non Drug Allergy documented on EMR Reaction Allergy Type Onset Date Status No Known Drug Allergy Unknown Drug Allergy Active No Known Food Allergy Unknown Drug Allergy Active Results Component Value Reference Range Notes US carotid duplex BI Reviewed date:03/03/2025 07:34:35 PM Interpretation: Performing Lab: Notes/Report: [address] [address] Ultrasound Report Signed Patient: Michael Jenkins MR#: [id number] 7 : 1940 Acct:[id number] Age/Sex: 84 / M ADM Date: 03/02/25 Loc: .US Attending Dr: Jose Alberto Ruvalcaba MD Ordering Physician: Jose Alberto Ruvalcaba MD Date of Service: 03/02/25 Procedure(s): US carotid duplex BI Accession Number(s): [id number] cc: Stephon Ventura MD; Jose Alberto Ruvalcaba MD Reason for Exam: I65.23 - Occlusion and stenosis of bilateral carotid arteries EXAMINATION: US EXTRACRANIAL CAROTID DUPLEX, BILATERAL CLINICAL INFORMATION: I65.23 - Occlusion and stenosis of bilateral carotid arteries COMPARISON: 05/18/2022 TECHNIQUE: Real-time ultrasound and Doppler techniques (integrating B-mode 2-D vascular images, Doppler spectral analysis and color-flow Doppler imaging) were utilized to interrogate the extracranial carotid arteries, the vertebral arteries and proximal subclavian arteries bilaterally. The degree of stenosis is determined by criteria similar to NASCET. FINDINGS: Right Side: 1. There is no atherosclerotic plaque seen in the bifurcation/proximal ICA region. 2. The common carotid artery PSV proximally is 91 cm/s and distally 78 cm/s. 3. The proximal internal carotid artery velocities are 123 cm/s systolic and 24 cm/s diastolic. 4. The proximal external carotid artery PSV is 120 cm/s. 5. The vertebral artery shows antegrade flow. 6. The subclavian artery waveforms are triphasic. ICA/CCA ratio is 1.35 Left Side: 1. There is severe atherosclerotic plaque seen in the bifurcation/proximal ICA region. 2. The common carotid artery PSV proximally is 52 cm/s and distally 47 cm/s. 3. The proximal internal carotid artery velocities are 167 centimeters per second, previously 190 cm/s systolic and 12 cm/s diastolic. 4. The proximal external carotid artery PSV is 136 cm/s. 5. The vertebral artery shows antegrade flow. 6. The subclavian artery waveforms are biphasic. ICA/CCA ratio = 3.2 US/US carotid duplex BI IMPRESSION: 1. RIGHT: No hemodynamically significant stenosis. 2. LEFT: No hemodynamically significant stenosis measuring 50-79%. 3. There is improvement in the category severity of disease when compared to the previous study dated 05/18/2022. Electronically signed by: Rashaad Pina MD 03/02/2025 05:06 PM EDT Dictated By: Rashaad Pina MD Signed By: <Electronically signed by Rashaad Pina MD in OV> 03/02/25 1706 DD/ 1528 TD/TT: 03/02/25 1541 Wearing Apparel Shaker: [address] [address] Ultrasound Report Signed Patient: Kemi Jenkins rd MR#: [id number] 7 : 1940 Acct:[id number] Age/Sex: 84 / M ADM Date: 03/02/25 Loc: . Attending Dr: Jose Alberto Ruvalcaba MD Ordering Physician: Jose Alberto Ruvalcaba MD Date of Service: 03/02/25 Procedure(s): US car otid duplex BI Accession Number(s): [id number] cc: Stephon Ventura MD; Jose Alberto Ruvalcaba MD Reason for Exam: I65 .23 - Occlusion and stenosis of bilateral carotid arteries EXAMINATION: US EXTRACRANIAL SALINAS TID DUPLEX, BILATERAL CLINICAL INFORMATION: I65.23 - Occlusion a nd stenosis of bilateral carotid arteries COMPARISON: 05/18/2022 TECHNIQUE: Real-time ultrasound and Doppler techniques (integrating B-mode 2-D vascular images, Dop pler spectral analysis and color-flow Doppler imaging) were utilized to interrog ate the extracranial carotid arteries, the vertebral arteries a nd proximal subclavian arteries bilaterally. The degree of stenosis i s determined by criteria similar to NASCET. FINDINGS: Right Side: 1. There is no ather osclerotic plaque seen in the bifurcation/proximal ICA region. 2. The common caroti d artery PSV proximally is 91 cm/s and distally 78 cm/s. 3. The proximal inte rnal carotid artery velocities are 123 cm/s systolic and 24 cm/s diastolic. 4. The proximal exte rnal carotid artery PSV is 120 cm/s. 5. The vertebral art nicolle shows antegrade flow. 6. The subclavian ar bobbi waveforms are triphasic. ICA/CCA ratio is 1.35 Left Side: 1. There is severe atherosclerotic plaque seen in the bifurcation/proximal ICA region. 2. The common caroti d artery PSV proximally is 52 cm/s and distally 47 cm/s. 3. The proximal inte rnal carotid artery velocities are 167 centimeters per second, previous ly 190 cm/s systolic and 12 cm/s diastolic. 4. The proximal exte rnal carotid artery PSV is 136 cm/s. 5. The vertebral art nicolle shows antegrade flow. 6. The subclavian ar bobbi waveforms are biphasic. ICA/CCA ratio = 3.2 U S/US carotid duplex BI IMPRESSION: 1. RIGHT: No hemodyn amically significant stenosis. 2. LEFT: No hemodyna mically significant stenosis measuring 50-79%. 3. There is improvem ent in the category severity of disease when compared to the prev ious study dated 05/18/2022. Electronically magaly d by: Rashaad Pina MD 03/02/2025 05:06 PM EDT Dictated By: Rashaad Pina MD Signed By: <Gisel oumou signed by Rashaad Pina MD in OV> 03/02/25 1706 DD/ 1528 TD/TT: 03/02/25 1541 Wearing Apparel Shaker: Reason For Referral Reason Evaluate and Treat Questioning if needs Left Carotid Endarterectomy Diagnosis 1 Carotid stenosis, ri ght (I65.21) Diagnosis 2 PVD (peripheral vasc ular disease) (I73.9) Diagnosis 3 Carotid stenosis (I6 5.29) Referral Organization Stephon Ventura III, MD Referring Provider First Name Stephon Referring Provider Last Name Lorenzo Referring Provider Speciality Internal [facility] health Referred Organization [facility] Referred Provider Jose Alberto Ruvalcaba Referred Address [address] [place] [address],[place], [place],[id number], Referred Provider Specialty Vascular Daria jhon General Notes D, 05/15/2024 11:51:22 AM > Referral faxed with progress note., D05/22/2024 02:45:21 PM > Patient was scheduled for [...] Referred Provider Specialty Neurology General Notes D, 08/09/2024 10:01:45 AM > Spoke with Dr. [...] Provider Speciality Internal M edicine Referred Organization [facility] Referred Provider Jose Alberto Ruvalcaba Referred Address [address] [place] [address],[place], [place],[id number], Referred Provider Specialty Vascular Daria jhon General Notes DCharmaine 10/12/2024 01:16:39 PM > Referral, progress note and recent ultrasound faxed., DCharmaine 10/19/2024 02:32:14 PM > patient want seen [...] Problem Status W/U Status Risk Notes Problem 9559612 Former smoker (Z87.891) Active confirmed He seems highly motivated not to smoke. We discussed a plan to prevent relapse in times of stress and illness. Problem 080243396 Overweight (BMI 25.0-29.9) (E66.3) Active confirmed His body mass index is 26. We discussed diet and nutrition today. We reviewed his weight loss strategy. Problem Hyperlipidemia (24718351) Hyperlipidemia (E78.5) Active confirmed Comprehensive blood work for the fasting lipid profile has been ordered to be done in the near future. Problem Hypertension (52618866) Hypertension (I10) Active confirmed His blood pressure is currently at its target. No change in his regimen was made. Problem 517303329 Prostate cancer (C61) Active confirmed PSA has been ordered. He is currently free of symptoms. Problem 239049746 Seizure disorder (G40.909) Active confirmed He had a seizur e May 05, 2024 at home and was hospitalized for several days at [facility]. Imaging of the brain showed no stroke.I recommended he continue his Keppra. He is adamant that he will not take that medication or any other at this time. He has been noncompliant past but did agree to followed carefully in the office. I will continue to work with this difficult patient. He did agree not to drive. Problem 30260545 Anxiety (F41.9) Active confirmed We discussed the causes of riged fingernails and cold sores at length today. If the symptoms persist. I told drop by the office for inspection. It is very unlikely this is a side effect of his medication and he was encouraged to continue it. Problem Vitamin D deficiency (24574072) Vitamin D deficiency, unspecified (E55.9) Active confirmed He continues on supplementation. 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 Problem Benign prostatic hyperplasia (907464057) BPH (benign prostatic hyperplasia) (N40.0) Active confirmed He says he arises from sleep twice a night sometimes once and sometimes 3 times to urinate. We have discussed lifestyle modification as a way of reducing nocturia. Problem Memory loss (33205124) Memory loss (R41.3) Active confirmed Problem Carotid artery stenosis (51726856) Carotid stenosis (I65.29) Active confirmed Problem Peripheral vascular disease (532501073) PVD (peripheral vascular disease) (I73.9) Active confirmed He has mild claudication. 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 He has significant left carotid stenosis and was referred to vascular surgery at [facility] in June 2024. Repair was planned after his seizures were corrected. He will be referred back there at this time. Problem 51495577 Glaucoma, unspecified glaucoma type, unspecified laterality (H40.9) Active confirmed He will remain under the care of his director cardiology with no change in his medications. Problem 906526816 Cataract, unspecified cataract type, unspecified laterality (H26.9) Active confirmed He will remain under the care of his director cardiology. Problem 530473279 History of seizure (Z87.898) Active confirmed He has had no seizures and says he is compliant with the phenytoin. Problem 437943668848898 Carotid stenosis, right (I65.21) Active confirmed The right neck is well-healed at this time and there is a good pulse. Problem 968890207 Nonintractable epilepsy without status epilepticus, unspecified epilepsy type (G40.909) Active confirmed He is no longer taking Vimpat. He is taking lamotrigine. He says he has agrreed to take 200 mg in the morning and 100 mg at night faithfully. A follow-up visit was arranged. He has had no recent seizures. Problem 409622370 Noncompliance with medications (Z91.148) Active confirmed I [...] Provider Diagnosis Stephon Ventura III, MD [address] [place] [address] [address] [place], [place] [address] 05/09/2024 Stephon Ventura Hypertension I10 ; P VD (peripheral vascular disease) I73.9 ; Hyperlipidemia E78.5 ; Overweight (BMI 25.0-29.9) E66.3 ; Former smoker Z87.891 ; BPH (benign prostatic hyperplasia) N40.0 ; Noncompliance with medications Z91.148 and Seizure disorder G40.909 Stephon Ventura III, MD [address] [place] [address] [address] [place], [place] [address] 06/19/2024 Stephon Ventura Hypertension I10 ; P [...] cerebral artery I66.22 Stephon Ventura III, MD [address] [place] [address] [address], [place] [address] 07/31/2024 Stephon Ventura Hypertension I10 ; Seizure disorder G40.909 ; PVD (peripheral vascular disease) I73.9 ; Hyperlipidemia E78.5 ; Former smoker Z87.891 ; Carotid stenosis, right I65.21 ; Occlusion and stenosis of left posterior cerebral artery I66.22 ; BPH (benign prostatic hyperplasia) N40.0 ; Anxiety F41.9 ; Noncompliance with medications Z91.148 and Overweight (BMI 25.0-29.9) E66.3 Stephon Ventura III, MD [address] [place] [address] [place] [address] 10/09/2024 Stephon Ventura Hypertension I10 ; Seizure disorder G40.909 ; PVD (peripheral vascular disease) I73.9 ; Former smoker Z87.891 ; Hyperlipidemia E78.5 ; Overweight (BMI 25.0-29.9) E66.3 and BPH (benign prostatic hyperplasia) N40.0 Stephon Ventura III, MD [address] [place] [address] [place] [address] 10/20/2024 Stephon Ventura Hypertension I10 ; Nonintractable epilepsy without status epilepticus, unspecified epilepsy type G40.909 ; PVD (peripheral vascular disease) I73.9 ; Hyperlipidemia E78.5 ; Former smoker Z87.891 ; BPH (benign prostatic hyperplasia) N40.0 ; History of seizure Z87.898 ; Prostate cancer C61 and Overweight (BMI 25.0-29.9) E66.3 Stephon Ventura III, MD [address] [place] [address] [place] [address] 01/01/2025 Stephon Ventura Hypertension I10 ; History of seizure Z87.898 ; PVD (peripheral vascular disease) I73.9 ; Hyperlipidemia E78.5 ; Glaucoma, unspecified glaucoma type, unspecified laterality H40.9 ; Former smoker Z87.891 ; Overweight (BMI 25.0-29.9) E66.3 ; Carotid stenosis, right I65.21 and Vitamin D deficiency, unspecified E55.9 Stephon Ventura III, MD [address] [place] [address] [place] [address] 01/22/2025 Stephon Ventura Hypertension I10 ; P VD (peripheral vascular disease) I73.9 ; History of seizure Z87.898 ; Hyperlipidemia E78.5 ; Prostate cancer C61 ; Glaucoma, unspecified glaucoma type, unspecified laterality H40.9 ; Former smoker Z87.891 and Vitamin D deficiency, unspecified E55.9 Stephon Ventura III, MD [address] [place] [address] [place] [address] 06/08/2024 Stephon Ventura III, MD [address] [place] [address] [place] [address] 08/04/2024 Stephon Ventura III, MD [address] [place] [address] [place] [address] 01/08/2025 Stephon Ventura III, MD [address] [place] [address] [place] [address] 01/24/2025 Stephon Ventura III, MD [address] [place] [address] [place] [address] 02/14/2025 Stephon Ventura Assessments Encounter Date Diagnosis [...] and was hospitalized for several days at [facility]. Imaging of the brain showed no stroke.I [...] and was hospitalized for several days at [facility]. Imaging of the brain showed no stroke.I [...] and was referred to vascular surgery at [facility] in June 2024. Repair was planned [...] will remain under the care of his director cardiology. 07/31/2024 Hyperlipidemia (ICD-10 - E78.5) His total [...] will remain under the care of his director cardiology with no change in his medications. 07/31/2024 [...] will remain under the care of his director cardiology with no change in his medications. 01/22/2025 [...] will remain under the care of his director cardiology with no change in his medications. 05/09/2024 [...] and was hospitalized for several days at [facility]. Imaging of the brain showed no stroke.I [...] Order Date PROFILE, FASTING (COMPREHENSIVE METABOLI C) 04/19/2023 PROFILE, FASTING (COMPREHENSIVE METABOLI C) 10/09/2024 PROFILE, FASTING (COMPREHENSIVE METABOLI C) 12/31/2023 PROFILE, FASTING (COMPREHENSIVE METABOLI C) 01/22/2025 PROFILE, FASTING (COMPREHENSIVE METABOLI C) 08/10/2022 PROFILE, FASTING (COMPREHENSIVE METABOLI C) 01/11/2023 PROFILE, FASTING (COMPREHENSIVE METABOLI C) 08/31/2022 PROFILE, FASTING (COMPREHENSIVE METABOLI C) 11/16/2023 PROFILE, FASTING (COMPREHENSIVE METABOLI C) 07/06/2023 PROFILE, RANDOM (COMPREHENSIVE METABOLIC ) 05/20/2022 LIPID [...] CBC WITH AUTO DIFF 04/19/2023 Lipid Panel 01/22/2025 Lipid Panel 12/31/2023 Lipid Panel 11/16/2023 Lipid Panel 07/06/2023 Lipid Panel 04/19/2023 Lipid Panel 10/09/2024 Vitamin D 25-OH Total 10/09/2024 Testosterone, Total 10/09/2024 Lamotrigine Lamictal 08/31/2022 Next Appt Details Provider Name:Stephon Ventura , 04/30/2025 02:15:00 PM, [address] [place] [address] [address], [place], [address], Provider Name:Stephon Ventura , 01/07/2026 02:00:00 PM, [address] [place] [address] [address], [place], [address], Insurance Providers Payer Name Payer Address Payer Phone Subscriber Number Group Number Insured Name Patient Relationship to Insured Coverage Start Date Coverage End Date MEDICARE NGS [address] [place] [id number] Michael Jenkins Self - patient is the [...]
--- OUTSIDE RECORDS SUMMARY | 2025-03-08 15:37 | XMS_ITS | Encounter Summary ---
Author Organization [facility] Address [address] [place] [address] Care Team Providers Care Psychiatry Instructor Name Role Phone Stephon Ventura Primary Care Provider [phone] Reason for Visit * Reason Onset Date Comments Appointment 10/20/2021 Encounter Details Date Type Department Care Team (Late st Contact Info) Description 10/20/2021 Telephone [facility] [address] [place] [address] Telephone Intake, Staff Appointment Social History Tobacco [...] again to schedule. Did update best number: [phone] Tanika's cell * Telephone Encounter - Cuca [...] a schedule. pls call to book//advice. Tanika [phone] * Telephone Encounter - Ashish Hernandez MD [...] this issue of nausea, vimpat and achalasia. [phone] * Telephone Encounter - Cuca Steiner - [...] to Angela. Pt can be reached at [phone]. documented in this encounter Plan of Treatment Not on file documented as of this encounter Visit Diagnoses Not on filedocumented in this encounter Care Teams Psychiatry Instructor Relationship Specialty Start Date End Date Stephon Ventura [facility] [address] PCP - General Hematology 06/05/21 documented as of this encounter
--- OUTSIDE RECORDS SUMMARY | 2025-03-08 15:37 | XMS_ITS | Encounter Summary ---
Author Organization [facility] Address [address] [place] [address] Care Team Providers Care Maitre D' Name Role Phone Stephon Ventura Primary Care Provider [phone] Encounter Details Date Type Department Care Team (Late st Contact Info) Description 09/30/2022 Telephone [facility] Central Scheduling Department [address] [place] [address] Telephone Intake, Staff Social History Tobacco Use [...] days of 10/20 appointment. Please call: Viktoria: [phone] documented in this encounter Plan of Treatment Not on file documented as of this encounter Visit Diagnoses Not on filedocumented in this encounter Care Teams Maitre D' Relationship Specialty Start Date End Date Stephon Ventura [address] [facility] [address] [place] [address] PCP - General Hematology 06/05/21 documented as of this encounter
--- OUTSIDE RECORDS SUMMARY | 2025-03-08 15:37 | XMS_ITS | Encounter Summary ---
Author Organization [facility] Address [address] [place] [address] Care Team Providers Care Combination Presser Name Role Phone Stephon Ventura Primary Care Provider [phone] Encounter Details Date Type Department Care Team (Late st Contact Info) Description 07/29/2021 Orders Only [facility] [address] [place] [address] Sabas Herzog [address] [facility] [place] [address] Social History Tobacco Use Types Packs/Day Years Used Date Smoking Tobacco: Never Assessed Sex and Gender Information Value Date Recorded Sex Assigned at Not on file Legal Sex Male 10:20 AM EST Gender Identity Not on file Sexual Orientation Not on file documented as of this encounter Plan of Treatment Not on file documented as of this encounter Procedures * Due to [place] [employer] law, this organization might not be sharing negative HIV tests. Procedure Name Priority Date/Time Associated Diagnosis Comments AMB EXTERNAL MRI BRAIN, OUTS SHANE RESULT Routine 06/27/2021 documented in this encounter Results * Due to [place] [employer] law, this organization might not be sharing negative HIV tests. * MRI Brain, Outside Result (06/27/2021) Anatomical Region Laterality Modality Other Sabas Herzog AMB EXTERNAL RESULT PROCEDURES Final Result documented in this encounter Visit Diagnoses Not on filedocumented in this encounter Care Teams Combination Presser Relationship Specialty Start Date End Date Stephon Ventura [address] [facility] [address] [place] [address] PCP - General Hematology 06/05/21 documented as of this encounter
--- OUTSIDE RECORDS SUMMARY | 2025-03-08 15:37 | XMS_ITS | Clinical Summary ---
Author Organization [facility] [address] [facility] Address [address] [place] [address] Phone Care Team Providers Care Technical Service Engineer Name Role Phone Grupo Coliler MD Primary Care Provider [phone] Surgical History Surgery Date Site/Laterality Comments CAROTID ENDARTERECTOMY Right PROCEDURE:CAROTID ENDARTERECTOMY Medical History Medical History Date Comments Prostate cancer ([facility] V24, [facility] V28) DX:Prostate cancer (HCC) Coronary artery disease DX:Coron isaak artery disease Hypertension DX:Hypertension Stroke ([facility] V24, [facility] V28) DX:Stroke (HCC) Carotid artery stenosis, unilateral, [...] Health Maintenance Due Date Last Done Comments DTaP,Tdap,and Td Vaccines (1 - Tdap) 1959 Pneumococcal Vaccine: 50+ Years (1 of 1 - PCV) 1990 Zoster Vaccines (1 of 2) 1990 RSV Immunization Adult Patients (1 - 1-dose 75+ series) 2015 Falls Risk Assessment 05/05/2022 Medicare Annual Wellness Visit 05/05/2022 Social Influencers of Health Screening 05/05/2022 Depression Screening 06/07/2024 COVID-19 Vaccine ( - season) 2025 Influenza Vaccine (#1) 2025 Hypertension/CHF/CAD Annual BMP [...] 10/13/2024 9:16 AM EDT Coronary atherosclerosis of cahto coronary artery Hyperlipemia Essential hypertension, malignant Prostate cancer ([facility]/HCC V24, CMS/HCC V28) Vitamin D deficiency disease LIPID PANEL Routine 10/13/2024 9:16 AM EDT Coronary atherosclerosis of cahto coronary artery Hyperlipemia Essential hypertension, malignant Prostate cancer (CMS/HCC V24, CMS/HCC V28) Vitamin D deficiency disease from Last 3 Months or Most Recently Relevant to Health Maintenance Results * (ABNORMAL) Lipid panel (10/13/2024 9:16 AM EDT) Cholesterol 186 0 - 200 mg/dL LAB CHEMISTRY METHOD 10/13/2024 2:56 PM EDT [facility] Triglycerides 151(H) <150 mg/dL LAB CHEMISTRY METHOD 10/13/2024 2:56 PM EDT [facility] HDL 53 mg/dL LAB CHEMISTRY METHOD 10/13/2024 2:56 PM EDT [facility] LDL Calculated 103 50 - 130 mg/dL LAB CHEMISTRY METHOD 10/13/2024 2:56 PM EDT [facility] VLDL Cholesterol Magdiel 30.2 mg/dL LAB CHEMISTRY METHOD 10/13/2024 2:56 PM EDT [facility] Comment:No established refer ence range. Blood Venous blood specimen / Unknown Venipuncture / Unknown 10/13/2024 9:16 AM EDT 10/13/2024 9:17 AM EDT Loc Simmons MD LAB BLOOD ORDERABLES Fi nal Result [facility] [address] [place] [address], * (ABNORMAL) Comprehensive metabolic panel (10/13/2024 9:16 AM EDT) Sodium 140 135 - 145 mmol/L LAB CHEMISTRY METHOD 10/13/2024 2:56 PM EDT [facility] Potassium 4.3 3.5 - 5.1 mmol/L LAB CHEMISTRY METHOD 10/13/2024 2:56 PM EDT [facility] Chloride 103 98 - 107 mmol/L LAB CHEMISTRY METHOD 10/13/2024 2:56 PM EDT [facility] CO2 28 24 - 32 mmol/L LAB CHEMISTRY METHOD 10/13/2024 2:56 PM EDT [facility] Anion Gap 9 5 - 14 LAB CHEMISTRY METHOD 10/13/2024 2:56 PM T [facility] Glucose 118(H) 70 - 99 mg/dL LAB CHEMISTRY METHOD 10/13/2024 2:56 PM EDT [facility] BUN 22(H) 9 - 20 mg/dL LAB CHEMISTRY METHOD 10/13/2024 2:56 PM EDT [facility] Creatinine 1.00 0.70 - 1.30 mg/dL LAB CHEMISTRY METHOD 10/13/2024 2:56 PM EDT [facility] eGFR 74 >=60 mL/min/1. 73m2 LAB CHEMISTRY METHOD 10/13/2024 2:56 PM T [facility] Comment:Calculation based on the Chronic Kidney Disease Epidemiology Collaboration (CKD-EPI) equation refit without adjustment for race. BUN/Creatinine Ratio 22.0(H) 12.0 - 20.0 LAB CHEMISTRY METHOD 10/13/2024 2:56 PM EDT [facility] Calcium 9.6 8.4 - 10.2 mg/dL LAB CHEMISTRY METHOD 10/13/2024 2:56 PM [facility] AST (SGOT) 11 5 - 40 unit/L LAB CHEMISTRY METHOD 10/13/2024 2:56 PM T [facility] ALT (SGPT) 8 7 - 52 unit/L LAB CHEMISTRY METHOD 10/13/2024 2:56 PM EDT [facility] Alkaline Phosphatase 95 34 - 104 unit/L LAB CHEMISTRY METHOD 10/13/2024 2:56 PM T [facility] Total Protein 6.6 6.4 - 8.5 g/dL LAB CHEMISTRY METHOD 10/13/2024 2:56 PM [facility] Albumin 4.2 3.5 - 5.0 g/dL LAB CHEMISTRY METHOD 10/13/2024 2:56 PM EDT [facility] Total Bilirubin 0.4 0.3 - 1.0 mg/dL LAB CHEMISTRY METHOD 10/13/2024 2:56 PM EDT [facility] Blood Venous blood specimen / Unknown Venipuncture / Unknown 10/13/2024 9:16 AM EDT 10/13/2024 9:17 AM EDT us Stephon Ventura MD LAB BLOOD ORDERABLES Final Res ult [facility] [address] [place] [address], [place] [phone] from Last 3 Months or Most Recently Relevant to Health Maintenance Insurance MEDICARE [place] Care Teams Technical Service Engineer Relationship Specialty Start Date End Date Grupo Collier MD [address] [place] [id number] PCP - General 06/07/19
--- OUTSIDE RECORDS SUMMARY | 2025-03-08 15:37 | XMS_ITS | Encounter Summary ---
Author Organization [facility] Address [address] [place] [address] Care Team Providers Care Mechanical Integrity Specialist Name Role Phone Stephon Ventura Primary Care Provider [phone] Encounter Details Date Type Department Care Team (Late st Contact Info) Description 06/05/2021 Orders Only [facility] [address] [place] [id number] Provider, Unknown, [address] [place] [id number] Social History Tobacco Use Types Packs/Day [...] this encounter Procedures * Due to [place] [employer] law, this organization might not be sharing negative HIV tests. Procedure Name Priority Date/Time Associated Diagnosis Comments AMB EXTERNAL CT HEAD, OUTSID E RESULT Routine 06/22/2018 documented in this encounter Results * Due to [place] [employer] law, this organization might not be sharing negative HIV tests. * CT Head, Outside Result (06/22/2018) Anatomical Region Laterality Modality Other us Unknown Provider MD NELSON EXTERNAL RESULT PROCEDUR ES Final Result documented in this encounter Visit Diagnoses Not on filedocumented in this encounter Care Teams Mechanical Integrity Specialist Relationship Specialty Start Date End Date Stephon Ventura [address] [facility] [address] [place] [address] PCP - General Hematology 06/05/21 documented as of this encounter
--- OUTSIDE RECORDS SUMMARY | 2025-03-08 15:37 | XMS_ITS | Clinical Summary ---
Author Organization [facility] Address [address] [place] [address] Care Team Providers Care Vacuum Drum Drier Operator Name Role Phone Stephon Ventura Primary Care Provider [phone] Allergies No known active allergies Medications lisinopriL [...] partial seizures, not intractable, without status epilepticus TAKE 1/2 TABLET(50 MG) BY MOUTH THREE [...] complete this topic Procedures * Due to [place] [employer] law, this organization might not be sharing negative HIV tests. Procedure Name Priority Date/Time Associated Diagnosis Comments COMPREHENSIVE METABOLIC PANEL Routine 04/15/2022 2:59 PM EST Partial symptomatic epilepsy with complex partial seizures, not intractable, without status epilepticus from Last 3 Months or Most Recently Relevant to Health Maintenance Results * Due to [place] [employer] law, this organization might not be sharing [...] - 40 U/L 04/15/2022 3:48 PM EST [facility] BUN 25(H) 7 - 23 mg/dL 04/15/2022 3:48 PM EST [facility] eGFR 65(L) >=90 mL/min/1. 73m2 04/15/2022 3:48 PM EST [facility] Comment: Estimated [...] MD LAB BLOOD ORDERABLES Final Resul t [facility] [address] [place] [address], from Last 3 Months or Most Recently Relevant to Health Maintenance Insurance MEDICARE [facility] Care Teams Vacuum Drum Drier Operator Relationship Specialty Start Date End Date Stephon Ventura [facility] [address] [address] PCP - General Hematology 06/05/21
--- OUTSIDE RECORDS SUMMARY | 2025-03-08 15:37 | XMS_ITS | Clinical Summary ---
Author Organization [facility] Address [address] [place] [address] Care Team Providers Care Antique Refinisher Name Role Phone Unavailable Primary Care Provider [...]
== END 2025-03-08 14:41 | disposition home or self-care (01) ==
LOC: HO.HVS 13:59
PROVIDERS: PCP Internal Medicine Medical Oncology; Visit Provider Surgery Vascular Surgery
DX: I65.23 Occlusion and stenosis of bilateral carotid arteries (principal)
CPT/HCPCS: 99214

== ENCOUNTER → 2025-03-08 13:59 | Outpatient (BNVA) | payer MEDICARE, SELFPAY | PROVIDERS: PCP Internal Medicine Medical Oncology; Visit Provider Surgery Vascular Surgery | DX: I65.23 Occlusion and stenosis of bilateral carotid arteries (principal) | CPT/HCPCS: 99212 ==

== ENCOUNTER 2025-03-30 10:26 | Observation (INO) | payer MEDICARE, SELFPAY ==
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
--- OUTSIDE RECORDS SUMMARY | 2024-07-31 11:15 | XMS_ITS ---
Author Organization Stephon Ventura III, MD Address [address] [place], [place] [address] Care Team Providers Care Stained Glass Joiner Name Role Phone Dr. Stephon Ventura III Primary Care Provider Allergies Allergen (clinical drug ingredient) Drug/Non Drug [...] Date Provider Diagnosis Stephon Ventura III, MD [address] [place] [address] [place] [address] 07/31/2024 Stephon Ventura Hypertension I10 ; Seizure [...] and was hospitalized for several days at [facility]. Imaging of the brain showed no [...] Omeprazole 20 MG TAKE 1 CAPSULE BY [facility] EVERY DAY 30 MINUTES BEFORE BREAKFAST levETIRAcetam [...] Provider Name:Stephon Ventura , 04/30/2025 02:15:00 PM, [address] [place] [address] [address], [place], [address], Provider Name:Stephon Ventura , 01/07/2026 02:00:00 PM, [address] [place] [address] [address], [place], [address], Progress Notes * Michael JENKINSDOB:1940 (84 yo M)Acc No.[id number]:07/31/2024 Progress Notes Patient: Michael SIU Provider: Karlos Ventura MD :1940 A ge:84 Y S ex:Male Date:07/31/2024 Address:[address] [place], [place] [phone] Subjective: * Chief Complaints: * H istory [...] yrs, old age. M other: 63 yrs, CAD,MS, diagnosed with CVD, HTN. C hilen: alive, Oldest daughter., diagnosed with CVD. S [...] x-cigarette smoker Tiffani mccallum was born in [facility]. He is not a [employer]ist. He is and lives by himself. He [...] and was hospitalized for several days at [facility]. Imaging of the brain showed no [...] Ventura MD Date: 0 07/31/2024 Generated for Evertoni kadie/Joanna/Lisasmitting on: 1 01:28 PM EDT History and Physical Notes * [...]
--- OUTSIDE RECORDS SUMMARY | 2024-08-04 05:21 | XMS_ITS ---
Author Organization Stephon Ventura III, MD Address [address] [place] [address] Care Team Providers Care Accounting Consultant Name Role Phone Dr. Stephon Ventura III Primary Care Provider Reason For Referral Reason Patient would prefer Dr. Escamilla Evaluate and Treat Seizure Disorder Memory Loss Diagnosis 1 Seizure disorder (G4 0.909) Diagnosis 2 Memory loss (R41.3) Referral Organization Stephon Ventura III, MD Referring Provider First Name Stephon Referring Provider Last Name Lorenzo Referring Provider Speciality Internal M edicine Referred Provider Domonique Escamilla Referred Provider Specialty Neurology General Notes D, Charmaine 08/09/2024 10:01:45 AM > Spoke with Dr. Escamilla's office they stated they will take the patient back and will contact him to schedule an appointment. Updated patient demos and faxed over [facility] discharge note from 05/2024 and last progress note from Dr. Ventura Referral Priority Routine Referral Appointment Date 10/05/2024 REASON FOR VISIT Neurology Referral Social History Sex Assigned At : Social History Observation Description Sex Assigned At Male Encounters Encounter Location Date Provider Diagnosis Stephon Ventura III, MD [address] [place] [address] [place] [address] 08/04/2024 Stephon Ventura Plan Of Treatment Referrals Referral Date Details 08/07/2024 08/07/2024, Patient would prefer Dr. Escamilla Evaluate and Treat Seizure Disorder Memory LossDomonique Next Appt Details Provider Name:Stephon Ventura , 04/30/2025 02:15:00 PM, [address] [place] [address] [place], [address], Provider Name:Stephon Ventura , 01/07/2026 02:00:00 PM, [address] [place] [address] [address], [place], [place], [address], Progress Notes * Michael JENKINSDOB:1940 (84 yo M)Acc No.[id number]:08/04/2024 Patient: Michael SIU :1940 A ge:84 Y S ex:Male Address:[address] [place] [phone] Subjective: * Chief Complaints: * N eurology Referral * Medical History: * Surgical History: * Hospitalization/Major Diagno stic Procedure: * Medications: Objective: * Vitals: * Physical Examination: Assessment: Plan: * Treatment: * Procedure Codes: * true * Date: Generated for Printi ng/Facitlalyg/eTransmitting on: 01:27 PM EDT Consultation Request Notes Referral Date Referring Provider Referred Provider Not sadie 08/07/2024 Stephon Ventura Muhammad Patient wo torsten prefer Dr. Escamilla Evaluate and Treat Seizure Disorder Memory Loss
--- OUTSIDE RECORDS SUMMARY | 2024-10-09 10:30 | XMS_ITS ---
Author Organization Stephon Ventura III, MD Address [address] [place] [address] Care Team Providers Care Gas Engine Mechanic Name Role Phone Dr. Stephon Ventura III Primary Care Provider [phone] Allergies Allergen (clinical drug ingredient) Drug/Non Drug [...] Provider Speciality Internal M edicine Referred Organization [facility] Referred Provider Jose Alberto Ruvalcaba Referred Address [address] [place] [phone], Referred Provider Specialty Vascular Daria jhon General Notes DCharmaine 10/12/2024 01:16:39 PM > Referral, progress note [...] Date Provider Diagnosis Stephon Ventura III, MD [address] [place] [address] [place] [address] 10/09/2024 Stephon Ventura Hypertension I10 ; Seizure [...] and was hospitalized for several days at [facility]. Imaging of the brain showed no [...] 10/09/2024, Evaluate and Treat, Jose Alberto Ruvalcaba, [address] [place] [address], [place], [place], [phone], Next Appt Details Follow Up: 1 Week,4 Weeks, Karlos domingo: Telehealth, OV Provider Name:Stephon Mccallum Lorenzo , 04/30/2025 02:15:00 PM, [address] [place] [address] [address], [place], [address], Provider Name:Stephon Ventura , 01/07/2026 02:00:00 PM, [address] [place] [address] [address], [place], [address], Progress Notes * Michael JENKINSDOB:1940 (84 yo M)Acc No.[id number]:10/09/2024 Progress Notes Patient: Michael SIU Provider: Karlos Ventura MD :1940 A ge:84 Y S ex:Male Date:10/09/2024 Address:[address] [place], [place] [phone] Subjective: * Chief Complaints: * S eizuresHypertensionPeripheral [...] a night to urinate. He saw his muffler installer October 05, 2024. There was concern about his cholesterol and a statin was recommended. Jenkins today states that he will under [...] yrs, old age. M other: 63 yrs, CAD,[place], diagnosed with HTN, CVD. C clayton: alive, [...] x-cigarette smoker Tiffani mccallum was born in [facility]. He is not a Jain. He is and lives by himself. He [...] and was hospitalized for several days at [facility]. Imaging of the brain showed no [...] MD Date: 0 10/09/2024 Generated for Printi kadie/Joanna/eTransmitting on: 1 01:26 PM EDT History and Physical Notes * [...] Provider Referred Provider Not sadie 10/09/2024 Stephon Ventura, Jose Alberto Miranda and Kishor simeon
--- OUTSIDE RECORDS SUMMARY | 2024-10-20 11:30 | XMS_ITS ---
Author Organization Stephon Ventura III, MD Address [address] [place], [place] [address] Care Team Providers Care Collection Specialist Name Role Phone Dr. 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 He is taking lamotrigin e. He says he has agrreed to take 200 mg in the morning and 100 mg at night faithfully . A follow-up visit was arranged. He has had no recent seizures. Encounters Encounter Location Date Provider Diagnosis Stephon Ventura III, MD [address] [place] [address] [place] [address] 10/20/2024 Stephon Ventura Hypertension I10 ; Nonintractable [...] Provider Name:Stephon Ventura , 04/30/2025 02:15:00 PM, [address] [place] [address] [address] [place], [place], [phone], Provider Name:Stephon Ventura , 01/07/2026 02:00:00 PM, [address] [place] [address] [address] [place], [place], [phone], Progress Notes * Sonya JENKINS:1940 (84 yo M)Acc No.[id number]:10/20/2024 Patient: Michael [facility]U Provider: Karlos Ventura MD :1940 A ge:84 Y S ex:Male Date:10/20/2024 Address:[address] [place] [address], [phone] Subjective: * Chief Complaints: * H ypertensionHyperlipidemiaSeizuresPeripheral vascular diseaseBenign prostatic hypertrophyProstate cancer * HPI: * : saw neurology dr tiffany modiotr, lamotrigine 200 am 100 pm. This telehealth [...] ocation of provider rendering services: { ...} [address] [place] [address] [place] [address] L ocation of patient: a ddress listed in demographics for today's visit [...] yrs, old age. M other: 63 yrs, CAD,[place], diagnosed with HTN, CVD. C clayton: alive, [...] dditional Findings: Tobacco Non-User E x-cigarette smoker H xena was born in [facility]. He is not a Confucianist. He is and lives by himself. He [...] MD Date: 0 10/20/2024 Generated for Claudia engle/Joanna/Gurdeep on: 1 01:26 PM EDT History and Physical Notes * HPI (History of Present Illness) Category Sub-Category Detail Notes Telehealth Location of [facility] rendering services:: {...} [address] [place] [address] [place] [id number] Location of patient:: address listed in demographics [...]
--- OUTSIDE RECORDS SUMMARY | 2025-01-01 10:00 | XMS_ITS ---
Author Organization Stephon Ventura III, MD Address [address] [place], [place] [address] Care Team Providers Care Hotel Valet Attendant Name Role Phone Dr. Stephon Ventura III Primary Care Provider [phone] Allergies Allergen (clinical drug ingredient) Drug/Non Drug [...] Date Provider Diagnosis Stephon Ventura III, MD [address] [place] [address] [place] [address] 01/01/2025 Stephon Ventura Hypertension I10 ; History [...] will remain under the care of his stunt man with no change in his medications. 01/01/2025 [...] Name:Stephon Ventura , 04/30/2025 02:15:00 PM, [address] [facility] [place], [place], [address], Provider Name:Stephon Ventura , 01/07/2026 02:00:00 PM, [address] [place] [address] [address] [place], [place], [address], Progress Notes * Michael JENKINSDOB:1940 (84 yo M)Acc No.[id number]:01/01/2025 Progress Notes Patient: Michael SIU Provider: Karlos Ventura MD :1940 A ge:84 Y S ex:Male Date:01/01/2025 Address:[address] [place], [place] [phone] Subjective: * Chief Complaints: * A nnual [...] yrs, old age. M other: 63 yrs, CAD,[place], diagnosed with HTN, CVD. C hildren: alive, [...] [facility]. He is not a Sikh. He [...] will remain under the care of his stunt man with no change in his medications. 6 [...] MD Date: 0 01/01/2025 Generated for Claudia engle/Joanna/Calitting on: 1 01:28 PM EDT History and [...]
--- OUTSIDE RECORDS SUMMARY | 2025-01-08 12:20 | XMS_ITS ---
Author Organization Stephon Ventura III, MD Address [address] [place] [address] Care Team Providers Care Wallpaperer Name Role Phone Dr. Stephon Ventura III Primary Care Provider [phone] REASON FOR VISIT Needs call back from Social History Sex Assigned At : Social History Observation Description Sex Assigned At Male Encounters Encounter Location Date Provider Diagnosis Stephon Ventura III, MD [address] [place] [address] [place] [address] 01/08/2025 Stephon Ventura Plan Of Treatment Next Appt Details Provider Name:Stephon Ventura , 04/30/2025 02:15:00 PM, [address] [place] [address] ANASTASIYA HERRERA, [place], [address], Provider Name:Stephon Ventura , 01/07/2026 02:00:00 PM, [address] [place] [address] [place], [address], Progress Notes * Michael JENKINSDOB:1940 (84 yo M)Acc No.[id number]:01/08/2025 Patient: Michael SIU :1940 A ge:84 Y S ex:Male Address:[address] [place] [address], [address] * true * Date: Generated for Printi ng/Facitlalyg/eTransmitting on: 01:27 PM EDT
--- OUTSIDE RECORDS SUMMARY | 2025-01-22 09:30 | XMS_ITS ---
Author Organization Stephon Ventura III, MD Address [address] [facility] [facility] [address] [place], [place] [address] Care Team Providers Care Traffic Control Technician Name Role Phone Dr. Stephon Ventura III Primary Care Provider [phone] Allergies Allergen (clinical drug ingredient) Drug/Non Drug Allergy documented on EMR Reaction Allergy Type Onset Date Status No Known Drug Allergy Unknown Drug Allergy Active No Known Food Allergy Unknown Drug Allergy Active REASON FOR VISIT Right carotid stenosis, Impression, Benign prostatic hypertrophy, Prostate cancer, Epilepsy Medications Medication SIG (Take, Route, Frequency, Duration) Notes Start Date End Date Status amLODIPine Besylate 10 MG 1 tablet Orall y Once a day Active lamoTRIgine 100 MG 1 tablet Orally 3 ti mes a day Active Latanoprost 0.005 % INSTILL 1 DROP IN MARGAUX TH EYES AT BEDTIME Ophthalmic Active levETIRAcetam 750 MG 1 tablet Orally eliecer ry 12 hrs 05/09/2024 Active Dorzolamide HCl-Timolol Mal 22.3-6.8 MG/ML 1 drop into affected eye Ophthalmic Twice a day 08/31/2022 Active Carvedilol 6.25 MG TAKE 1 TABLET BY SHANTA TH TWICE DAILY WITH FOOD Active Atorvastatin Calcium 80 MG TAKE 1 TABLET BY MOUTH EVERY DAY Active Aspirin Low Dose 81 MG 1 tablet Orally O nce a day Active Lisinopril 20 MG TAKE 1 TABLET [...] Additional Findings: Tobacco non-user Ex-cigaret te smoker Vital Signs Temperature 97.6 degrees Fahrenheit 08/18/20 25 Blood pressure systolic 135 mm Hg 01/23/20 25 Blood pressure diastolic 76 mm Hg 025 Heart Rate 54 /min 01/22/2025 Height 67 in 01/22/2025 Weight 169 lbs 01/22/2025 BMI 26.47 kg/m2 01/22/2025 Encounters Encounter Location Date Provider Diagnosis Stephon Ventura III, MD [address] [place] [address] [place] [address] 01/22/2025 Stephon Ventura Hypertension I10 ; P VD (peripheral vascular disease) I73.9 ; History of seizure Z87.898 ; Hyperlipidemia E78.5 ; Prostate cancer C61 ; Glaucoma, unspecified glaucoma type, unspecified laterality H40.9 ; Former smoker Z87.891 and Vitamin D deficiency, unspecified E55.9 Assessments Encounter Date Diagnosis (ICD Code) Assessment Notes Treat ment Notes Treatment Clinical Notes 01/22/2025 Hypertension (ICD-10 - I10) His blood pressure is currently at its target. No change in his regimen was made. 01/22/2025 PVD (peripheral vascular disease) (ICD-10 - I73.9) He has mild claudication. 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 He has significant left carotid stenosis and was referred to vascular surgery at [facility] [place] in June 2024. Repair was planned after his seizures were corrected. He will be referred back there at this time. 01/22/2025 History of seizure (ICD-10 - Z87.898) He has had no seizures and says he is compliant with the phenytoin. 01/22/2025 Hyperlipidemia (ICD-10 - E78.5) Comprehensive blood work for the fasting lipid profile has been ordered to be done in the near future. 01/22/2025 Prostate cancer (ICD-10 - C61) PSA has been ordered. He is currently free of symptoms. 01/22/2025 Glaucoma, unspecified glaucoma type, unspecified laterality (ICD-10 - H40.9) He will remain under the care of his safety specialist with no change in his medications. 01/22/2025 Former smoker (ICD-10 - Z87.891) He seems highly motivated not to smoke. We discussed a plan to prevent relapse in times of stress and illness. 01/22/2025 Vitamin D deficiency, unspecified (ICD-10 - E55.9) He continues on supplementation. Plan Of Treatment Medication Medication Name Sig Start Date Stop Date Notes amLODIPine Besylate 10 MG 1 tablet Orally Once a day lamoTRIgine 100 MG 1 tablet Orally 3 ti mes a day Latanoprost 0.005 % INSTILL 1 DROP IN MARGAUX TH EYES AT BEDTIME Ophthalmic levETIRAcetam 750 MG 1 tablet Orally eliecer ry 12 hrs 05/09/2024 Dorzolamide HCl-Timolol Mal 22.3-6.8 MG/ML 1 drop into affected eye Ophthalmic Twice a day 08/31/2022 Carvedilol 6.25 MG TAKE 1 TABLET BY HSANTA TH TWICE DAILY WITH FOOD Atorvastatin Calcium 80 MG TAKE 1 TABLET BY MOUTH EVERY DAY Aspirin Low Dose 81 MG 1 tablet Orally Once a day Lisinopril 20 MG TAKE 1 TABLET BY SHANTA TH TWICE DAILY Pending Test Test Name Order Date PROFILE, FASTING (COMPREHENSIVE METABOLI C) 01/22/2025 PSA, TOTAL 01/22/2025 CBC w DIFF 01/22/2025 Lipid Panel 01/22/2025 Next Appt Details Follow Up: 3 Months, Reason: OV review labs Provider Name:Stephon Ventura , 04/30/2025 02:15:00 PM, [address] [place] [address] [address]A [address], [place], [address], Provider Name:Stephon Ventura , 01/07/2026 02:00:00 PM, [address] [place] [address] [address]ERRERA [address], [place], [address], Progress Notes * Michael JENKINSDOB:1940 (84 yo M)Acc No.[id number]:01/22/2025 Progress Notes Patient: Michael SIU Provider: Karlos Ventura MD :1940 A ge:84 Y S ex:Male Date:01/22/2025 Address:[address] [place], [place] [phone] Subjective: * Chief Complaints: * R ight carotid stenosisImpressionBenign prostatic hypertrophyProstate cancerEpilepsy * HPI: C OVID-19 Screening: His blood pressure today was at target at 135/76. He says he has been compliant with all of his medications. He has had no seizures. He is rising from sleep once or twice a night to urinate. He has had no new complaints her medications. He denies any chest pain shortness of breath or bleeding. Questions H ave you had any new [...] have been noted. G enitourinary: Frequent urination d enies. M usculoskeletal: Muscle aches d enies. P [...] dditional Findings: Tobacco non-user E x-cigarette smoker Tiffani mccallum was born in [facility]. He is not a Taoism. He is and lives by himself. He [...] Tablet 1 tablet Orally every 12 hrs Carvedilol 6.25 MG Tablet TAKE 1 TABLET BY MOUTH TWICE DAILY WITH FOOD lamoTRIgine 100 MG Tablet 1 tablet Orally 3 times a day amLODIPine Besylate 10 MG Tablet 1 tablet Orally Once a day Medication List reviewed and reconciled with the patientTaking Aspirin Low Dose 81 MG Tablet Delayed [...] 1 tablet Orally every 12 hrs Taking Carvedilol 6.25 MG Tablet TAKE 1 TABLET BY MOUTH TWICE DAILY WITH FOOD Taking lamoTRIgine 100 MG Tablet 1 tablet Orally 3 times a day Taking amLODIPine Besylate 10 MG Tablet 1 tablet Orally Once a day Medication List reviewed and reconciled with the patient * Allergies: N o Known Drug AllergyNo Known Food Allergyno[Allergies Verified] Objective: * Vitals: H t: 67, Wt:169, BMI:26.47, BP:135/76, HR:54, Temp:97.6, Wt-k.66. * Examination: G eneral Examination: GENERAL APPEARANCE: p leasant, well nourished, well developed, in no acute distress, calm and relaxed: overweight: man. HEAD: a traumatic, normocephalic. EYES: e jewell, perrla, anicteric, conjugate. EARS: n ormal. NOSE: s eptum intact. ORAL CAVITY: n ormal, unremarkable. NECK/THYROID: n o jugular venous distention, no carotid bruit, thyroid normal, Scar over right carotid artery. LYMPH NODES: n o enlarged lymph nodes,spleen normal. SKIN: n o suspicious lesions, anicteric. HEART: n o clicks, gallops, murmurs, or rubs, regular rhythm, S1, S2 normal, no s3, or vascular bruits. LUNGS: c lear to auscultation . BREASTS: no masses palpable bilaterally. ABDOMEN: b owel sounds normal, no ascites, no organomegaly, no mass: overweight. RECTAL EXAM: n ot examined. MUSCULOSKELETAL: e xtremities unremarkable, no clubbing, cyanosis or edema. PERIPHERAL PULSES: P alpable pulse in right carotid diminished left carotid. NEUROLOGIC: a lert and oriented, cranial nerves 2-12 grossly intact, deep tendon reflexes 2+ symmetrical, motor strength normal upper and lower extremities, sensory exam intact. PSYCH: a lert, oriented. Assessment: * Assessment: 1. P VD (peripheral vascular disease) - I73.9 (Primary) N otes :He has mild claudication. 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 He has significant left carotid stenosis and was referred to vascular surgery at [facility] [place] in June 2024. Repair was planned after his seizures were corrected. He will be referred back there at this time. 2 . H ypertension - I10 N otes :His blood pressure is currently at its target. No change in his regimen was made. 3 . H istory of seizure - Z87.898 N otes :He has had no seizures and says he is compliant with the phenytoin. 4 . H yperlipidemia - E78.5 N otes :Comprehensive blood work for the fasting lipid profile has been ordered to be done in the near future. 5 . P rostate cancer - C61 N otes :PSA has been ordered. He is currently free of symptoms. 6 . G laucoma, unspecified glaucoma type, unspecified laterality - H40.9 ? N otes :He will remain under the care of his safety specialist with no change in his medications. 7 . F ormer smoker - Z87.891 N otes :He seems highly motivated not to smoke. We discussed a plan to prevent relapse in times of stress and illness. 8 . V itamin D deficiency, unspecified - E55.9 N otes :He continues on supplementation. Plan: * Treatment: 2. H ypertension Continue Carvedilol Tablet, 6.25 MG, TAKE 1 TABLET BY MOUTH TWICE DAILY WITH FOOD; C ontinue Aspirin Low Dose Tablet Delayed Release, 81 MG, 1 tablet, Orally, Once a day; C ontinue Atorvastatin Calcium Tablet, 80 MG, TAKE 1 TABLET BY MOUTH EVERY DAY; C ontinue Lisinopril Tablet, 20 MG, TAKE 1 TABLET BY MOUTH TWICE DAILY; C ontinue levETIRAcetam Tablet, 750 MG, 1 tablet, Orally, every 12 hrs. L AB: PROFILE, FASTING (COMPREHENSIVE METABOLIC) L AB: PSA, TOTAL L AB: CBC w DIFF L AB: Lipid Panel 3. H istory of seizure Continue lamoTRIgine Tablet, 100 MG, 1 tablet, Orally, 3 times a day; C ontinue amLODIPine Besylate Tablet, 10 MG, 1 tablet, Orally, Once a day. L AB: PROFILE, FASTING (COMPREHENSIVE METABOLIC) L AB: PSA, TOTAL L AB: CBC w DIFF L AB: Lipid Panel 4. H yperlipidemia L AB: PROFILE, FASTING (COMPREHENSIVE METABOLIC) L AB: PSA, TOTAL L AB: CBC w DIFF L AB: Lipid Panel 5. P rostate cancer L AB: PROFILE, FASTING (COMPREHENSIVE METABOLIC) L AB: PSA, TOTAL L AB: CBC w DIFF L AB: Lipid Panel * Procedure Codes: * Preventive Medicine: Counseling: C are goal follow-up plan: Counseling for abnormal BMI given Y es Above Normal BMI Follow-up D ietary management education, guidance, and counseling S moking/Tobacco Use Patient counseled on the dangers of tobacco use and urged to quit. 0 01/23/2025 * Follow Up: 3 Months (Reason: OV review labs) * Images: * Sign off status: Completed true * Provider: Karlos Ventura MD Date: 0 01/22/2025 Generated for Claudia engle/Joanna/Gurdeep on: 1 01:27 PM EDT History and Physical Notes * HPI (History of Present Illness) Category Sub-Category Detail Notes COVID-19 Screening Questions Have you had any new onset fever, chills, cough, congestion, sore throat, shortness of breath, muscle aches?: No Examination Category Sub-Category Detail Notes General Examination GENERAL APPEARANCE: pleasant , well nourished, well developed, in no acute distress, calm and relaxed: overweight: man HEAD: atraumatic, normocep halic EYES: eomi, perrla, anicte alma, conjugate EARS: normal NOSE: septum intact NECK/THYROID: no jugular venous di stention, no carotid bruit, thyroid normal, Scar over right carotid artery HEART: no clicks, gallops, murmurs, or rubs, regular rhythm, S1, S2 normal, no s3, or vascular bruits LUNGS: clear to auscultatio n ABDOMEN: bowel sounds normal, no ascites, no organomegaly, no mass: overweight NEUROLOGIC: alert and oriented, cranial nerves 2-12 grossly intact, deep tendon reflexes 2+ symmetrical, motor strength normal upper and lower extremities, sensory exam intact SKIN: no suspicious lesion s, anicteric PERIPHERAL PULSES: Palpable pulse in ri ght carotid diminished left carotid BREASTS: no masses palpable b ilaterally MUSCULOSKELETAL: extremities unremark able, no clubbing, cyanosis or edema LYMPH NODES: no enlarged lymph no endy,spleen normal RECTAL EXAM: not examined PSYCH: alert, oriented ORAL CAVITY: normal, unremarkable
--- OUTSIDE RECORDS SUMMARY | 2025-01-24 05:47 | XMS_ITS ---
Author Organization Stephon Ventura III, MD Address [address] [place] [address] Care Team Providers Care Telecasting Engineer Name Role Phone Dr. Stephon Ventura III Primary Care Provider [phone] REASON FOR VISIT Vascular Appointment Social History Sex Assigned At : Social History Observation Description Sex Assigned At Male Encounters Encounter Location Date Provider Diagnosis Stephon Ventura III, MD [address] [place] [address] [place] [address] 01/24/2025 Stephon Ventura Plan Of Treatment Next Appt Details Provider Name:Stephon Ventura , 04/30/2025 02:15:00 PM, [address] [place] [address] [address], [place], [address], Provider Name:Stephon Ventura , 01/07/2026 02:00:00 PM, [address] [place] [address] [place], [address], Progress Notes * Michael JENKINSDOB:1940 (84 yo M)Acc No.[id number]:01/24/2025 Patient: Michael SIU :1940 A ge:84 Y S ex:Male Address:[address] [place] [address], [phone] * true * Date: Generated for Printi ng/Faxing/eTransmitting on: 01:28 PM EDT
--- OUTSIDE RECORDS SUMMARY | 2025-02-14 05:14 | XMS_ITS ---
Author Organization Stephon Ventura III, MD Address [address] [place] [address] Care Team Providers Care Vice President Of Operations Name Role Phone Dr. Stephon Ventura III Primary Care Provider Medications Medication SIG (Take, Route, Frequency, Duration) Notes Start Date End Date Status lamoTRIgine 100 MG 1 tablet Orally 3 ti mes a day Active amLODIPine Besylate 10 MG 1 tablet Orall y Once a day Active Dorzolamide HCl-Timolol Mal 22.3-6.8 MG/ML 1 drop into affected eye Ophthalmic Twice a day 08/31/2022 Active levETIRAcetam 750 MG 1 tablet Orally eliecer ry 12 hrs 05/09/2024 Active Lisinopril 20 MG TAKE 1 TABLET BY SHANTA TH TWICE DAILY for 90 Active Atorvastatin Calcium 80 MG TAKE 1 TABLET BY MOUTH EVERY DAY Active Latanoprost 0.005 % INSTILL 1 DROP IN MARGAUX TH EYES AT BEDTIME Ophthalmic Active Carvedilol 6.25 MG TAKE 1 TABLET BY SHANTA TH TWICE DAILY WITH FOOD Active Aspirin Low Dose 81 MG 1 tablet Orally O nce a day Active Social History Sex Assigned At : Social History Observation Description Sex Assigned At Male Encounters Encounter Location Date Provider Diagnosis Stephon Ventura III, MD [address] [place] [address] [place] [address] 02/14/2025 Stephon Ventura Plan Of Treatment Next Appt Details Provider Name:Stephon Ventura , 04/30/2025 02:15:00 PM, [address] [place] [address] [place], [address], Provider Name:Stephon Ventura , 01/07/2026 02:00:00 PM, [address] [place] [address] [place], [address], Progress Notes * Michael JENKINSDOB:1940 (84 yo M)Acc No.[id number]:02/14/2025 Patient: Michael SIU :1940 A ge:84 Y S ex:Male Address:[address] [place] [phone] Subjective: * Chief Complaints: * * Medical History: * Surgical History: * Hospitalization/Major Diagno stic Procedure: * Medications: T akingCarvedilol 6.25 MG Tablet TAKE 1 TABLET BY MOUTH TWICE DAILY WITH FOOD Aspirin Low Dose 81 MG Tablet Delayed Release 1 tablet Orally Once a day Atorvastatin Calcium 80 MG Tablet TAKE 1 TABLET BY MOUTH EVERY DAY Latanoprost 0.005 % Solution INSTILL 1 DROP IN BOTH EYES AT BEDTIME Ophthalmic Dorzolamide HCl-Timolol Mal 22.3-6.8 MG/ML Solution 1 drop into affected eye Ophthalmic Twice a day levETIRAcetam 750 MG Tablet 1 tablet Orally every 12 hrs lamoTRIgine 100 MG Tablet 1 tablet Orally 3 times a day amLODIPine Besylate 10 MG Tablet 1 tablet Orally Once a day Lisinopril 20 MG Tablet TAKE 1 TABLET BY MOUTH TWICE DAILY Taking Carvedilol 6.25 MG Tablet TAKE 1 TABLET BY MOUTH TWICE DAILY WITH FOOD Taking Aspirin Low Dose 81 MG Tablet Delayed Release 1 tablet Orally Once a day Taking Atorvastatin Calcium 80 MG Tablet TAKE 1 TABLET BY MOUTH EVERY DAY Taking Latanoprost 0.005 % Solution INSTILL 1 [...] Tablet 1 tablet Orally Once a day Taking Lisinopril 20 MG Tablet TAKE 1 TABLET BY MOUTH TWICE DAILY Objective: * Vitals: * Physical Examination: Assessment: Plan: * Treatment: * Procedure Codes: * true * Date: Generated for Claudia engle/Joanna/Gurdeep on: 01:28 PM EDT
[2025-03-30] VITALS (10 sets, daily range): BP systolic 138–211; BP diastolic 70–99; PULSE 68–77; RESP 14–18; TEMP 36.2–36.6; O2SAT 94–100; BMI 26.5; BMI 26.3
--- NOTE | ~2025-03-30 | MR_ITS ---
CLINICAL HISTORY: unstteady gait, left side weakness; eval for strok MR Brain without gadolinium Comparison: CT/SR - CT HEAD NECK ANGIOGRAPHY WITH IV CONTRAST - 03/30/25 13:06 EDT Findings: No restricted diffusion. No intra-axial mass or hemorrhage. No midline shift. No hydrocephalus. Vascular flow voids are intact. 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 Moderate diffuse volume loss. Patchy T2 signal prolongation in the periventricular white matter. Orbital contents are unremarkable. The sinuses and mastoid air cells are clear. No focal bone lesion. IMPRESSION: No acute findings. Prominent chronic changes and prior right MCA distribution infarct. This document has been electronically signed by: Sandip Briceño MD on 04/01/2025 10:20:56
--- NOTE | ~2025-03-30 | XR_ITS ---
EXAMINATION: CTA NECK WITH CONTRAST (STROKE) CTA BRAIN WITH CONTRAST (STROKE) CLINICAL INFORMATION: Left sided Weakness. Gait instability. COMPARISON: Correlated to ultrasound carotid Doppler dated March 02, [address] brain dated May 06, 2020. TECHNIQUE: CTA of the head and neck was performed in the axial plane from the mediastinum to the skull vertex using 70 mL Omnipaque 350 intravenous contrast. Additional reformatted multiplanar images including maximum intensity projection MIP images are generated on the CT workstation. This CT examination was performed using dose optimization techniques as appropriate, variously including the following: *Automated exposure control *Adjustment of mA and/or kV according to patient size (this includes techniques or standardized protocols for targeted exams where dose is matched to indication/reason for exam; i.e. extremities or head) *Use of iterative reconstruction technique. DLP: 1611 mGy centimeter. FINDINGS: The degree of stenosis determined by criteria similar to NASCET. Brain: No acute intracranial hemorrhage, mass effect, midline shift, hydrocephalus or herniation. Yoder-white matter differentiation is normal. Bilateral multifocal patchy deep periventricular white matter hypodensities involving centrum semiovale and ball radiata. Macrocystic encephalomalacia, right temporoparietal lobe. Posterior cranial fossa contents demonstrated no acute hemorrhage or mass effect. Calcified plaques in the cavernous supracavernous segments both ICAs. No increased density in the MCA's. No air-fluid levels in the paranasal sinuses. Poor pneumatization of the frontal sinuses. Probable old traumatic deformity, nasal bones. Tympanic cavities and mastoid cells are aerated. Chest CTA: Calcified plaques without aneurysm or dissection, aortic arch. Calcified plaques in the origin of the main branches. Neck CTA: Right CCA: Normal patency. No focal stenosis. No intimal flap. Right ICA: Normal patency. No focal stenosis. No intimal flap. Left CCA: Normal patency. No focal stenosis. No intimal flap. Left ICA: Irregular shaped calcified plaque resulting in 90% stenosis in the proximal segment with normal patency and no intimal flap. V1/V2 segments: Normal patency. No focal stenosis. No intimal flap. Calcified plaques in the origin. The origin is from the subclavian arteries. Tortuosity on the left vertebral artery. Left vertebral artery is dominant. Brain CTA: Anterior cerebral circulation: ICAs: Calcified plaques cavernous supracavernous segments. Normal patency. No abrupt cut off. MCA's: Normal patency. No focal stenosis. No abrupt cut off. Bifurcation/trifurcation demonstrated no vascular abnormality. ACAs: Normal patency. No focal stenosis. No abrupt cut off. Anterior communicating artery is patent without irregularity. Ophthalmic arteries are patent without gross abnormality. I do not see the posterior costophrenic attending arteries. Posterior cerebral circulation: V3/V4 segments: Normal patency. No focal stenosis. No intimal flap. Right posterior inferior cerebral arteries patent. There is a probable common trunk with the left anterior inferior cerebellar artery and left posterior inferior cerebellar artery. Basilar artery is patent without focal stenosis or intimal flap. Superior cerebellar arteries are patent. music historian: Normal patency. No focal stenosis. No abrupt cut off Ancillary findings: No main cerebral venous sinus thrombosis. Poor dentition. Pulmonary mosaic pattern. Thyroid gland is not enlarged. Multilevel cervical spondylosis. XR/XR chest 2V IMPRESSION: No main cerebral artery occlusion or embolus or gross aneurysm. 90% stenosis without occlusion secondary to irregular shaped calcified plaque, left ICA. No dissection. 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 This critical test result is communicated to: emergency physician Dr. Samina Thomson at 1:33 PM on March 30, 2025 via [employer]. EXAMINATION: XR CHEST CLINICAL INFORMATION: generalized weakness COMPARISON: May 06, 2020. TECHNIQUE: PA and lateral views. FINDINGS: Pulmonary reticular pattern. No gross consolidation pleural effusion or pneumothorax. No hyperinflation. Cardiomediastinal silhouette size is normal. Multilevel spondylosis. Degenerative changes in the shoulders. IMPRESSION: Chronic interstitial lung disease. Electronically signed by: Toi Guerrero MD 03/30/2025 01:43 PM EDT
--- NOTE | 2025-03-30 10:31 | ED_ITS ---
HPI - Weakness General Chief complaint: Weakness Stated complaint: Recently Had A Stroke Time Seen by Provider: 03/30/25 11:03 Source: patient and old records reviewed Mode of arrival: ambulatory Limitations: other (poor historian) History of Present Illness ED Provider: GLORY HPI Narrative: 84 yo male with PMH of aortic stenosis, seizures, BPH, CAD, PVD, HLD, R carotid endarterectomy, not on baby aspirin at this time, neuro visit back in January reports normal strength 5/5 throughout and normal gait. He comes in today with c/o feeling unsteady. He is a very difficult historian as he is fixated on trying to treat his low back with stretches and slow movements that when he finally relaxes he will see twitches in arms and legs. He states he felt unsteady walking around 8am today. I asked him about weakness in L arm and L leg which is 4/5 he tells me this has been present for a while. When I pressed harder he states the arm a while and his leg a few days. He denies headstrike/cp/ MD Complaint: focal weakness and difficulty walking Onset (ago): hour(s) (8am but very unclear as he notes his L sided weakness for a few days) Duration: constant Location: other Migration: none Severity: mild Relieving factors: none Exacerbating factors: movement Context: other Associated symptoms: denies other symptoms Related Data Home Medications ?Medication ?Instructions ?Recorded ?Confirmed latanoprost 0.005 % eye drops 1 drp ophthalmic (eye) B EDTIME 05/06/20 01/24/25 aspirin 81 mg tablet,delayed 81 mg PO DAILY 08/05/21 0 01/24/25 release (Adult Low Dose Aspirin) lisinopril 20 mg tablet 20 mg PO BID 01/15/22 dorzolamide 22.3 mg-timolol 6.8 1 drp ophthalmic (eye) BID 01/26/22 01/24/25 mg/mL eye drops Previous Rx's ?Medication ?Instructions ?Recorded lamotrigine 100 mg tablet 100 mg PO QID 90 days #360 t abs 02/15/25 Allergies Allergy/AdvReac Type Severity Reaction Status Date / Time lacosamide (From Vimpat) AdvReac Severe Muscle Verified 03/30/25 10:34 cramps Review of Systems 2 Review of Systems: Constitutional : No Fever, No Chills, No Fatigue ENT/Mouth : No sore throat, No Rhinorrhea Eyes: No Eye Pain, No Swelling, No Redness Cardiovascular : No Chest Pain, No SOB, No Dyspnea on Exertion Respiratory : No Cough, No Sputum Gastrointestinal : No Nausea, No Vomiting, No Diarrhea, No abdominal Pain Genitourinary : No Dysuria, No Urinary Frequency, No Hematuria, Musculoskeletal : No joint pain, No Myalgias, No Joint Swelling Skin : No Skin Lesions, No rash Neuro : pos Weakness, No Numbness, No Dizziness, no Headache All other systems reviewed and are negative Yes all other systems are reviewed and are negative [facility] Past Medical History Attestation statement: The following information was validated with the patient. Medical History Seizure disorder Stroke Seizures IBS (irritable bowel syndrome) CAD (coronary artery disease) AMS (altered mental status) High cholesterol HTN (hypertension) Surgical History H/O eye surgery History of carotid endarterectomy (~01/2022) Hx of tonsillectomy Hx of abdominal surgery Family History Family History Father No problems noted. Mother Myocardial infarction Social History Social History Household Members: Children Household Members Other:: daughter, son, and son's girlfriend Housing: House Are you a primary hospice patient care secretary to a significant other at home: No Do you presently have visiting nurse or other home services: No Alcohol intake: never Patient Tobacco Use Status: Never used Tobacco Smoked in Last 30 Days: No e-Cigarette/Vaping Use: Never Used Second Hand Smoke Exposure: No Use of substances other than those prescribed or required for medical reasons: Yes Substance Use Type: Marijuana Advance Directives: Yes Advance Directives on File: Yes Advance Directives Date on File: 01/26/22 service: No Current occupational status: retired Physical Exam 2 Vital Signs: Vital Signs: Last Vital Signs Temp 97.2 F 03/30/25 14:05 Pulse 68 03/30/25 14:05 Resp 14 03/30/25 14:05 BP 197/89 H 10/24/25 14:05 Pulse Ox 100 03/30/25 14:05 O2 Del Method Room Air 03/30/25 14:05 BMI result Body Mass Index 26.5 Appearance: Alert. Oriented X3. No acute distress. very convoluted story and difficult to initially pinpoint his complaint Eyes: Pupils equal, round and reactive to light. ENT: Pharynx normal. atraumatic Neck: Normal inspection. Neck supple. CVS: Normal heart rate and rhythm. Pulses normal. Respiratory: No respiratory distress. Breath sounds normal. Abdomen: Soft and nontender. Skin: Skin warm and dry. Normal skin color. Normal skin turgor. Extremities: No lower extremity edema. No calf ttp Neuro: Oriented X 3. LUE and LLE 4+/5 strength motor deficit. No sensory deficit. CN2-12 intact NIH Stroke Scale Internal: Initial- Upon Arrival Level of Consciousness: Alert Level of Consciousness Questions: Answers both questions correctly Level of Consciousness Commands: Performs both tasks correctly Best Gaze: Normal Visual: No visual loss Facial Palsy: Normal Motor Arm (Right): No drift Motor Arm (Left): Drift Motor Leg (Right): No drift Motor Leg (Left): Drift Limb Ataxia: Absent Sensory: Normal Best Language: No aphasia Dysarthia: Normal Extinction and Inattention: No abnormality Score: 2 Course Course Course Narrative: Aliza Lester GILBERT 03/30/25 84 yo male with PMH of seizure disorder, HTN, HLD, IBS here with complaints of generalized weakness, feels off balance with walking, all symptoms began with waking. Has had some lower back pain x several weeks. Went to bed at 12AM. [place] normal before then. Will obtain labs, EKG, CXR, CT head. Hypertensive in triage. Reevaluation(s) Reevaluation #1: refused CT scans initially I had to talk to him about getting them - notified by CT scan techs Medications Administered Discontinued Medications Generic Name Dose Route Start Last Admin Trade Name Freq PRN Reason Stop Dose Admin Iohexol 100 ml 03/30/25 13:15 03/30/25 13:15 Iohexol 350 Mg/Ml 100 Ml Infus..Btl IV 03/30/25 13:16 70 ml ONCE ONE Administration Medical Decision Making Medical Decision Making MDM Narrative: 84 yo male with PMH of aortic stenosis, seizures, BPH, CAD, PVD, HLD, R carotid endarterectomy, not on baby aspirin who has L sided deficits and reports gait instability. I see no stroke work up between now and his neuro visit in January - at this time he is not a TNK candidate as he reports the weakness for a few days. I am going to obtain labs, EKG, CTA head and neck for stroke. Given possibility of stroke will allow permissive HTN during ED visit. Differential Diagnosis Differential Diagnoses: The differential diagnosis associated with the presentation includes stroke, lyte abnormality, non compliance Admission/Observation Consideration of admission/observation: Escalation of care including admission/observation considered new L sided deficits suspect recent stroke will admit for further work up Consult Healthcare Provider Management of the patient was discussed with: Hospitalist and Financial Management Consultant Dr. Ventura notes L sided weakness is new. He has a hx of noncompliance Lab Data MDM Lab Attestation statement: I reviewed the patient's lab results. 03/30/25 10:52 03/30/25 10:52 Labs: Lab Results 03/30/25 03/30/25 Range/Units 10:52 12:44 WBC 6.6 (4.8-10.8) X10*3/uL RBC 4.31 L (4.60-5.80) X10*6/uL Hgb 12.6 L (14.0-18.0) g/dl Hct 38.3 L (42.0-52.0) % MCV 88.9 (80.0-98.0) fL MCH 29.2 (27.0-33.0) pg MCHC 32.9 (31.0-36.0) g/dl RDW 14.1 (11.0-16.0) % Plt Count 206 (160-400) X10*3/uL MPV 10.5 (9.4-12.4) fL Immature Gran % (Auto) 0.2 (0.0-0.4) % Neut % (Auto) 62.3 (45-73) % Lymph % (Auto) 29.1 (20-40) % [place] % (Auto) 6.4 (2-11) % Eos % (Auto) 1.2 (0-4) % Baso % (Auto) 0.8 (0-2) % Lymph # (Auto) 1.9 (1.2-4.9) X10*3/uL [place] # (Auto) 0.4 (0.1-1.2) X10*3/uL Eos # (Auto) 0.1 (0.0-0.4) X10*3/uL Baso # (Auto) 0.1 (0.0-0.2) X10*3/uL Abs Immat Gran (auto) 0.01 (0.00-0.03) X10*3/uL Absolute Neuts (auto) 4.1 (2.0-8.3) x10*3/uL Absolute Nucleated RBC 0.000 (0.0-0.012) X10*3/uL Nucleated RBC % (auto) 0.0 (0.0-0.2) /100WBC Sodium 141 (135-145) mmol/L Potassium 4.0 (3.3-5.1) mmol/L Chloride 107 (96-108) mmol/L Carbon Dioxide 27 (22-29) mmol/L Anion Gap 11 L (12-20) BUN 16 (9-16) mg/dL Creatinine 0.92 (0.5-1.4) mg/dL Estim Creat Clear Calc 53.9 Estimated GFR > 60 Random Glucose 135 H (60-115) mg/dL Calcium 9.2 D (8.4-10.2) mg/dL Magnesium 2.0 (1.6-2.6) mg/dL Total Bilirubin 0.4 (0.0-1.0) mg/dL Direct Bilirubin 0.1 (0.0-0.5) mg/dL AST 24 (5-37) U/L ALT 16 (0-40) U/L Alkaline Phosphatase 113 (39-117) U/L Troponin I High Sens < 2.7 (<3.5-35.0) ng/L Total Protein 6.9 (6.5-8.0) g/dL Albumin 4.6 (3.5-5.0) g/dL Urine Color Yellow Urine Appearance Clear Urine pH 7.0 (5.0-9.0) Ur Specific [place] 1.010 (1.005-1.025) Urine Protein Negative (Neg-Trace) mg/dL Urine Glucose (UA) Negative (Negative) mg/dL Urine Ketones Negative (Negative) mg/dL Urine Blood Negative (Negative) Urine Nitrite Negative (Negative) Ur Leukocyte Esterase Negative (Negative) Independent Interpretation I performed an independent interpretation of an: EKG and CT Scan (no ICH, carotid stenosis) Interpretation: Rate: 76 Rhythm: NSR [place]: left Normal P waves. Normal ALESSIA. Normal QRS complex. ST T wave : normal no ANASTASIYA qTC: 443 prior studies: no acute ischemia The study has been interpreted contemporaneously by me. . Radiology Impression Discussion of test interpretation with radiology: I have reviewed the radiologist's reading. External Record Review External record reviewed: Outpatient record Discharge Plan Discharge Clinical Impression: Carotid stenosis, left, Left-sided weakness HTN (hypertension) Qualifiers: Hypertension type: unspecified Qualified Code(s): I10 - Essential (primary) hypertension Patient Disposition: Admitted As Inpatient Print Language: Salvadorean
--- NOTE | 2025-03-30 10:36 | ECG_ITS ---
Test Reason : weakness Blood Pressure : */* mmHG Vent. Rate : 76 BPM Atrial Rate : 76 BPM P-R Int : 162 ms QRS Dur : 86 ms QT Int : 394 ms P-R-T Axes : -29 -33 15 degrees QTcB Int : 443 ms Normal sinus rhythm Left axis deviation Abnormal ECG When compared with ECG of 02-Dec-2022 04:53, No significant change was found Referred By: Aliza Batista Electronically Signed By: TEDDY FROST MD
[2025-03-30 11:01] LABS: MANUAL DIFF FLAG NO
[2025-03-30 11:03] LABS: Hematocrit 38.3 % (42.0-52.0); Hemoglobin 12.6 g/dl (14.0-18.0); Imm Gran Abs Auto 0.01 X10*3/uL (0.00-0.03); Imm Gran Pct Auto 0.2 % (0.0-0.4); Lymphocytes Absolute Auto 1.9 X10*3/uL (1.2-4.9); Mean Corpuscular HGB Conc 32.9 g/dl (31.0-36.0); Mean Corpuscular Hemoglobin 29.2 pg (27.0-33.0); Mean Corpuscular Volume 88.9 fL (80.0-98.0); NRBC Abs Auto 0.000 X10*3/uL (0.0-0.012); NRBC Pct Auto 0.0 /100WBC (0.0-0.2); Platelet Count 206 X10*3/uL (160-400); Red Blood Count 4.31 X10*6/uL (4.60-5.80); White Blood Count 6.6 X10*3/uL (4.8-10.8)
[2025-03-30 11:27] LABS: Alanine Aminotransferase 16 U/L (0-40); Albumin Level 4.6 g/dL (3.5-5.0); Alkaline Phosphatase 113 U/L (39-117); Anion Gap 11 (12-20); Aspartate Amino Transferase 24 U/L (5-37); Blood Urea Nitrogen 16 mg/dL (9-16); Calcium 9.2 mg/dL (8.4-10.2); Carbon Dioxide 27 mmol/L (22-29); Chloride 107 mmol/L (96-108); Creatinine Clr Calc Pharmacy 53.9; Estimated Glomerular Filt Rate > 60; Magnesium 2.0 mg/dL (1.6-2.6); Potassium 4.0 mmol/L (3.3-5.1); Sodium 141 mmol/L (135-145); Total Protein 6.9 g/dL (6.5-8.0)
[2025-03-30 11:29] LABS: Troponin-I High Sensitivity < 2.7 ng/L (<3.5-35.0)
[2025-03-30 12:58] LABS: Appearance Urine Clear; Glucose Urine UA Negative (Negative); PH 7.0 (5.0-9.0); Specific Gravity - Urine 1.010 (1.005-1.025)
[2025-03-30] MEDS: iohexoL 350 MG/ML 100 ML INFUS..BTL IV (13:15)
--- OUTSIDE RECORDS SUMMARY | 2025-03-30 13:26 | XMS_ITS | Encounter Summary ---
Author Organization [facility] Address [address] [place] [address] Care Team Providers Care Hog Operator Name Role Phone Stephon Ventura Primary Care Provider Reason for Visit * Reason Onset Date Comments Appointment 10/20/2021 Encounter Details Date Type Department Care Team (Late st Contact Info) Description 10/20/2021 Telephone [facility] [address] [place] [id number] Telephone Intake, Staff Appointment Social History Tobacco [...] again to schedule. Did update best number: [phone] Tanika's cell * Telephone Encounter - Cuca [...] a schedule. pls call to book//advice. Tanika [phone] * Telephone Encounter - Ashish Hernandez MD [...] this issue of nausea, vimpat and achalasia. [phone] * Telephone Encounter - Cuca Steiner - [...] to Angela. Pt can be reached at [phone]. documented in this encounter Plan of Treatment Not on file documented as of this encounter Visit Diagnoses Not on filedocumented in this encounter Care Teams Hog Operator Relationship Specialty Start Date End Date Stephon Ventura [facility] [address] [address] PCP - General Hematology 06/05/21 documented as of this encounter
--- OUTSIDE RECORDS SUMMARY | 2025-03-30 13:26 | XMS_ITS | Clinical Summary ---
Author Organization [facility] Address [address] [place] [address] Care Team Providers Care Small Piece Cutter Name Role Phone Unavailable Primary Care Provider [...]
--- OUTSIDE RECORDS SUMMARY | 2025-03-30 13:26 | XMS_ITS | Encounter Summary ---
Author Organization [facility] Address [address] [place] [address] Care Team Providers Care Art Objects Salesperson Name Role Phone Stephon Ventura Primary Care Provider [phone] Encounter Details Date Type Department Care Team (Late st Contact Info) Description 07/29/2021 Orders Only [facility] [address] [place] [address] Sabas Herzog [address] [facility] [place] [address] Social History Tobacco Use Types Packs/Day Years Used Date Smoking Tobacco: Never Assessed Sex and Gender Information Value Date Recorded Sex Assigned at Not on file Legal Sex Male 10:20 AM EST Gender Identity Not on file Sexual Orientation Not on file documented as of this encounter Plan of Treatment Not on file documented as of this encounter Procedures * Due to [place] [employer] law, this organization might not be sharing negative HIV tests. Procedure Name Priority Date/Time Associated Diagnosis Comments AMB EXTERNAL MRI BRAIN, OUTS SHANE RESULT Routine 06/27/2021 documented in this encounter Results * Due to [place] [employer] law, this organization might not be sharing negative HIV tests. * MRI Brain, Outside Result (06/27/2021) Anatomical Region Laterality Modality Other Sabas Herzog AMB EXTERNAL RESULT PROCEDURES Final Result documented in this encounter Visit Diagnoses Not on filedocumented in this encounter Care Teams Art Objects Salesperson Relationship Specialty Start Date End Date Stephon Ventura [address] [facility] [address] [place] [address] PCP - General Hematology 06/05/21 documented as of this encounter
--- OUTSIDE RECORDS SUMMARY | 2025-03-30 13:26 | XMS_ITS | Clinical Summary ---
Author Organization [facility] [address] [facility] Address [address] [place] [address] Phone Care Team Providers Care Model Photographers' Name Role Phone Grupo Collier MD Primary Care Provider [phone] Surgical History Surgery Date Site/Laterality Comments CAROTID ENDARTERECTOMY Right PROCEDURE:CAROTID ENDARTERECTOMY Medical History Medical History Date Comments Prostate cancer ([facility] V24, [facility] V28) DX:Prostate cancer (HCC) Coronary artery disease DX:Coron [place] artery disease Hypertension DX:Hypertension Stroke ([facility] V24, [facility] V28) DX:Stroke (HCC) Carotid artery stenosis, [...] 10/13/2024 9:16 AM EDT Coronary atherosclerosis of [place] coronary artery Hyperlipemia Essential hypertension, malignant Prostate cancer ([facility]/HCC V24, CMS/HCC V28) Vitamin D deficiency disease LIPID PANEL Routine 10/13/2024 9:16 AM EDT Coronary atherosclerosis of [place] coronary artery Hyperlipemia Essential hypertension, malignant Prostate cancer (CMS/HCC V24, CMS/HCC V28) Vitamin D deficiency disease from Last 3 Months or Most Recently Relevant to Health Maintenance Results * (ABNORMAL) Lipid panel (10/13/2024 9:16 AM EDT) Cholesterol 186 0 - 200 mg/dL LAB CHEMISTRY METHOD 10/13/2024 2:56 PM EDT [facility] Triglycerides 151(H) <150 mg/dL LAB CHEMISTRY METHOD 10/13/2024 2:56 PM EDT [facility] HDL 53 mg/dL LAB CHEMISTRY METHOD 10/13/2024 2:56 PM EDT [facility] LDL Calculated 103 50 - 130 mg/dL LAB CHEMISTRY METHOD 10/13/2024 2:56 PM EDT [facility] VLDL Cholesterol Magdiel 30.2 mg/dL LAB CHEMISTRY METHOD 10/13/2024 2:56 PM EDT [facility] Comment:No established refer ence range. Blood Venous blood specimen / Unknown Venipuncture / Unknown 10/13/2024 9:16 AM EDT 10/13/2024 9:17 AM EDT Loc Simmons MD LAB BLOOD ORDERABLES Fi nal Result [facility] [address] [place] [address], * (ABNORMAL) Comprehensive metabolic panel (10/13/2024 9:16 AM EDT) Sodium 140 135 - 145 mmol/L LAB CHEMISTRY METHOD 10/13/2024 2:56 PM EDT [facility] Potassium 4.3 3.5 - 5.1 mmol/L LAB CHEMISTRY METHOD 10/13/2024 2:56 PM EDT [facility] Chloride 103 98 - 107 mmol/L LAB CHEMISTRY METHOD 10/13/2024 2:56 PM EDT [facility] CO2 28 24 - 32 mmol/L LAB CHEMISTRY METHOD 10/13/2024 2:56 PM EDT [facility] Anion Gap 9 5 - 14 LAB CHEMISTRY METHOD 10/13/2024 2:56 PM T [facility] Glucose 118(H) 70 - 99 mg/dL LAB CHEMISTRY METHOD 10/13/2024 2:56 PM EDT [facility] BUN 22(H) 9 - 20 mg/dL LAB CHEMISTRY METHOD 10/13/2024 2:56 PM EDT [facility] Creatinine 1.00 0.70 - 1.30 mg/dL LAB CHEMISTRY METHOD 10/13/2024 2:56 PM EDT [facility] eGFR 74 >=60 mL/min/1. 73m2 LAB CHEMISTRY METHOD 10/13/2024 2:56 PM T [facility] Comment:Calculation based on the Chronic Kidney Disease Epidemiology Collaboration (CKD-EPI) equation refit without adjustment for race. BUN/Creatinine Ratio 22.0(H) 12.0 - 20.0 LAB CHEMISTRY METHOD 10/13/2024 2:56 PM EDT [facility] Calcium 9.6 8.4 - 10.2 mg/dL LAB CHEMISTRY METHOD 10/13/2024 2:56 PM [facility] AST (SGOT) 11 5 - 40 unit/L LAB CHEMISTRY METHOD 10/13/2024 2:56 PM T [facility] ALT (SGPT) 8 7 - 52 unit/L LAB CHEMISTRY METHOD 10/13/2024 2:56 PM EDT [facility] Alkaline Phosphatase 95 34 - 104 unit/L LAB CHEMISTRY METHOD 10/13/2024 2:56 PM T [facility] Total Protein 6.6 6.4 - 8.5 g/dL LAB CHEMISTRY METHOD 10/13/2024 2:56 PM [facility] Albumin 4.2 3.5 - 5.0 g/dL LAB CHEMISTRY METHOD 10/13/2024 2:56 PM EDT [facility] Total Bilirubin 0.4 0.3 - 1.0 mg/dL LAB CHEMISTRY METHOD 10/13/2024 2:56 PM EDT [facility] Blood Venous blood specimen / Unknown Venipuncture / Unknown 10/13/2024 9:16 AM EDT 10/13/2024 9:17 AM EDT us Stephon Ventura MD LAB BLOOD ORDERABLES Final Res ult [facility] [address] [place] [address], [place] [phone] from Last 3 Months or Most Recently Relevant to Health Maintenance Insurance MEDICARE [place]ICAID - [place] - [id number] Care Teams Model Photographers' Relationship Specialty Start Date End Date Grupo Collier MD [address] [place] [phone] PCP - General 06/07/19
--- OUTSIDE RECORDS SUMMARY | 2025-03-30 13:27 | XMS_ITS | Encounter Summary ---
Author Organization [facility] Address [address] [place] [address] Care Team Providers Care Voice Data Communications Engineer Name Role Phone Stephon Ventura Primary Care Provider [phone] Encounter Details Date Type Department Care Team (Late st Contact Info) Description 06/05/2021 Orders Only [facility] [address] [place] [address] Provider, Unknown, [address] [place] [address] Social History Tobacco Use Types Packs/Day Years Used Date Smoking Tobacco: Never Assessed Sex and Gender Information Value Date Recorded Sex Assigned at Not on file Legal Sex Male 10:20 AM EST Gender Identity Not on file Sexual Orientation Not on file documented as of this encounter Plan of Treatment Not on file documented as of this encounter Procedures * Due to [place] [employer] law, this organization might not be sharing negative HIV tests. Procedure Name Priority Date/Time Associated Diagnosis Comments AMB EXTERNAL CT HEAD, OUTSID E RESULT Routine 06/22/2018 documented in this encounter Results * Due to [place] [employer] law, this organization might not be sharing negative HIV tests. * CT Head, Outside Result (06/22/2018) Anatomical Region Laterality Modality Other us Unknown Provider MD NELSON EXTERNAL RESULT PROCEDUR ES Final Result documented in this encounter Visit Diagnoses Not on filedocumented in this encounter Care Teams Voice Data Communications Engineer Relationship Specialty Start Date End Date Stephon Ventura [address] [facility] [address] [place] [address] PCP - General Hematology 06/05/21 documented as of this encounter
--- OUTSIDE RECORDS SUMMARY | 2025-03-30 13:28 | XMS_ITS | Clinical Summary ---
Author Organization [facility] Address [address] [place] [address] Care Team Providers Care Visual Merchandising Assistant Name Role Phone Stephon Ventura Primary Care Provider Allergies No known active allergies Medications lisinopriL [...] complete this topic Procedures * Due to [place] [employer] law, this organization might not be sharing negative HIV tests. Procedure Name Priority Date/Time Associated Diagnosis Comments COMPREHENSIVE METABOLIC PANEL Routine 04/15/2022 2:59 PM EST Partial symptomatic epilepsy with complex partial seizures, not intractable, without status epilepticus from Last 3 Months or Most Recently Relevant to Health Maintenance Results * Due to [place] [employer] law, this organization might not be sharing [...] - 40 U/L 04/15/2022 3:48 PM EST [facility] BUN 25(H) 7 - 23 mg/dL 04/15/2022 3:48 PM EST [facility] eGFR 65(L) >=90 mL/min/1. 73m2 04/15/2022 3:48 PM EST [facility] Comment: Estimated [...] MD LAB BLOOD ORDERABLES Final Resul t [facility] [address] [place] [address], from Last 3 Months or Most Recently Relevant to Health Maintenance Insurance MEDICARE [facility] Care Teams Visual Merchandising Assistant Relationship Specialty Start Date End Date Stephon Ventura [facility] [address] PCP - General Hematology 06/05/21
--- OUTSIDE RECORDS SUMMARY | 2025-03-30 13:28 | XMS_ITS | Encounter Summary ---
Author Organization [facility] Address [address] [place] [address] Care Team Providers Care Program Evaluation Consultant Name Role Phone Stephon Ventura Primary Care Provider [phone] Encounter Details Date Type Department Care Team (Late st Contact Info) Description 09/30/2022 Telephone [facility] Central Scheduling Department [address] [place] [address] Telephone Intake, Staff Social History Tobacco Use [...] days of 10/20 appointment. Please call: Viktoria: [phone] documented in this encounter Plan of Treatment Not on file documented as of this encounter Visit Diagnoses Not on filedocumented in this encounter Care Teams Program Evaluation Consultant Relationship Specialty Start Date End Date Stephon Ventura [address] [facility] [address] [place] [id number] PCP - General Hematology 06/05/21 documented as of this encounter
--- OUTSIDE RECORDS SUMMARY | 2025-03-30 13:28 | XMS_ITS | Patient Health Record ---
Author Organization Stephon Ventura III, MD Address [address] [address] Care Team Providers Care Graduate Civil Engineer Name Role Phone Dr. Stephon Ventura III Primary Care Provider [phone] Allergies Allergen (clinical drug ingredient) Drug/Non Drug Allergy documented on EMR Reaction Allergy Type Onset Date Status No Known Drug Allergy Unknown Drug Allergy Active No Known Food Allergy Unknown Drug Allergy Active Results Component Value Reference Range Notes US carotid duplex BI Reviewed date:03/03/2025 07:34:35 PM Interpretation: Performing Lab: Notes/Report: [address] [address] Ultrasound Report Signed Patient: Michael Jenkins MR#: [id number] 7 : 1940 Acct:[id number] Age/Sex: 84 / M ADM Date: 03/02/25 Loc: HO.US Attending Dr: Jose Alberto Ruvalcaba MD Ordering Physician: Jose Alberto Ruvalcaba MD Date of Service: 03/02/25 Procedure(s): US carotid duplex BI Accession Number(s): [id number] cc: Stephon Ventura MD; Jose Alberto Ruvalcaba [...] 03/02/25 1706 DD/ 1528 TD/TT: 03/02/25 1541 Factory Focus Technician: [address] [address] Ultrasound Report Signed Patient: Kemi Jenkins rd MR#: [id number] 7 : 1940 Acct:[id number] Age/Sex: 84 / M ADM Date: 03/02/25 Loc: .US Attending Dr: Jose Alberto Ruvalcaba MD Ordering Physician: Jose Alberto Ruvalcaba MD Date of Service: 03/02/25 Procedure(s): US carotid duplex BI Accession Number(s): [id number] cc: Stephon Ventura MD; Jose Alberto Ruvalcaba [...] nicolle shows antegrade flow. 6. The subclavian artery [...] nicolle shows antegrade flow. 6. The subclavian artery waveforms are biphasic. ICA/CCA ratio = 3.2 US/US carotid duplex BI IMPRESSION: 1. RIGHT: No hemodynamically significant stenosis. 2. LEFT: No hemodynamically significant stenosis measuring 50-79%. 3. There is improvem ent in the category severity of disease when compared to the previous study dated 05/18/2022. Electronically magaly d by: Rashaad Pina MD 03/02/2025 05:06 PM EDT Dictated By: Rashaad Pina MD Signed By: <Electronically signed by Rashaad Pina MD in OV> 03/02/25 1706 DD/ 1528 TD/TT: 03/02/25 1541 Factory Focus Technician: Complete Blood Count Auto Di ff (Not yet reviewed by provider) Interpretation: Performing Lab:[facility], [address] [place] [address] Notes/Report: White Blood Count 6.6 4.8-10.8 X10*3/uL Red Blood Count 4.31 4.60-5.80 X10*6/uL Hemoglobin 12.6 14.0-18.0 g/dl Hematocrit 38.3 42.0-52.0 % Mean Corpuscular Volume 88.9 80.0-98.0 fL Mean Corpuscular Hemoglobin 29.2 27.0-33.0 pg Mean Corpuscular HGB Conc 32.9 31.0-36.0 g/dl Red Cell Distribution Width 14.1 11.0-16.0 % Platelet Count 206 160-400 X10*3/uL Mean Platelet Volume 10.5 9.4-12.4 fL Neutrophils Percent Auto 62.3 45-73 % Imm Gran Pct Auto 0.2 0.0-0.4 % Lymphocytes Percent Auto 29.1 20-40 % Monocytes Percent Auto 6.4 2-11 % Eosinophils Percent Auto 1.2 0-4 % Basophils Percent Auto 0.8 0-2 % NRBC Pct Auto 0.0 0.0-0.2 /100WBC Neutrophils Absolute Auto 4.1 2.0-8.3 x10*3/u L Imm Gran Abs Auto 0.01 0.00-0.03 X10*3/uL Lymphocytes Absolute Auto 1.9 1.2-4.9 X10*3/u L Monocytes Absolute Auto 0.4 0.1-1.2 X10*3/uL Eosinophils Absolute Auto 0.1 0.0-0.4 X10*3/u L Basophils Absolute Auto 0.1 0.0-0.2 X10*3/uL NRBC Abs Auto 0.000 0.0-0.012 X10*3/uL Liver Panel (Not yet reviewe d by provider) Interpretation: Performing Lab:[facility], [address] [place] [phone] Notes/Report: Bilirubin Total 0.4 0.0-1.0 mg/dL Bilirubin Direct 0.1 0.0-0.5 mg/dL Aspartate Amino Transferase 24 5-37 U/L Alanine Aminotransferase 16 0-40 U/L Total Protein 6.9 6.5-8.0 g/dL Albumin Level 4.6 3.5-5.0 g/dL Alkaline Phosphatase 113 39-117 U/L Basic Metabolic Panel (Not y et reviewed by provider) Interpretation: Performing Lab:[address] [address] Notes/Report: Sodium 141 135-145 mmol/L Potassium 4.0 3.3-5.1 mmol/L Chloride 107 96-108 mmol/L Carbon Dioxide 27 22-29 mmol/L Anion Gap 11 12-20 Blood Urea Nitrogen 16 9-16 mg/dL Creatinine 0.92 0.5-1.4 mg/dL Creatinine Clr Calc Pharmacy 53.9 eGFR (calculated from the MDRD study equation) and eCrCl (calculated from the Cockcroft-Gault equation) are based on different parameters and may not yield comparable results. If eCrCl result is absurd, please check patient's height/weight. Estimated Glomerular Filt Rate > 60 Chronic Kidney Disease: Estimated GFR < 60 mL/min/1.73m2 Severe Kidney Disease: Estimated GFR < 15 mL/min/1.73m2 Glucose Random 135 60-115 mg/dL Calcium 9.2 8.4-10.2 mg/dL Magnesium (Not yet reviewed by provider) Interpretation: Performing Lab:[address] [address] Notes/Report: Magnesium 2.0 1.6-2.6 mg/dL Troponin-I High Sensitivity (Not yet reviewed by provider) Interpretation: Performing Lab:[address] [address] Notes/Report: Troponin-I High Sensitivity < 2.7 <3.5-35.0 ng/L The [place] high sensitivity Troponin-I results should be used in conjunction with other diagnostic information such as ECG, clinical observations and information, and patient symptoms to aid in the diagnosis of CT. UA CC w/rflx Micro + Cult (N ot yet reviewed by provider) Interpretation: Performing Lab:[address], [place] [address] Notes/Report: Urine, Clean Catch Color Urine Yellow Appearance Urine Clear PH 7.0 5.0-9.0 Glucose Urine UA Negative Negative mg/dL Urine Blood Negative Negative Specific Leslie - Urine 1.010 1.005-1.025 Urine Protein Negative Neg-Trace mg/dL Urine Ketones Negative Negative mg/dL Nitrite Urine Negative Negative Leukocyte Esterase Urine Negative Negative Reason For Referral Reason Evaluate and Treat Questioning if needs Left Carotid Endarterectomy Diagnosis 1 Carotid stenosis, ri ght (I65.21) Diagnosis 2 PVD (peripheral vasc ular disease) (I73.9) Diagnosis 3 Carotid stenosis (I6 5.29) Referral Organization Stephon Ventura III, MD Referring Provider First Name Stephon Referring Provider Last Name Lorenzo Referring Provider Speciality Internal [facility] Referred Organization [facility] nt Referred Provider Jose Alberto Ruvalcaba Referred Address [address] [place] [id number], Referred Provider Specialty Vascular Daria jhon General Notes DCharmaine 05/15/2024 11:51:22 AM > Referral faxed with progress note., D, Charmaine 05/22/2024 02:45:21 PM > Patient was scheduled [...] Last Name Lorenzo Referring [facility]erred Provider Domonique Escamilla Referred Provider Specialty [...] Provider Speciality Internal M edicine Referred Organization [facility] Referred Provider Jose Alberto Ruvalcaba Referred Address [address] [place] [address],[place], [place],[id number], Referred Provider Specialty Vascular Daria jhon General Notes D, 10/12/2024 01:16:39 PM > Referral, progress note and recent ultrasound faxed., D, 10/19/2024 02:32:14 PM > patient want seen [...] Problem Status W/U Status Risk Notes Problem 7121476 Former smoker (Z87.891) Active confirmed He seems highly motivated not to smoke. We discussed a plan to prevent relapse in times of stress and illness. Problem 249020230 Overweight (BMI 25.0-29.9) (E66.3) Active confirmed His body mass index is 26. We discussed diet and nutrition today. We reviewed his weight loss strategy. Problem Hyperlipidemia (09896621) Hyperlipidemia (E78.5) Active confirmed Comprehensive blood work for the fasting lipid profile has been ordered to be done in the near future. Problem Hypertension (65653188) Hypertension (I10) Active confirmed His blood pressure is currently at its target. No change in his regimen was made. Problem 237996703 Prostate cancer (C61) Active confirmed PSA has been ordered. He is currently free of symptoms. Problem 536392842 Seizure disorder (G40.909) Active confirmed He had a seizur e May 05, 2024 at home and was hospitalized for several days at [facility]. Imaging of the brain showed no stroke.I recommended he continue his Keppra. He is adamant that he will not take that medication or any other at this time. He has been noncompliant past but did agree to followed carefully in the office. I will continue to work with this difficult patient. He did agree not to drive. Problem 54474494 Anxiety (F41.9) Active confirmed We discussed the causes of riged fingernails and cold sores at length today. If the symptoms persist. I told drop by the office for inspection. It is very unlikely this is a side effect of his medication and he was encouraged to continue it. Problem Vitamin D deficiency (70596410) Vitamin D deficiency, unspecified (E55.9) Active confirmed He continues on supplementation. 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 Problem Benign prostatic hyperplasia (042594479) BPH (benign prostatic hyperplasia) (N40.0) Active confirmed He says he arises from sleep twice a night sometimes once and sometimes 3 times to urinate. We have discussed lifestyle modification as a way of reducing nocturia. Problem Memory loss (37106090) Memory loss (R41.3) Active confirmed Problem Carotid artery stenosis (41940808) Carotid stenosis (I65.29) Active confirmed Problem Peripheral vascular disease (365514937) PVD (peripheral vascular disease) (I73.9) Active confirmed He has mild claudication. 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 He has significant left carotid stenosis and was referred to vascular surgery at [facility] in June 2024. Repair was planned after his seizures were corrected. He will be referred back there at this time. Problem 74526507 Glaucoma, unspecified glaucoma type, unspecified laterality (H40.9) Active confirmed He will remain under the care of his first beater with no change in his medications. Problem 017340081 Cataract, unspecified cataract type, unspecified laterality (H26.9) Active confirmed He will remain under the care of his first beater. Problem 465646323 History of seizure (Z87.898) Active confirmed He has had no seizures and says he is compliant with the phenytoin. Problem 815931258561390 Carotid stenosis, right (I65.21) Active confirmed The right neck is well-healed at this time and there is a good pulse. 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 He is taking lamotrigine. He says he has agrreed to take 200 mg in the morning and 100 mg at night faithfully. A follow-up visit was arranged. He has had no recent seizures. Problem 681584271 Noncompliance with medications (Z91.148) Active confirmed I [...] Date Provider Diagnosis Stephon Ventura III, MD [address] [place] [address] [place] [address] 05/09/2024 Stephon Ventura Hypertension I10 ; P VD (peripheral vascular disease) I73.9 ; Hyperlipidemia E78.5 ; Overweight (BMI 25.0-29.9) E66.3 ; Former smoker Z87.891 ; BPH (benign prostatic hyperplasia) N40.0 ; Noncompliance with medications Z91.148 and Seizure disorder G40.909 Stephon Ventura III, MD [address] [place] [address] [place] [address] 06/19/2024 Stephon Ventura Hypertension I10 ; P [...] cerebral artery I66.22 Stephon Ventura III, MD [address] [place] [address] [place] [address] 07/31/2024 Stephon Ventura Hypertension I10 ; Seizure disorder G40.909 ; PVD (peripheral vascular disease) I73.9 ; Hyperlipidemia E78.5 ; Former smoker Z87.891 ; Carotid stenosis, right I65.21 ; Occlusion and stenosis of left posterior cerebral artery I66.22 ; BPH (benign prostatic hyperplasia) N40.0 ; Anxiety F41.9 ; Noncompliance with medications Z91.148 and Overweight (BMI 25.0-29.9) E66.3 Stephon Ventura III, MD [address] [place] [address] [place] [address] 10/09/2024 Stephon Ventura Hypertension I10 ; Seizure disorder G40.909 ; PVD (peripheral vascular disease) I73.9 ; Former smoker Z87.891 ; Hyperlipidemia E78.5 ; Overweight (BMI 25.0-29.9) E66.3 and BPH (benign prostatic hyperplasia) N40.0 Stephon Ventura III, MD [address] [place] [address] [place] [address] 10/20/2024 Stephon Ventura Hypertension I10 ; Nonintractable epilepsy without status epilepticus, unspecified epilepsy type G40.909 ; PVD (peripheral vascular disease) I73.9 ; Hyperlipidemia E78.5 ; Former smoker Z87.891 ; BPH (benign prostatic hyperplasia) N40.0 ; History of seizure Z87.898 ; Prostate cancer C61 and Overweight (BMI 25.0-29.9) E66.3 Stephon Ventura III, MD [address] [place] [address] [place] [address] 01/01/2025 Stephon Ventura Hypertension I10 ; History of seizure Z87.898 ; PVD (peripheral vascular disease) I73.9 ; Hyperlipidemia E78.5 ; Glaucoma, unspecified glaucoma type, unspecified laterality H40.9 ; Former smoker Z87.891 ; Overweight (BMI 25.0-29.9) E66.3 ; Carotid stenosis, right I65.21 and Vitamin D deficiency, unspecified E55.9 Stephon Ventura III, MD [address] [place] [address] [place] [address] 01/22/2025 Stephon Ventura Hypertension I10 ; P VD (peripheral vascular disease) I73.9 ; History of seizure Z87.898 ; Hyperlipidemia E78.5 ; Prostate cancer C61 ; Glaucoma, unspecified glaucoma type, unspecified laterality H40.9 ; Former smoker Z87.891 and Vitamin D deficiency, unspecified E55.9 Stephon Ventura III, MD [address] [place] [address] [place] [address] 06/08/2024 Stephon Ventura III, MD [address] [place] [address] [place] [address] 08/04/2024 Stephon Ventura III, MD [address] [place] [address] [place] [address] 01/08/2025 Stephon Ventura III, MD [address] [place] [address] [place] [address] 01/24/2025 Stephon Ventura III, MD [address] [place] [address] [place] [address] 02/14/2025 Stephon Ventura Assessments Encounter Date Diagnosis [...] and was hospitalized for several days at [facility]. Imaging of the brain showed no [...] and was hospitalized for several days at [facility]. Imaging of the brain showed no [...] and was referred to vascular surgery at [facility] in June 2024. Repair was planned [...] will remain under the care of his first beater. 07/31/2024 Hyperlipidemia (ICD-10 - E78.5) His total [...] will remain under the care of his first beater with no change in his medications. 07/31/2024 [...] will remain under the care of his first beater with no change in his medications. 01/22/2025 [...] will remain under the care of his first beater with no change in his medications. 05/09/2024 [...] and was hospitalized for several days at [facility]. Imaging of the brain showed no [...] DIFF 07/06/2023 CBC WITH AUTO DIFF 04/19/2023 Complete Blood Count Auto Diff Liver Panel 03/30/2025 Basic Metabolic Panel 03/30/2025 Magnesium 03/30/2025 Troponin-I High Sensitivity 03/30/2025 Lipid Panel 01/22/2025 Lipid Panel 12/31/2023 Lipid Panel 11/16/2023 Lipid Panel 07/06/2023 Lipid Panel 04/19/2023 Lipid Panel 10/09/2024 Vitamin D 25-OH Total 10/09/2024 Testosterone, Total 10/09/2024 Lamotrigine Lamictal 08/31/2022 UA CC w/rflx Micro + Cult 03/30/2025 Next Appt Details Provider Name:Stephon Ventura , 04/30/2025 02:15:00 PM, [address] [place] [address] A[place]ERA, [place], [address], Provider Name:Stephon Ventura , 01/07/2026 02:00:00 PM, [address] [place] [address] ANASTASI[address] HERRERA, [place], [phone], Insurance Providers Payer Name Payer Address Payer Phone Subscriber Number Group Number Insured Name Patient Relationship to Insured Coverage Start Date Coverage End Date MEDICARE NGS [address] [place] [phone] [id number] Michael Jenkins Self - patient is the [...] History Reason Date(Month/Year) [place] [facility] [place]
--- NOTE | 2025-03-30 15:28 | PC.NURSE ---
Pt presents to ED from home with difficulty ambulating since midnight last night, gen weakness, no other neuro deficits. Alert and oriented, can ambulate with walking sticks and some assistance. No pain. NSR on bedside monitor. BP hypertensive. Uses urinal at bedside. Pills whole with water
--- NOTE | 2025-03-30 15:38 | MHC.STROKE ---
Met with patient in Room 1 Pt reports that when he woke this am, he had difficulty ambulating and had to hold onto the oneil walking down the hallway. Normally he is able to walk well in his home. He does have two walking sticks that he uses when he is walking outside or working in his garden. He reports that he went to bed at midnight and felt well prior to going to bed. He reports waking at 0730 and that is when he noticed the difficulty with ambulation. Upon inquiring further, pt reports that he has had trouble with his words' x approximately one month. He states that occasionally he gets zaps through his head but that typically occurs after he has smoked marijuana. He states that he smokes marijuana about 2 times a day. He reports he will have an occasional beer. Mild weakness noted on the left side. speaking clearly during our interview however occasionally mixed up his words (highway instead of hallway). PT confirms a hx of high blood pressure and a previous stroke. He states that he hasn't been taking his aspirin or bp meds. He reports that he won't take a statin because they messed me up . Stroke Education provided. We discussed in detail his medical hx, social hx, medications, diet, activity. Plan is for admission. Pt reluctantly agreeable.
--- NOTE | 2025-03-30 15:54 | PM.IMHP ---
History of Present Illness Date of Service: 03/30/25 [facility] Chief Complaint: unsteady gait This is an 84-year-old male who presents to the emergency department with unsteady gait. Patient states he is in his usual state of health yesterday. When he woke up this morning around 730 he states that he was unable to walk without holding on to the oneil. When he got to the emergency department there was concern for left upper extremity and left lower extremity weakness. He underwent a CTA which showed 90% carotid stenosis and history of prior right MCA stroke. The patient reports that he has had left upper extremity weakness for ever however as per emergency room provider previous notes indicate this may be untrue. Due to unclear last known well time he was not a candidate for TNK. He will be admitted to the hospital for further workup Review of Systems Review of Systems: Yes all other systems are reviewed and are negative Constitutional: Constitutional: Denies chills and Denies fever(s) Cardiovascular: Cardiovascular: Denies chest pain and Denies palpitations Endocrine: Endocrine: Denies palpitations [facility] Medical History Seizure disorder Stroke Seizures IBS (irritable bowel syndrome) CAD (coronary artery disease) AMS (altered mental status) High cholesterol HTN (hypertension) Family History Father No problems noted. Mother Myocardial infarction Surgical History H/O eye surgery History of carotid endarterectomy (~01/2022) Hx of tonsillectomy Hx of abdominal surgery Social History Household Members: Children Household Members Other:: daughter, son, and son's girlfriend Housing: House Are you a primary director of health care marketing to a significant other at home: No Do you presently have visiting nurse or other home services: No Alcohol intake: never Patient Tobacco Use Status: Never used Tobacco Smoked in Last 30 Days: No e-Cigarette/Vaping Use: Never Used Second Hand Smoke Exposure: No Use of substances other than those prescribed or required for medical reasons: Yes Substance Use Type: Marijuana Advance Directives: Yes Advance Directives on File: Yes Advance Directives Date on File: 01/26/22 service: No Current occupational status: retired Meds Allergies Allergy/AdvReac Type Severity Reaction Status Date / Time lacosamide (From Vimpat) AdvReac Severe Muscle Verified 03/30/25 10:34 cramps Home Medications ?Medication ?Instructions ?Recorded ?Confirmed ?Last Taken ?Type latanoprost 0.005 % eye drops 1 drp ophthalmic (eye) BEDTIME 05/06/20 03/30/25 03/29/25 History lisinopril 20 mg tablet 20 mg PO BID 01/15/22 03/30/25 03/29/25 History dorzolamide 22.3 mg-timolol 6.8 1 drp ophthalmic (eye) DAILY 01/26/22 03/30/25 03/29/25 History mg/mL eye drops carvedilol 6.25 mg tablet 6.25 mg PO BID 03/30/25 03/30/25 2 Days Ago History ~03/28/25 Physical Exam Vital Signs and Narrative: Vital Signs: Last Vital Signs Temp 97.2 F 03/30/25 14:05 Pulse 72 03/30/25 15:16 Resp 15 03/30/25 15:16 BP 179/76 H 03/30/25 15:16 Pulse Ox 100 03/30/25 14:05 O2 Del Method Room Air 03/30/25 14:05 BMI result Body Mass Index 26.5 Const: General: cooperative, comfortable, alert and awake Nutritional Appearance: average body habitus Orientation/consciousness: patient oriented x3 Resp: Effort & Inspection: normal respiratory effort, able to speak in complete sentences, no respiratory distress and no use of accessory muscles Cardio: Rate: regular rate GI: Inspection: No distended Palpation (GI): Soft to palpation Neuro: Other: speech clear, tongue midline, LUE 4/5, RUE 5/5 b/l LE seems to have equal strength, face symmetrical General: patient oriented x3 Results Labs 03/30/25 10:52 03/30/25 10:52 Labs: Laboratory Results - last 24 hr 03/30/25 03/30/25 10:52 12:44 MCV 88.9 MCH 29.2 MCHC 32.9 RDW 14.1 Plt Count 206 MPV 10.5 Immature Gran % (Auto) 0.2 Neut % (Auto) 62.3 Lymph % (Auto) 29.1 [place] % (Auto) 6.4 Eos % (Auto) 1.2 Baso % (Auto) 0.8 Lymph # (Auto) 1.9 [place] # (Auto) 0.4 Eos # (Auto) 0.1 Baso # (Auto) 0.1 Abs Immat Gran (auto) 0.01 Absolute Neuts (auto) 4.1 Absolute Nucleated RBC 0.000 Nucleated RBC % (auto) 0.0 Anion Gap 11 L Estim Creat Clear Calc 53.9 Estimated GFR > 60 Random Glucose 135 H Estimat Average Glucose 117 Hemoglobin A1c % 5.7 Calcium 9.2 D Magnesium 2.0 Total Bilirubin 0.4 Direct Bilirubin 0.1 AST 24 ALT 16 Alkaline Phosphatase 113 Troponin I High Sens < 2.7 Total Protein 6.9 Albumin 4.6 Urine Color Yellow Urine Appearance Clear Urine pH 7.0 Ur Specific [place] 1.010 Urine Protein Negative Urine Glucose (UA) Negative Urine Ketones Negative Urine Blood Negative Urine Nitrite Negative Ur Leukocyte Esterase Negative Imaging Radiologist's Impressions: Impressions Head/Neck CTA 03/30/25 13:06 IMPRESSION: No main cerebral artery occlusion or embolus or gross aneurysm. 90% stenosis without occlusion secondary to irregular shaped calcified plaque, left ICA. No dissection. 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 This critical test result is communicated to: emergency physician Dr. Samina Thomson at 1:33 PM on March 30, 2025 via [employer]. EXAMINATION: XR CHEST CLINICAL INFORMATION: generalized weakness COMPARISON: May 06, 2020. TECHNIQUE: PA and lateral views. FINDINGS: Pulmonary reticular pattern. No gross consolidation pleural effusion or pneumothorax. No hyperinflation. Cardiomediastinal silhouette size is normal. Multilevel spondylosis. Degenerative changes in the shoulders. IMPRESSION: Chronic interstitial lung disease. Electronically signed by: Toi Guerrero MD 03/30/2025 01:43 PM EDT Chest X-Ray 03/30/25 13:15 IMPRESSION: No main cerebral artery occlusion or embolus or gross aneurysm. 90% stenosis without occlusion secondary to irregular shaped calcified plaque, left ICA. No dissection. 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 This critical test result is communicated to: emergency physician Dr. Samina Thomson at 1:33 PM on March 30, 2025 via [employer]. EXAMINATION: XR CHEST CLINICAL INFORMATION: generalized weakness COMPARISON: May 06, 2020. TECHNIQUE: PA and lateral views. FINDINGS: Pulmonary reticular pattern. No gross consolidation pleural effusion or pneumothorax. No hyperinflation. Cardiomediastinal silhouette size is normal. Multilevel spondylosis. Degenerative changes in the shoulders. IMPRESSION: Chronic interstitial lung disease. Electronically signed by: Toi Guerrero MD 03/30/2025 01:43 PM EDT RP Assessment and Plan (1) Bilateral carotid artery stenosis: Status: Acute (2) Left-sided weakness: Status: Acute Plan This is an 84-year-old male with a history of coronary artery disease, hypertension, hyperlipidemia, seizure disorder, carotid stenosis status post right carotid endarterectomy, medication noncompliance who presents to the emergency department with unsteady gait found to have left-sided weakness unsteady gait, left side weakness concern for stroke unclear LKWT, last night at midnight when he went to bed vs several days of left side weakness previous Right MCA stroke as per imaging - no asa or statin on med list LDL 108 will start asa and statin neurology consult passed swallow eval PT/OT eval may need MRI hold BP meds for permissive HTN stable carotid stenosis following outpatient with vascular, seen recently not a candidate for surgical intervention no need for further US surveillance h/o seizures continue lamotrigine reportedly not compliant with meds HTN hold coreg, lisinopril for permissive HTN due to possible stroke dvt ppx - lovenox Quality Stroke Does the patient have a stroke diagnosis?: No VTE Prior VTE?: No VTE Risk Level:: Medical - moderate - high VTE Device Contraindication: N/A - Device Ordered VTE Drug Contraindication: N/A - Med Ordered
--- NOTE | 2025-03-30 16:09 | PHA.MEDREC ---
Addendum entered by David Pugh 03/30/25 17:48: Pt confirmed he takes his Lamotrigine 100mg tabs 1 QID. Addendum entered by Viky Wilkinson RPh 03/30/25 16:17: MED REC REVIEWED BY [facility] Original Note: Pharmacy Consult ? Medication Reconciliation Pharmacy has completed the medication reconciliation. Spoke with pt and confirmed his medications. Pt states he ran out of Carvedilol about 2-3 days ago, he takes his Dorzolamide-Timolol eye drops once daily instead of BID and he confirmed he took one of this Lamtorigine 100mg tabs this Am @0300 before coming in and everything else yesterday.
[2025-03-30 16:28] LABS: Cholesterol 187 mg/dL (<200); HDL Cholesterol 62 mg/dL (>40); Triglycerides 87 mg/dL (<150)
[2025-03-30] MEDS: 0.9 % Sodium Chloride Flush 3 ML SYRINGE IVFLUSH ×2 (16:53→21:44)
--- NOTE | 2025-03-30 20:07 | HO.NURTONUR ---
Chief Complaint: unsteady gait This is an 84yr old male, full code, low sodium diet, who presents to the emergency department with unsteady gait. Patient states he is in his usual state of health yesterday. When he woke up this morning around 730 he states that he was unable to walk without holding on to the oneil. When he got to the emergency department there was concern for left upper extremity and left lower extremity weakness. He underwent a CTA which showed 90% carotid stenosis and history of prior right MCA stroke. The patient reports that he has had left upper extremity weakness for ever however as per emergency room provider previous notes indicate this may be untrue. Due to unclear last known well time he was not a candidate for TNK. He will be admitted to the hospital for further workup 20 g to the left forearm Plan: MRI pending, nuero consult
--- NOTE | 2025-03-30 20:22 | PC.NURSE ---
pt refusing atorvostatin at this time stating that it makes him sick to his stomach, educated on the need for the medication and pt adherent on not taking medication
[2025-03-31] VITALS (7 sets, daily range): BP systolic 139–187; BP diastolic 63–88; PULSE 67–86; RESP 16–18; TEMP 35.5–36.6; O2SAT 96–98
[2025-03-31] MEDS: Aspirin Enteric Coated 81 MG TABLET.DR PO (09:06)
--- NOTE | 2025-03-31 09:06 | MHC.CM.PN ---
CM met with Patient at bedside and addressed AVILA with him, providing Patient with the original and a copy has been placed on the chart. Patient lives in a house with his Daughter/Swati and his Son and he uses a walking stick to assist with mobility. Patient will benefit from a PT Eval to assist with disposition; CM has initiated and will follow for dc planning. PCP is Dr.Robert Ventura and transport will depend on final dc plan. Daughter/Viktoria is the HCP.
[2025-03-31] MEDS: 0.9 % Sodium Chloride Flush 3 ML SYRINGE IVFLUSH ×3 (09:07→19:45)
--- NOTE | 2025-03-31 10:18 | P.CNNE_ITS ---
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 His blood pressure was 200+ systolic. He had an MRI of brain done that did not reveal any significant acute abnormality. He said that he was unsteady on his feet and almost fell down. Now he was feeling better. There was no evidence of any loss of consciousness or witnessed convulsion. There was no complain of any new focal weakness. No headache or recent cold or flu-like illness. Review of Systems 2 Eyes: Eyes: Reports as per HPI FORMERLY [facility], [facility] Past Medical History Medical History Seizure disorder Stroke Seizures IBS (irritable bowel syndrome) CAD (coronary artery disease) AMS (altered mental status) High cholesterol HTN (hypertension) Family History Family History Father No problems noted. Mother Myocardial infarction Surgical History Surgical History H/O eye surgery History of carotid endarterectomy (~01/2022) Hx of tonsillectomy Hx of abdominal surgery Social History Social History Household Members: Family and Children Household Members Other:: daughter, son, and son's girlfriend Housing: House Are you a primary healthcare receptionist to a significant other at home: No Do you presently have visiting nurse or other home services: No Alcohol intake: never Patient Tobacco Use Status: Former Tobacco user Tobacco use type: Cigarette Smoked in Last 30 Days: No e-Cigarette/Vaping Use: Never Used Second Hand Smoke Exposure: No Use of substances other than those prescribed or required for medical reasons: Yes Substance Use Type: Marijuana Have you been hit, kicked, punched, or otherwise hurt by someone within the past year? If so, by whom?: No Do you feel safe in your current relationship?: Yes Is there a partner from a previous relationship who is making you feel unsafe now?: No Are you made to feel afraid or neglected: Yes Advance Directives: Yes Advance Directives on File: Yes Advance Directives Date on File: 01/26/22 Recently lost weight without trying: No Nutrition Risks: No Nutritional Risk service: No Current occupational status: retired Meds Allergies Allergy/AdvReac Type Severity Reaction Status Date / Time lacosamide (From Vimpat) AdvReac Severe Muscle Verified 03/30/25 10:34 cramps Active Medications: Current Medications Acetaminophen (Acetaminophen 325 Mg Tablet) 650 mg PO Q6H PRN PRN Reason: Pain, Mild 1-3,fever,headache Aspirin (Aspirin Enteric Coated 81 Mg Tablet.Dr) 81 mg PO DAILY [facility] Last Admin: 03/31/25 09:06 Dose: 81 mg Atorvastatin Calcium (Atorvastatin Calcium 40 Mg Tablet) 40 mg PO BEDTIME [facility] Last Admin: 03/30/25 20:24 Dose: Not Given Calcium Carbonate (Calcium Carbonate 750 Mg Tab.Chew) 750 mg PO Q4H PRN PRN Reason: Heartburn Dorzolamide/Timolol (Dorzolamide/Timolo 2.23%/0.68% 10 Ml Drbtl) 1 drop EYE- BOTH DAILY [facility] Enoxaparin Sodium (Enoxaparin Sodium 40 Mg/0.4 Ml Syringe) 40 mg SUBCUT Q24H [facility] Last Admin: 03/30/25 16:54 Dose: 40 mg Lamotrigine (Lamotrigine 100 Mg Tablet) 200 mg PO DAILY@0600 [facility] Last Admin: 03/31/25 06:39 Dose: 200 mg Lamotrigine (Lamotrigine 100 Mg Tablet) 100 mg PO BID@1400,2000 [facility] Latanoprost (Latanoprost 0.005 % Ophth Mireille 2.5 Ml Drops) 1 drop EYE-BOTH BEDTIME [facility] Last Admin: 03/30/25 21:45 Dose: Not Given Magnesium Hydroxide (Milk Of Magnesia 30 Ml Oral.Susp) 30 ml PO DAILY PRN PRN Reason: Constipation Melatonin (Melatonin 3 Mg Tablet) 6 mg PO BEDTIME PRN PRN Reason: Insomnia Last Admin: 03/30/25 21:43 Dose: 6 mg Sodium Chloride (0.9 % Sodium Chloride Flush 3 Ml Syringe) 3 ml IVFLUSH QSHIFT [facility] Last Admin: 03/31/25 09:07 Dose: 3 ml Home Medications ?Medication ?Instructions ?Recorded ?Confirmed ?Last Taken ?Type latanoprost 0.005 % eye drops 1 drp ophthalmic (eye) B EDTIME 05/06/20 03/30/25 03/29/25 History lisinopril 20 mg tablet 20 mg PO BID 01/15/2203/29/25 History dorzolamide 22.3 mg-timolol 6.8 1 drp ophthalmic (eye) DAILY 01/26/22 03/30/25 03/29/25 History mg/mL eye drops carvedilol 6.25 mg tablet 6.25 mg PO BID 03/30/2503/08 2 Days Ago History ~03/28/25 lamotrigine 100 mg tablet 100 mg PO BID@1400,2000 03/0803/31/25 Unknown History lamotrigine 100 mg tablet 200 mg PO DAILY@0600 03/31/25 Unknown History Physical Exam 2 Vital Signs: Vital Signs: Last Vital Signs Temp 97.1 F 03/31/25 07:26 Pulse 70 03/31/25 08:21 Resp 18 03/31/25 07:26 BP 140/63 H 03/31/25 08:21 Pulse Ox 97 03/31/25 08:21 O2 Del Method Room Air 03/31/25 07:26 BMI result Body Mass Index 26.3 Neuro: Other: Mental Status: Alert and oriented to person, place, and time. Normal attention. Normal spontaneous speech, fluency, and comprehension. CN II: Visual lewis full to confrontation, visual acuity intact. CN III, IV, : Pupils equal, round, reactive to light and accommodation. Extraocular movements are normal. CN V: Facial sensation is normal. CN VII: Facial movements symmetrical. CN VIII: Hearing intact to bedside conversation is normal. CN IX, X: Palate elevates symmetrically. CN XI: Shoulder shrug and head turn symmetrical. CN XII: Tongue midline without atrophy or fasciculations. Motor: He is able to get up and walk in a cautious gait. Deep tendon reflexes are 1+ with flexor plantars. [id number] testing revealed mild bilateral ataxia. Extrapyramidal: Full facial expressions and blinking. No rigidity. Movements are appropriate with no tremor or abnormality. Speech: Normal; no dysarthria or tremor. Results Labs 03/30/25 10:52 03/30/25 10:52 Labs: Short CBC 03/30/25 Range/Units 10:52 WBC 6.6 (4.8-10.8) X10*3/uL Hgb 12.6 L (14.0-18.0) g/dl Hct 38.3 L (42.0-52.0) % Plt Count 206 (160-400) X10*3/uL BMP 03/30/25 10:52 Sodium 141 Potassium 4.0 Chloride 107 Carbon Dioxide 27 BUN 16 Creatinine 0.92 Calcium 9.2 D Liver Function 03/30/25 Range/Units 10:52 Total Bilirubin 0.4 (0.0-1.0) mg/dL Direct Bilirubin 0.1 (0.0-0.5) mg/dL AST 24 (5-37) U/L ALT 16 (0-40) U/L Alkaline Phosphatase 113 (39-117) U/L Albumin 4.6 (3.5-5.0) g/dL Urine 03/30/25 Range/Units 12:44 Urine Color Yellow Urine Appearance Clear Urine pH 7.0 (5.0-9.0) Ur Specific [place] 1.010 (1.005-1.025) Urine Protein Negative (Neg-Trace) mg/dL Urine Glucose (UA) Negative (Negative) mg/dL EXAMINATION: CTA NECK WITH CONTRAST (STROKE) CTA BRAIN WITH CONTRAST (STROKE) CLINICAL INFORMATION: Left sided Weakness. Gait instability. COMPARISON: Correlated to ultrasound carotid Doppler dated March 02, [address] brain dated May 06, 2020. TECHNIQUE: CTA of the head and neck was performed in the axial plane from the mediastinum to the skull vertex using 70 mL Omnipaque 350 intravenous contrast. Additional reformatted multiplanar images including maximum intensity projection MIP images are generated on the CT workstation. This CT examination was performed using dose optimization techniques as appropriate, variously including the following: *Automated exposure control *Adjustment of mA and/or kV according to patient size (this includes techniques or standardized protocols for targeted exams where dose is matched to indication/reason for exam; i.e. extremities or head) *Use of iterative reconstruction technique. DLP: 1611 mGy centimeter. FINDINGS: The degree of stenosis determined by criteria similar to NASCET. Brain: No acute intracranial hemorrhage, mass effect, midline shift, hydrocephalus or herniation. Yoder-white matter differentiation is normal. Bilateral multifocal patchy deep periventricular white matter hypodensities involving centrum semiovale and ball radiata. Macrocystic encephalomalacia, right temporoparietal lobe. Posterior cranial fossa contents demonstrated no acute hemorrhage or mass effect. Calcified plaques in the cavernous supracavernous segments both ICAs. No increased density in the MCA's. No air-fluid levels in the paranasal sinuses. Poor pneumatization of the frontal sinuses. Probable old traumatic deformity, nasal bones. Tympanic cavities and mastoid cells are aerated. Chest CTA: Calcified plaques without aneurysm or dissection, aortic arch. Calcified plaques in the origin of the main branches. Neck CTA: Right CCA: Normal patency. No focal stenosis. No intimal flap. Right ICA: Normal patency. No focal stenosis. No intimal flap. Left CCA: Normal patency. No focal stenosis. No intimal flap. Left ICA: Irregular shaped calcified plaque resulting in 90% stenosis in the proximal segment with normal patency and no intimal flap. V1/V2 segments: Normal patency. No focal stenosis. No intimal flap. Calcified plaques in the origin. The origin is from the subclavian arteries. Tortuosity on the left vertebral artery. Left vertebral artery is dominant. Brain CTA: Anterior cerebral circulation: ICAs: Calcified plaques cavernous supracavernous segments. Normal patency. No abrupt cut off. MCA's: Normal patency. No focal stenosis. No abrupt cut off. Bifurcation/trifurcation demonstrated no vascular abnormality. ACAs: Normal patency. No focal stenosis. No abrupt cut off. Anterior communicating artery is patent without irregularity. Ophthalmic arteries are patent without gross abnormality. I do not see the posterior costophrenic attending arteries. Posterior cerebral circulation: V3/V4 segments: Normal patency. No focal stenosis. No intimal flap. Right posterior inferior cerebral arteries patent. There is a probable common trunk with the left anterior inferior cerebellar artery and left posterior inferior cerebellar artery. Basilar artery is patent without focal stenosis or intimal flap. Superior cerebellar arteries are patent. inspector integrated circuits: Normal patency. No focal stenosis. No abrupt cut off Ancillary findings: No main cerebral venous sinus thrombosis. Poor dentition. Pulmonary mosaic pattern. Thyroid gland is not enlarged. Multilevel cervical spondylosis. CT/CT angio head neck IMPRESSION: No main cerebral artery occlusion or embolus or gross aneurysm. 90% stenosis without occlusion secondary to irregular shaped calcified plaque, left ICA. No dissection. 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 MRI of brain was also reviewed. It did not reveal any acute lesion. Same findings of brain as noted on CTA were noted. Assessment and Plan (1) Hypertensive encephalopathy: Status: Acute Present clinical picture that brought him to hospital is best explained based upon hypertensive encephalopathy. Better control of blood pressure is recommended. (2) Left carotid stenosis: Status: Acute This is asymptomatic and I recommend continuing medical management with blood pressure control and full dose of statin. Anti-platelet agent such as baby aspirin daily should also continue. (3) Seizure disorder: Status: Acute It is stable with lamotrigine and that can continue. (4) Cerebral infarction: Qualifiers: Cerebral infarction mechanism: embolism Laterality of affected vessel: right Precerebral and cerebral artery: middle cerebral artery Qualified Code(s): I63.411 - Cerebral infarction due to embolism of right middle cerebral artery Status: Acute This is a chronic finding of an embolic right middle cerebral artery area ischemic infarct with no evidence of carotid disease. Atrial fibrillation is a possibility. Outpatient Holter monitoring is recommended. Procedures Date of Service Date of Service: 03/31/25
--- NOTE | 2025-03-31 11:39 | HO.PM.IMPN ---
Subjective Subjective Date of Service: 03/31/25 Physical Exam Vital Signs: Vital Signs: Last Vital Signs Temp 97.1 F 03/31/25 07:26 Pulse 70 03/31/25 08:21 Resp 18 03/31/25 07:26 BP 140/63 H 03/31/25 08:21 Pulse Ox 97 03/31/25 08:21 O2 Del Method Room Air 03/31/25 07:26 BMI result Body Mass Index 26.3 Objective Data Active Medications Acetaminophen (Acetaminophen 325 Mg Tablet) 650 mg PO Q6H PRN PRN Reason: Pain, Mild 1-3,fever,headache Aspirin (Aspirin Enteric Coated 81 Mg Tablet.Dr) 81 mg PO DAILY [facility] Last Admin: 03/31/25 09:06 Dose: 81 mg Documented By: PUNEET Atorvastatin Calcium (Atorvastatin Calcium 40 Mg Tablet) 40 mg PO BEDTIME [facility] Last Admin: 03/30/25 20:24 Dose: Not Given Documented By: RADHA Non-Admin Reason: pt refused states Makes me sick Calcium Carbonate (Calcium Carbonate 750 Mg Tab.Chew) 750 mg PO Q4H PRN PRN Reason: Heartburn Dorzolamide/Timolol (Dorzolamide/Timolo 2.23%/0.68% 10 Ml Drbtl) 1 drop EYE-BOTH DAILY [facility] Enoxaparin Sodium (Enoxaparin Sodium 40 Mg/0.4 Ml Syringe) 40 mg SUBCUT Q24H [facility] Last Admin: 03/30/25 16:54 Dose: 40 mg Documented By: NEO Lamotrigine (Lamotrigine 100 Mg Tablet) 200 mg PO DAILY@0600 [facility] Last Admin: 03/31/25 06:39 Dose: 200 mg Documented By: MARTELL Lamotrigine (Lamotrigine 100 Mg Tablet) 100 mg PO BID@1400,2000 [facility] Latanoprost (Latanoprost 0.005 % Ophth Mireille 2.5 Ml Drops) 1 drop EYE-BOTH BEDTIME [facility] Last Admin: 03/30/25 21:45 Dose: Not Given Documented By: MARTELL Non-Admin Reason: Med Not Available Magnesium Hydroxide (Milk Of Magnesia 30 Ml Oral.Susp) 30 ml PO DAILY PRN PRN Reason: Constipation Melatonin (Melatonin 3 Mg Tablet) 6 mg PO BEDTIME PRN PRN Reason: Insomnia Last Admin: 03/30/25 21:43 Dose: 6 mg Documented By: MARTELL Sodium Chloride (0.9 % Sodium Chloride Flush 3 Ml Syringe) 3 ml IVFLUSH QSHIFT [facility] Last Admin: 03/31/25 09:07 Dose: 3 ml Documented By: PUNEET Labs 03/30/25 10:52 03/30/25 10:52 Labs: Laboratory Results - last 24 hr 03/30/25 03/30/25 10:52 12:44 Estimat Average Glucose 117 Hemoglobin A1c % 5.7 Triglycerides 87 Cholesterol 187 LDL Cholesterol, Calc 108 H HDL Cholesterol 62 Urine Color Yellow Urine Appearance Clear Urine pH 7.0 Ur Specific [place] 1.010 Urine Protein Negative Urine Glucose (UA) Negative Urine Ketones Negative Urine Blood Negative Urine Nitrite Negative Ur Leukocyte Esterase Negative Assessment and Plan (1) Essential hypertension: Status: Acute Plan 84-year-old male with a history of coronary artery disease, hypertension, hyperlipidemia, seizure disorder, carotid stenosis status post right carotid endarterectomy, medication noncompliance who presents to the emergency department with unsteady gait found to have left-sided weakness unsteady gait, left side weakness concern for stroke previous Right MCA stroke as per imaging - no asa or statin on med list Head and neck CTA showing 90% stenosis without occlusion to left ICA LDL 108 asa and statin neurology consult> chronic finding of embolic right middle cerebral artery area ischemia infarct. Possibly atrial fibrillation. Consider outpatient Holter monitor PT/OT eval MRI results pending stable carotid stenosis following outpatient with vascular, seen recently not a candidate for surgical intervention no need for further US surveillance h/o seizures continue lamotrigine reportedly not compliant with meds HTN hold coreg, lisinopril for permissive HTN due to possible stroke dvt ppx - lovenox Quality Stroke Does the patient have a stroke diagnosis?: No VTE Prior VTE?: No VTE Risk Level:: Medical - moderate - high VTE Device Contraindication: N/A - Device Ordered VTE Drug Contraindication: N/A - Med Ordered
--- NOTE | 2025-03-31 18:48 | PC.NURSE ---
Patient requesting MRI results which are not available, patient informed that MRI are not available. Patient became agitated, upset that he has to wait another day, provider aware.
[2025-04-01 03:24] VITALS: BP 181/96; PULSE 88; RESP 18; TEMP 36.4; O2SAT 93
[2025-04-01] MEDS: Dorzolamide/Timolo 2.23%/0.68% 10 ML DRBTL 1 DROP EYE-BOTH (06:28)
[2025-04-01] MEDS: 0.9 % Sodium Chloride Flush 3 ML SYRINGE IVFLUSH (06:28)
[2025-04-01 07:48] VITALS: BP 174/79; PULSE 74; RESP 16; TEMP 36.8; O2SAT 97
[2025-04-01] MEDS: Aspirin Enteric Coated 81 MG TABLET.DR PO (08:44)
--- NOTE | 2025-04-01 11:07 | MHC.CM.PN ---
Patient has been medically cleared for dc to home today, self care.
--- NOTE | 2025-04-01 11:07 | PM.IMHP ---
History of Present Illness Date of Service: 04/01/25 FORMERLY [facility] Medical History Seizure disorder Stroke Seizures IBS (irritable bowel syndrome) CAD (coronary artery disease) AMS (altered mental status) High cholesterol HTN (hypertension) Family History Father No problems noted. Mother Myocardial infarction Surgical History H/O eye surgery History of carotid endarterectomy (~01/2022) Hx of tonsillectomy Hx of abdominal surgery Social History Household Members: Family and Children Household Members Other:: daughter, son, and son's girlfriend Housing: House Are you a primary intensive care nurse to a significant other at home: No Do you presently have visiting nurse or other home services: No Alcohol intake: never Patient Tobacco Use Status: Former Tobacco user Tobacco use type: Cigarette Smoked in Last 30 Days: No e-Cigarette/Vaping Use: Never Used Second Hand Smoke Exposure: No Use of substances other than those prescribed or required for medical reasons: Yes Substance Use Type: Marijuana Currently Displaying Signs/Symptoms of Drug Intoxication Withdrawal: No Have you been hit, kicked, punched, or otherwise hurt by someone within the past year? If so, by whom?: No Do you feel safe in your current relationship?: Yes Is there a partner from a previous relationship who is making you feel unsafe now?: No Are you made to feel afraid or neglected: Yes Advance Directives: Yes Advance Directives on File: Yes Advance Directives Date on File: 01/26/22 Recently lost weight without trying: No Nutrition Risks: No Nutritional Risk service: No Current occupational status: retired Meds Allergies Allergy/AdvReac Type Severity Reaction Status Date / Time lacosamide (From Vimpat) AdvReac Severe Muscle Verified 03/30/25 10:34 cramps Active Medications: Current Medications Acetaminophen (Acetaminophen 325 Mg Tablet) 650 mg PO Q6H PRN PRN Reason: Pain, Mild 1-3,fever,headache Aspirin (Aspirin Enteric Coated 81 Mg Tablet.Dr) 81 mg PO DAILY [facility] Last Admin: 04/01/25 08:44 Dose: 81 mg Atorvastatin Calcium (Atorvastatin Calcium 40 Mg Tablet) 40 mg PO BEDTIME [facility] Last Admin: 03/31/25 19:44 Dose: Not Given Calcium Carbonate (Calcium Carbonate 750 Mg Tab.Chew) 750 mg PO Q4H PRN PRN Reason: Heartburn Dorzolamide/Timolol (Dorzolamide/Timolo 2.23%/0.68% 10 Ml Drbtl) 1 drop EYE-BOTH DAILY [facility] Last Admin: 04/01/25 06:28 Dose: 1 drop Enoxaparin Sodium (Enoxaparin Sodium 40 Mg/0.4 Ml Syringe) 40 mg SUBCUT Q24H [facility] Last Admin: 03/31/25 17:28 Dose: 40 mg Lamotrigine (Lamotrigine 100 Mg Tablet) 200 mg PO DAILY@0600 [facility] Last Admin: 04/01/25 06:28 Dose: 200 mg Lamotrigine (Lamotrigine 100 Mg Tablet) 100 mg PO BID@1400,2000 [facility] Last Admin: 03/31/25 19:44 Dose: 100 mg Latanoprost (Latanoprost 0.005 % Ophth Mireille 2.5 Ml Drops) 1 drop EYE-BOTH BEDTIME [facility] Last Admin: 03/31/25 19:45 Dose: Not Given Magnesium Hydroxide (Milk Of Magnesia 30 Ml Oral.Susp) 30 ml PO DAILY PRN PRN Reason: Constipation Melatonin (Melatonin 3 Mg Tablet) 6 mg PO BEDTIME PRN PRN Reason: Insomnia Last Admin: 03/30/25 21:43 Dose: 6 mg Sodium Chloride (0.9 % Sodium Chloride Flush 3 Ml Syringe) 3 ml IVFLUSH QSHIFT [facility] Last Admin: 04/01/25 06:28 Dose: 3 ml Home Medications ?Medication ?Instructions ?Recorded ?Confirmed ?Last Taken ?Type latanoprost 0.005 % eye drops 1 drp ophthalmic (eye) BEDTIME 05/06/20 03/30/25 03/29/25 History lisinopril 20 mg tablet 20 mg PO BID 01/15/22 03/30/25 03/29/25 History dorzolamide 22.3 mg-timolol 6.8 1 drp ophthalmic (eye) DAILY 01/26/22 03/30/25 03/29/25 History mg/mL eye drops carvedilol 6.25 mg tablet 6.25 mg PO BID 03/30/25 03/30/25 2 Days Ago History ~03/28/25 lamotrigine 100 mg tablet 100 mg PO BID@1400,2000 03/31/25 03/31/25 Unknown History lamotrigine 100 mg tablet 200 mg PO DAILY@0600 03/31/25 03/31/25 Unknown History Physical Exam Vital Signs and Narrative: Vital Signs: Last Vital Signs Temp 98.2 F 04/01/25 07:48 Pulse 74 04/01/25 07:48 Resp 16 04/01/25 07:48 BP 174/79 H 04/01/25 07:48 Pulse Ox 97 04/01/25 07:48 O2 Del Method Room Air 04/01/25 07:48 BMI result Body Mass Index 26.3 Results Labs 03/30/25 10:52 03/30/25 10:52 Quality Stroke Does the patient have a stroke diagnosis?: No VTE Prior VTE?: No VTE Risk Level:: Medical - moderate - high VTE Device Contraindication: N/A - Device Ordered VTE Drug Contraindication: N/A - Med Ordered
--- NOTE | 2025-04-01 11:07 | PM.DS ---
DS: Providers Provider Date of Service: 04/01/25 Date of admission: 03/30/25 15:47 Date of discharge: 04/01/25 Primary care physician: Stephon Ventura MD Consults: 03/30/25 15:51 Consult to Neurology Routine Consulting Provider: Domonique Escamilla Reason for consultation: unsteady gait ?left side weakness; h/o seizures Has provider been notified: No DS: Diagnosis Discharge Diagnosis (1) Essential hypertension: Status: Acute DS: Summary Hospital Course Hospital Course: History and physical as per admitting provider. This is an 84-year-old male who presents to the emergency department with unsteady gait. Patient states he is in his usual state of health yesterday. When he woke up this morning around 730 he states that he was unable to walk without holding on to the oneil. When he got to the emergency department there was concern for left upper extremity and left lower extremity weakness. He underwent a CTA which showed 90% carotid stenosis and history of prior right MCA stroke. The patient reports that he has had left upper extremity weakness for ever however as per emergency room provider previous notes indicate this may be untrue. Due to unclear last known well time he was not a candidate for TNK. He will be admitted to the hospital for further workup unsteady gait, left side weakness, ataxia previous Right MCA stroke as per imaging, Head and neck CTA showing 90% stenosis without occlusion to left ICA LDL 108 asa and statin neurology consult> chronic finding of embolic right middle cerebral artery area ischemia infarct. Possibly atrial fibrillation. Consider outpatient Holter monitor MRI showing no acute findings, prominent chronic changes and prior right MCA distribution infarct stable carotid stenosis following outpatient with vascular, seen recently not a candidate for surgical intervention, no need for further US surveillance as per Dr. Ruvalcaba vascular surgery h/o seizures continue lamotrigine HTN continue home medications Time Attestation Discharge Coordination Time (in mins): 42 Quality: Safe Use of Opioids Does Pt have an Active Cancer Diagnosis on the Problem List?: No Quality: Stroke Does the patient have a stroke diagnosis?: No Physical Exam Exam: Exam: Appearing in no acute distress head is normocephalic atraumatic eyes pupils are PERRLA sclera is anicteric mouth throat mucous membranes are intact and moist neck is supple no lymphadenopathy, no JVD noted lung sounds are clear to auscultation heart regular rate rhythm, clear S1, S2 positive bowel sounds, abdomen is soft, nontender neuro patient is alert x3, no focal deficits Vital Signs: Vital Signs: Last Vital Signs Temp 98.2 F 04/01/25 07:48 Pulse 74 04/01/25 07:48 Resp 16 04/01/25 07:48 BP 174/79 H 04/01/25 07:48 Pulse Ox 97 04/01/25 07:48 O2 Del Method Room Air 04/01/25 07:48 BMI result Body Mass Index 26.3 DS: Data Data Completed and Pending Completed studies during hospitalization [Text1]: Procedures Extirpation of Matter from Right External Carotid Artery, Open Approach (01/26/22) Inspection of Spinal Canal, Percutaneous Approach (05/07/20) Supplement Right Common Carotid Artery with Synthetic Substitute, Open Approach (01/26/22) Supplement Right Internal Carotid Artery with Synthetic Substitute, Open Approach (01/26/22) Discharge Plan Discharge Anticipated Discharge Date/Time: 04/01/25 11:00 Patient Disposition: Home, Self-Care Discharge Diagnosis: Ataxia no stroke Referrals: Stephon Ventura MD [Primary Care Provider, Internal Medicine] - 1 Week Discharge Medications: New atorvastatin 40 mg Tablet 40 mg PO BEDTIME Qty: 30 0RF aspirin 81 mg Tablet,Delayed Release (Dr/Ec) 81 mg PO DAILY Qty: 30 0RF Continued latanoprost 0.005 % drops 1 drp ophthalmic (eye) BEDTIME lisinopril 20 mg tablet 20 mg PO BID dorzolamide-timolol 22.3-6.8 mg/mL Drops 1 drp OPHTHALMIC (EYE) DAILY carvedilol 6.25 mg tablet 6.25 mg PO BID lamotrigine 100 mg tablet 200 mg PO DAILY@0600 lamotrigine 100 mg tablet 100 mg PO BID@1400,2000 Discharge Orders: Discharge Order (Routine); Ordered 04/01/25 Ordered By: Jemima Calles Diet: Advance to usual diet Activity on Discharge: As tolerated Stand Alone Forms: Patient Portal Discharge page Print Language: Moroccan Care Plan Goals: no further symptoms noted. Health Concerns: Ataxia no stroke Plan of Treatment: Follow up with primary care provider as needed Take all medications as prescribed Assessment: See discharge summary
[2025-04-01 11:47] VITALS: BP 200/90; PULSE 70; RESP 16; TEMP 37.3; O2SAT 98
[2025-04-01 13:50] VITALS: BP 168/75
[2025-04-01 13:51] VITALS: BP 166/81; PULSE 68
== END 2025-04-01 15:37 | disposition home or self-care (01) ==
LOC: HO.ED 14:20 → HO.EDOVER 15:59 → HO.IMC 19:11
PROVIDERS: Nurse Practitioner Family; Admitting Provider Physician Assistant Medical; Emergency Provider Emergency Medicine; PCP Internal Medicine Medical Oncology; Visit Provider Nurse Practitioner Acute Care
DX: I67.4 Hypertensive encephalopathy (principal); I65.22 Occlusion and stenosis of left carotid artery; G40.909 Epilepsy, unspecified, not intractable, without status epilepticus; R53.1 Weakness; I10 Essential (primary) hypertension; I25.10 Atherosclerotic heart disease of native coronary artery without angina pectoris; N40.0 Benign prostatic hyperplasia without lower urinary tract symptoms; I73.9 Peripheral vascular disease, unspecified; E78.5 Hyperlipidemia, unspecified; J84.9 Interstitial pulmonary disease, unspecified; Z87.891 Personal history of nicotine dependence; Z86.718 Personal history of other venous thrombosis and embolism; Z79.899 Other long term (current) drug therapy; Z79.82 Long term (current) use of aspirin
CPT/HCPCS: 36415; 70496; 70498; 70551; 71046; 80048; 80061; 80076; 81003; 83036; 83735; 84484; 85025; 93005; 96372; 97162; 99222; 99285; J1650; Q9967

== ENCOUNTER → 2025-03-30 10:36 | Outpatient (BNV) | payer MEDICARE, SELFPAY | PROVIDERS: Emergency Provider Emergency Medicine; PCP Internal Medicine Medical Oncology; Visit Provider Internal Medicine Cardiovascular Disease | DX: R53.1 Weakness (principal) | CPT/HCPCS: 93010 ==

== ENCOUNTER → 2025-03-30 10:37 | Outpatient (BNV) | payer MEDICARE, SELFPAY | PROVIDERS: Emergency Provider Emergency Medicine; PCP Internal Medicine Medical Oncology; Visit Provider Radiology Diagnostic Radiology | DX: I63.319 Cerebral infarction due to thrombosis of unspecified middle cerebral artery (principal) | CPT/HCPCS: 70496; 70498; 70551; 71046 ==

== ENCOUNTER → 2025-03-30 15:47 | Outpatient (BNV) | payer MEDICARE, SELFPAY | PROVIDERS: Admitting Provider Physician Assistant Medical; Emergency Provider Emergency Medicine; PCP Internal Medicine Medical Oncology; Visit Provider Psychiatry & Neurology Neurology | DX: I67.4 Hypertensive encephalopathy (principal); I65.22 Occlusion and stenosis of left carotid artery; G40.909 Epilepsy, unspecified, not intractable, without status epilepticus; I63.411 Cerebral infarction due to embolism of right middle cerebral artery | CPT/HCPCS: 99223 ==

== ENCOUNTER → 2025-03-30 15:47 | Outpatient (BNV) | payer MEDICARE, SELFPAY | PROVIDERS: Admitting Provider Physician Assistant Medical; Emergency Provider Emergency Medicine; PCP Internal Medicine Medical Oncology; Visit Provider Nurse Practitioner Acute Care | DX: I10 Essential (primary) hypertension (principal) | CPT/HCPCS: 99232 ==

== ENCOUNTER 2025-04-03 15:03 | Outpatient (REF) | payer MEDICARE, SELFPAY ==
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
--- OUTSIDE RECORDS SUMMARY | 2024-08-04 05:21 | XMS_ITS ---
Author Organization Stephon Ventura III, MD Address [address] [place] [address] [place] [address] Care Team Providers Care Bottom Stainer Name Role Phone Dr. Stephon Ventura III [...] appointment. Updated patient demos and faxed over [facility] discharge note from 05/2024 and last progress note from Dr. Ventura Referral Priority Routine Referral Appointment Date 10/05/2024 REASON FOR VISIT Neurology Referral Social History Sex Assigned At : Social History Observation Description Sex Assigned At Male Encounters Encounter Location Date Provider Diagnosis Stephon Ventura III, MD [address] [place] [address] [place] [address] 08/04/2024 Stephon Ventura Plan Of Treatment Referrals Referral Date Details 08/07/2024 08/07/2024, Patient would prefer Dr. Escamilla Evaluate and Treat Seizure Disorder Memory LossDomonique Next Appt Details Provider Name:Stephon Ventura , 04/30/2025 02:15:00 PM, [address] [place] [address] [place], [address], Provider Name:Stephon Ventura , 01/07/2026 02:00:00 PM, [address] [place] [address] [address], [place], [address], Progress Notes * Michael JENKINSDOB:1940 (84 yo M)Acc No.[id number]:08/04/2024 Patient: Michael SIU :1940 A ge:84 Y S ex:Male Address:[address] [place] [address], [phone] Subjective: * Chief Complaints: * N eurology Referral * Medical History: * Surgical History: * Hospitalization/Major Diagno stic Procedure: * Medications: Objective: * Vitals: * Physical Examination: Assessment: Plan: * Treatment: * Procedure Codes: * true * Date: Generated for Printi ng/Facitlalyg/eTransmitting on: 07:29 PM EDT Consultation Request Notes Referral Date Referring Provider Referred Provider Not sadie 08/07/2024 Stephon Ventura Muhammad Patient wo torsten prefer Dr. Escamilla Evaluate and Treat Seizure Disorder Memory Loss
--- OUTSIDE RECORDS SUMMARY | 2024-10-09 10:30 | XMS_ITS ---
Author Organization Stephon Ventura III, MD Address [address] [place] [address] Care Team Providers Care Child Psychometrist Name Role Phone Dr. Stephon Ventura III Primary Care Provider Allergies Allergen (clinical drug ingredient) Drug/Non Drug Allergy documented on EMR Reaction Allergy Type Onset Date Status No Known Drug Allergy Unknown Drug Allergy Active Reason For Referral Reason Evaluate and Treat Diagnosis 1 Carotid stenosis (I6 5.29) Diagnosis 2 PVD (peripheral vasc ular disease) (I73.9) Referral Organization Stephon Ventura III, MD Referring Provider First Name Stephon Referring Provider Last Name Lorenzo Referring Provider Speciality Internal M edicine Referred Organization [facility] Referred Provider Jose Alberto Ruvalcaba Referred Address [address] [place] [address],[place], [place],[phone], Referred Provider Specialty Vascular Daria jhon General Notes Charmaine Ramirez 10/12/2024 01:16:39 PM > Referral, progress note and recent ultrasound faxed., Charmaine Ramirez 10/19/2024 02:32:14 PM > patient want seen 06/13/24 and was sent to neurology from their practice. Dr. Ventura made aware Referral Priority Routine REASON FOR VISIT Seizures, Hypertension, Peripheral arterial disease, Prostate cancer, Benign prosthetic hypertrophy, Mild memory loss Medications Medication SIG (Take, Route, Frequency, Duration) Notes Start Date End Date Status Dorzolamide HCl-Timolol Mal 22.3-6.8 MG/ML 1 drop into affected eye Ophthalmic Twice a day 08/31/2022 Active Latanoprost 0.005 % INSTILL 1 DROP IN MARGAUX TH EYES AT BEDTIME Ophthalmic Active levETIRAcetam 750 MG 1 tablet Orally eliecer ry 12 hrs 05/09/2024 Active Vitamin D 25 MCG (1000 UT) as directed O rally Once a day 03/22/2020 Active Omeprazole 20 MG TAKE 1 CAPSULE BY MO UTH EVERY DAY 30 MINUTES BEFORE BREAKFAST Active Lisinopril 20 MG TAKE 1 TABLET BY SHANTA TH TWICE DAILY Active Atorvastatin Calcium 80 MG TAKE 1 TABLET BY MOUTH EVERY DAY Active Aspirin Low Dose 81 MG 1 tablet Orally O nce a day Active amLODIPine Besylate 10 MG TAKE 1 [...] te smoker Vital Signs Blood pressure systolic 137 mm Hg 10/10/19 25 Blood pressure diastolic 74 mm Hg 025 Heart Rate 71 /min 10/09/2024 Respiratory Rate 16 /min 10/09/2024 Height 67 in 10/09/2024 Weight 169 lbs 10/09/2024 BMI 26.47 kg/m2 10/09/2024 Oximetry 98 % 10/09/2024 Encounters Encounter Location Date Provider Diagnosis Stephon Ventura III, MD [address] [place] [address] [place] [address] 10/09/2024 Stephon Ventura Hypertension I10 ; Seizure disorder G40.909 ; PVD (peripheral vascular disease) I73.9 ; Former smoker Z87.891 ; Hyperlipidemia E78.5 ; Overweight (BMI 25.0-29.9) E66.3 and BPH (benign prostatic hyperplasia) N40.0 Assessments Encounter Date Diagnosis (ICD Code) Assessment Notes Treat ment Notes Treatment Clinical Notes 10/09/2024 Hypertension (ICD-10 - I10) His blood pressure is stable today. I recommended weight loss and sodium restriction. He will come to the office in the near future to have it measurred. 10/09/2024 Seizure disorder (ICD-10 - G40.909) He had a seizure May 05, 2024 at home and was hospitalized for several days at [facility]. Imaging of the brain showed no stroke.I recommended he continue his Keppra. He is adamant that he will not take that medication or any other at this time. He has been noncompliant past but did agree to followed carefully in the office. I will continue to work with this difficult patient. He did agree not to drive. 10/09/2024 PVD (peripheral vascular disease) (ICD-10 - I73.9) He has mild claudication. 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 10/09/2024 Former smoker (ICD-10 - Z87.891) He seems highly motivated not to smoke. We discussed a plan to prevent relapse in times of stress and illness. 10/09/2024 Hyperlipidemia (ICD-10 - E78.5) His total cholesterol has increased from 120 to 202. He has stopped taking his statin and refuses to consider resuming it. He could give me a no code reason for doing so, except that he thinks it is bad to take statin medication. 10/09/2024 Overweight (BMI 25.0-29.9) (ICD-10 - E66.3) His body mass index is 26. We discussed diet and nutrition today. We reviewed his weight loss strategy. 10/09/2024 BPH (benign prostatic hyperplasia) (ICD-10 - N40.0) He says he arises from sleep twice a night sometimes once and sometimes 3 times to urinate. We have discussed lifestyle modification as a way of reducing nocturia. Plan Of Treatment Medication Medication Name Sig Start Date Stop Date Notes Dorzolamide HCl-Timolol Mal 22.3-6.8 MG/ML 1 drop into affected eye Ophthalmic Twice a day 08/31/2022 Latanoprost 0.005 % INSTILL 1 DROP IN MARGAUX TH EYES AT BEDTIME Ophthalmic levETIRAcetam 750 MG 1 tablet Orally eliecer ry 12 hrs 05/09/2024 Vitamin D 25 MCG (1000 UT) as directed O rally Once a day 03/22/2020 Omeprazole 20 MG TAKE 1 CAPSULE BY MO UTH EVERY DAY 30 MINUTES BEFORE BREAKFAST Lisinopril 20 MG TAKE 1 TABLET BY SHANTA TH TWICE DAILY Atorvastatin Calcium 80 MG TAKE 1 TABLET BY MOUTH EVERY DAY Aspirin Low Dose 81 MG 1 tablet Orally Once a day amLODIPine Besylate 10 MG TAKE 1 TABLET BY MOUTH EVERY DAY Pending Test Test Name Order Date PROFILE, FASTING (COMPREHENSIVE METABOLI C) 10/09/2024 PSA, TOTAL 10/09/2024 CBC w DIFF 10/09/2024 Lipid Panel 10/09/2024 Vitamin D 25-OH Total 10/09/2024 Testosterone, Total 10/09/2024 Referrals Referral Date Details 10/09/2024 10/09/2024, Evaluate and Treat, Jose Alberto Ruvalcaba, [address] [place] [address], [place], [place], [phone], Next Appt Details Follow Up: 1 Week,4 Weeks, Karlos domingo: Telehealth, OV Provider Name:Stephon Delunarne , 04/30/2025 02:15:00 PM, [address] [place] [address] [address], [place], [address], Provider Name:Stephon Ventura , 01/07/2026 02:00:00 PM, [address] [place] [address] [address], [place], [address], Progress Notes * Michael JENKINSDOB:1940 (84 yo M)Acc No.[id number]:10/09/2024 Progress Notes Patient: Michael SIU Provider: Karlos Ventura MD :1940 A ge:84 Y S ex:Male Date:10/09/2024 Address:[address] [place], [place] [id number] Subjective: * Chief Complaints: * S eizuresHypertensionPeripheral arterial diseaseProstate cancerBenign prosthetic hypertrophyMild memory loss * HPI: C OVID-19 Screening: He returns for a periodic review and management of his medical issues. He has an upcoming urology appointment for his prostatism and prostate cancer. He reports that he is able to urinate normally and rises from sleep only once or twice a night to urinate. 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 There was concern about his cholesterol and a statin was recommended. Mister Jenkins today states that he will under no circumstances dances take a statin because he has read that it is harmful. I discussed the risks and benefits of statin medication with him today and he said he will consider it. He wants to do more research. He reports that his indigestion is unchanged and stable. He has had no seizures. He says he is taking his seizure medication. Questions H ave you had any new onset fever, chills, cough, congestion, sore throat, shortness of breath, muscle aches? N o * ROS: G eneral/Constitutional: pain o nly normal aches and pains. C hills d enies.?Fatigue a dmits. F ever d enies. E NT: Decreased hearing d enies. R espiratory: Cough d enies. C ardiovascular: Chest pain with exertion d enies. D yspnea on exertion?denies. S hortness of breath d enies. G astrointestinal: Constipation o ccasional. D ecreased appetite d enies. D iarrhea d enies. H eartburn o ccasional. N ausea d enies. R ectal bleeding [...] 1996 * Hospitalization/Major Diagno stic Procedure: [facility] June 2024 Right carotid endarterectomy 2021 * Family History: F ather: 85 yrs, old age. M other: 63 yrs, CAD,[place], diagnosed with HTN, CVD. C clayton: alive, [...] x-cigarette smoker Tiffani mccallum was born in [facility]. He is not a Mu-ism. He is and lives by himself. He [...] Verified] Objective: * Vitals: H t: 67, Wt:169, BMI:26.47, BP:137/74, HR:71, RR:16, Oxygen sat %:98, Wt-k.66. * Examination: G eneral Examination: GENERAL APPEARANCE: p brianda, well nourished, well developed, in no acute distress, , overweight, man who speaks rapidly and nonstopp. HEAD: a traumatic, normocephalic. EYES: e jewell, [...] exam intact. PSYCH: a lert, oriented, Speech is tangential and hypo-manic.. Assessment: * Assessment: 1. S eizure disorder - G40.909 (Primary) N otes :He had a seizure May 05, 2024 at home and was hospitalized for several days at [facility]. Imaging of the brain showed no [...] I10 N otes :His blood pressure is stable today. I recommended weight loss and sodium restriction. He will come to the office in the near future to have it measurred. 3 . P VD (peripheral vascular disease) - I73.9 N otes :He has mild claudication. 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 4 . F ormer smoker - Z87.891 N otes :He seems highly motivated not to smoke. We discussed a plan to prevent relapse in times of stress and illness. 5 . H yperlipidemia - E78.5 N otes :His total cholesterol has increased from 120 to 202. He has stopped taking his statin and refuses to consider resuming it. He could give me a no code reason for doing so, except that he thinks it is bad to take statin medication. 6 . O verweight (BMI 25.0-29.9) - E66.3 N otes :His body mass index is 26. We discussed diet and nutrition today. We reviewed his weight loss strategy. 7 . B PH (benign prostatic hyperplasia) - N40.0 N otes :He says he arises from sleep twice a night sometimes once and sometimes 3 times to urinate. We have discussed lifestyle modification as a way of reducing nocturia. Plan: * Treatment: 2. P VD (peripheral [...] into affected eye, Ophthalmic, Twice a day. Referral To:Jose Alberto Ruvalcaba Vascular Surgery Reason:Evaluate and Treat 3. H yperlipidemia L AB: PROFILE, FASTING (COMPREHENSIVE METABOLIC) L AB: PSA, TOTAL L AB: CBC w DIFF L AB: Lipid Panel L AB: Vitamin D 25-OH Total L AB: Testosterone, Total 4. O thers Referral To:Jose Alberto Ruvalcaba Vascular Surgery Reason:Evaluate and Treat * Procedure Codes: 9 4760 MEASURE BLOOD OXYGEN LEVEL * Preventive Medicine: Counseling: C are goal follow-up plan: Counseling for abnormal BMI given Y es Above Normal BMI Follow-up D ietary management education, guidance, and counseling, Dietary needs education S moking/Tobacco Use Patient counseled on the dangers of tobacco use and urged to quit. 0 10/09/2024 * Follow Up: 1 Week,4 Weeks (Reason: Telehealth, OV) * Images: * Sign off status: Completed true * Provider: Karlos Ventura MD Date: 0 10/09/2024 Generated for Printi ng/Joanna/eTransmitting on: 1 07:28 PM EDT History and Physical Notes * HPI (History of Present Illness) Category Sub-Category Detail Notes COVID-19 Screening Questions Have you had any new onset fever, chills, cough, congestion, sore throat, shortness of breath, muscle aches?: No Examination Category Sub-Category Detail Notes General Examination GENERAL APPEARANCE: pleasant , well nourished, well developed, in no acute distress, , overweight, man who speaks rapidly and nonstopp HEAD: atraumatic, normocep halic EYES: eomi, perrla, [...] not examined PSYCH: alert, oriented, Spe ech is tangential and hypo-manic. ORAL CAVITY: normal, unremarkable Consultation Request Notes Referral Date Referring Provider Referred Provider Not sadie 10/09/2024 Stephon Ventura Sandip Evaluate and T reat
--- OUTSIDE RECORDS SUMMARY | 2024-10-20 11:30 | XMS_ITS ---
Author Organization Stephon Ventura III, MD Address [address] [place] [address] Care Team Providers Care Teacher Learning Disabled Name Role Phone Dr. Stephon Ventura III Primary Care Provider Allergies Allergen (clinical drug ingredient) Drug/Non Drug Allergy documented on EMR Reaction Allergy Type Onset Date Status No Known Drug Allergy Unknown Drug Allergy Active REASON FOR VISIT Hypertension, Hyperlipidemia, Seizures, Peripheral vascular disease, Benign prostatic hypertrophy, Prostate cancer Medications Medication SIG (Take, Route, [...] EVERY DAY 30 MINUTES BEFORE BREAKFAST Active amLODIPine Besylate 10 MG TAKE 1 [...] Orally eliecer ry 12 hrs 05/09/2024 Active Social History Tobacco Use: Social History Observation Description Date Details (start date - stop date) Former Smoker NA - NA Sex Assigned At : Social History Observation Description Sex Assigned At Male Tobacco Use/Smoking Question Answer Notes Patient is a former smoker How long has it been since you last smoked? 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 He is taking lamotrigin e. He says he has agrreed to take 200 mg in the morning and 100 mg at night faithfully . A follow-up visit was arranged. He has had no recent seizures. Encounters Encounter Location Date Provider Diagnosis Stephon Ventura III, MD [address] [place] [address] [place] [address] 10/20/2024 Stephon Ventura Hypertension I10 ; Nonintractable epilepsy without status epilepticus, unspecified epilepsy type G40.909 ; PVD (peripheral vascular disease) I73.9 ; Hyperlipidemia E78.5 ; Former smoker Z87.891 ; BPH (benign prostatic hyperplasia) N40.0 ; History of seizure Z87.898 ; Prostate cancer C61 and Overweight (BMI 25.0-29.9) E66.3 Assessments Encounter Date Diagnosis (ICD Code) Assessment Notes Treat ment Notes Treatment Clinical Notes 10/20/2024 Hypertension (ICD-10 - I10) His blood pressure is stable today. I recommended weight loss and sodium restriction. He will come to the office in the near future to have it measurred. 10/20/2024 Nonintractable epilepsy without status epilepticus, unspecified epilepsy type (ICD-10 - G40.909) He is no longer taking Vimpat. He is taking lamotrigine. He says he has agrreed to take 200 mg in the morning and 100 mg at night faithfully. A follow-up visit was arranged. He has had no recent seizures. 10/20/2024 PVD (peripheral vascular disease) (ICD-10 - I73.9) He has mild claudication. 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 10/20/2024 Hyperlipidemia (ICD-10 - E78.5) His total cholesterol has increased from 120 to 202. He has stopped taking his statin and refuses to consider resuming it. He could give me a no code reason for doing so, except that he thinks it is bad to take statin medication. 10/20/2024 Former smoker (ICD-10 - Z87.891) He seems highly motivated not to smoke. We discussed a plan to prevent relapse in times of stress and illness. 10/20/2024 BPH (benign prostatic hyperplasia) (ICD-10 - N40.0) He says he arises from sleep twice a night sometimes once and sometimes 3 times to urinate. We have discussed lifestyle modification as a way of reducing nocturia. 10/20/2024 History of seizure (ICD-10 - Z87.898) He has had no seizures and says he is compliant with the phenytoin. 10/20/2024 Prostate cancer (ICD-10 - C61) He saw urology yesterday and received a leuprolide injection. His prostate cancer is in remission at this time. 10/20/2024 Overweight (BMI 25.0-29.9) (ICD-10 - E66.3) His body mass index is 26. We discussed diet and nutrition today. We reviewed his weight loss strategy. Plan Of Treatment Medication Medication Name Sig Start Date Stop Date Notes Aspirin Low Dose 81 MG 1 tablet Orally Once a day Atorvastatin Calcium 80 MG TAKE 1 TABLET BY MOUTH EVERY DAY Lisinopril 20 MG TAKE 1 TABLET BY SHANTA TH TWICE DAILY Omeprazole 20 MG TAKE 1 CAPSULE BY MO UTH EVERY DAY 30 MINUTES BEFORE BREAKFAST amLODIPine Besylate 10 MG TAKE 1 TABLET BY MOUTH EVERY DAY Vitamin D 25 MCG (1000 UT) as directed O anatoliy Once a day 03/22/2020 Latanoprost 0.005 % INSTILL 1 DROP IN MARGAUX TH EYES AT BEDTIME Ophthalmic Dorzolamide HCl-Timolol Mal 22.3-6.8 MG/ML 1 drop into affected eye Ophthalmic Twice a day 08/31/2022 levETIRAcetam 750 MG 1 tablet Orally eliecer ry 12 hrs 05/09/2024 Next Appt Details Follow Up: As Scheduled, Hali son: OV Provider Name:Stephon Ventura , 04/30/2025 02:15:00 PM, [address] [place] [address] [place], [address], Provider Name:Stephon Ventura , 01/07/2026 02:00:00 PM, [address] [place] [address] [place], [address], Progress Notes * Sonya JENKINS:1940 (84 yo M)Acc No.[id number]:10/20/2024 Patient: Michael [facility]U Provider: Karlos Ventura MD :1940 A ge:84 Y S ex:Male Date:10/20/2024 Address:[address] [place], [place] [phone] Subjective: * Chief Complaints: * H ypertensionHyperlipidemiaSeizuresPeripheral vascular diseaseBenign prostatic hypertrophyProstate cancer * HPI: * : saw neurology dr tiffany kilpatrick, lamotrigine 200 am 100 pm. This telehealth visit took place over 15 minutes with the patient at home and me in my office. He gave consent for billing. He has been to see the neurologist. The lamotrigine was made twice a day at a dose of 200 mg in the morning and 100 mg in the afternoon. He has agreed to take the medication this way and ssays he has been compliant. He has had no seizures since the last visit.? The neurologist said she would run some tessts which have yet to be scheduled. She will then see him again in follow-up. He denies any chest pain shortness of breath nausea vomiting or diarrhea or syncope. He is trying to consume a healthy diet and maintaain a healthy weight. Telehealth L ocation of provider rendering services: { ...} [address] [place] [address] [place] [address] L ocation of patient: meet ddress listed in demographics for today's visit P atient identification confirmed using: ANGLE Fan ame T elehealth method: T elephone only. Patient not visible to care provider. C onsent: P atient verbally consented to treatment, Patient verbally consented to billing insurance company, Patient informed of any privacy concerns related to method of visit T otal time spent with patient (mins) 1 5 * ROS: G eneral/Constitutional: pain o nly [...] M other: 63 yrs, CAD,[place], diagnosed with HTN, CVD. C clayton: alive, [...] x-cigarette smoker Tiffani mccallum was born in [facility]. He is not a Sikh. He is and lives by himself. He [...] Known Drug Allergyno[Allergies Verified] Objective: * Vitals: Assessment: * Assessment: 1. N onintractable epilepsy without status epilepticus, unspecified epilepsy type - G40.909 (Primary) N otes :He is no longer taking Vimpat. He is taking lamotrigine. He says he has agrreed to take 200 mg in the morning and 100 mg at night faithfully. A follow-up visit was arranged. He has had no recent seizures. 2 . H ypertension - I10 N [...] seems asymptomatic at this time. 4 . H yperlipidemia - E78.5 N [...] times of stress and illness. 6 . B PH (benign prostatic hyperplasia) - N40.0 N otes :He says he arises from sleep twice a night sometimes once and sometimes 3 times to urinate. We have discussed lifestyle modification as a way of reducing nocturia. 7 . H istory of seizure - Z87.898 N otes :He has had no seizures and says he is compliant with the phenytoin. 8 . P rostate cancer - C61 N otes :He saw urology yesterday and received a leuprolide injection. His prostate cancer is in remission at this time. 9 . O verweight (BMI 25.0-29.9) - E66.3 [...] Ophthalmic, Twice a day. * Procedure Codes: 9 8012 SYNCH AUDIO-ONLY EST SF 10 * Preventive Medicine: Counseling: C are goal follow-up plan: Counseling for abnormal BMI given Y es Above Normal BMI Follow-up D ietary management education, guidance, and counseling, Dietary needs education S moking/Tobacco Use Patient counseled on the dangers of tobacco use and urged to quit. 0 10/20/2024 * Follow Up: A s Scheduled (Reason: OV) * Images: * Sign off status: Completed true * Provider: Karlos Ventura MD Date: 0 10/20/2024 Generated for Claudia engle/Joanna/eTransmgeorge on: 1 07:29 PM EDT History and Physical Notes * HPI (History of Present Illness) Category Sub-Category Detail Notes Telehealth Location of [facility] rendering services:: {...} [address] [place] [address] [place] [id number] Location of patient:: address listed in demographics for today's visit Patient identification confirmed using:: Name, Telehealth method:: Telephone only. Page ent not visible to care provider. Consent:: Patient verbally c onsented to treatment, Patient verbally consented to billing insurance company, Patient informed of any privacy concerns related to method of visit Total time spent with patient (mins): 15
--- OUTSIDE RECORDS SUMMARY | 2025-01-01 10:00 | XMS_ITS ---
Author Organization Stephon Ventura III, MD Address [address] [facility] [place] [address] Care Team Providers Care Oenologist Name Role Phone Dr. Stephon Ventura III Primary Care Provider [phone] Allergies Allergen (clinical drug ingredient) Drug/Non Drug [...] Date Provider Diagnosis Stephon Ventura III, MD [address] [place] [address] [place] [address] 01/01/2025 Stephon Ventura Hypertension I10 ; History [...] will remain under the care of his inbound customer service agent with no change in his medications. 01/01/2025 [...] Provider Name:Stephon Ventura , 04/30/2025 02:15:00 PM, [address] [place] [address] [place] [place], [place], [address], Provider Name:Stephon Ventura , 01/07/2026 02:00:00 PM, [address] [place] [address] [place] [place], [place], [address], Progress Notes * Michael JENKINSDOB:1940 (84 yo M)Acc No.[id number]:01/01/2025 Progress Notes Patient: Michael SIU Provider: Karlos Ventura MD :1940 A ge:84 Y S ex:Male Date:01/01/2025 Address:[address] [place], [place] [id number] Subjective: * Chief Complaints: * A nnual [...] yrs, CAD,[place], diagnosed with HTN, CVD. C [place]: alive, [...] N egative Tiffani mccallum was born in [facility]. He is not a [employer]. He [...] will remain under the care of his inbound customer service agent with no change in his medications. 6 [...] 01/01/2025 Generated for Claudia engle/Joanna/Gurdeep on: 1 07:30 PM EDT History and [...]
--- OUTSIDE RECORDS SUMMARY | 2025-01-08 12:20 | XMS_ITS ---
Author Organization Stephon Ventura III, MD Address [address] [place] [address] Care Team Providers Care Rand Butting Machine Operator Name Role Phone Dr. Stephon Ventura III Primary Care Provider [phone] REASON FOR VISIT Needs call back from Social History Sex Assigned At : Social History Observation Description Sex Assigned At Male Encounters Encounter Location Date Provider Diagnosis Stephon Ventura III, MD [address] [place] [address] [place] [address] 01/08/2025 Stephon Ventura Plan Of Treatment Next Appt Details Provider Name:Stephon Ventura , 04/30/2025 02:15:00 PM, [address] [place] [address] ANASTASIYA HERRERA, [place], [address], Provider Name:Stephon Ventura , 01/07/2026 02:00:00 PM, [address] [place] [address] [place], [address], Progress Notes * Michael JENKINSDOB:1940 (84 yo M)Acc No.[id number]:01/08/2025 Patient: Michael SIU :1940 A ge:84 Y S ex:Male Address:[address] [place] [address], [address] * true * Date: Generated for Printi ng/Faxing/eTransmitting on: 07:29 PM EDT
--- OUTSIDE RECORDS SUMMARY | 2025-01-22 09:30 | XMS_ITS ---
Author Organization Stephon Ventura III, MD Address [address] [place] [address] Care Team Providers Care Space Planner Name Role Phone Dr. Stephon Ventura III [...] smoker Vital Signs Temperature 97.6 degrees Fahrenheit 01/23/20 25 Blood pressure systolic 135 mm Hg 01/23/20 25 Blood pressure diastolic 76 mm Hg 025 Heart Rate 54 /min 01/22/2025 Height 67 in 01/22/2025 Weight 169 lbs 01/22/2025 BMI 26.47 kg/m2 01/22/2025 Encounters Encounter Location Date Provider Diagnosis Stephon Ventura III, MD [address] [place] [address] [place] [address] 01/22/2025 Stephon Ventura Hypertension I10 ; P [...] and was referred to vascular surgery at [facility] in June 2024. Repair was planned after [...] will remain under the care of his plow shaker with no change in his medications. 01/22/2025 [...] BY SHANTA TH TWICE DAILY WITH FOOD Atorvastatin Calcium [...] Provider Name:Stephon Ventura , 04/30/2025 02:15:00 PM, [address] [place] [address] ANAST[address]IYA HERRERA, [place], [address], Provider Name:Stephon Ventura , 01/07/2026 02:00:00 PM, [address] [place] [address] ANASTASIYA HERRERA, [place], [address], Progress Notes * JENKINS, MichaelDOB:1940 (84 yo M)Acc No.[id number]:01/22/2025 Progress Notes Patient: Michael SIU Provider: Karlos Ventura MD :1940 A ge:84 Y S ex:Male Date:01/22/2025 Address:[address] [place], [place] [phone] Subjective: * Chief Complaints: * R ight [...] yrs, old age. M other: 63 yrs, CAD,[place], diagnosed with HTN, CVD. C hildren: alive, [...] x-cigarette smoker Tiffani mccallum was born in [facility]. He is not a Denominational. He is and lives by himself. He [...] and was referred to vascular surgery at [facility] in June 2024. Repair was planned after [...] will remain under the care of his plow shaker with no change in his medications. 7 [...] Ventura MD Date: 0 01/22/2025 Generated for Claduia engle/Joanna/Gurdeep on: 1 07:29 PM EDT History and [...]
--- OUTSIDE RECORDS SUMMARY | 2025-01-24 05:47 | XMS_ITS ---
Author Organization Stephon Ventura III, MD Address [address] [place] [address] Care Team Providers Care Account Support Specialist Name Role Phone Dr. Stephon Ventura III Primary Care Provider REASON FOR VISIT Vascular Appointment Social History Sex Assigned At : Social History Observation Description Sex Assigned At Male Encounters Encounter Location Date Provider Diagnosis Stephon Ventura III, MD [address] [place] [address] [place] [address] 01/24/2025 Stephon Ventura Plan Of Treatment Next Appt Details Provider Name:Stephon Ventura , 04/30/2025 02:15:00 PM, [address] [place] [address] [address], [place], [address], Provider Name:Stephon Ventura , 01/07/2026 02:00:00 PM, [address] [place] [address] [place], [address], Progress Notes * Michael JENKINSDOB:1940 (84 yo M)Acc No.[id number]:01/24/2025 Patient: Michael SIU :1940 A ge:84 Y S ex:Male Address:[address] [place] [address], [address] * true * Date: Generated for Printi ng/Faxing/eTransmitting on: 07:30 PM EDT
--- OUTSIDE RECORDS SUMMARY | 2025-02-14 05:14 | XMS_ITS ---
Author Organization Stephon Ventura III, MD Address [address] [place] [address] Care Team Providers Care Tube Handler Name Role Phone Dr. Stephon Ventura III Primary Care Provider [phone] Medications Medication SIG (Take, Route, Frequency, Duration) [...] Date Provider Diagnosis Stephon Ventura III, MD [address] [place] [address] [place] [address] 02/14/2025 Stephon Ventura Plan Of Treatment Next Appt Details Provider Name:Stephon Ventura , 04/30/2025 02:15:00 PM, [address] [place] [address] [place], [address], Provider Name:Stephon Ventura , 01/07/2026 02:00:00 PM, [address] [place] [address] [address], [place], [address], Progress Notes * Michael JENKINSDOB:1940 (84 yo M)Acc No.[id number]:02/14/2025 Patient: Michael SIU :1940 A ge:84 Y S ex:Male Address:[address] [place] [phone] Subjective: * Chief Complaints: * * Medical [...] * Date: Generated for Claudia engle/Joanna/Gurdeep on: 07:30 PM EDT
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
--- OUTSIDE RECORDS SUMMARY | 2025-04-03 19:30 | XMS_ITS | Encounter Summary ---
Author Organization [facility] Address [address] [place] [address] Care Team Providers Care Tank Cooper Name Role Phone Stephon Ventura Primary Care Provider [phone] Encounter Details Date Type Department Care Team (Late st Contact Info) Description 06/05/2021 Orders Only [facility] [address] [place] [address] Provider, Unknown, [address] [place] [address] Social History Tobacco Use Types Packs/Day [...] this encounter Procedures * Due to [place] [employer] law, this organization might not be sharing negative HIV tests. Procedure Name Priority Date/Time Associated Diagnosis Comments AMB EXTERNAL CT HEAD, OUTSID E RESULT Routine 06/22/2018 documented in this encounter Results * Due to [place] [employer] law, this organization might not be sharing negative HIV tests. * CT Head, Outside Result (06/22/2018) Anatomical Region Laterality Modality Other us Unknown Provider MD NELSON EXTERNAL RESULT PROCEDUR ES Final Result documented in this encounter Visit Diagnoses Not on filedocumented in this encounter Care Teams Tank Cooper Relationship Specialty Start Date End Date Stephon Ventura [address] [place] [address] PCP - General Hematology 06/05/21 documented as of this encounter
--- OUTSIDE RECORDS SUMMARY | 2025-04-03 19:30 | XMS_ITS | Encounter Summary ---
Author Organization [facility] Address [address] [place] [address] Care Team Providers Care Show Girl Name Role Phone Stephon Ventura Primary Care Provider [phone] Encounter Details Date Type Department Care Team (Late st Contact Info) Description 07/29/2021 Orders Only [facility] [address] [place] [address] [address] [facility] [place] [address] Social History Tobacco Use Types Packs/Day Years Used Date Smoking Tobacco: Never Assessed Sex and Gender Information Value Date Recorded Sex Assigned at Not on file Legal Sex Male 10:20 AM EST Gender Identity Not on file Sexual Orientation Not on file documented as of this encounter Plan of Treatment Not on file documented as of this encounter Procedures * Due to [place] [employer] law, this organization might not be sharing negative HIV tests. Procedure Name Priority Date/Time Associated Diagnosis Comments AMB EXTERNAL MRI BRAIN, OUTS SHANE RESULT Routine 06/27/2021 documented in this encounter Results * Due to [place] [employer] law, this organization might not be sharing negative HIV tests. * MRI Brain, Outside Result (06/27/2021) Anatomical Region Laterality Modality Other Sabas Herzog AMB EXTERNAL RESULT PROCEDURES Final Result documented in this encounter Visit Diagnoses Not on filedocumented in this encounter Care Teams Show Girl Relationship Specialty Start Date End Date Stephon Ventura [address] [facility] [address] [place] [address] PCP - General Hematology 06/05/21 documented as of this encounter
--- OUTSIDE RECORDS SUMMARY | 2025-04-03 19:30 | XMS_ITS | Encounter Summary ---
Author Organization [facility] Address [address] [place] [address] Care Team Providers Care Supervisor Payroll Name Role Phone Stephon Ventura Primary Care Provider [phone] Encounter Details Date Type Department Care Team (Late st Contact Info) Description 09/30/2022 Telephone [facility] Scheduling Department [address] [place] [address] Telephone Intake, Staff Social History Tobacco Use [...] days of 10/20 appointment. Please call: Viktoria: [phone] documented in this encounter Plan of Treatment Not on file documented as of this encounter Visit Diagnoses Not on filedocumented in this encounter Care Teams Supervisor Payroll Relationship Specialty Start Date End Date Stephon Ventura [address] [facility] [address] [place] [address] PCP - General Hematology 06/05/21 documented as of this encounter
--- OUTSIDE RECORDS SUMMARY | 2025-04-03 19:30 | XMS_ITS | Encounter Summary ---
Author Organization [facility] Address [address] [place] [address] Care Team Providers Care Hat Forming Machine Feeder Name Role Phone Stephon Ventura Primary Care Provider [phone] Reason for Visit * Reason Onset Date Comments Appointment 10/20/2021 Encounter Details Date Type Department Care Team (Late st Contact Info) Description 10/20/2021 Telephone [facility] [address] [place] [address] Telephone Intake, Staff Appointment Social History Tobacco [...] again to schedule. Did update best number: [phone] Tanika's cell * Telephone Encounter - Cuca [...] a schedule. pls call to book//advice. Tanika [phone] * Telephone Encounter - Ashish Hernandez MD [...] this issue of nausea, vimpat and achalasia. [phone] * Telephone Encounter - Cuca Steiner - [...] to Angela. Pt can be reached at [phone]. documented in this encounter Plan of Treatment Not on file documented as of this encounter Visit Diagnoses Not on filedocumented in this encounter Care Teams Hat Forming Machine Feeder Relationship Specialty Start Date End Date Stephon Ventura [facility] [address] [address] PCP - General Hematology 06/05/21 documented as of this encounter
--- OUTSIDE RECORDS SUMMARY | 2025-04-03 19:30 | XMS_ITS | Patient Health Record ---
Author Organization Stephon Ventura III, MD Address [address] [address] Care Team Providers Care Sausage Linker Name Role Phone Dr. Stephon Ventura III Primary Care Provider [phone] Allergies Allergen (clinical drug ingredient) Drug/Non Drug Allergy documented on EMR Reaction Allergy Type Onset Date Status No Known Drug Allergy Unknown Drug Allergy Active No Known Food Allergy Unknown Drug Allergy Active Results Component Value Reference Range Notes US carotid duplex BI Reviewed date:03/03/2025 07:34:35 PM Interpretation: Performing Lab: Notes/Report: [address] [address] Ultrasound Report Signed Patient: Michael Jenkins MR#: [id number] 7 : 1940 Acct:[id number] Age/Sex: 84 / M ADM Date: 03/02/25 Loc: . Attending Dr: Jose Alberto Ruvalcaba MD Ordering Physician: Jose Alberto Ruvalcaba MD Date of Service: 03/02/25 Procedure(s): US carotid duplex BI Accession Number(s): [id number] cc: Stephon Ventura MD; Jose Alberto Ruvalcaba [...] 03/02/25 1706 DD/ 1528 TD/TT: 03/02/25 1541 Linux Support Engineer: [address] [address] Ultrasound Report Signed Patient: Kemi Jenkins rd MR#: [id number] 7 : 1940 Acct:[id number] Age/Sex: 84 / M ADM Date: 03/02/25 Loc: .US Attending Dr: Jose Alberto Ruvalcaba MD Ordering Physician: Jose Alberto Ruvalcaba MD Date of Service: 03/02/25 Procedure(s): US car otid duplex BI Accession Number(s): [id number] cc: Stephon Ventura MD; Jose Alberto Ruvalcaba [...] 03/02/25 1706 DD/ 1528 TD/TT: 03/02/25 1541 Linux Support Engineer: Complete Blood Count Auto Di ff Reviewed date:04/01/2025 06:20:39 AM Interpretation: Performing Lab:[facility], [address] [place] [phone] Notes/Report: White Blood Count 6.6 4.8-10.8 X10*3/uL [...] Abs Auto 0.000 0.0-0.012 X10*3/uL Liver Panel Reviewed date:04/01/2025 06:20:39 AM Interpretation: Performing Lab:[facility], [address] [place] [phone] Notes/Report: Bilirubin Total 0.4 0.0-1.0 mg/dL Bilirubin Direct 0.1 0.0-0.5 mg/dL Aspartate Amino Transferase 24 5-37 U/L Alanine Aminotransferase 16 0-40 U/L Total Protein 6.9 6.5-8.0 g/dL Albumin Level 4.6 3.5-5.0 g/dL Alkaline Phosphatase 113 39-117 U/L Basic Metabolic Panel Reviewed date:04/01/2025 06:20:39 AM Interpretation: Performing Lab:[facility], [address] [place] [phone] Notes/Report: Sodium 141 135-145 mmol/L Potassium 4.0 [...] 60-115 mg/dL Calcium 9.2 8.4-10.2 mg/dL Magnesium Reviewed date:04/01/2025 06:20:39 AM Interpretation: Performing Lab:[facility], [address] [place] [phone] Notes/Report: Magnesium 2.0 1.6-2.6 mg/dL Troponin-I High Sensitivity Reviewed date:04/01/2025 06:20:39 AM Interpretation: Performing Lab:[facility], [address] [place] [phone] Notes/Report: Troponin-I High Sensitivity < 2.7 <3.5-35.0 ng/L The [place] high sensitivity Troponin-I results should be used in conjunction with other diagnostic information such as ECG, clinical observations and information, and patient symptoms to aid in the diagnosis of [place]. Lipid Panel Reviewed date:04/01/2025 06:20:39 AM Interpretation: Performing Lab:[facility], [address] [place] [phone] Notes/Report: Triglycerides 87 <150 mg/dL Desirable Triglyceride: less than 150 mg/dL Borderline High Triglyceride 150-199 mg/dL High Triglyceride: 200-499 mg/dL Very High Triglyceride: greater than or equal to 5OO mg/dL Cholesterol 187 <200 mg/dL Desirable Cholesterol: less than 200 mg/dL Borderline High Cholesterol: 200-239 mg/dL High Cholesterol: greater than 239 mg/dL LDL Cholesterol Calculated 108 <100 mg/dL Desirable LDL: less than 100 mg/dL Near Optimal/Above Optimal LDL: 110-129 mg/dL Borderline High LDL: 130-159 mg/dL High LDL: 160-189 mg/dL Very High LDL: greater than or equal to 190 mg/dL HDL Cholesterol 62 >40 mg/dL Desirable HDL: greater than 40 mg/dL Note: This HDL assay may give artificially low results in patients with liver disease. Hemoglobin A1c Reviewed date:04/01/2025 06:20:39 AM Interpretation: Performing Lab:[address] [phone] Notes/Report: Hemoglobin A1c % 5.7 <6.0 % Hemoglobin A1C Reference Range Adults: 4.8 - 6.0 % Non diabetic: < 6.0 % Goal: < 7.0 % Additional Action Suggested: > 8.0 % Note: Hemoglobin A1c results are invalid for patients with abnormal amounts of HbF. Blood transfusions may impact the HbA1c concentration in the patient sample. Estimated Average Glucose 117 eAG = Estimated average glucose which is %A1C expressed as average glucose, using the formula of the Z4W-Vsyiykf Average Glucose study (ADAG), Diabetes Care, Vol.31,#8, Jan. 2007 UA CC w/rflx Micro + Cult Reviewed date:04/01/2025 06:20:39 AM Interpretation: Performing Lab:[facility], [address] [place] [phone] Notes/Report: Urine, Clean Catch Color Urine Yellow Appearance Urine Clear PH 7.0 5.0-9.0 Glucose Urine UA Negative Negative mg/dL Urine Blood Negative Negative Specific [place] - Urine 1.010 1.005-1.025 Urine Protein Negative Neg-Trace mg/dL Urine Ketones Negative Negative mg/dL Nitrite Urine Negative Negative Leukocyte Esterase Urine Negative Negative CT angio head neck Reviewed date:04/01/2025 06:20:39 AM Interpretation: Performing Lab: Notes/Report: [address] [address] [address] Scan Report Signed Patient: Michael Jenkins MR#: [id number] 7 : 1940 Acct:[id number] Age/Sex: 84 / M ADM Date: 03/30/25 Loc: .ED Attending Dr: Ordering Physician: Samina Thomson DO Date of Service: 03/30/25 Procedure(s): CT angio head neck Accession Number(s): [id number] cc: Stephon Ventura MD; Samina Thomson DO Report Number: [id number]: Total DLP = 1611.00 mGy-cm Reason for Exam: gait instability, L sided weakness EXAMINATION: CTA NECK WITH CONTRAST (STROKE) CTA BRAIN WITH CONTRAST (STROKE) CLINICAL INFORMATION: Left sided Weakness. Gait instability. COMPARISON: Correlated to ultrasound carotid Doppler dated March 02, [address] brain dated May 06, 2020. TECHNIQUE: CTA of the head and neck was performed in the axial plane from the mediastinum to the skull vertex using 70 mL Omnipaque 350 intravenous contrast. Additional reformatted multiplanar images including maximum intensity projection MIP images are generated on the CT workstation. This CT examination was performed using dose optimization techniques as appropriate, variously including the following: *Automated exposure control *Adjustment of mA and/or kV according to patient size (this includes techniques or standardized protocols for targeted exams where dose is matched to indication/reason for exam; i.e. extremities or head) *Use of iterative reconstruction technique. DLP: 1611 mGy centimeter. FINDINGS: The degree of stenosis determined by criteria similar to NASCET. Brain: No acute intracranial hemorrhage, mass effect, midline shift, hydrocephalus or herniation. Yoder-white matter differentiation is normal. Bilateral multifocal patchy deep periventricular white matter hypodensities involving centrum semiovale and ball radiata. Macrocystic encephalomalacia, right temporoparietal lobe. Posterior cranial fossa contents demonstrated no acute hemorrhage or mass effect. Calcified plaques in the cavernous supracavernous segments both ICAs. No increased density in the MCA's. No air-fluid levels in the paranasal sinuses. Poor pneumatization of the frontal sinuses. Probable old traumatic deformity, nasal bones. Tympanic cavities and mastoid cells are aerated. Chest CTA: Calcified plaques without aneurysm or dissection, aortic arch. Calcified plaques in the origin of the main branches. Neck CTA: Right CCA: Normal patency. No focal stenosis. No intimal flap. Right ICA: Normal patency. No focal stenosis. No intimal flap. Left CCA: Normal patency. No focal stenosis. No intimal flap. Left ICA: Irregular shaped calcified plaque resulting in 90% stenosis in the proximal segment with normal patency and no intimal flap. V1/V2 segments: Normal patency. No focal stenosis. No intimal flap. Calcified plaques in the origin. The origin is from the subclavian arteries. Tortuosity on the left vertebral artery. Left vertebral artery is dominant. Brain CTA: Anterior cerebral circulation: ICAs: Calcified plaques cavernous supracavernous segments. Normal patency. No abrupt cut off. MCA's: Normal patency. No focal stenosis. No abrupt cut off. Bifurcation/trifurcation demonstrated no vascular abnormality. ACAs: Normal patency. No focal stenosis. No abrupt cut off. Anterior communicating artery is patent without irregularity. Ophthalmic arteries are patent without gross abnormality. I do not see the posterior costophrenic attending arteries. Posterior cerebral circulation: V3/V4 segments: Normal patency. No focal stenosis. No intimal flap. Right posterior inferior cerebral arteries patent. There is a probable common trunk with the left anterior inferior cerebellar artery and left posterior inferior cerebellar artery. Basilar artery is patent without focal stenosis or intimal flap. Superior cerebellar arteries are patent. physician aide: Normal patency. No focal stenosis. No abrupt cut off Ancillary findings: No main cerebral venous sinus thrombosis. Poor dentition. Pulmonary mosaic pattern. Thyroid gland is not enlarged. Multilevel cervical spondylosis. CT/CT angio head neck IMPRESSION: No main cerebral artery occlusion or embolus or gross aneurysm. 90% stenosis without occlusion secondary to irregular shaped calcified plaque, left ICA. No dissection. 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 This critical test result is communicated to: emergency physician Dr. Samina Thomson at 1:33 PM on March 30, 2025 via [employer]. EXAMINATION: XR CHEST CLINICAL INFORMATION: generalized weakness COMPARISON: May 06, 2020. TECHNIQUE: PA and lateral views. FINDINGS: Pulmonary reticular pattern. No gross consolidation pleural effusion or pneumothorax. No hyperinflation. Cardiomediastinal silhouette size is normal. Multilevel spondylosis. Degenerative changes in the shoulders. IMPRESSION: Chronic interstitial lung disease. Electronically signed by: Toi Guerrero MD 03/30/2025 01:43 PM EDT RP Dictated By: Toi Sands MD Signed By: <Electronically signed by Toi Barraza MD in [place]> 03/30/25 1343 DD/ 1306 TD/TT: 03/30/25 1330 Linux Support Engineer: [place] [address] CT Scan Report Signed Patient: Kemi Jenkins rd MR#: [id number] 7 : 1940 Acct:[id number] Age/Sex: 84 / M ADM Date: 03/30/25 Loc: HO.ED Attending Dr: Ordering Physician: Samina Thomson DO Date of Service: 03/30/25 Procedure(s): CT ang io head neck Accession Number(s): [id number] cc: Stephon Ventura MD; Samina Thomson DO Report Number: [id number]: Total DLP = 1611.00 mGy-cm Reason for Exam: gai t instability, L sided weakness EXAMINATION: CTA NECK WITH CONTRA ST (STROKE) CTA BRAIN WITH CONTR AST (STROKE) CLINICAL INFORMATION: Left sided Weakness. Gait instability. COMPARISON: Correlated to ultras ound carotid Doppler dated March 02, [address] brain dated May 06, 2020. TECHNIQUE: CTA of the head and neck was performed in the axial plane from the mediastinum to the s kull vertex using 70 mL Omnipaque 350 intravenous contrast. Additional reformatted multiplanar images including maximum intensity projection MIP images are generated on the CT workstation. This CT examination was performed using dose optimization techniques as appropriate, various ly including the following: *Automated exposure control *Adjustment of mA an d/or kV according to patient size (this includes techniques or standardized protocols for targeted exams where dose is matched to indication/reason for exam; i.e. extremities or head) *Use of iterative reconstruction technique. DLP: 1611 mGy centimeter. FINDINGS: The degree of stenos is determined by criteria similar to NASCET. Brain: No acute intracrania l hemorrhage, mass effect, midline shift, hydrocephalus or herniation. Yoder-white matter differentiation is normal. Bilateral multifocal patchy deep periventricular white matter hypodensities involv ing centrum semiovale and ball radiata. Macrocystic encephalomalacia, right temporoparietal lobe. Posterior cranial fo ssa contents demonstrated no acute hemorrhage or mass effect. Calcified plaques in the cavernous supracavernous segments both ICAs. No increased density in the MCA's. No air-fluid levels in the paranasal sinuses. Poor pneumatization of the frontal sinuses. Probable old traumatic deformity, nasal bones. Tympanic cavities an d mastoid cells are aerated. Chest CTA: Calcified plaques without aneurysm or dissection, aortic arch. Calcified plaques in the origin of the main branches. Neck CTA: Right CCA: Normal patency. No f ocal stenosis. No intimal flap. Right ICA: Normal patency. No f ocal stenosis. No intimal flap. Left CCA: Normal patency. No f ocal stenosis. No intimal flap. Left ICA: Irregular shaped calcified plaque resulting in 90% stenosis in the proximal segment wit h normal patency and no intimal flap. V1/V2 segments: Normal patency. No f ocal stenosis. No intimal flap. Calcified plaques in the origin. The origin is from the subclavian arteries. Tortuosity on the le ft vertebral artery. Left vertebral arter y is dominant. Brain CTA: Anterior cerebral circulation: ICAs: Calcified plaques cavernous supracavernous segments. Normal patency. No abrupt cut off. MCA's: Normal patency. No f ocal stenosis. No abrupt cut off. Bifurcation/trifurca tion demonstrated no vascular abnormality. ACAs: Normal patency. No f ocal stenosis. No abrupt cut off. Anterior communicati ng artery is patent without irregularity. Ophthalmic arteries are patent without gross abnormality. I do not see the posterior costophrenic attending arteries. Posterior cerebral circulation: V3/V4 segments: Normal patency. No f ocal stenosis. No intimal flap. Right posterior infe rior cerebral arteries patent. There is a probable common trunk with the left anterior inferior cerebellar artery an d left posterior inferior cerebellar artery. Basilar artery is pa tent without focal stenosis or intimal flap. Superior cerebellar arteries are patent. physician aide: Normal patency. No f ocal stenosis. No abrupt cut off Ancillary findings: No main cerebral romulo ous sinus thrombosis. Poor dentition. Pulmonary mosaic pattern. Thyroid gland is not enlarged. Multilevel cervical spondylosis. C T/CT angio head neck IMPRESSION: No main cerebral art nicolle occlusion or embolus or gross aneurysm. 90% stenosis without occlusion secondary to irregular shaped calcified plaque, left ICA. No dissection. Prior vascular insul t resulting in encephalomalacia involving the posterior division r ight MCA. This critical test result is communicated to: emergency physician Dr. Samina Thomson at 1:33 P M on March 30, 2025 via [employer]. EXAMINATION: XR CHEST CLINICAL INFORMATION: generalized weakness COMPARISON: May 06, 2020. TECHNIQUE: PA and lateral views. FINDINGS: Pulmonary reticular pattern. No gross consolidation pleural effusion or pneumothorax. No hyperinflation. Cardiomediastinal silhouette size is normal. Multilevel spondylosis. Degenerative changes in the shoulders. IMPRESSION: Chronic interstitial lung disease. Electronically magaly d by: Toi Guerrero MD 03/30/2025 01:43 PM EDT Dictated By: Toi Cee MD Signed By: <Electronically signed by Toi Barraza MD in [place]> 03/30/25 1343 DD/ 1306 TD/TT: 03/30/25 1330 Linux Support Engineer: XR chest 2V Reviewed date:04/01/2025 06:20:39 AM Interpretation: Performing Lab: Notes/Report: [address] [address] XRay Report Signed Patient: Michael Jenkins MR#: [id number] 7 : 1940 Acct:[id number] Age/Sex: 84 / M ADM Date: 03/30/25 Loc: HO.ED Attending Dr: Ordering Physician: Aliza Batista NP Date of Service: 03/30/25 Procedure(s): XR chest 2V Accession Number(s): [id number] cc: Stephon Ventura MD; Aliza Batista NP Reason for Exam: generalized weakness EXAMINATION: CTA NECK WITH CONTRAST (STROKE) CTA BRAIN WITH CONTRAST (STROKE) CLINICAL INFORMATION: Left sided Weakness. Gait instability. COMPARISON: Correlated to ultrasound carotid Doppler dated March 02, [address] brain dated May 06, 2020. TECHNIQUE: CTA of the head and neck was performed in the axial plane from the mediastinum to the skull vertex using 70 mL Omnipaque 350 intravenous contrast. Additional reformatted multiplanar images including maximum intensity projection MIP images are generated on the CT workstation. This CT examination was performed using dose optimization techniques as appropriate, variously including the following: *Automated exposure control *Adjustment of mA and/or kV according to patient size (this includes techniques or standardized protocols for targeted exams where dose is matched to indication/reason for exam; i.e. extremities or head) *Use of iterative reconstruction technique. DLP: 1611 mGy centimeter. FINDINGS: The degree of stenosis determined by criteria similar to NASCET. Brain: No acute intracranial hemorrhage, mass effect, midline shift, hydrocephalus or herniation. Yoder-white matter differentiation is normal. Bilateral multifocal patchy deep periventricular white matter hypodensities involving centrum semiovale and ball radiata. Macrocystic encephalomalacia, right temporoparietal lobe. Posterior cranial fossa contents demonstrated no acute hemorrhage or mass effect. Calcified plaques in the cavernous supracavernous segments both ICAs. No increased density in the MCA's. No air-fluid levels in the paranasal sinuses. Poor pneumatization of the frontal sinuses. Probable old traumatic deformity, nasal bones. Tympanic cavities and mastoid cells are aerated. Chest CTA: Calcified plaques without aneurysm or dissection, aortic arch. Calcified plaques in the origin of the main branches. Neck CTA: Right CCA: Normal patency. No focal stenosis. No intimal flap. Right ICA: Normal patency. No focal stenosis. No intimal flap. Left CCA: Normal patency. No focal stenosis. No intimal flap. Left ICA: Irregular shaped calcified plaque resulting in 90% stenosis in the proximal segment with normal patency and no intimal flap. V1/V2 segments: Normal patency. No focal stenosis. No intimal flap. Calcified plaques in the origin. The origin is from the subclavian arteries. Tortuosity on the left vertebral artery. Left vertebral artery is dominant. Brain CTA: Anterior cerebral circulation: ICAs: Calcified plaques cavernous supracavernous segments. Normal patency. No abrupt cut off. MCA's: Normal patency. No focal stenosis. No abrupt cut off. Bifurcation/trifurcation demonstrated no vascular abnormality. ACAs: Normal patency. No focal stenosis. No abrupt cut off. Anterior communicating artery is patent without irregularity. Ophthalmic arteries are patent without gross abnormality. I do not see the posterior costophrenic attending arteries. Posterior cerebral circulation: V3/V4 segments: Normal patency. No focal stenosis. No intimal flap. Right posterior inferior cerebral arteries patent. There is a probable common trunk with the left anterior inferior cerebellar artery and left posterior inferior cerebellar artery. Basilar artery is patent without focal stenosis or intimal flap. Superior cerebellar arteries are patent. physician aide: Normal patency. No focal stenosis. No abrupt cut off Ancillary findings: No main cerebral venous sinus thrombosis. Poor dentition. Pulmonary mosaic pattern. Thyroid gland is not enlarged. Multilevel cervical spondylosis. XR/XR chest 2V IMPRESSION: No main cerebral artery occlusion or embolus or gross aneurysm. 90% stenosis without occlusion secondary to irregular shaped calcified plaque, left ICA. No dissection. 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 This critical test result is communicated to: emergency physician Dr. Samina Thomson at 1:33 PM on March 30, 2025 via [employer]. EXAMINATION: XR CHEST CLINICAL INFORMATION: generalized weakness COMPARISON: May 06, 2020. TECHNIQUE: PA and lateral views. FINDINGS: Pulmonary reticular pattern. No gross consolidation pleural effusion or pneumothorax. No hyperinflation. Cardiomediastinal silhouette size is normal. Multilevel spondylosis. Degenerative changes in the shoulders. IMPRESSION: Chronic interstitial lung disease. Electronically signed by: Toi Guerrero MD 03/30/2025 01:43 PM EDT RP Dictated By: Toi Sands MD Signed By: <Electronically signed by Toi Barraza MD in [place]> 03/30/25 1343 DD/ 1315 TD/TT: 03/30/25 1320 Linux Support Engineer: [address] [address] XRay Report Signed Patient: Kemi Jenkins rd MR#: [id number] 7 : 1940 Acct:[id number] Age/Sex: 84 / M ADM Date: 03/30/25 Loc: HO.ED Attending Dr: Ordering Physician: Aliza Batista NP Date of Service: 03/30/25 Procedure(s): XR abdi st 2V Accession Number(s): [id number] cc: Stephon Ventura MD; Aliza Batista NP Reason for Exam: generalized weakness EXAMINATION: CTA NECK WITH CONTRA ST (STROKE) CTA BRAIN WITH CONTR AST (STROKE) CLINICAL INFORMATION: Left sided Weakness. Gait instability. COMPARISON: Correlated to ultras ound carotid Doppler dated March 02, [address] brain dated May 06, 2020. TECHNIQUE: CTA of the head and neck was performed in the axial plane from the mediastinum to the s kull vertex using 70 mL Omnipaque 350 intravenous contrast. Additional reformatted multiplanar images including maximum intensity projection MIP images are generated on the CT workstation. This CT examination was performed using dose optimization techniques as appropriate, various ly including the following: *Automated exposure control *Adjustment of mA an d/or kV according to patient size (this includes techniques or standardized protocols for targeted exams where dose is matched to indication/reason for exam; i.e. extremities or head) *Use of iterative reconstruction technique. DLP: 1611 mGy centimeter. FINDINGS: The degree of stenos is determined by criteria similar to NASCET. Brain: No acute intracrania l hemorrhage, mass effect, midline shift, hydrocephalus or herniation. Yoder-white matter differentiation is normal. Bilateral multifocal patchy deep periventricular white matter hypodensities involv ing centrum semiovale and ball radiata. Macrocystic encephalomalacia, right temporoparietal lobe. Posterior cranial fo ssa contents demonstrated no acute hemorrhage or mass effect. Calcified plaques in the cavernous supracavernous segments both ICAs. No increased density in the MCA's. No air-fluid levels in the paranasal sinuses. Poor pneumatization of the frontal sinuses. Probable old traumatic deformity, nasal bones. Tympanic cavities an d mastoid cells are aerated. Chest CTA: Calcified plaques without aneurysm or dissection, aortic arch. Calcified plaques in the origin of the main branches. Neck CTA: Right CCA: Normal patency. No f ocal stenosis. No intimal flap. Right ICA: Normal patency. No f ocal stenosis. No intimal flap. Left CCA: Normal patency. No f ocal stenosis. No intimal flap. Left ICA: Irregular shaped calcified plaque resulting in 90% stenosis in the proximal segment wit h normal patency and no intimal flap. V1/V2 segments: Normal patency. No f ocal stenosis. No intimal flap. Calcified plaques in the origin. The origin is from the subclavian arteries. Tortuosity on the le ft vertebral artery. Left vertebral arter y is dominant. Brain CTA: Anterior cerebral circulation: ICAs: Calcified plaques cavernous supracavernous segments. Normal patency. No abrupt cut off. MCA's: Normal patency. No f ocal stenosis. No abrupt cut off. Bifurcation/trifurca tion demonstrated no vascular abnormality. ACAs: Normal patency. No f ocal stenosis. No abrupt cut off. Anterior communicati ng artery is patent without irregularity. Ophthalmic arteries are patent without gross abnormality. I do not see the posterior costophrenic attending arteries. Posterior cerebral circulation: V3/V4 segments: Normal patency. No f ocal stenosis. No intimal flap. Right posterior infe rior cerebral arteries patent. There is a probable common trunk with the left anterior inferior cerebellar artery an d left posterior inferior cerebellar artery. Basilar artery is pa tent without focal stenosis or intimal flap. Superior cerebellar arteries are patent. physician aide: Normal patency. No f ocal stenosis. No abrupt cut off Ancillary findings: No main cerebral romulo ous sinus thrombosis. Poor dentition. Pulmonary mosaic pattern. Thyroid gland is not enlarged. Multilevel cervical spondylosis. X R/XR chest 2V IMPRESSION: No main cerebral art nicolle occlusion or embolus or gross aneurysm. 90% stenosis without occlusion secondary to irregular shaped calcified plaque, left ICA. No dissection. Prior vascular insul t resulting in encephalomalacia involving the posterior division r ight MCA. This critical test result is communicated to: emergency physician Dr. Samina Thomson at 1:33 P M on March 30, 2025 via [place]. EXAMINATION: XR CHEST CLINICAL INFORMATION: generalized weakness COMPARISON: May 06, 2020. TECHNIQUE: PA and lateral views. FINDINGS: Pulmonary reticular pattern. No gross consolidation pleural effusion or pneumothorax. No hyperinflation. Cardiomediastinal silhouette size is normal. Multilevel spondylosis. Degenerative changes in the shoulders. IMPRESSION: Chronic interstitial lung disease. Electronically magaly d by: Toi Guerrero MD 03/30/2025 01:43 PM EDT RP Dictated By: Toi Pedroza MD Signed By: <Electronically signed by Toi Barraza MD in OV> 03/30/25 1343 DD/ 1315 TD/TT: 03/30/25 1320 Linux Support Engineer: MR head/brain wo con (Not ye t reviewed by provider) Interpretation: Performing Lab: Notes/Report: [address] [address] Magnetic Resonance Report Signed Patient: Michael Jenkins MR#: [id number] 7 : 1940 Acct:[id number] Age/Sex: 84 / M ADM Date: 03/30/25 Loc: [facility] 484-[address]: Jemima Calles WOOD EXPERIMENTAL MECHANIC Ordering Physician: Elsa De La Cruz Date of Service: 03/30/25 Procedure(s): MR head/brain wo con Accession Number(s): [id number] cc: Elsa De La Cruz; Stephon Ventura MD Reason for Exam: unstteady gait, left side weakness; eval for strok CLINICAL HISTORY: unstteady gait, left side weakness; eval for strok MR Brain without gadolinium Comparison: CT/SR - CT HEAD NECK ANGIOGRAPHY WITH IV CONTRAST - 03/30/25 13:06 EDT Findings: No restricted diffusion. No intra-axial mass or hemorrhage. No midline shift. No hydrocephalus. Vascular flow voids are intact. 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 Moderate diffuse volume loss. Patchy T2 signal prolongation in the periventricular white matter. Orbital contents are unremarkable. The sinuses and mastoid air cells are clear. No focal bone lesion. IMPRESSION: No acute findings. Prominent chronic changes and prior right MCA distribution infarct. This document has been electronically signed by: Sandip Briceño MD on 04/01/2025 10:20:56 Dictated By: Sandip Briceño MD Signed By: <Electronically signed by Sandip Briceño MD in OV> 04/01/25 1021 DD/ 1020 TD/TT: 04/01/25 1020 Linux Support Engineer: [place] [id number] Magnetic Resonance Report Signed Patient: Kemi Jenkins rd MR#: [id number] 7 : 1940 Acct:[id number] Age/Sex: 84 / M ADM Date: 03/30/25 Loc: [facility] 484-[address]: Jemima Calles WOOD EXPERIMENTAL MECHANIC Ordering Physician: Elsa De La Cruz Date of Service: 03/30/25 Procedure(s): MR head/brain wo con Accession Number(s): [id number] cc: Ananda De La Cruz; Stephon Ventura MD Reason for Exam: unstteady gait, left side weakness; eval for strok CLINICAL HISTORY: unstteady gait, left side weakness; eval for strok MR Brain without gadolinium Comparison: CT/SR - CT HEAD NECK ANGIOGRAPHY WITH IV CONTRAST - 03/30/25 13:06 EDT Findings: No restricted diffusion. No intra-axial mass or hemorrhage. No midline shift. No hydrocephalus. Vascular flow voids are intact. 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 Moderate diffuse vol ume loss. Patchy T2 signal prolongation in the periventricular white matter. Orbital contents are unremarkable. The sinuses and mast oid air cells are clear. No focal bone lesion. IMPRESSION: No acute findings. Prominent chronic changes and prior right MCA distribution infarct. This document has be en electronically signed by: Sandip Briceño MD on 04/01/2025 10:20:56 Dictated By: Sandip Briceño MD Signed By: <Electronically signed by Sandip Briceño MD in OV> 04/01/25 1021 DD/ 1020 TD/TT: 04/01/25 1020 Linux Support Engineer: Reason For Referral Reason Evaluate and Treat Questioning if needs Left Carotid Endarterectomy Diagnosis 1 Carotid stenosis, ri ght (I65.21) Diagnosis 2 PVD (peripheral vasc ular disease) (I73.9) Diagnosis 3 Carotid stenosis (I6 5.29) Referral Organization Stephon Ventura III, MD Referring Provider First Name Stephon Referring Provider Last Name Lorenzo Referring Provider Speciality Internal [facility] Referred Organization [facility] Referred Provider Jose Alberto Ruvalcaba Referred Address [address] [place] [address],[place], [place],[id number], Referred Provider Specialty Vascular Daria jhon General [...] Referring Provider Last Name Lorenzo Referring Provider [facility] Referred Provider Domonique Escamilla Referred Provider Specialty [...] Provider Speciality Internal M edicine Referred Organization [facility] Referred Provider Jose Alberto Ruvalcaba Referred Address [address] [place] [address],[place], [place],[id number],[place] Referred Provider Specialty Vascular Daria jhon General Notes Charmaine Ramirez 10/12/2024 01:16:39 PM > Referral, progress note and recent ultrasound faxed., Charmaine Ramirez 10/19/2024 02:32:14 PM > patient want seen 06/13/24 and was sent to neurology from their practice. Dr. Ventura made aware Referral Priority Routine Reason evaluate and treatme nt for carotid artery stenosis Diagnosis 1 Carotid stenosis (I6 5.29) Referral Organization Stephon Ventura III, MD Referring Provider First Name Stephon Referring Provider Last Name Lorenzo Referring Provider Speciality Internal M edicine Referred Provider Phi Garcia ([facility]) Referred Provider Specialty Vascular Daria jhon General Notes Lisa Marlin EVARISTO 04/03 03:17:55 PM >ref/demo/testing faxed to Dr Garcia ([facility]) Referral Priority Routine Medications Medication SIG (Take, Route, Frequency, Duration) Notes Start Date End Date Status Aspirin Low Dose 81 MG 1 tablet Orally O nce a day Active Atorvastatin Calcium 40 MG 1 tablet Oral ly Once a day Active Carvedilol 6.25 MG TAKE 1 TABLET BY SHANTA TH TWICE DAILY WITH FOOD Active Latanoprost 0.005 % INSTILL 1 DROP IN MARGAUX TH EYES AT BEDTIME Ophthalmic Active levETIRAcetam 750 MG 1 tablet Orally eliecer ry 12 hrs 05/09/2024 Active Dorzolamide HCl-Timolol Mal 22.3-6.8 MG/ML 1 drop into affected eye Ophthalmic Twice a day 08/31/2022 Active amLODIPine Besylate 10 MG 1 tablet Orall y Once a day Active lamoTRIgine 100 MG 1 tablet Orally 3 ti mes a day Active Lisinopril 20 MG TAKE 1 TABLET BY SHANTA TH TWICE DAILY Active Immunizations Vaccine Route Administration Date Status [...] Problem Status W/U Status Risk Notes Problem 1620273 Former smoker (Z87.891) Active confirmed He seems highly motivated not to smoke. We discussed a plan to prevent relapse in times of stress and illness. Problem 814414860 Overweight (BMI 25.0-29.9) (E66.3) Active confirmed His body mass index is 26. We discussed diet and nutrition today. We reviewed his weight loss strategy. Problem Hyperlipidemia (57654805) Hyperlipidemia (E78.5) Active confirmed Comprehensive blood work for the fasting lipid profile has been ordered to be done in the near future. Problem Hypertension (24384621) Hypertension (I10) Active confirmed His blood pressure is currently at its target. No change in his regimen was made. Problem 845722331 Prostate cancer (C61) Active confirmed PSA has been ordered. He is currently free of symptoms. Problem 341025274 Seizure disorder (G40.909) Active confirmed He had a seizur e May 05, 2024 at home and was hospitalized for several days at [facility]. Imaging of the brain showed no stroke.I recommended he continue his Keppra. He is adamant that he will not take that medication or any other at this time. He has been noncompliant past but did agree to followed carefully in the office. I will continue to work with this difficult patient. He did agree not to drive. Problem 86614105 Anxiety (F41.9) Active confirmed We discussed the causes of riged fingernails and cold sores at length today. If the symptoms persist. I told drop by the office for inspection. It is very unlikely this is a side effect of his medication and he was encouraged to continue it. Problem Vitamin D deficiency (09469171) Vitamin D deficiency, unspecified (E55.9) Active confirmed He continues on supplementation. 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 Problem Benign prostatic hyperplasia (707308999) BPH (benign prostatic hyperplasia) (N40.0) Active confirmed He says he arises from sleep twice a night sometimes once and sometimes 3 times to urinate. We have discussed lifestyle modification as a way of reducing nocturia. Problem Memory loss (24810947) Memory loss (R41.3) Active confirmed Problem Carotid artery stenosis (83706995) Carotid stenosis (I65.29) Active confirmed Problem Peripheral vascular disease (034329000) PVD (peripheral vascular disease) (I73.9) Active confirmed He has mild claudication. 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 He has significant left carotid stenosis and was referred to vascular surgery at [facility] in June 2024. Repair was planned after his seizures were corrected. He will be referred back there at this time. Problem 06806943 Glaucoma, unspecified glaucoma type, unspecified laterality (H40.9) Active confirmed He will remain under the care of his printer machine with no change in his medications. Problem 028468485 Cataract, unspecified cataract type, unspecified laterality (H26.9) Active confirmed He will remain under the care of his printer machine. Problem 168195475 History of seizure (Z87.898) Active confirmed He has had no seizures and says he is compliant with the phenytoin. Problem 382961774874214 Carotid stenosis, right (I65.21) Active confirmed The right neck is well-healed at this time and there is a good pulse. 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 He is taking lamotrigine. He says he has agrreed to take 200 mg in the morning and 100 mg at night faithfully. A follow-up visit was arranged. He has had no recent seizures. Problem 100351373 Noncompliance with medications (Z91.148) Active confirmed I have explaine d patientlt and clearly at great length The reasons we have recommended he take the full dose of Keppra in the 80 mg of the atorvastatin. Nonetheless, he declines to do so. Vital Signs Heart Rate 58 /min 04/03/2025 Temperature 98.1 degrees Fahrenheit 04/03/2025 Respiratory Rate 16 /min 10/09/2024 Oximetry 98 % 10/09/2024 Blood pressure diastolic 64 mm Hg 04/03/2025 Height 67 in 04/03/2025 Blood pressure systolic 142 mm Hg 04/03/2025 Weight 157 lbs 04/03/2025 BMI 24.59 kg/m2 04/03/2025 Encounters Encounter Location Date Provider Diagnosis Stephon Ventura III, MD [address] [place] [address] [place] [address] 04/03/2025 Stephon Ventura Hypertension I10 ; P VD (peripheral vascular disease) I73.9 ; History of seizure Z87.898 ; Elevated PSA R97.20 ; Prostate cancer C61 and Carotid stenosis, right I65.21 Stephon Ventura III, MD [address] [place] [address] [place] [address] 05/09/2024 Stephon Ventura Hypertension I10 ; P VD (peripheral vascular disease) I73.9 ; Hyperlipidemia E78.5 ; Overweight (BMI 25.0-29.9) E66.3 ; Former smoker Z87.891 ; BPH (benign prostatic hyperplasia) N40.0 ; Noncompliance with medications Z91.148 and Seizure disorder G40.909 Stephon Ventura III, MD [address] [place] [address] [place] [address] 06/19/2024 Stephon Ventura Hypertension I10 ; P [...] cerebral artery I66.22 Stephon Ventura III, MD [address] [place] [address] [place] [address] 07/31/2024 Stephon Ventura Hypertension I10 ; Seizure disorder G40.909 ; PVD (peripheral vascular disease) I73.9 ; Hyperlipidemia E78.5 ; Former smoker Z87.891 ; Carotid stenosis, right I65.21 ; Occlusion and stenosis of left posterior cerebral artery I66.22 ; BPH (benign prostatic hyperplasia) N40.0 ; Anxiety F41.9 ; Noncompliance with medications Z91.148 and Overweight (BMI 25.0-29.9) E66.3 Stephon Ventura III, MD [address] [place] [address] [place] [address] 10/09/2024 Stephon Ventura Hypertension I10 ; Seizure disorder G40.909 ; PVD (peripheral vascular disease) I73.9 ; Former smoker Z87.891 ; Hyperlipidemia E78.5 ; Overweight (BMI 25.0-29.9) E66.3 and BPH (benign prostatic hyperplasia) N40.0 Stephon Ventura III, MD [address] [place] [address] [place] [address] 10/20/2024 Stephon Ventura Hypertension I10 ; Nonintractable epilepsy without status epilepticus, unspecified epilepsy type G40.909 ; PVD (peripheral vascular disease) I73.9 ; Hyperlipidemia E78.5 ; Former smoker Z87.891 ; BPH (benign prostatic hyperplasia) N40.0 ; History of seizure Z87.898 ; Prostate cancer C61 and Overweight (BMI 25.0-29.9) E66.3 Stephon Ventura III, MD [address] [place] [address] [place] [address] 01/01/2025 Stephon Ventura Hypertension I10 ; History of seizure Z87.898 ; PVD (peripheral vascular disease) I73.9 ; Hyperlipidemia E78.5 ; Glaucoma, unspecified glaucoma type, unspecified laterality H40.9 ; Former smoker Z87.891 ; Overweight (BMI 25.0-29.9) E66.3 ; Carotid stenosis, right I65.21 and Vitamin D deficiency, unspecified E55.9 Stephon Ventura III, MD [address] [place] [address] [place] [address] 01/22/2025 Stephon Ventura Hypertension I10 ; P VD (peripheral vascular disease) I73.9 ; History of seizure Z87.898 ; Hyperlipidemia E78.5 ; Prostate cancer C61 ; Glaucoma, unspecified glaucoma type, unspecified laterality H40.9 ; Former smoker Z87.891 and Vitamin D deficiency, unspecified E55.9 Stephon Ventura III, MD [address] [place] [address] [place] [address] 06/08/2024 Stephon Ventura III, MD [address] [place] [address] [place] [address] 08/04/2024 Stephon Ventura III, MD [address] [place] [address] [place] [address] 01/08/2025 Stephon Ventura III, MD [address] [place] [address] [place] [address] 01/24/2025 Stephon Ventura III, MD [address] [place] [address] [place] [address] 02/14/2025 Stephon Ventura Assessments Encounter Date Diagnosis (ICD Code) Assessment Notes Treat ment Notes Treatment Clinical Notes 04/03/2025 Hypertension (ICD-10 - I10) 05/09/2024 Hypertension (ICD-10 - I10) His blood [...] and was hospitalized for several days at [facility]. Imaging of the brain showed no [...] and was hospitalized for several days at [facility]. Imaging of the brain showed no [...] and was referred to vascular surgery at [facility] in June 2024. Repair was planned after his seizures were corrected. He will be referred back there at this time. 04/03/2025 PVD (peripheral vascular disease) (ICD-10 - I73.9) 05/09/2024 Hyperlipidemia (ICD-10 - E78.5) His total [...] says he is compliant with the phenytoin. 04/03/2025 History of seizure (ICD-10 - Z87.898) 05/09/2024 Overweight (BMI 25.0-29.9) (ICD-10 - E66.3) His body mass index is 26. We discussed diet and nutrition today. We reviewed his weight loss strategy. 06/19/2024 Cataract, unspecified cataract type, unspecified laterality (ICD-10 - H26.9) He will remain under the care of his printer machine. 07/31/2024 Hyperlipidemia (ICD-10 - E78.5) His total [...] to be done in the near future. 04/03/2025 Elevated PSA (ICD-10 - R97.20) 05/09/2024 Former smoker (ICD-10 - Z87.891) He seems highly motivated not to smoke. We discussed a plan to prevent relapse in times of stress and illness. 06/19/2024 Glaucoma, unspecified glaucoma type, unspecified laterality (ICD-10 - H40.9) He will remain under the care of his printer machine with no change in his medications. 07/31/2024 [...] will remain under the care of his printer machine with no change in his medications. 01/22/2025 Prostate cancer (ICD-10 - C61) PSA has been ordered. He is currently free of symptoms. 04/03/2025 Prostate cancer (ICD-10 - C61) 05/09/2024 BPH (benign prostatic hyperplasia) (ICD-10 - [...] will remain under the care of his printer machine with no change in his medications. 04/03/2025 Carotid stenosis, right (ICD-10 - I65.21) 05/09/2024 Noncompliance with medications (ICD-10 - Z91.148) [...] and was hospitalized for several days at [facility]. Imaging of the brain showed no [...] Date PROFILE, FASTING (COMPREHENSIVE METABOLI C) 10/09/2024 PROFILE, FASTING (COMPREHENSIVE METABOLI C) 12/31/2023 PROFILE, FASTING (COMPREHENSIVE METABOLI C) 01/22/2025 PROFILE, FASTING (COMPREHENSIVE METABOLI C) 08/10/2022 PROFILE, FASTING (COMPREHENSIVE METABOLI C) 01/11/2023 PROFILE, FASTING (COMPREHENSIVE METABOLI C) 11/16/2023 PROFILE, FASTING (COMPREHENSIVE METABOLI C) 08/31/2022 PROFILE, FASTING (COMPREHENSIVE METABOLI C) 07/06/2023 PROFILE, FASTING (COMPREHENSIVE METABOLI C) 04/19/2023 PROFILE, RANDOM (COMPREHENSIVE METABOLIC ) 04/03/2025 PROFILE, RANDOM (COMPREHENSIVE METABOLIC ) 05/20/2022 LIPID PANEL 08/10/2022 LIPID PANEL 01/11/2023 LIPID PANEL 08/31/2022 DILANTIN (PHENYTOIN) 08/10/2022 PSA, TOTAL 04/19/2023 PSA, TOTAL 10/09/2024 PSA, TOTAL 12/31/2023 PSA, TOTAL 01/22/2025 PSA, TOTAL 04/03/2025 PSA, TOTAL 11/16/2023 PSA, TOTAL 08/31/2022 PSA, TOTAL 07/06/2023 PSA, TOTAL 08/10/2022 PSA, TOTAL+FREE 05/20/2022 CBC w DIFF 05/20/2022 CBC w DIFF 10/09/2024 CBC w DIFF 01/22/2025 CBC w DIFF 04/03/2025 CBC w DIFF 01/11/2023 CBC w DIFF 08/31/2022 CBC w DIFF 08/10/2022 Echocardiogram 01/13/2021 Stress Test 01/13/2021 VITAMIN D 25-OH TOTAL 08/10/2022 VITAMIN D 25-OH TOTAL 12/31/2023 CBC WITH AUTO DIFF 04/19/2023 CBC WITH AUTO DIFF 12/31/2023 CBC WITH AUTO DIFF 11/16/2023 CBC WITH AUTO DIFF 07/06/2023 Lipid Panel 07/06/2023 Lipid Panel 04/19/2023 Lipid Panel 10/09/2024 Lipid Panel 01/22/2025 Lipid Panel 12/31/2023 Lipid Panel 11/16/2023 Vitamin D 25-OH Total 10/09/2024 Testosterone, Total 10/09/2024 Lamotrigine Lamictal 08/31/2022 MR head/brain wo con 04/01/2025 Next Appt Details Provider Name:Stephon Delunarne , 04/30/2025 02:15:00 PM, [address] [facility] [address], [place], [address], Provider Name:Stephon Guo Lorenzo , 01/07/2026 02:00:00 PM, [address] [place] [address] [address], [place], [address], Insurance Providers Payer Name Payer Address Payer Phone Subscriber Number Group Number Insured Name Patient Relationship to Insured Coverage Start Date Coverage End Date MEDICARE NGS [address] [place] [phone] [id number] Michael Jenkins Self - patient is the [...] History Reason Date(Month/Year) Right carotid endarterectomy 2021 [facility] June 2024
--- OUTSIDE RECORDS SUMMARY | 2025-04-03 19:30 | XMS_ITS | Clinical Summary ---
Author Organization [facility] Address [address] [place] [address] Care Team Providers Care General Ii Farmworker Name Role Phone Unavailable Primary Care Provider [...]
--- OUTSIDE RECORDS SUMMARY | 2025-04-03 19:30 | XMS_ITS | Clinical Summary ---
Author Organization [facility] Address [address] [place] [address] Care Team Providers Care Stamp Pad Finisher Name Role Phone Stephon Ventura Primary Care Provider [phone] Allergies No known active allergies Medications lisinopriL [...] complete this topic Procedures * Due to [place] Familytic law, this organization might not be sharing negative HIV tests. Procedure Name Priority Date/Time Associated Diagnosis Comments COMPREHENSIVE METABOLIC PANEL Routine 04/15/2022 2:59 PM EST Partial symptomatic epilepsy with complex partial seizures, not intractable, without status epilepticus from Last 3 Months or Most Recently Relevant to Health Maintenance Results * Due to [place] Family[place] law, this organization might not be sharing [...] - 40 U/L 04/15/2022 3:48 PM EST [facility] BUN 25(H) 7 - 23 mg/dL 04/15/2022 3:48 PM EST [facility] eGFR 65(L) >=90 mL/min/1. 73m2 04/15/2022 3:48 PM EST [facility] Comment: Estimated [...] MD LAB BLOOD ORDERABLES Final Resul t [facility] [address] [place] [address], from Last 3 Months or Most Recently Relevant to Health Maintenance Insurance MEDICARE [facility] Care Teams Stamp Pad Finisher Relationship Specialty Start Date End Date Stephon Ventura [facility] [address] PCP - General Hematology 06/05/21
--- OUTSIDE RECORDS SUMMARY | 2025-04-03 19:30 | XMS_ITS | Clinical Summary ---
Author Organization [facility] 140 [facility] Address [address] [place] [address] Phone Care Team Providers Care Quality Engineering Manager Name Role Phone Grupo Collier MD Primary Care Provider [phone] Surgical History Surgery Date Site/Laterality Comments CAROTID ENDARTERECTOMY Right PROCEDURE:CAROTID ENDARTERECTOMY Medical History Medical History Date Comments Prostate cancer ([facility] V24, [facility] V28) DX:Prostate cancer (HCC) Coronary artery disease DX:Coron [place] artery disease Hypertension DX:Hypertension Stroke ([facility] V24, [facility] V28) DX:Stroke [...] 10/13/2024 9:16 AM EDT Coronary atherosclerosis of [place] coronary artery Hyperlipemia Essential hypertension, malignant Prostate cancer ([facility]/HCC V24, CMS/HCC V28) Vitamin D deficiency disease LIPID PANEL Routine 10/13/2024 9:16 AM EDT Coronary atherosclerosis of [place] coronary artery Hyperlipemia Essential hypertension, malignant Prostate cancer (CMS/HCC V24, CMS/HCC V28) Vitamin D deficiency disease from Last 3 Months or Most Recently Relevant to Health Maintenance Results * (ABNORMAL) Lipid panel (10/13/2024 9:16 AM EDT) Cholesterol 186 0 - 200 mg/dL LAB CHEMISTRY METHOD 10/13/2024 2:56 PM EDT [facility] Triglycerides 151(H) <150 mg/dL LAB CHEMISTRY METHOD 10/13/2024 2:56 PM EDT [facility] HDL 53 mg/dL LAB CHEMISTRY METHOD 10/13/2024 2:56 PM EDT [facility] LDL Calculated 103 50 - 130 mg/dL LAB CHEMISTRY METHOD 10/13/2024 2:56 PM EDT [facility] VLDL Cholesterol Magdiel 30.2 mg/dL LAB CHEMISTRY METHOD 10/13/2024 2:56 PM EDT [facility] Comment:No established refer ence range. Blood Venous blood specimen / Unknown Venipuncture / Unknown 10/13/2024 9:16 AM EDT 10/13/2024 9:17 AM EDT Loc Simmons MD LAB BLOOD ORDERABLES Fi nal Result [facility] [address] [place] [address], * (ABNORMAL) Comprehensive metabolic panel (10/13/2024 9:16 AM EDT) Sodium 140 135 - 145 mmol/L LAB CHEMISTRY METHOD 10/13/2024 2:56 PM EDT [facility] Potassium 4.3 3.5 - 5.1 mmol/L LAB CHEMISTRY METHOD 10/13/2024 2:56 PM EDT [facility] Chloride 103 98 - 107 mmol/L LAB CHEMISTRY METHOD 10/13/2024 2:56 PM EDT [facility] CO2 28 24 - 32 mmol/L LAB CHEMISTRY METHOD 10/13/2024 2:56 PM EDT [facility] Anion Gap 9 5 - 14 LAB CHEMISTRY METHOD 10/13/2024 2:56 PM T [facility] Glucose 118(H) 70 - 99 mg/dL LAB CHEMISTRY METHOD 10/13/2024 2:56 PM EDT [facility] BUN 22(H) 9 - 20 mg/dL LAB CHEMISTRY METHOD 10/13/2024 2:56 PM EDT [facility] Creatinine 1.00 0.70 - 1.30 mg/dL LAB CHEMISTRY METHOD 10/13/2024 2:56 PM EDT [facility] eGFR 74 >=60 mL/min/1. 73m2 LAB CHEMISTRY METHOD 10/13/2024 2:56 PM T [facility] Comment:Calculation based on the Chronic Kidney Disease Epidemiology Collaboration (CKD-EPI) equation refit without adjustment for race. BUN/Creatinine Ratio 22.0(H) 12.0 - 20.0 LAB CHEMISTRY METHOD 10/13/2024 2:56 PM EDT [facility] Calcium 9.6 8.4 - 10.2 mg/dL LAB CHEMISTRY METHOD 10/13/2024 2:56 PM [facility] AST (SGOT) 11 5 - 40 unit/L LAB CHEMISTRY METHOD 10/13/2024 2:56 PM T [facility] ALT (SGPT) 8 7 - 52 unit/L LAB CHEMISTRY METHOD 10/13/2024 2:56 PM EDT [facility] Alkaline Phosphatase 95 34 - 104 unit/L LAB CHEMISTRY METHOD 10/13/2024 2:56 PM T [facility] Total Protein 6.6 6.4 - 8.5 g/dL LAB CHEMISTRY METHOD 10/13/2024 2:56 PM [facility] Albumin 4.2 3.5 - 5.0 g/dL LAB CHEMISTRY METHOD 10/13/2024 2:56 PM EDT [facility] Total Bilirubin 0.4 0.3 - 1.0 mg/dL LAB CHEMISTRY METHOD 10/13/2024 2:56 PM EDT [facility] Blood Venous blood specimen / Unknown Venipuncture / Unknown 10/13/2024 9:16 AM EDT 10/13/2024 9:17 AM EDT us Stephon Ventura MD LAB BLOOD ORDERABLES Final Res ult [facility] [address] [place] [address], [place] [phone] from Last 3 Months or Most Recently Relevant to Health Maintenance Insurance MEDICARE [place]ICAID - [place] MED[place] - [place] Care Teams Quality Engineering Manager Relationship Specialty Start Date End Date Grupo Collier MD [address] [place] [phone] PCP - General 06/07/19
== END 2025-04-03 15:04 | disposition home or self-care (01) ==
LOC: HO.LAB 15:03
PROVIDERS: PCP Internal Medicine Medical Oncology; Visit Provider Internal Medicine Medical Oncology
DX: Z13.89 Encounter for screening for other disorder (principal)

== ENCOUNTER 2025-04-04 14:21 | Outpatient (REF) | payer MEDICARE, SELFPAY ==
--- OUTSIDE RECORDS SUMMARY | 2024-07-31 11:15 | XMS_ITS ---
Author Organization Stephon Ventura III, MD Address [address] [place], [place] [address] Care Team Providers Care Public Relations Senior Associate Name Role Phone Dr. Stephon Ventura III [...] Date Provider Diagnosis Stephon Ventura III, MD [address] [place] [address] [address] [facility] [address] 07/31/2024 Stephon Ventura Hypertension I10 ; Seizure [...] and was hospitalized for several days at [facility]. Imaging of the brain showed no stroke.I [...] 20 MG TAKE 1 CAPSULE BY [facility] EVERY DAY 30 MINUTES BEFORE BREAKFAST [...] Provider Name:Stephon Ventura , 04/30/2025 02:15:00 PM, [address] [place] [address] [address], [place], [address], Provider Name:Stephon Ventura , 01/07/2026 02:00:00 PM, [address] [place] [address] [address], [place], [address], Progress Notes * Michael JENKINSDOB:1940 (84 yo M)Acc No.[id number]:07/31/2024 Progress Notes Patient: Michael SIU Provider: Karlos Ventura MD :1940 A ge:84 Y S ex:Male Date:07/31/2024 Address:[address] [place], [place] [phone] Subjective: * Chief Complaints: * H istory [...] yrs, old age. M other: 63 yrs, CAD,[place], diagnosed with CVD, HTN. C hugoen: alive, [...] x-cigarette smoker Tiffani mccallum was born in [facility]. He is not a Judaism. He is and lives by himself. He [...] and was hospitalized for several days at [facility]. Imaging of the brain showed no stroke.I [...] 07/31/2024 Generated for Claudia engle/Joanna/Calitting on: 1 06:44 PM EDT History and Physical Notes * [...]
--- OUTSIDE RECORDS SUMMARY | 2024-08-04 05:21 | XMS_ITS ---
Author Organization Stephon Ventura III, MD Address [address] [place] [address] [place] [address] Care Team Providers Care Front Worker Name Role Phone Dr. Stephon Ventura III [...] appointment. Updated patient demos and faxed over [facility] [place] note from 05/2024 and last progress note from Dr. Ventura Referral Priority Routine Referral Appointment Date 10/05/2024 REASON FOR VISIT Neurology Referral Social History Sex Assigned At : Social History Observation Description Sex Assigned At Male Encounters Encounter Location Date Provider Diagnosis Stephon Ventura III, MD [address] [place] [address] [place] [address] 08/04/2024 Stephon Ventura Plan Of Treatment Referrals Referral Date Details 08/07/2024 08/07/2024, Patient would prefer Dr. Escamilla Evaluate and Treat Seizure Disorder Memory LossDomonique Next Appt Details Provider Name:Stephon Ventura , 04/30/2025 02:15:00 PM, [address] [place] [address] [place], [address], Provider Name:Stephon Ventura , 01/07/2026 02:00:00 PM, [address] [place] [address] [address]ERA, [place], [phone], Progress Notes * Michael JENKINSDOB:1940 (84 yo M)Acc No.[id number]:08/04/2024 Patient: Michael SIU :1940 A ge:84 Y S ex:Male Address:[address] [place] [address], [phone] Subjective: * Chief Complaints: * N eurology Referral * Medical History: * Surgical History: * Hospitalization/Major Diagno stic Procedure: * Medications: Objective: * Vitals: * Physical Examination: Assessment: Plan: * Treatment: * Procedure Codes: * true * Date: Generated for Printi ng/Facitlalyg/eTransmitting on: 06:42 PM EDT Consultation Request Notes Referral Date Referring Provider Referred Provider Not sadie 08/07/2024 Stephon Ventura Muhammad Patient wo torsten prefer Dr. Escamilla Evaluate and Treat Seizure Disorder Memory Loss
--- OUTSIDE RECORDS SUMMARY | 2024-10-09 10:30 | XMS_ITS ---
Author Organization Stephon Ventura III, MD Address [address] [place] [address] Care Team Providers Care Building Cleaner Name Role Phone Dr. Stephon Ventura III [...] Provider Speciality Internal M edicine Referred Organization [facility] nt Referred Provider Jose Alberto Ruvalcaba Referred Address [address] [place] [address],[place], [place],[phone], Referred Provider Specialty Vascular Daria jhon General [...] Date Provider Diagnosis Stephon Ventura III, MD [address] [place] [address] [place] [address] 10/09/2024 Stephon Ventura Hypertension I10 ; Seizure [...] and was hospitalized for several days at [facility]. Imaging of the brain showed no [...] DAY Pending Test Test Name Order Date PSA, TOTAL 10/09/2024 CBC w DIFF 10/09/2024 Vitamin D 25-OH Total 10/09/2024 Testosterone, Total 10/09/2024 Referrals Referral Date Details 10/09/2024 10/09/2024, Evaluate and Treat, Jose Alberto Ruvalcaba, [address] [place] [address], [place], [place], [phone], Next Appt Details Follow Up: 1 Week,4 Weeks, Karlos anayaon: Telehealth, OV Provider Name:Stephon Guo Lorenzo , 04/30/2025 02:15:00 PM, [address] [place] [address] [address], [place], [address], Provider Name:Stephon Guo Lorenzo , 01/07/2026 02:00:00 PM, [address] [place] [address] [address], [place], [address], Progress Notes * Michael JENKINSDOB:1940 (84 yo M)Acc No.[id number]:10/09/2024 Progress Notes Patient: Michael SIU Provider: Karlos Ventura MD :1940 A ge:84 Y S ex:Male Date:10/09/2024 Address:[address] [place], [place] [id number] Subjective: * Chief Complaints: * S eizuresHypertensionPeripheral [...] a night to urinate. He saw his rivet hole puncher October 05, 2024. There was concern about his cholesterol and a statin was recommended. Gregory today states that he will under no [...] yrs, old age. M other: 63 yrs, CAD,[place], diagnosed with HTN, CVD. C hildren: alive, Oldest daughter., diagnosed with CVD. S [...] Findings: Tobacco Non-User E x-cigarette smoker Tiffani guo was born in [facility]. He is not a Judaism. He is [...] and was hospitalized for several days at [facility]. Imaging of the brain showed no [...] MD Date: 0 10/09/2024 Generated for Printi ng/Faxing/eTransmitting on: 1 06:42 PM EDT History and Physical Notes * [...]
--- OUTSIDE RECORDS SUMMARY | 2024-10-20 11:30 | XMS_ITS ---
Author Organization Stephon Ventura III, MD Address [address] [address] Care Team Providers Care Internal Grinder Tender Name Role Phone Dr. 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 He is taking lamotrigin e. He says he has agrreed to take 200 mg in the morning and 100 mg at night faithfully . A follow-up visit was arranged. He has had no recent seizures. Encounters Encounter Location Date Provider Diagnosis Stephon Ventura III, MD [address] [place] [address] [place] [address] 10/20/2024 Stephon Ventura Hypertension I10 ; Nonintractable [...] Provider Name:Stephon Ventura , 04/30/2025 02:15:00 PM, [address] [place] [address] [place], [address], Provider Name:Stephon Ventura , 01/07/2026 02:00:00 PM, [address] [place] [address] [place], [address], Progress Notes * Sonya JENKINS:1940 (84 yo M)Acc No.[id number]:10/20/2024 Patient: Michael SIU Provider: Karlos Ventura MD :1940 A ge:84 Y S ex:Male Date:10/20/2024 Address:[address] [place], [place] [phone] Subjective: * Chief Complaints: * H ypertensionHyperlipidemiaSeizuresPeripheral [...] ocation of provider rendering services: { ...} [address] [place] [address] [place] [address] L ocation of patient: meet ddress listed [...] yrs, old age. M other: 63 yrs, CAD,[place], diagnosed with HTN, CVD. C clayton: alive, [...] x-cigarette smoker Tiffani mccallum was born in [facility]. He is not a [employer]. He is [...] 10/20/2024 Generated for Claudia engle/Joanna/eTransmgeorge on: 1 06:42 PM EDT History and Physical Notes * HPI (History of Present Illness) Category Sub-Category Detail Notes Telehealth Location of [facility] rendering services:: {...} [address] [place] [address] [place] [address] Location of patient:: address listed in demographics [...]
--- OUTSIDE RECORDS SUMMARY | 2025-01-01 10:00 | XMS_ITS ---
Author Organization Stephon Ventura III, MD Address [address] [place] [address] Care Team Providers Care Pesticide Chemist Name Role Phone Dr. Stephon Ventura III [...] Date Provider Diagnosis Stephon Ventura III, MD [address] [place] [address] [place] [address] 01/01/2025 Stephon Ventura Hypertension I10 ; History [...] will remain under the care of his business writer with no change in his medications. 01/01/2025 [...] Provider Name:Stephon Ventura , 04/30/2025 02:15:00 PM, [address] [place] [address] [place] [place], [place], [address], Provider Name:Stephon Ventura , 01/07/2026 02:00:00 PM, [address] [place] [address] [address] [place], [place], [address], Progress Notes * Michael JENKINSDOB:1940 (84 yo M)Acc No.[id number]:01/01/2025 Progress Notes Patient: Michael SIU Provider: Karlos Ventura MD :1940 A ge:84 Y S ex:Male Date:01/01/2025 Address:[address] [place], [place] [phone] Subjective: * Chief Complaints: * A nnual [...] M other: 63 yrs, CAD,[place], diagnosed with HTN, CVD. C [place]: alive, [...] N egative Tiffani mccallum was born in [facility]. He is not a Zoroastrianism. He [...] will remain under the care of his business writer with no change in his medications. 6 [...] 01/01/2025 Generated for Claudia engle/Joanna/Gurdeep on: 1 06:44 PM EDT History and [...] had two or more falls in the st year?: No Fall Risk Assessment:: One fall [...]
--- OUTSIDE RECORDS SUMMARY | 2025-01-08 12:20 | XMS_ITS ---
Author Organization Stephon Ventura III, MD Address [address] [facility] [address] [address] Care Team Providers Care Funding Coordinator Name Role Phone Dr. Stephon Ventura III Primary Care Provider [phone] REASON FOR VISIT Needs call back from Social History Sex Assigned At : Social History Observation Description Sex Assigned At Male Encounters Encounter Location Date Provider Diagnosis Stephon Ventura III, MD [address] [place] [address] [place] [address] 01/08/2025 Stephon Ventura Plan Of Treatment Next Appt Details Provider Name:Stephon Ventura , 04/30/2025 02:15:00 PM, [address] [place] [address] ANASTASIYA HERRERA, [place], [address], Provider Name:Stephon Ventura , 01/07/2026 02:00:00 PM, [address] [place] [address] [place], [address], Progress Notes * Michael JENKINSDOB:1940 (84 yo M)Acc No.[id number]:01/08/2025 Patient: Michael SIU :1940 A ge:84 Y S ex:Male Address:[address] [place] [address], [phone] * true * Date: Generated for Printi ng/Faxing/eTransmitting on: 06:43 PM EDT
--- OUTSIDE RECORDS SUMMARY | 2025-01-22 09:30 | XMS_ITS ---
Author Organization Stephon Ventura III, MD Address [address] [place] [address] Care Team Providers Care Mixed Livestock Farmer Name Role Phone Dr. Stephon Ventura III Primary Care Provider [phone] Allergies Allergen (clinical drug ingredient) Drug/Non Drug [...] Date Provider Diagnosis Stephon Ventura III, MD [address] [place] [address] [place] [address] 01/22/2025 Stephon Ventura Hypertension I10 ; P [...] and was referred to vascular surgery at [facility] in June 2024. Repair was planned after [...] will remain under the care of his house visitor with no change in his medications. 01/22/2025 [...] DAILY Pending Test Test Name Order Date PSA, TOTAL 01/22/2025 Next Appt Details Follow Up: 3 Months, Reason: OV review labs Provider Name:Stephon Ventura , 04/30/2025 02:15:00 PM, [address] [place] [address] [address], [place], [address], Provider Name:Stephon Ventura , 01/07/2026 02:00:00 PM, [address] [place] [address] [address], [place], [address], Progress Notes * JENKINS, MichaelDOB:1940 (84 yo M)Acc No.[id number]:01/22/2025 Progress Notes Patient: Michael SIU Provider: Karlos Ventura MD :1940 A ge:84 Y S ex:Male Date:01/22/2025 Address:[address] [place] [phone] Subjective: * Chief Complaints: * R ight [...] yrs, old age. M other: 63 yrs, CAD,WI, diagnosed with HTN, CVD. C hildren: alive, [...] dditional Findings: Tobacco non-user E x-cigarette smoker H xena was born in [facility]. He is not a Zoroastrian. He is and lives by himself. He [...] and was referred to vascular surgery at [facility] in June 2024. Repair was planned after [...] will remain under the care of his house visitor with no change in his medications. 7 [...] Ventura MD Date: 0 01/22/2025 Generated for Printi ng/Facitlalyg/eTransmitting on: 1 06:43 PM EDT History and Physical Notes * [...]
--- OUTSIDE RECORDS SUMMARY | 2025-01-24 05:47 | XMS_ITS ---
Author Organization Stephon Ventura III, MD Address [address] [place] [address] Care Team Providers Care Dispatcher Motor Vehicle Name Role Phone Dr. Stephon Ventura III Primary Care Provider [phone] REASON FOR VISIT Vascular Appointment Social History Sex Assigned At : Social History Observation Description Sex Assigned At Male Encounters Encounter Location Date Provider Diagnosis Stephon Ventura III, MD [address] [place] [address] [place] [address] 01/24/2025 Stephon Ventura Plan Of Treatment Next Appt Details Provider Name:Stephon Ventura , 04/30/2025 02:15:00 PM, [address] [place] [address] [address], [place], [address], Provider Name:Stephon Ventura , 01/07/2026 02:00:00 PM, [address] [place] [address] [place], [address], Progress Notes * Michael JENKINSDOB:1940 (84 yo M)Acc No.[id number]:01/24/2025 Patient: Michael SIU :1940 A ge:84 Y S ex:Male Address:[address] [place] [address], [address] * true * Date: Generated for Printi ng/Faxing/eTransmitting on: 06:44 PM EDT
--- OUTSIDE RECORDS SUMMARY | 2025-02-14 05:14 | XMS_ITS ---
Author Organization Stephon Ventura III, MD Address [address] [place] [address] Care Team Providers Care Assistant Brand Manager Name Role Phone Dr. Stephon Ventura III [...] Date Provider Diagnosis Stephon Ventura III, MD [address] [place] [address] [place] [address] 02/14/2025 Stephon Ventura Plan Of Treatment Next Appt Details Provider Name:Stephon Ventura , 04/30/2025 02:15:00 PM, [address] [place] [address] [place], [address], Provider Name:Stephon Ventura , 01/07/2026 02:00:00 PM, [address] [place] [address] [address], [place], [address], Progress Notes * Michael JENKINSDOB:1940 (84 yo M)Acc No.[id number]:02/14/2025 Patient: Michael SIU :1940 A ge:84 Y S ex:Male Address:[address] [place] [phone] Subjective: * Chief Complaints: * * Medical [...] * Date: Generated for Claudia engle/Joanna/Gurdeep on: 06:44 PM EDT
--- OUTSIDE RECORDS SUMMARY | 2025-04-03 10:00 | XMS_ITS ---
Author Organization Stephon Ventura III, MD Address [address] [place], [place] [address] Care Team Providers Care Counterintelligence Agent Name Role Phone Dr. Stephon Ventura III [...] Internal M edicine Referred Provider Phi Garcia ([facility]) Referred Provider Specialty Vascular Daria jhon General Notes Marlin Gonzalez CMA 04/03 03:17:55 PM >ref/demo/testing faxed to Dr Garcia ([facility]), Cahrmaine Ramirez 04/04/2025 03:14:35 PM > Patient is scheduled for 04/11/25 @ 4:20 pm with Phi Garcia MD at [address] [place] [address]. Referral Priority Routine Referral Appointment Date 04/11/2025 REASON FOR VISIT Admited at [facility] [place]- 04/01/2025 ataxia, 99% stenosis left internal carotid artery, History of stroke, High risk prostate cancer stage 3, Leuprolide adjuvant endocrine therapy, Hypertension, Hyperlipidemia, Benign prostatic hypertrophy, History of seizures Medications Medication SIG (Take, Route, Frequency, Duration) [...] TABLET BY SHANTA TH TWICE DAILY Active Aspirin Low Dose 81 [...] degrees Fahrenheit 04/03/20 25 Blood pressure systolic 140 mm Hg 04/03/20 25 Blood pressure diastolic 64 mm Hg 025 Heart Rate 58 /min 04/03/2025 Height 67 in 04/03/2025 Weight 157 lbs 04/03/2025 BMI 24.59 kg/m2 04/03/2025 Encounters Encounter Location Date Provider Diagnosis Stephon Ventura III, MD [address] [place] [address] [place] [address] 04/03/2025 Stephon Ventura Hypertension I10 ; P VD (peripheral vascular disease) I73.9 ; History of seizure Z87.898 ; Prostate cancer C61 ; Carotid stenosis, right I65.21 ; Hyperlipidemia E78.5 ; Glaucoma, unspecified glaucoma type, unspecified laterality H40.9 ; Former smoker Z87.891 and Seizure disorder G40.909 Assessments Encounter Date Diagnosis (ICD Code) Assessment Notes Treat ment Notes Treatment Clinical Notes 04/03/2025 Hypertension (ICD-10 - I10) His blood pressure is improving but still not optimal. He will be seen back every couple of weeks to enforce compliance. I will bring his family with him. He is going to see the vascular surgeon next week. 04/03/2025 PVD (peripheral vascular disease) (ICD-10 - I73.9) Imaging of the head and neck last week, [facility] showed a 90% stenosis of the left internal carotid artery and normal flow through the right internal carotid artery which has had an endarterectomy. 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 04/03/2025 History of seizure (ICD-10 - Z87.898) He has a history of breakthrough seizures but none since. He was discharged from the hospital. He says he is taking his medication appropriately. 04/03/2025 Prostate cancer (ICD-10 - C61) He is receiving androgen depravation therapy through Dr. Joe at [facility] urology in [place], [place]. His disease is well-controlled. 04/03/2025 Carotid stenosis, right (ICD-10 - I65.21) He is going to see Dr. Garcia at [facility] vascular surgery next week. 04/03/2025 Hyperlipidemia (ICD-10 - E78.5) No change in his medication was made today.He was continued on his statin therapy. 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 04/03/2025 Former smoker (ICD-10 - Z87.891) He seems highly motivated not to smoke. We discussed a plan to prevent relapse in times of stress and illness. 04/03/2025 Seizure disorder (ICD-10 - G40.909) He had a seizure May 05, 2024 at home and was hospitalized for several days at [facility]. Imaging of the brain showed no stroke.I recommended he continue his Keppra. He is adamant that he will not take that medication or any other at this time. He has been noncompliant past but did agree to followed carefully in the office. I will continue to work with this difficult patient. He did agree not to drive. Plan Of Treatment Medication Medication Name Sig [...] 08/31/2022 Pending Test Test Name Order Date PSA, TOTAL 04/03/2025 Referrals Referral Date Details 04/03/2025 04/03/2025, evaluate and treatment for carotid artery stenosis, Phi ([facility]) Jose Next Appt Details Follow Up: 3 Weeks, Reason: OV Provider Name:Stephon Ventura , 04/30/2025 02:15:00 PM, [address] [place] [address] [place], [place], [address], Provider Name:Stephon Ventura , 01/07/2026 02:00:00 PM, [address] [place] [address] [place], [place], [address], Progress Notes * JENKINSMichael BRAXTONDOB:1940 (84 yo M)Acc No.[id number]:04/03/2025 Patient: Michael [facility] Provider: Karlos Ventura MD :1940 A ge:84 Y S ex:Male Date:04/03/2025 Address:[address] [place], [place] [id number] Subjective: * Chief Complaints: * A dmited at [facility] [place] 03/30/25- 04/01/2025 gchayb72% stenosis left internal carotid arteryHistory of strokeHigh risk prostate cancer stage 3Leuprolide adjuvant endocrine therapyHypertensionHyperlipidemiaBenign prostatic hypertrophyHistory of seizures * HPI: C OVID-19 Screening: O n March 30, 2025. His family brought him to the [facility] emergency room for ataxia. He was having difficulty with balance and steadiness. The emergency room physician found a 4/5 weakness on the left arm and leg and was concerned also a new stroke.? He was hospitalized until April 01, 2025. A chest x-ray showed interstitial lung disease. On March 30, 2025 and had a neck CT angiogram showed a normal right internal carotid artery. The left internal carotid artery had a 90% stenosis. There was an old area of encephalomalacia in the distribution of the right middle cerebral artery where he had a known embolic infarct in the past. She there were no acute lesions. An MRI of the brain was done subsequently and showed no acute lesions. 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 He recommended better control of the blood pressure. This dictation is going to see [facility] vascular surgery, Dr. Garcia, next week. This patient saw Dr. Ruvalcaba of vascular surgery at [facility] in consultation March 08, 2025 found him to be stable with bilateral internal carotid artery stenoses, status post right endarterectomy. Aspirin and statin as were recommended. Surgery was not recommended due to his age, comorbidities and mental status. We have established the day that he sees Dr. Simmons for cardiology at [facility]. He sees Dr. Lalitha Mckeon of neurology at [facility] as well. H is urologist is Dr. Joe at [facility] urology in [place]. He is known to have prostate cancer and is being treated with androgen depravation therapy. His most recent PSA and testosterone levels are quite low. Questions H ave you had any new [...] x-cigarette smoker H xena was born in [facility]. He is not a Gnosticist. He is and lives by himself. He has 2 sons and 3 daughters. They are healthy and well. He is not currently working. Uses marijuana daily. * Medications: T akingAspirin Low Dose 81 MG Tablet Delayed Release 1 tablet Orally Once a day Atorvastatin Calcium 40 MG Tablet 1 tablet Orally Once a day Latanoprost 0.005 % Solution INSTILL 1 DROP IN BOTH EYES AT BEDTIME Ophthalmic Dorzolamide HCl- Timolol Mal 22.3-6.8 MG/ML Solution 1 drop into affected eye Ophthalmic Twice a day levETIRAcetam 750 MG Tablet 1 tablet Orally every 12 hrs lamoTRIgine 100 MG Tablet 1 tablet Orally 3 times a day amLODIPine Besylate 10 MG Tablet 1 tablet Orally Once a day Lisinopril 20 MG Tablet TAKE 1 TABLET BY MOUTH TWICE DAILY Carvedilol 6.25 MG Tablet TAKE 1 TABLET BY MOUTH TWICE DAILY WITH FOOD Medication List reviewed and reconciled with the patientTaking Aspirin Low Dose 81 MG Tablet Delayed Release 1 tablet Orally Once a day Taking Atorvastatin Calcium 40 MG Tablet 1 tablet Orally Once a day Taking Latanoprost 0.005 [...] TABLET BY MOUTH TWICE DAILY WITH FOOD Medication List reviewed and reconciled with the patient * Allergies: N o Known Drug AllergyNo Known Food Allergyno[Allergies Verified] Objective: * Vitals: H t: 67, Wt:157, BMI:24.59, BP:140/64, HR:58, Temp:98.1, Wt-k.21. * Examination: G eneral Examination: GENERAL APPEARANCE: p leasant, well nourished, well developed, in no acute distress, calm and relaxed: elderly man. HEAD: a traumatic, normocephalic. EYES: e jewell, perrla, anicteric, conjugate. EARS: n ormal. NOSE: s eptum intact. ORAL CAVITY: n ormal, unremarkable. NECK/THYROID: n o jugular venous distention, no carotid bruit, thyroid normal, Right neck scar. LYMPH NODES: n o enlarged lymph nodes,spleen normal. SKIN: n o suspicious lesions, anicteric. HEART: n o clicks, gallops, murmurs, or rubs, regular rhythm, S1, S2 normal, no s3, or vascular bruits. LUNGS: : diminished breath sounds throughout: no wheezes, rales, rhonchi. BREASTS: no masses palpable bilaterally. ABDOMEN: b owel sounds normal, no ascites, no organomegaly, no mass. RECTAL EXAM: n ot examined. MUSCULOSKELETAL: e xtremities unremarkable, no clubbing, cyanosis or edema. PERIPHERAL PULSES: n ormal. NEUROLOGIC: a lert and oriented, cranial nerves 2-12 grossly intact, deep tendon reflexes 2+ symmetrical, motor strength normal upper and lower extremities, sensory exam intact, Without left-sided weakness. PSYCH: a lert, oriented, Hypomanic tangential speech pattern and thoughts. Assessment: * Assessment: 1. P VD (peripheral vascular disease) - I73.9 (Primary) N otes :Imaging of the head and neck last week, [facility] showed a 90% stenosis of the left internal carotid artery and normal flow through the right internal carotid artery which has had an endarterectomy. 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 2 . H ypertension - I10 N otes :His blood pressure is improving but still not optimal. He will be seen back every couple of weeks to enforce compliance. I will bring his family with him. He is going to see the vascular surgeon next week. 3 . H istory of seizure - Z87.898 N otes :He has a history of breakthrough seizures but none since. He was discharged from the hospital. He says he is taking his medication appropriately. 4 . P rostate cancer - C61 N otes :He is receiving androgen depravation therapy through Dr. Joe at [facility] urology in [place], [place]. His disease is well-controlled. 5 . C arotid stenosis, right - I65.21 N otes :He is going to see Dr. Garcia at [facility] vascular surgery next week. 6 . H yperlipidemia - E78.5 N otes :No change in his medication was made today.He was continued on his statin therapy. 7 . G laucoma, unspecified glaucoma type, unspecified laterality - H40.9 ? 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 8 . F ormer smoker - Z87.891 N otes :He seems highly motivated not to smoke. We discussed a plan to prevent relapse in times of stress and illness. 9 . S eizure disorder - G40.909 N otes :He had a seizure May 05, 2024 at home and was hospitalized for several days at [facility]. Imaging of the brain showed no stroke.I recommended he continue his Keppra. He is adamant that he will not take that medication or any other at this time. He has been noncompliant past but did agree to followed carefully in the office. I will continue to work with this difficult patient. He did agree not to drive. Plan: * Treatment: 2. H ypertension Continue Carvedilol Tablet, 6.25 MG, TAKE 1 TABLET BY MOUTH TWICE DAILY WITH FOOD; C ontinue Aspirin Low Dose Tablet Delayed Release, 81 MG, 1 tablet, Orally, Once a day; C ontinue levETIRAcetam Tablet, 750 MG, 1 tablet, Orally, every 12 hrs; C ontinue Lisinopril Tablet, 20 MG, TAKE 1 TABLET BY MOUTH TWICE DAILY; C ontinue Atorvastatin Calcium Tablet, 40 MG, 1 tablet, Orally, Once a day. [...] TOTAL L AB: CBC w DIFF 4. P rostate cancer L AB: PROFILE, RANDOM (COMPREHENSIVE METABOLIC) L AB: PSA, TOTAL L AB: CBC w DIFF 5. C arotid stenosis, right L AB: PROFILE, RANDOM (COMPREHENSIVE METABOLIC) L AB: PSA, TOTAL L AB: CBC w DIFF 6. O thers Referral To:Phi ([facility]) [facility] Reason:evaluate and treatment for carotid artery stenosis * Procedure Codes: * Preventive Medicine: Counseling: S moking/Tobacco Use Patient counseled on the dangers of tobacco use and urged to quit. 1 * Follow Up: 3 Weeks (Reason: OV) * Images: * Sign off status: Completed true * Provider: Karlos Ventura MD Date: Generated for Claudia engle/Joanna/Calitting on: 06:43 PM EDT History and Physical Notes * HPI (History of Present Illness) Category Sub-Category Detail Notes COVID-19 Screening Questions Have you had any new onset fever, chills, cough, congestion, sore throat, shortness of breath, muscle aches?: No Examination Category Sub-Category Detail Notes General Examination GENERAL APPEARANCE: pleasant , well nourished, well developed, in no acute distress, calm and relaxed: elderly man HEAD: atraumatic, normocep halic EYES: eomi, perrla, anicte alma, conjugate EARS: normal NOSE: septum intact NECK/THYROID: no jugular venous di stention, no carotid bruit, thyroid normal, Right neck scar HEART: no clicks, gallops, murmurs, or rubs, regular rhythm, S1, S2 normal, no s3, or vascular bruits LUNGS: : diminished breath sounds throughout: no wheezes, rales, rhonchi ABDOMEN: bowel sounds normal, no ascites, no organomegaly, no mass NEUROLOGIC: alert and oriented, cranial nerves 2-12 grossly intact, deep tendon reflexes 2+ symmetrical, motor strength normal upper and lower extremities, sensory exam intact, Without left- sided weakness SKIN: no suspicious lesion s, anicteric PERIPHERAL PULSES: normal BREASTS: no masses palpable b ilaterally MUSCULOSKELETAL: extremities unremark able, no clubbing, cyanosis or edema LYMPH NODES: no enlarged lymph no endy,spleen normal RECTAL EXAM: not examined PSYCH: alert, oriented, Hyp omanic tangential speech pattern and thoughts ORAL CAVITY: normal, unremarkable Consultation Request Notes Referral Date Referring Provider Referred Provider Not es 04/03/2025 Stephon Ventura Neal ([facility]) evaluate and treatment for carotid artery stenosis
[2025-04-04 14:41] LABS: MANUAL DIFF FLAG NO
[2025-04-04 15:01] LABS: Hematocrit 42.0 % (42.0-52.0); Hemoglobin 13.2 g/dl (14.0-18.0); Imm Gran Abs Auto 0.03 X10*3/uL (0.00-0.03); Imm Gran Pct Auto 0.4 % (0.0-0.4); Lymphocytes Absolute Auto 2.6 X10*3/uL (1.2-4.9); Mean Corpuscular HGB Conc 31.4 g/dl (31.0-36.0); Mean Corpuscular Hemoglobin 28.6 pg (27.0-33.0); Mean Corpuscular Volume 91.1 fL (80.0-98.0); NRBC Abs Auto 0.000 X10*3/uL (0.0-0.012); NRBC Pct Auto 0.0 /100WBC (0.0-0.2); Platelet Count 226 X10*3/uL (160-400); Red Blood Count 4.61 X10*6/uL (4.60-5.80); White Blood Count 8.4 X10*3/uL (4.8-10.8)
[2025-04-04 15:41] LABS: Alanine Aminotransferase 16 U/L (0-40); Albumin Level 4.7 g/dL (3.5-5.0); Alkaline Phosphatase 107 U/L (39-117); Anion Gap 10 (12-20); Aspartate Amino Transferase 20 U/L (5-37); Blood Urea Nitrogen 32 mg/dL (9-16); Calcium 9.3 mg/dL (8.4-10.2); Carbon Dioxide 28 mmol/L (22-29); Chloride 106 mmol/L (96-108); Estimated Glomerular Filt Rate > 60; Potassium 3.8 mmol/L (3.3-5.1); Sodium 140 mmol/L (135-145); Total Protein 7.0 g/dL (6.5-8.0)
[2025-04-04 15:55] LABS: Prostate Specific Antigen 1.49 ng/mL (<0.05-4.0)
--- OUTSIDE RECORDS SUMMARY | 2025-04-04 18:42 | XMS_ITS | Encounter Summary ---
Author Organization [facility] Address [address] [place] [address] Care Team Providers Care Learning Administrator Name Role Phone Stephon Ventura Primary Care Provider Encounter Details Date Type Department Care Team (Late st Contact Info) Description 07/29/2021 Orders Only [facility] [address] [place] [id number] Sabas Herzog [address] [facility] [place] [address] Social History Tobacco Use Types Packs/Day Years Used Date Smoking Tobacco: Never Assessed Sex and Gender Information Value Date Recorded Sex Assigned at Not on file Legal Sex Male 10:20 AM EST Gender Identity Not on file Sexual Orientation Not on file documented as of this encounter Plan of Treatment Not on file documented as of this encounter Procedures * Due to [place] [employer] law, this organization might not be sharing negative HIV tests. Procedure Name Priority Date/Time Associated Diagnosis Comments AMB EXTERNAL MRI BRAIN, OUTS SHANE RESULT Routine 06/27/2021 documented in this encounter Results * Due to [place] [employer] law, this organization might not be sharing negative HIV tests. * MRI Brain, Outside Result (06/27/2021) Anatomical Region Laterality Modality Other Sabas Herzog AMB EXTERNAL RESULT PROCEDURES Final Result documented in this encounter Visit Diagnoses Not on filedocumented in this encounter Care Teams Learning Administrator Relationship Specialty Start Date End Date Stephon Ventura [address] [facility] [address] [place] [address] PCP - General Hematology 06/05/21 documented as of this encounter
--- OUTSIDE RECORDS SUMMARY | 2025-04-04 18:42 | XMS_ITS | Clinical Summary ---
Author Organization [facility] 140 [facility] Address [address] [place] [address] Phone Care Team Providers Care Loan Auditor Name Role Phone Grupo Collier MD Primary Care Provider [phone] Surgical History Surgery Date Site/Laterality Comments CAROTID ENDARTERECTOMY Right PROCEDURE:CAROTID ENDARTERECTOMY Medical History Medical History Date Comments Prostate cancer ([facility] V24, [facility] V28) DX:Prostate cancer (HCC) Coronary artery disease DX:Coron [place] artery disease Hypertension DX:Hypertension Stroke ([facility] V24, [facility] V28) DX:Stroke (HCC) Carotid artery [...] 10/13/2024 9:16 AM EDT Coronary atherosclerosis of [place] coronary artery Hyperlipemia Essential hypertension, malignant Prostate cancer ([facility]/HCC V24, CMS/HCC V28) Vitamin D deficiency disease LIPID PANEL Routine 10/13/2024 9:16 AM EDT Coronary atherosclerosis of [place] coronary artery Hyperlipemia Essential hypertension, malignant Prostate cancer (CMS/HCC V24, CMS/HCC V28) Vitamin D deficiency disease from Last 3 Months or Most Recently Relevant to Health Maintenance Results * (ABNORMAL) Lipid panel (10/13/2024 9:16 AM EDT) Cholesterol 186 0 - 200 mg/dL LAB CHEMISTRY METHOD 10/13/2024 2:56 PM EDT [facility] Triglycerides 151(H) <150 mg/dL LAB CHEMISTRY METHOD 10/13/2024 2:56 PM EDT [facility] HDL 53 mg/dL LAB CHEMISTRY METHOD 10/13/2024 2:56 PM EDT [facility] LDL Calculated 103 50 - 130 mg/dL LAB CHEMISTRY METHOD 10/13/2024 2:56 PM EDT [facility] VLDL Cholesterol Magdiel 30.2 mg/dL LAB CHEMISTRY METHOD 10/13/2024 2:56 PM EDT [facility] Comment:No established refer ence range. Blood Venous blood specimen / Unknown Venipuncture / Unknown 10/13/2024 9:16 AM EDT 10/13/2024 9:17 AM EDT Loc Simmons MD LAB BLOOD ORDERABLES Fi nal Result [facility] [address] [place] [address], * (ABNORMAL) Comprehensive metabolic panel (10/13/2024 9:16 AM EDT) Sodium 140 135 - 145 mmol/L LAB CHEMISTRY METHOD 10/13/2024 2:56 PM EDT [facility] Potassium 4.3 3.5 - 5.1 mmol/L LAB CHEMISTRY METHOD 10/13/2024 2:56 PM EDT [facility] Chloride 103 98 - 107 mmol/L LAB CHEMISTRY METHOD 10/13/2024 2:56 PM EDT [facility] CO2 28 24 - 32 mmol/L LAB CHEMISTRY METHOD 10/13/2024 2:56 PM EDT [facility] Anion Gap 9 5 - 14 LAB CHEMISTRY METHOD 10/13/2024 2:56 PM T [facility] Glucose 118(H) 70 - 99 mg/dL LAB CHEMISTRY METHOD 10/13/2024 2:56 PM EDT [facility] BUN 22(H) 9 - 20 mg/dL LAB CHEMISTRY METHOD 10/13/2024 2:56 PM EDT [facility] Creatinine 1.00 0.70 - 1.30 mg/dL LAB CHEMISTRY METHOD 10/13/2024 2:56 PM EDT [facility] eGFR 74 >=60 mL/min/1. 73m2 LAB CHEMISTRY METHOD 10/13/2024 2:56 PM T [facility] Comment:Calculation based on the Chronic Kidney Disease Epidemiology Collaboration (CKD-EPI) equation refit without adjustment for race. BUN/Creatinine Ratio 22.0(H) 12.0 - 20.0 LAB CHEMISTRY METHOD 10/13/2024 2:56 PM EDT [facility] Calcium 9.6 8.4 - 10.2 mg/dL LAB CHEMISTRY METHOD 10/13/2024 2:56 PM [facility] AST (SGOT) 11 5 - 40 unit/L LAB CHEMISTRY METHOD 10/13/2024 2:56 PM T [facility] ALT (SGPT) 8 7 - 52 unit/L LAB CHEMISTRY METHOD 10/13/2024 2:56 PM EDT [facility] Alkaline Phosphatase 95 34 - 104 unit/L LAB CHEMISTRY METHOD 10/13/2024 2:56 PM T [facility] Total Protein 6.6 6.4 - 8.5 g/dL LAB CHEMISTRY METHOD 10/13/2024 2:56 PM [facility] Albumin 4.2 3.5 - 5.0 g/dL LAB CHEMISTRY METHOD 10/13/2024 2:56 PM EDT [facility] Total Bilirubin 0.4 0.3 - 1.0 mg/dL LAB CHEMISTRY METHOD 10/13/2024 2:56 PM EDT [facility] Blood Venous blood specimen / Unknown Venipuncture / Unknown 10/13/2024 9:16 AM EDT 10/13/2024 9:17 AM EDT us Stephon Ventura MD LAB BLOOD ORDERABLES Final Res ult [facility] [address] [place] [address], [place] [phone] from Last 3 Months or Most Recently Relevant to Health Maintenance Insurance MEDICARE MEDICAID - [place] MEDICAID - [place] Care Teams Loan Auditor Relationship Specialty Start Date End Date Grupo Collier MD [address] [place] [phone] PCP - General 06/07/19
--- OUTSIDE RECORDS SUMMARY | 2025-04-04 18:42 | XMS_ITS | Clinical Summary ---
Author Organization [facility] Address [address] [place] [address] Care Team Providers Care Tangled Yarn Worker Name Role Phone Unavailable Primary Care Provider [...]
--- OUTSIDE RECORDS SUMMARY | 2025-04-04 18:42 | XMS_ITS | Encounter Summary ---
Author Organization [facility] Address [address] [place] [address] Care Team Providers Care Outreach Manager Name Role Phone Stephon Ventura Primary Care Provider [phone] Reason for Visit * Reason Onset Date Comments Appointment 10/20/2021 Encounter Details Date Type Department Care Team (Late st Contact Info) Description 10/20/2021 Telephone [facility] [address] [place] [phone] Telephone Intake, Staff Appointment Social History Tobacco [...] again to schedule. Did update best number: [phone] Tanika's cell * Telephone Encounter - Cuca [...] a schedule. pls call to book//advice. Tanika [phone] * Telephone Encounter - Ashish Hernandez MD [...] this issue of nausea, vimpat and achalasia. [phone] * Telephone Encounter - Cuca Steiner - [...] to Angela. Pt can be reached at [phone]. documented in this encounter Plan of Treatment Not on file documented as of this encounter Visit Diagnoses Not on filedocumented in this encounter Care Teams Outreach Manager Relationship Specialty Start Date End Date Stephon Ventura [facility] [address] PCP - General Hematology 06/05/21 documented as of this encounter
--- OUTSIDE RECORDS SUMMARY | 2025-04-04 18:43 | XMS_ITS | Encounter Summary ---
Author Organization [facility] Address [address] [place] [address] Care Team Providers Care Health Information Assistant Name Role Phone Stephon Ventura Primary Care Provider Encounter Details Date Type Department Care Team (Late st Contact Info) Description 06/05/2021 Orders Only [facility] [address] [place] [phone] Provider, Unknown, [address] [place] [address] Social History Tobacco Use Types Packs/Day Years Used Date Smoking Tobacco: Never Assessed Sex and Gender Information Value Date Recorded Sex Assigned at Not on file Legal Sex Male 10:20 AM EST Gender Identity Not on file Sexual Orientation Not on file documented as of this encounter Plan of Treatment Not on file documented as of this encounter Procedures * Due to [place] [employer] law, this organization might not be sharing negative HIV tests. Procedure Name Priority Date/Time Associated Diagnosis Comments AMB EXTERNAL CT HEAD, OUTSID E RESULT Routine 06/22/2018 documented in this encounter Results * Due to [place] [employer] law, this organization might not be sharing negative HIV tests. * CT Head, Outside Result (06/22/2018) Anatomical Region Laterality Modality Other us Unknown Provider MD NELSON EXTERNAL RESULT PROCEDUR ES Final Result documented in this encounter Visit Diagnoses Not on filedocumented in this encounter Care Teams Health Information Assistant Relationship Specialty Start Date End Date Stephon Ventura [address] [facility] [address] [place] [address] PCP - General Hematology 06/05/21 documented as of this encounter
--- OUTSIDE RECORDS SUMMARY | 2025-04-04 18:43 | XMS_ITS | Patient Health Record ---
Author Organization Stephon Ventura III, MD Address [address] [address] Care Team Providers Care [employer] Commun[employer] Designer Name Role Phone Dr. Stephon Ventura III Primary Care Provider Allergies Allergen (clinical drug ingredient) Drug/Non Drug Allergy documented on EMR Reaction Allergy Type Onset Date Status No Known Drug Allergy Unknown Drug Allergy Active No Known Food Allergy Unknown Drug Allergy Active Results Component Value Reference Range Notes US carotid duplex BI Reviewed date:03/03/2025 07:34:35 PM Interpretation: Performing Lab: Notes/Report: [address] [address] Ultrasound Report Signed Patient: Michael Jenkins MR#: [id number] 7 : 1940 Acct:[id number] Age/Sex: 84 / M ADM Date: 03/02/25 Loc: . Attending Dr: Jose Alberto Ruvalcaba MD Ordering Physician: Jose Alberto Ruvalcaba MD Date of Service: 03/02/25 Procedure(s): US carotid duplex BI Accession Number(s): [id number] cc: Stephon Ventura MD; Jose Alberto Ruvalcaba [...] 03/02/25 1706 DD/ 1528 TD/TT: 03/02/25 1541 Airborne Operations: [address] [address] Ultrasound Report Signed Patient: Kemi Jenkins rd MR#: [id number] 7 : 1940 Acct:[id number] Age/Sex: 84 / M ADM Date: 03/02/25 Loc: .US Attending Dr: Jose Alberto Ruvalcaba MD Ordering Physician: Jose Alberto Ruvalcaba MD Date of Service: 03/02/25 Procedure(s): US car otid duplex BI Accession Number(s): [id number] cc: Stephon Ventura MD; Jose Alberto Ruvalcaba [...] 03/02/25 1706 DD/ 1528 TD/TT: 03/02/25 1541 Airborne Operations: Complete Blood Count Auto Di ff Reviewed date:04/01/2025 06:20:39 AM Interpretation: Performing Lab:[facility], [address] [place] [phone] Notes/Report: White Blood Count 6.6 4.8-10.8 X10*3/uL [...] Panel Reviewed date:04/01/2025 06:20:39 AM Interpretation: Performing Lab:[facility], [address] [place] [phone] Notes/Report: Bilirubin Total 0.4 0.0-1.0 mg/dL Bilirubin Direct 0.1 0.0-0.5 mg/dL Aspartate Amino Transferase 24 5-37 U/L Alanine Aminotransferase 16 0-40 U/L Total Protein 6.9 6.5-8.0 g/dL Albumin Level 4.6 3.5-5.0 g/dL Alkaline Phosphatase 113 39-117 U/L Basic Metabolic Panel Reviewed date:04/01/2025 06:20:39 AM Interpretation: Performing Lab:[facility], [address] [place] [phone] Notes/Report: Sodium 141 135-145 mmol/L Potassium 4.0 [...] Magnesium Reviewed date:04/01/2025 06:20:39 AM Interpretation: Performing Lab:[facility], [address] [place] [phone] Notes/Report: Magnesium 2.0 1.6-2.6 mg/dL Troponin-I High Sensitivity Reviewed date:04/01/2025 06:20:39 AM Interpretation: Performing Lab:[facility], [address] [place] [phone] Notes/Report: Troponin-I High Sensitivity < 2.7 <3.5-35.0 ng/L The [place] high sensitivity Troponin-I results should be used in conjunction with other diagnostic information such as ECG, clinical observations and information, and patient symptoms to aid in the diagnosis of [place]. Lipid Panel Reviewed date:04/01/2025 06:20:39 AM Interpretation: Performing Lab:[facility], [address] [place] [phone] Notes/Report: Triglycerides 87 <150 mg/dL Desirable Triglyceride: [...] A1c Reviewed date:04/01/2025 06:20:39 AM Interpretation: Performing Lab:[address] [address] Notes/Report: Hemoglobin A1c % 5.7 <6.0 % [...] average glucose, using the formula of the I3U-Rxzlplw Average Glucose study (ADAG), Diabetes Care, Vol.31,#8, Jan. 2007 UA CC w/rflx Micro + Cult Reviewed date:04/01/2025 06:20:39 AM Interpretation: Performing Lab:[facility], [address] [place] [phone] Notes/Report: Urine, Clean Catch Color Urine Yellow Appearance Urine Clear PH 7.0 5.0-9.0 Glucose Urine UA Negative Negative mg/dL Urine Blood Negative Negative Specific [place] - Urine 1.010 1.005-1.025 Urine Protein Negative Neg-Trace mg/dL Urine Ketones Negative Negative mg/dL Nitrite Urine Negative Negative Leukocyte Esterase Urine Negative Negative CT angio head neck Reviewed date:04/01/2025 06:20:39 AM Interpretation: Performing Lab: Notes/Report: [address] [address] [address] Scan Report Signed Patient: Michael Jenkins MR#: [id number] 7 : 1940 Acct:[id number] Age/Sex: 84 / M ADM Date: 03/30/25 Loc: .ED Attending Dr: Ordering Physician: Samina Thomson DO Date of Service: 03/30/25 Procedure(s): CT angio head neck Accession Number(s): [id number] cc: Stephon Ventura MD; Samina Thomson DO Report Number: [id number]: Total DLP = 1611.00 mGy-cm Reason for [...] intimal flap. Superior cerebellar arteries are patent. director of development and marketing: Normal patency. No focal stenosis. No abrupt [...] 1:33 PM on March 30, 2025 via [employer]. EXAMINATION: XR CHEST CLINICAL INFORMATION: generalized weakness [...] 03/30/25 1343 DD/ 1306 TD/TT: 03/30/25 1330 Airborne Operations: [place] [address] [address] Scan Report Signed Patient: Kemi Jenkins rd MR#: [id number] 7 : 1940 Acct:[id number] Age/Sex: 84 / M ADM Date: 03/30/25 Loc: HO.ED Attending Dr: Ordering Physician: Samina Thomson DO Date of Service: 03/30/25 Procedure(s): CT ang io head neck Accession Number(s): [id number] cc: Stephon Ventura MD; Samina Thomson DO Report Number: [id number]: Total DLP = 1611.00 mGy-cm Reason for [...] intimal flap. Superior cerebellar arteries are patent. director of development and marketing: Normal patency. No f ocal stenosis. No [...] P M on March 30, 2025 via [employer]. EXAMINATION: XR CHEST CLINICAL INFORMATION: generalized weakness [...] 03/30/25 1343 DD/ 1306 TD/TT: 03/30/25 1330 Airborne Operations: XR chest 2V Reviewed date:04/01/2025 06:20:39 AM Interpretation: Performing Lab: Notes/Report: [address] [address] XRay Report Signed Patient: Michael Jenkins MR#: [id number] 7 : 1940 Acct:[id number] Age/Sex: 84 / M ADM Date: 03/30/25 Loc: HO.ED Attending Dr: Ordering Physician: Aliza Batista NP Date of Service: 03/30/25 Procedure(s): XR chest 2V Accession Number(s): [id number] cc: Stephon Ventura MD; Aliza Batista NP [...] intimal flap. Superior cerebellar arteries are patent. director of development and marketing: Normal patency. No focal stenosis. No abrupt [...] 1:33 PM on March 30, 2025 via [employer]. EXAMINATION: XR CHEST CLINICAL INFORMATION: generalized weakness [...] 03/30/25 1343 DD/ 1315 TD/TT: 03/30/25 1320 [employer] Operations: [address] [address] XRay Report Signed Patient: Kemi Jenkins rd MR#: [id number] 7 : 1940 Acct:[id number] Age/Sex: 84 / M ADM Date: 03/30/25 Loc: HO.ED Attending Dr: Ordering Physician: Aliza Batista NP Date of Service: 03/30/25 Procedure(s): XR abdi st 2V Accession Number(s): [id number] cc: Stephon Ventura MD; Aliza Batista NP [...] intimal flap. Superior cerebellar arteries are patent. director of development and marketing: Normal patency. No f ocal stenosis. No [...] P M on March 30, 2025 via [employer]. EXAMINATION: XR CHEST CLINICAL INFORMATION: generalized weakness [...] 03/30/25 1343 DD/ 1315 TD/TT: 03/30/25 1320 [employer]borne Operations: MR head/brain wo con (Not ye t reviewed by provider) Interpretation: Performing Lab: Notes/Report: [address] [address] Magnetic Resonance Report Signed Patient: Michael Jenkins MR#: [id number] 7 : 1940 Acct:[id number] Age/Sex: 84 / M ADM Date: 03/30/25 Loc: [facility] 484-[address]: Jemima Calles [employer]ER Ordering Physician: Elsa De La Cruz Date of Service: 03/30/25 Procedure(s): MR head/brain wo con Accession Number(s): [id number] cc: Elsa De La Cruz; Stephon Ventura [...] 04/01/25 1021 DD/ 1020 TD/TT: 04/01/25 1020 [employer] Operations: [address] [address] Magnetic Resonance Report Signed Patient: Kemi Jenkins rd MR#: [id number] 7 : 1940 Acct:[id number] Age/Sex: 84 / M ADM Date: 03/30/25 Loc: [facility] 484-[address]: Jemima Calles NP Ordering Physician: Elsa De La Cruz Date of Service: 03/30/25 Procedure(s): MR head/brain wo con Accession Number(s): [id number] cc: Ananda De La Cruz; Stephon Ventura [...] 04/01/25 1021 DD/ 1020 TD/TT: 04/01/25 1020 [employer] Operations: Complete Blood Count Auto Di ff (Not yet reviewed by provider) Interpretation: Performing Lab:[facility], [address] [place] [phone] Notes/Report: White Blood Count 8.4 4.8-10.8 X10*3/uL Red Blood Count 4.61 4.60-5.80 X10*6/uL Hemoglobin 13.2 14.0-18.0 g/dl Hematocrit 42.0 42.0-52.0 % Mean Corpuscular Volume 91.1 80.0-98.0 fL Mean Corpuscular Hemoglobin 28.6 27.0-33.0 pg Mean Corpuscular HGB Conc 31.4 31.0-36.0 g/dl Red Cell Distribution Width 13.8 11.0-16.0 % Platelet Count 226 160-400 X10*3/uL Mean Platelet Volume 10.8 9.4-12.4 fL Neutrophils Percent Auto 59.9 45-73 % Imm Gran Pct Auto 0.4 0.0-0.4 % Lymphocytes Percent Auto 31.2 20-40 % Monocytes Percent Auto 5.9 2-11 % Eosinophils Percent Auto 2.0 0-4 % Basophils Percent Auto 0.6 0-2 % NRBC Pct Auto 0.0 0.0-0.2 /100WBC Neutrophils Absolute Auto 5.1 2.0-8.3 x10*3/u L Imm Gran Abs Auto 0.03 0.00-0.03 X10*3/uL Lymphocytes Absolute Auto 2.6 1.2-4.9 X10*3/u L Monocytes Absolute Auto 0.5 0.1-1.2 X10*3/uL Eosinophils Absolute Auto 0.2 0.0-0.4 X10*3/u L Basophils Absolute Auto 0.1 0.0-0.2 X10*3/uL NRBC Abs Auto 0.000 0.0-0.012 X10*3/uL Comprehensive Met. Panel (No t yet reviewed by provider) Interpretation: Performing Lab:[facility], [address] [place] [phone] Notes/Report: Sodium 140 135-145 mmol/L Potassium 3.8 3.3-5.1 mmol/L Chloride 106 96-108 mmol/L Carbon Dioxide 28 22-29 mmol/L Anion Gap 10 12-20 Blood Urea Nitrogen 32 9-16 mg/dL Creatinine 0.90 0.5-1.4 mg/dL Estimated Glomerular Filt Rate > 60 Chronic Kidney Disease: Estimated GFR < 60 mL/min/1.73m2 Severe Kidney Disease: Estimated GFR < 15 mL/min/1.73m2 Glucose Random 128 60-115 mg/dL Calcium 9.3 8.4-10.2 mg/dL Bilirubin Total 0.3 0.0-1.0 mg/dL Aspartate Amino Transferase 20 5-37 U/L Alanine Aminotransferase 16 0-40 U/L Total Protein 7.0 6.5-8.0 g/dL Albumin Level 4.7 3.5-5.0 g/dL Alkaline Phosphatase 107 39-117 U/L Prostate Specific Antigen (N ot yet reviewed by provider) Interpretation: Performing Lab:[facility], [address] [place] [phone] Notes/Report: Prostate Specific Antigen 1.49 <0.05-4.0 ng/mL PSA methodology: [place] Alinity i Chemiluminescent Microparticle Immunoassay (CMIA) Reason For Referral Reason Evaluate and Treat Questioning if needs Left Carotid Endarterectomy Diagnosis 1 Carotid stenosis, ri ght (I65.21) Diagnosis 2 PVD (peripheral vasc ular disease) (I73.9) Diagnosis 3 Carotid stenosis (I6 5.29) Referral Organization Stephon Ventura III, MD Referring Provider First Name Stephon Referring Provider Last Name Lorenzo Referring Provider Speciality Internal M edicine Referred Organization [facility] dionicio Referred Provider Jose Alberto Ruvalcaba Referred Address [address] [place] [address],[place], [place],[id number], Referred Provider Specialty Vascular Daria jhon General [...] Last Name Lorenzo Referring Provider Speciality [facility] Referred Provider Domonique Escamilla Referred Provider Specialty Neurology General Notes DCharmaine 08/09/2024 10:01:45 AM > Spoke with Dr. [...] Last Name Lorenzo Referring Provider Speciality Internal [facility] Referred Organization [facility] nter Referred Provider Jose Alberto Ruvalcaba Referred Address [address] [place] [address],[place], [place],[id number], Referred Provider Specialty Vascular Daria jhon General [...] Referring Provider Last Name Lorenzo [facility] Referred Provider Phi Garcia ([facility] e Vascular) Referred Provider Specialty Vascular Daria jhon General Notes Marlin Gonzalez CMA 04/03 03:17:55 PM >ref/demo/testing faxed to Dr Garcia ([facility]), Charmaine Ramirez 04/04/2025 03:14:35 PM > Patient is scheduled for 11/05/25 @ 4:20 pm with Phi Garcia MD at [address] [place] [address]. Referral Priority Routine Referral Appointment Date 04/11/2025 Medications Medication SIG (Take, Route, Frequency, Duration) [...] Problem Status W/U Status Risk Notes Problem 1355095 Former smoker (Z87.891) Active confirmed He seems highly motivated not to smoke. We discussed a plan to prevent relapse in times of stress and illness. Problem 479882688 Overweight (BMI 25.0-29.9) (E66.3) Active confirmed His body mass index is 26. We discussed diet and nutrition today. We reviewed his weight loss strategy. Problem Hyperlipidemia (35095955) Hyperlipidemia (E78.5) Active confirmed No change in hi s medication was made today.He was continued on his statin therapy. Problem Hypertension (10981357) Hypertension (I10) Active confirmed His blood pressure is improving but still not optimal. He will be seen back every couple of weeks to enforce compliance. I will bring his family with him. He is going to see the vascular surgeon next week. Problem 197054580 Prostate cancer (C61) Active confirmed He is receiving androgen depravation therapy through Dr. Joe at [facility] urology in [place], [place]. His disease is well-controlled. Problem 250825096 Seizure disorder (G40.909) Active confirmed He had a seizur e May 05, 2024 at home and was hospitalized for several days at [facility] [place]. Imaging of the brain showed no stroke.I recommended he continue his Keppra. He is adamant that he will not take that medication or any other at this time. He has been noncompliant past but did agree to followed carefully in the office. I will continue to work with this difficult patient. He did agree not to drive. Problem 99232933 Anxiety (F41.9) Active confirmed We discussed the causes of riged fingernails and cold sores at length today. If the symptoms persist. I told drop by the office for inspection. It is very unlikely this is a side effect of his medication and he was encouraged to continue it. Problem Vitamin D deficiency (71073610) Vitamin D deficiency, unspecified (E55.9) Active confirmed He continues on supplementation. 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 Problem Benign prostatic hyperplasia (805663640) BPH (benign prostatic hyperplasia) (N40.0) Active confirmed He says he arises from sleep twice a night sometimes once and sometimes 3 times to urinate. We have discussed lifestyle modification as a way of reducing nocturia. Problem Memory loss (02077764) Memory loss (R41.3) Active confirmed Problem Carotid artery stenosis (13614005) Carotid stenosis (I65.29) Active confirmed Problem Peripheral vascular disease (211568143) PVD (peripheral vascular disease) (I73.9) Active confirmed [facility] of the [facility]% stenosis of the left internal carotid artery and normal flow through the right internal carotid artery which has had an endarterectomy. 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 Problem 34001533 Glaucoma, unspecified glaucoma type, unspecified laterality (H40.9) Active confirmed He will remain under the care of his retail support manager with no change in his medications. Problem 154602079 Cataract, unspecified cataract type, unspecified laterality (H26.9) Active confirmed He will remain under the care of his retail support manager. Problem 098146517 History of seizure (Z87.898) Active confirmed He has a histor y of breakthrough seizures but none since. He was discharged from the hospital. He says he is taking his medication appropriately. Problem 129189025799303 Carotid stenosis, right (I65.21) Active confirmed He is going to see Dr. Garcia at [facility] vascular surgery next week. 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 He is taking lamotrigine. He says he has agrreed to take 200 mg in the morning and 100 mg at night faithfully. A follow-up visit was arranged. He has had no recent seizures. Problem 237262909 Noncompliance with medications (Z91.148) Active confirmed I [...] Height 67 in 04/03/2025 Blood pressure systolic 140 mm Hg 04/03/2025 Weight 157 lbs 04/03/2025 BMI 24.59 kg/m2 04/03/2025 Encounters Encounter Location Date Provider Diagnosis Stephon Ventura III, MD [address] [place] [address] [place] [address] 05/09/2024 Stephon Ventura Hypertension I10 ; P VD (peripheral vascular disease) I73.9 ; Hyperlipidemia E78.5 ; Overweight (BMI 25.0-29.9) E66.3 ; Former smoker Z87.891 ; BPH (benign prostatic hyperplasia) N40.0 ; Noncompliance with medications Z91.148 and Seizure disorder G40.909 Stephon Ventura III, MD [address] [place] [address] [place] [address] 06/19/2024 Stephon Ventura Hypertension I10 ; P [...] cerebral artery I66.22 Stephon Ventura III, MD [address] [place] [address] [place] [address] 07/31/2024 Stephon Ventura Hypertension I10 ; Seizure disorder G40.909 ; PVD (peripheral vascular disease) I73.9 ; Hyperlipidemia E78.5 ; Former smoker Z87.891 ; Carotid stenosis, right I65.21 ; Occlusion and stenosis of left posterior cerebral artery I66.22 ; BPH (benign prostatic hyperplasia) N40.0 ; Anxiety F41.9 ; Noncompliance with medications Z91.148 and Overweight (BMI 25.0-29.9) E66.3 Stephon Venutra III, MD [address] [place] [address] [place] [address] 10/09/2024 Stephon Ventura Hypertension I10 ; Seizure disorder G40.909 ; PVD (peripheral vascular disease) I73.9 ; Former smoker Z87.891 ; Hyperlipidemia E78.5 ; Overweight (BMI 25.0-29.9) E66.3 and BPH (benign prostatic hyperplasia) N40.0 Stephon Ventura III, MD [address] [place] [address] [place] [address] 10/20/2024 Stephon Ventura Hypertension I10 ; Nonintractable epilepsy without status epilepticus, unspecified epilepsy type G40.909 ; PVD (peripheral vascular disease) I73.9 ; Hyperlipidemia E78.5 ; Former smoker Z87.891 ; BPH (benign prostatic hyperplasia) N40.0 ; History of seizure Z87.898 ; Prostate cancer C61 and Overweight (BMI 25.0-29.9) E66.3 Stephon Ventura III, MD [address] [place] [address] [place] [address] 01/01/2025 Stephon Ventura Hypertension I10 ; History of seizure Z87.898 ; PVD (peripheral vascular disease) I73.9 ; Hyperlipidemia E78.5 ; Glaucoma, unspecified glaucoma type, unspecified laterality H40.9 ; Former smoker Z87.891 ; Overweight (BMI 25.0-29.9) E66.3 ; Carotid stenosis, right I65.21 and Vitamin D deficiency, unspecified E55.9 Stephon Ventura III, MD [address] [place] [address] [place] [address] 01/22/2025 Stephon Ventura Hypertension I10 ; P VD (peripheral vascular disease) I73.9 ; History of seizure Z87.898 ; Hyperlipidemia E78.5 ; Prostate cancer C61 ; Glaucoma, unspecified glaucoma type, unspecified laterality H40.9 ; Former smoker Z87.891 and Vitamin D deficiency, unspecified E55.9 Stephon Ventura III, MD [address] [place] [address] [place] [address] 04/03/2025 Stephon Ventura Hypertension I10 ; P VD (peripheral vascular disease) I73.9 ; History of seizure Z87.898 ; Prostate cancer C61 ; Carotid stenosis, right I65.21 ; Hyperlipidemia E78.5 ; Glaucoma, unspecified glaucoma type, unspecified laterality H40.9 ; Former smoker Z87.891 and Seizure disorder G40.909 Stephon Ventura III, MD [address] [place] [address] [place] [address] 06/08/2024 Stephon Ventura III, MD [address] [place] [address] [place] [address] 08/04/2024 Stephon Ventura III, MD [address] [place] [address] [address] [place], [place] [address] 01/08/2025 Stephon Ventura III, MD [address] [place] [address] [address] [place] [address] 01/24/2025 Stephon Ventura III, MD [address] [place] [address] [address] [place] [address] 02/14/2025 Stephon Ventura Assessments Encounter Date Diagnosis [...] and was hospitalized for several days at [facility]. Imaging of the brain showed no stroke.I [...] and was hospitalized for several days at [facility]. Imaging of the brain showed no stroke.I [...] and was referred to vascular surgery at [facility] in June 2024. Repair was planned after his seizures were corrected. He will be referred back there at this time. 04/03/2025 Hypertension (ICD-10 - I10) His blood pressure is improving but still not optimal. He will be seen back every couple of weeks to enforce compliance. I will bring his family with him. He is going to see the vascular surgeon next week. 04/03/2025 PVD (peripheral vascular disease) (ICD-10 - I73.9) Imaging of the head and neck last week, however [facility] showed a 90% stenosis of the left internal carotid artery and normal flow through the right internal carotid artery which has had an endarterectomy. 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 05/09/2024 Hyperlipidemia (ICD-10 - E78.5) His total [...] says he is taking his medication appropriately. 05/09/2024 Overweight (BMI 25.0-29.9) (ICD-10 - E66.3) His body mass index is 26. We discussed diet and nutrition today. We reviewed his weight loss strategy. 06/19/2024 Cataract, unspecified cataract type, unspecified laterality (ICD-10 - H26.9) He will remain under the care of his retail support manager. 07/31/2024 Hyperlipidemia (ICD-10 - E78.5) His total [...] be done in the near future. 04/03/2025 Prostate cancer (ICD-10 - C61) He is receiving androgen depravation therapy through Dr. Joe at [facility] urology in [place], [place]. His disease is well-controlled. 05/09/2024 Former smoker (ICD-10 - Z87.891) He seems highly motivated not to smoke. We discussed a plan to prevent relapse in times of stress and illness. 06/19/2024 Glaucoma, unspecified glaucoma type, unspecified laterality (ICD-10 - H40.9) He will remain under the care of his retail support manager with no change in his medications. 07/31/2024 [...] will remain under the care of his retail support manager with no change in his medications. 01/22/2025 Prostate cancer (ICD-10 - C61) PSA has been ordered. He is currently free of symptoms. 04/03/2025 Carotid stenosis, right (ICD-10 - I65.21) He is going to see Dr. Garcia at [facility] vascular surgery next week. 05/09/2024 BPH (benign prostatic hyperplasia) (ICD-10 - [...] will remain under the care of his retail support manager with no change in his medications. 04/03/2025 Hyperlipidemia (ICD-10 - E78.5) No change in his medication was made today.He was continued on his statin therapy. 05/09/2024 Noncompliance with medications (ICD-10 - Z91.148) [...] in times of stress and illness. 04/03/2025 Glaucoma, unspecified glaucoma type, unspecified laterality (ICD-10 - H40.9) He will remain under the care of his retail support manager with no change in his medications. 05/09/2024 Seizure disorder (ICD-10 - G40.909) He had a seizure May 05, 2024 at home and was hospitalized for several days at [facility]. Imaging of the brain showed no stroke.I [...] (ICD-10 - E55.9) He continues on supplementation. 04/03/2025 Former smoker (ICD-10 - Z87.891) He seems highly motivated not to smoke. We discussed a plan to prevent relapse in times of stress and illness. 06/19/2024 Carotid stenosis, right (ICD-10 - I65.21) [...] (ICD-10 - E55.9) He continues on supplementation. 04/03/2025 Seizure disorder (ICD-10 - G40.909) He had a seizure May 05, 2024 at home and was hospitalized for several days at [facility]. Imaging of the brain showed no stroke.I recommended he continue his Keppra. He is adamant that he will not take that medication or any other at this time. He has been noncompliant past but did agree to followed carefully in the office. I will continue to work with this difficult patient. He did agree not to drive. 06/19/2024 Occlusion and stenosis of left posterior [...] (PHENYTOIN) 08/10/2022 PSA, TOTAL 08/31/2022 PSA, TOTAL 01/22/2025 PSA, TOTAL 08/10/2022 PSA, TOTAL 07/06/2023 PSA, TOTAL 04/03/2025 PSA, TOTAL 10/09/2024 PSA, TOTAL 04/19/2023 PSA, TOTAL 12/31/2023 PSA, [...] DIFF 04/19/2023 Complete Blood Count Auto Diff Comprehensive Met. Panel 04/04/2025 Lipid Panel 12/31/2023 Lipid Panel 11/16/2023 Lipid Panel 07/06/2023 Lipid Panel 04/19/2023 Prostate Specific Antigen 04/04/2025 Vitamin D 25-OH Total 10/09/2024 Testosterone, Total 10/09/2024 Lamotrigine Lamictal 08/31/2022 MR head/brain wo con 04/01/2025 Next Appt Details Provider Name:Stephon Guo Lorenzo , 04/30/2025 02:15:00 PM, [address] [place] [address] [address], [place], [address], Provider Name:Stephon Guo Lorenzo , 01/07/2026 02:00:00 PM, [address] [place] [address] [address], [place], [address], Insurance Providers Payer Name Payer Address Payer Phone Subscriber Number Group Number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
--- OUTSIDE RECORDS SUMMARY | 2025-04-04 18:44 | XMS_ITS | Encounter Summary ---
Author Organization [facility] Address [address] [place] [address] Care Team Providers Care Drilling Contractor Name Role Phone Stephon Ventura Primary Care Provider [phone] Encounter Details Date Type Department Care Team (Late st Contact Info) Description 09/30/2022 Telephone [facility] Central Scheduling Department [address] [place] [id number] Telephone Intake, Staff Social History Tobacco Use [...] few days of 10/20 appointment. Please call: [place]: [phone] documented in this encounter Plan of Treatment Not on file documented as of this encounter Visit Diagnoses Not on filedocumented in this encounter Care Teams Drilling Contractor Relationship Specialty Start Date End Date Stephon Ventura [address] [facility] [address] [place] [address] PCP - General Hematology 06/05/21 documented as of this encounter
--- OUTSIDE RECORDS SUMMARY | 2025-04-04 18:44 | XMS_ITS | Clinical Summary ---
Author Organization [facility] Address [address] [place] [address] Care Team Providers Care Film Composer Name Role Phone Stephon Ventura Primary Care Provider [phone] Allergies No known active allergies Medications lisinopriL [...] complete this topic Procedures * Due to [place] [employer] law, this organization might not be sharing negative HIV tests. Procedure Name Priority Date/Time Associated Diagnosis Comments COMPREHENSIVE METABOLIC PANEL Routine 04/15/2022 2:59 PM EST Partial symptomatic epilepsy with complex partial seizures, not intractable, without status epilepticus from Last 3 Months or Most Recently Relevant to Health Maintenance Results * Due to [place] [employer] law, this organization might not be [...] - 40 U/L 04/15/2022 3:48 PM EST [facility] BUN 25(H) 7 - 23 mg/dL 04/15/2022 3:48 PM EST [facility] eGFR 65(L) >=90 mL/min/1. 73m2 04/15/2022 3:48 PM EST [facility] Comment: Estimated [...] MD LAB BLOOD ORDERABLES Final Resul t [facility] [address] [place] [address], from Last 3 Months or Most Recently Relevant to Health Maintenance Insurance MEDICARE [id number] Care Teams Film Composer Relationship Specialty Start Date End Date Stephon Ventura [facility] [address] PCP - General Hematology 06/05/21
== END 2025-04-04 14:22 | disposition home or self-care (01) ==
LOC: HO.LAB 14:21
PROVIDERS: PCP Internal Medicine Medical Oncology; Visit Provider Internal Medicine Medical Oncology
DX: Z12.5 Encounter for screening for malignant neoplasm of prostate (principal); I10 Essential (primary) hypertension; I65.21 Occlusion and stenosis of right carotid artery; I73.9 Peripheral vascular disease, unspecified; R97.20 Elevated prostate specific antigen [PSA]; C61 Malignant neoplasm of prostate
CPT/HCPCS: 36415; 80053; 84153; 85025